=== PATIENT | male | born 1935 | race Caucasian/White ===

== ENCOUNTER 2016-09-18 07:29 | Inpatient (IN) | payer MEDICARE ==
[2016-09-18] MEDS ORDERED: KETOROLAC 60 MG/2 ML VIAL IVP STA (07:45)
[2016-09-18] MEDS ORDERED: SODIUM CHLORIDE 0.9% 500 ML IV STA (07:45)
--- NOTE | 2016-09-18 07:47 | ED ---
General Adult HPI - General Stated complaint: WEAKNESS Time Seen by Provider: 09/18/16 07:30 Source: RN notes reviewed - History of Present Illness Initial comments: This is an 80-year-old male who comes into the emergency department today complaining of generalized weakness in his legs. Patient states he got up to go outside and every step he took he felt as though he was weaker and weaker and eventually he sat himself down slowly because he was unable to hold himself up any longer. Patient denies any focal weakness per patient denies any focal numbness. Patient denies any injury or trauma. Patient denies any headache patient denies any neck pain. Patient denies chest pain palpitations difficulty breathing or shortness of breath. Patient denies abdominal pain. Patient denies any recent history of nausea vomiting or diarrhea. Patient denies any rashes. Patient denies any fever chills or cough. Patient states he 's just been weak. Patient denies any new pain in the knees he states he was has some pain but he does not believe pain was associated with him being weak. - Related Data Home Medications Medication Instructions Recorded Confirmed Allopurinol [Zyloprim] 300 mg PO DAILY 05/01/16 09/18/16 Calcium/Magnesium/Zinc 1 tab PO Q48H 05/01/16 09/18/16 [Qnzfzmn-Nitqbiedn-Luan Tablet] Carvedilol [Coreg] 3.125 mg PO BID 05/01/16 09/18/16 Cholecalciferol [Vitamin D3] 1,000 unit PO DAILY 05/01/16 09/18/16 Cyanocobalamin [Vitamin B-12] 500 mcg PO DAILY 05/01/16 09/18/16 Donepezil [Aricept] 5 mg PO DAILY 05/01/16 09/18/16 Fesoterodine Fumarate [Toviaz] 8 mg PO DAILY 05/01/16 09/18/16 Lisinopril [Zestril] 20 mg PO DAILY 05/01/16 09/18/16 Rociada-3 Fatty Acids [Rociada-3] 1,000 mg PO DAILY 05/01/16 09/18/16 Simvastatin [Zocor] 40 mg PO HS 05/01/16 09/18/16 Vitamin E (Dl,Tocopheryl Acet) 400 unit PO DAILY 05/01/16 09/18/16 [Vitamin E] Aspirin EC [Ecotrin] 162.5 mg PO BID 09/18/16 09/18/16 Furosemide [Lasix] 20 mg PO DAILY 09/18/16 09/18/16 Glucosamine Sulfate 1,000 mg PO DAILY 09/18/16 09/18/16 Potassium Chloride [Klor-Con] 20 meq PO DAILY 09/18/16 09/18/16 Rivaroxaban [Xarelto] 20 mg PO DAILY 09/18/16 09/18/16 Allergies Allergy/AdvReac Type Severity Reaction Status Date / Time Sulfa (Sulfonamide Allergy Unknown Verified 09/18/16 08:35 Antibiotics) Childhood Review of Systems ROS Statement: Those systems with pertinent positive or pertinent negative responses have been documented in the HPI. ROS Other: All systems not noted in ROS Statement are negative. 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 History of Any Multi-Drug Resistant Organisms: None Reported Past Surgical History: Hernia Repair, Orthopedic Surgery, Prostate Surgery, Tonsillectomy Additional Past Surgical History / Comment(s): 2009 colonoscopy, L eye cataract surgery, L eye laser surgery, R eye surgery for retinal detachment-unsuccessful , R inguinal hernia repair x2, prostatectomy due to cancer. Past Anesthesia/Blood Transfusion Reactions: No Reported Reaction Additional Past Anesthesia/Blood Transfusion Reaction / Comment(s): Pt states he has never received blood. Past Psychological History: No Psychological Hx Reported Additional Psychological History / Comment(s): Pt lives alone. He uses a cane prn. He drives. Smoking Status: Former smoker Past Alcohol Use History: Rare Additional Past Alcohol Use History / Comment(s): Pt states he started smoking in college and quit in 1986. Past Drug Use History: None Reported - Past Family History Father Family Medical History: Musculoskeletal Disorder, Neurologic Disorder Additional Family Medical History / Comment(s): Father of parkinson's disease at the age of 72 yrs. Mother Family Medical History: Dementia, Musculoskeletal Disorder, Neurologic Disorder Additional Family Medical History / Comment(s): Mother had polio at the age of 2 yrs and wore braces and used crutches to ambulate. She at the age of 95 yrs from dementia and bowel obstruction. General Exam - General Exam Comments Initial Comments: GENERAL: Patient is well-developed and well-nourished. Patient is nontoxic and well- hydrated and is in no acute distress. ENT: Neck is soft and supple. No significant lymphadenopathy is noted. Oropharynx is clear. Moist mucous membranes. Neck has full range of motion without eliciting any pain. EYES: The sclera were anicteric and conjunctiva were pink and moist. Extraocular movements were intact and pupils were equal round and reactive to light. Eyelids were unremarkable. PULMONARY: Unlabored respirations. Good breath sounds bilaterally. No audible rales rhonchi or wheezing was noted. CARDIOVASCULAR: There is a regular rate and rhythm without any murmurs gallops or rubs. ABDOMEN: Soft and nontender with normal bowel sounds. No palpable organomegaly was noted. There is no palpable pulsatile mass. SKIN: Skin is clear with no lesions or rashes and otherwise unremarkable. NEUROLOGIC: Patient is alert and oriented x3. Cranial nerves II through XII are grossly intact. Motor and sensory are also intact. Normal speech, volume and content. Symmetrical smile. MUSCULOSKELETAL: Normal extremities with adequate strength and full range of motion. No lower extremity swelling or edema. No calf tenderness. LYMPHATICS: No significant lymphadenopathy is noted PSYCHIATRIC: Normal psychiatric evaluation. Normal interpersonal interactions appears functionally intact in deals appropriately with others. No signs of depression. No signs of anxiety. Course Vital Signs 09/18/16 09/18/16 09/18/16 07:30 08:22 09:25 Temperature 96.5 F L 96.8 F L Pulse Rate 64 58 L 57 L Respiratory 18 16 16 Rate Blood Pressure 134/99 160/71 147/67 O2 Sat by Pulse 100 96 97 Oximetry 09/18/16 11:09 Temperature Pulse Rate 58 L Respiratory 16 Rate Blood Pressure 144/64 O2 Sat by Pulse 99 Oximetry Medical Decision Making - Medical Decision Making EKG shows normal sinus rhythm at 60 bpm SC interval 284 QRS is 90 QT intervals 434 QTC is 434. Patient's EKG shows no significant ST segment elevation. There is Q waves in leads II, III, and F aVF. We try to get the patient up and ambulating in the emergency department he was unable to get up on his own and support his weight. X-rays of the back showed no acute injury. Chest x-ray showed no acute injury. CT of the brain showed no acute abnormality. Because the patient's inability to ambulate and the fact that he lives alone we admitted the patient for generalized weakness and left knee pain. - Lab Data Result diagrams: 09/18/16 07:40 09/18/16 07:40 Lab Results 09/18/16 09/18/16 09/18/16 Range/Units 07:40 07:40 07:40 WBC 6.0 (3.8-10.6) k/uL RBC 4.63 (4.30-5.90) m/uL Hgb 13.9 (13.0-17.5) gm/dL Hct 43.0 (39.0-53.0) % MCV 92.9 (80.0-100.0) fL MCH 30.0 (25.0-35.0) pg MCHC 32.3 (31.0-37.0) g/dL RDW 15.4 (11.5-15.5) % Plt Count 228 (150-450) k/uL Neutrophils % 74 % Lymphocytes % 12 % Monocytes % 6 % Eosinophils % 4 % Basophils % 1 % Neutrophils # 4.4 (1.3-7.7) k/uL Lymphocytes # 0.7 L (1.0-4.8) k/uL Monocytes # 0.4 (0-1.0) k/uL Eosinophils # 0.3 (0-0.7) k/uL Basophils # 0.0 (0-0.2) k/uL PT (9.0-12.0) sec INR (<1.1) APTT (22.0-30.0) sec Sodium 144 (137-145) mmol/L Potassium 4.5 (3.5-5.1) mmol/L Chloride 106 (98-107) mmol/L Carbon Dioxide 27 (22-30) mmol/L Anion Gap 11 mmol/L BUN 32 H (9-20) mg/dL Creatinine 1.34 H (0.66-1.25) mg/dL Est GFR (MDRD) Af Amer >60 (>60 ml/min/1.73 sqM) Est GFR (MDRD) Non-Af 51 (>60 ml/min/1.73 sqM) Glucose 86 (74-99) mg/dL Calcium 10.0 (8.4-10.2) mg/dL Magnesium 2.0 (1.6-2.3) mg/dL Total Bilirubin 0.9 (0.2-1.3) mg/dL AST 28 (17-59) U/L ALT 37 (21-72) U/L Alkaline Phosphatase 52 (38-126) U/L Total Creatine Kinase 98 (55-170) U/L CK-MB (CK-2) 1.5 (0.0-2.4) ng/mL CK-MB (CK-2) Rel Index 1.5 Troponin I <0.012 (0.000-0.034) ng/mL Total Protein 7.5 (6.3-8.2) g/dL Albumin 4.4 (3.5-5.0) g/dL Urine Color Urine Appearance (Clear) Urine pH (5.0-8.0) Ur Specific Townsend (1.001-1.035) Urine Protein (Negative) Urine Glucose (UA) (Negative) Urine Ketones (Negative) Urine Blood (Negative) Urine Nitrite (Negative) Urine Bilirubin (Negative) Urine Urobilinogen (<2.0) mg/dL Ur Leukocyte Esterase (Negative) Urine RBC (0-5) /hpf Urine WBC (0-5) /hpf Ur Squamous Epith Cells (0-4) /hpf Urine Bacteria (None) /hpf Urine Mucus (None) /hpf 09/18/16 09/18/16 Range/Units 07:40 08:52 WBC (3.8-10.6) k/uL RBC (4.30-5.90) m/uL Hgb (13.0-17.5) gm/dL Hct (39.0-53.0) % MCV (80.0-100.0) fL MCH (25.0-35.0) pg MCHC (31.0-37.0) g/dL RDW (11.5-15.5) % Plt Count (150-450) k/uL Neutrophils % % Lymphocytes % % Monocytes % % Eosinophils % % Basophils % % Neutrophils # (1.3-7.7) k/uL Lymphocytes # (1.0-4.8) k/uL Monocytes # (0-1.0) k/uL Eosinophils # (0-0.7) k/uL Basophils # (0-0.2) k/uL PT 11.3 (9.0-12.0) sec INR 1.1 (<1.1) APTT 28.5 (22.0-30.0) sec Sodium (137-145) mmol/L Potassium (3.5-5.1) mmol/L Chloride (98-107) mmol/L Carbon Dioxide (22-30) mmol/L Anion Gap mmol/L BUN (9-20) mg/dL Creatinine (0.66-1.25) mg/dL Est GFR (MDRD) Af Amer (>60 ml/min/1.73 sqM) Est GFR (MDRD) Non-Af (>60 ml/min/1.73 sqM) Glucose (74-99) mg/dL Calcium (8.4-10.2) mg/dL Magnesium (1.6-2.3) mg/dL Total Bilirubin (0.2-1.3) mg/dL AST (17-59) U/L ALT (21-72) U/L Alkaline Phosphatase (38-126) U/L Total Creatine Kinase (55-170) U/L CK-MB (CK-2) (0.0-2.4) ng/mL CK-MB (CK-2) Rel Index Troponin I (0.000-0.034) ng/mL Total Protein (6.3-8.2) g/dL Albumin (3.5-5.0) g/dL Urine Color Yellow Urine Appearance Clear (Clear) Urine pH 5.0 (5.0-8.0) Ur Specific Townsend 1.016 (1.001-1.035) Urine Protein 1+ H (Negative) Urine Glucose (UA) Negative (Negative) Urine Ketones Negative (Negative) Urine Blood Negative (Negative) Urine Nitrite Negative (Negative) Urine Bilirubin Negative (Negative) Urine Urobilinogen <2.0 (<2.0) mg/dL Ur Leukocyte Esterase Negative (Negative) Urine RBC 2 (0-5) /hpf Urine WBC 3 (0-5) /hpf Ur Squamous Epith Cells <1 (0-4) /hpf Urine Bacteria Rare H (None) /hpf Urine Mucus Rare H (None) /hpf Disposition Clinical Impression: Generalized weakness, Left knee pain Disposition: ADMITTED IP TO THIS HOSP Time of Disposition: 11:36
[2016-09-18 08:08] LABS: Basophils % (A) 1 %; CH 30.9; CHCM 33.4; Eosinophils # (A) 0.3 k/uL (0-0.7); Eosinophils % (A) 4 %; HDW 3.17; HGB 13.9 gm/dL (13.0-17.5); Luc # (Auto) 0.17; Luc % (Auto) 3; Lymphocytes # (A) 0.7 k/uL (1.0-4.8); Lymphocytes % (A) 12 %; MCHC 32.3 g/dL (31.0-37.0); MCV 92.9 fL (80.0-100.0); Mean Platelet Volume 6.6; Monocytes # (A) 0.4 k/uL (0-1.0); Monocytes % (A) 6 %; Neutrophils # (A) 4.4 k/uL (1.3-7.7); Neutrophils % (A) 74 %; RBC 4.63 m/uL (4.30-5.90); RDW 15.4 % (11.5-15.5); WBC (Perox) 6.16
[2016-09-18 08:21] LABS: INR 1.1 (<1.1); Partial Thromboplastin Time 28.5 sec (22.0-30.0); Prothrombin Time 11.3 sec (9.0-12.0)
[2016-09-18 08:26] LABS: ALT 37 U/L (21-72); AST 28 U/L (17-59); Alkaline Phosphatase 52 U/L (38-126); Anion Gap 11 mmol/L; Blood Urea Nitrogen 32 mg/dL (9-20); Carbon Dioxide 27 mmol/L (22-30); Chloride 106 mmol/L (98-107); Glucose 86 mg/dL (74-99); Non-African American GFR(MDRD) 51 (>60 ml/min/1.73 sqM); Potassium 4.5 mmol/L (3.5-5.1); Sodium 144 mmol/L (137-145); Total Bilirubin 0.9 mg/dL (0.2-1.3); Total Protein 7.5 g/dL (6.3-8.2)
[2016-09-18 08:28] LABS: Creatine Kinase 98 U/L (55-170)
--- NOTE | 2016-09-18 08:38 | XR ---
EXAMINATION TYPE: XR chest 2V DATE OF EXAM: 09/18/2016 8:32 AM COMPARISON: Chest x-ray May 02, 2016. CT chest May 01, 2016. HISTORY: Weakness TECHNIQUE: Frontal and lateral views of the chest are obtained. FINDINGS: Underlying emphysematous changes redemonstrated. There is no focal air space opacity, pleur al effusion, or pneumothorax seen. The cardiac silhouette size is stable and upper limits of normal with atherosclerotic thoracic aorta. Retrocardiac opacity is consistent with herniated abdominal fat into mediastinum posterior to the heart with mass effect on left atrium and esophagus noted. The oss eous structures are intact. IMPRESSION: Chronic changes without acute pulmonary process.
[2016-09-18 08:40] LABS: Creatine Kinase MB 1.5 ng/mL (0.0-2.4); Troponin I <0.012 ng/mL (0.000-0.034)
--- NOTE | 2016-09-18 08:40 | XR ---
EXAMINATION TYPE: XR lumbar spine 2 or 3V DATE OF EXAM: 09/18/2016 8:32 AM CLINICAL HISTORY: Low back pain. TECHNIQUE: Frontal and lateral images of the lumbar spine are obtained. COMPARISON: None FINDINGS: There are 5 lumbar type vertebral bodies identified. The lumbar spine shows satisfactory alignment without evidence of acute fracture or dislocation. Mild disc space narrowing L5-S1 level is seen. Vertebral body heights and disk space heights otherwise are within normal limits. Mild multile wagner anterior and lateral spurring is present. Vascular calcification in the overlying soft tissue is noted. IMPRESSION: Mild multilevel spurring with mild disc space narrowing L5-S1 level.
[2016-09-18 09:05] LABS: Appearance,Urine Clear (Clear); Bacteria,Urine Rare /hpf; Bilirubin,Urine Negative (Negative); Glucose,Urine (UA) Negative (Negative); Ketones,Urine Negative (Negative); Leukocyte Esterase,Urine Negative (Negative); Mucus,Urine Rare /hpf; Nitrite,Urine Negative (Negative); Particle Count 3532; Protein,Urine 1+ (Negative); RBC,Urine 2 /hpf (0-5); Specific Gravity,Urine 1.016 (1.001-1.035); Squamous Epithelial Cell,Urine <1 /hpf (0-4); UA Billing (MACRO vs. MICRO) MICRO; Urobilinogen,Urine <2.0 mg/dL (<2.0); WBC,Urine 3 /hpf (0-5)
--- NOTE | 2016-09-18 10:38 | CT ---
EXAMINATION TYPE: CT brain wo con DATE OF EXAM: 09/18/2016 10:29 AM HISTORY: Fall today with possible head injury CT DLP: 1195 mGycm. Automated Exposure Control for Dose Reduction was Utilized. TECHNIQUE: CT scan of the head is performed without contrast. COMPARISON: MRI brain October 02, 2012. FINDINGS: There is no acute intracranial hemorrhage or midline shift identified. There is diffuse v entricular and sulcal prominence consistent with diffuse age-related cerebral atrophy. Degree of vent ricular dilatation is slightly out of proportion to degree of sulcal effacement and a normal pressure hydrocephalus is not excluded though no significant change in ventricular size is noted from 2013 MR I. There is some areas of low-attenuation in the periventricular white matter consistent with chroni c small vessel ischemic change. There is old area of infarct involving the anterior left temporal lob e near axial image 12 new from prior MRI. Cortical buckle in the right globe is redemonstrated which is elongated. Visualized paranasal sinuses are clear. Narrowing and sclerosis at atlantodental inte rval is incidentally seen. IMPRESSION: No acute intracranial hemorrhage or midline shift. There is moderate to severe diffuse age-related cerebral atrophy and mild chronic small vessel ischemic change redemonstrated felt stable . Possible normal pressure hydrocephalus though stable from 2013 MRI. 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
[2016-09-18] MEDS ORDERED: SODIUM CHLORIDE 0.9% 1,000 ML IV ONE (11:36)
[2016-09-18] MEDS: MULTIVITAMINS, THERA 1 EACH TAB PO SCH (21:05)
[2016-09-18] MEDS: ASPIRIN 81 MG CHEW PO SCH (21:05)
[2016-09-18] MEDS: ATORVASTATIN 20 MG TAB PO SCH (21:05)
[2016-09-18] MEDS: HYDROcodone/APAP 5-325MG 1 EACH TAB PO PRN (21:05)
[2016-09-18] MEDS: CARVEDILOL 3.125 MG TAB PO SCH (21:05)
[2016-09-19] MEDS: HYDROcodone/APAP 5-325MG 1 EACH TAB PO PRN ×2 (04:03→09:59)
[2016-09-19] MEDS ORDERED: NON-FORMULARY DRUG (Omega-3 Fatty Acids [Omega-3] 1,000 MG) PO SCH (09:00)
[2016-09-19] MEDS ORDERED: FUROSEMIDE 20 MG TAB PO SCH (09:00)
[2016-09-19] MEDS ORDERED: GLUCOSAMINE SULFATE 1000 MG PO SCH (09:00)
[2016-09-19] MEDS: CHOLECALCIFEROL 1,000 UNIT TAB PO SCH (09:06)
[2016-09-19] MEDS: CYANOCOBALAMIN 500 MCG TAB PO SCH (09:06)
[2016-09-19] MEDS: POTASSIUM CHLORIDE ER 20 MEQ TAB.ER PO SCH (09:06)
[2016-09-19] MEDS: CARVEDILOL 3.125 MG TAB PO SCH ×2 (09:07→20:14)
[2016-09-19] MEDS: LISINOPRIL 20 MG TAB PO SCH (09:07)
[2016-09-19] MEDS: VITAMIN E (DL,TOCOPHERYL ACET) 400 UNIT CAP PO SCH (09:07)
[2016-09-19] MEDS: DONEPEZIL 5 MG TAB PO SCH (09:07)
[2016-09-19] MEDS: ALLOPURINOL 300 MG TAB PO SCH (09:07)
[2016-09-19] MEDS: OXYBUTYNIN XL 5 MG TAB.ER.24 PO SCH (09:07)
[2016-09-19] MEDS: ASPIRIN 81 MG CHEW PO SCH ×2 (09:07→20:14)
--- NOTE | 2016-09-19 09:10 | CONS ---
DATE OF CONSULTATION: 09/18/2016 CHIEF COMPLAINT: Lower extremity weakness. HISTORY OF PRESENT ILLNESS: Mr. Flores is a pleasant 80-year-old male who is being evaluated by the neurology service per the request of Dr. Michelle for the above-mentioned complaints. The patient was brought into [facility] Emergency Room complaining of weakness in his right lower extremity along with significant radicular type pain from his lumbosacral spine. He denies any new injuries or trauma. He states that he was unable to bear weight on his leg mostly due to the pain. He does have history of recurrent low back pain for several years, but the pain has been worse over the past few months. He denies any bladder retention or incontinence. He is also complaining of severe right knee pain. He has been having knee pain for several years as well. He describes both pain as a sharp pain and he rates it at 8/[address] scan of the brain was done because of his complaint of weakness and no intracranial abnormalities were seen, except for generalized atrophy and small vessel ischemic changes. The report mentions some changes consistent with normal pressure hydrocephalus but he denies any memory loss, urinary incontinence, or chronic gait instability. His CT scan of the brain also showed an old infarct involving the left temporal lobe. The patient is on Xarelto and aspirin at home. An x-ray of the lumbar spine was done for his low back pain and it did show mild disc narrowing at L5-S1. I did review his laboratory work-up, which showed a normal CBC, cardiac enzymes, urinalysis and INR. His comprehensive metabolic profile showed renal insufficiency with a BUN of 32 and creatinine of 1.34. He denies any numbness or tingling. PAST MEDICAL HISTORY: Dyslipidemia, hypertension, arthritis, chronic renal disease, history of prostate cancer with history of prostatectomy, history of aortic aneurysm, history of nephrolithiasis, history of GI bleed, peptic ulcer disease, history of hernia repair, orthopedic surgeries, and tonsillectomy. He also has history of cataract surgery. SOCIAL HISTORY: The patient is a former smoker. He rarely drinks alcohol. He denies any drug use. FAMILY HISTORY: Positive for Parkinson's disease and dementia. HOME MEDICATIONS: Reviewed in the chart. ALLERGIES: SULFA DRUGS. REVIEW OF SYSTEMS: CONSTITUTIONAL: Negative. EYES: Positive for right eye vision loss and reduced acuity in the left eye. ENT: Negative. CARDIOVASCULAR: Negative. RESPIRATORY: Negative. NEUROLOGICAL: As mentioned above. GASTROINTESTINAL: Positive for occasional heartburn. GENITOURINARY: Negative. MUSCULOSKELETAL: As mentioned above. DERMATOLOGICAL: Negative. ENDOCRINE: Negative. PSYCHIATRIC: Negative. PHYSICAL EXAM: Vital signs show a temperature of 98.3, pulse 64, respirations 18, blood pressure 114/60. GENERAL APPEARANCE: The patient is a mildly obese, elderly male who appears to be in mild distress due to pain. HEENT: Normocephalic, atraumatic. No facial asymmetry is seen. Neck is supple with no masses felt. CARDIOVASCULAR: Regular rate and rhythm. ABDOMEN: Nontender, nondistended. EXTREMITIES: No edema or clubbing. NEUROLOGICAL EXAM: The patient is alert, aware, and oriented x3. Speech and language are normal. Strength is 5-/5 in the right lower extremity and 5/5 elsewhere. Straight leg raise sign was positive on the right lower extremity. Sensory exam was normal to light touch in all 4 extremities. No facial asymmetry is seen on cranial nerve testing. There is vision loss on the right. No tremors or seizure-like activity is seen. IMPRESSION: 1. Intractable low back pain. 2. Right lower extremity radicular pain. 3. Suspected lumbosacral spine disc herniation. 4. Severe right knee pain, likely arthritic in etiology. 5. Chronic renal insufficiency. RECOMMENDATIONS: The patient's right lower extremity is not felt to be due to any intracranial etiologies. Although he is complaining of significant weakness in the right lower extremity, the weakness was minimal on my examination. His presumed weakness is likely due to the severity of the radicular pain. NSAID therapy is not recommended due to his renal function. Continue Whitman as needed. I did review his x-ray of the lumbar spine which failed to show any acute abnormalities. I will order an MRI of the lumbosacral spine as I do suspect an acute disc herniation. Physical therapy has been consulted. As for his CT scan of the brain finding of an old infarct involving the left temporal lobe, the patient is already on Xarelto and aspirin. Regarding his radiological findings that are consistent with normal pressure hydrocephalus, the patient is not exhibiting any symptoms concerning for this. I will continue to follow with you. Further recommendations to follow. Thank you for allowing me to participate in the care of your patient. If you have any questions, please feel free to contact me.
[2016-09-19 10:07] LABS: ALT 29 U/L (21-72); AST 21 U/L (17-59); Alkaline Phosphatase 41 U/L (38-126); Anion Gap 9 mmol/L; Blood Urea Nitrogen 29 mg/dL (9-20); Calcium 9.4 mg/dL (8.4-10.2); Carbon Dioxide 28 mmol/L (22-30); Chloride 107 mmol/L (98-107); Glucose 89 mg/dL (74-99); Non-African American GFR(MDRD) >60 (>60 ml/min/1.73 sqM); Potassium 4.9 mmol/L (3.5-5.1); Sodium 144 mmol/L (137-145); Total Bilirubin 0.8 mg/dL (0.2-1.3); Total Protein 6.3 g/dL (6.3-8.2)
[2016-09-19 10:08] LABS: Basophils % (A) 0 %; CH 31.2; CHCM 33.5; Eosinophils # (A) 0.3 k/uL (0-0.7); Eosinophils % (A) 4 %; HDW 3.22; HGB 13.1 gm/dL (13.0-17.5); Luc # (Auto) 0.27; Luc % (Auto) 4; Lymphocytes % (A) 16 %; MCH 30.8 pg (25.0-35.0); MCHC 32.8 g/dL (31.0-37.0); Mean Platelet Volume 7.4; Monocytes # (A) 0.3 k/uL (0-1.0); Monocytes % (A) 5 %; Neutrophils # (A) 4.5 k/uL (1.3-7.7); Neutrophils % (A) 71 %; RBC 4.25 m/uL (4.30-5.90); RDW 15.3 % (11.5-15.5); WBC 6.4 k/uL (3.8-10.6); WBC (Perox) 6.66
--- NOTE | 2016-09-19 10:15 | P.HPIM ---
History of Present Illness H&P Date: 09/19/16 Chief Complaint: Bilateral leg weakness with fall This is a 80-year-old male, patient of Dr. Ramírez. He has a known past medical history of pulmonary embolus, hyperlipidemia and hypertension. Patient is on Xarelto for his PE. Patient reports yesterday he is walking from the yard to his car and both legs gave out. He felt that his legs are very weak. He has been having pains in the right knee and right hip. He had no loss of consciousness. He did not hit his head. A neighbor called EMS and he was brought into the hospital for further evaluation and treatment. EKG had shown a normal sinus rhythm with inferior infarct age undetermined. Troponin is negative. X-ray of the lumbar spine showed multilevel spurring and mild disc space narrowing of L5 to S1. He is on [place] for pain control. He had been taking Motrin 200 mg about once a day for his chronic pains. Neurology has been consulted. They have ordered a MRI of the lumbar spine due to concerns of herniated disc. Patient denies any chest pain, shortness of breath, nausea or vomiting. Denies any burning with urination denies any bladder incontinence. Denies any bowel movement changes. Denies any fevers chills or sweats. Patient uses a cane to ambulate. He did have a fall couple weeks ago in the bathtub hitting his right hip. She was also found to have acute kidney injury. Creatinine 1.34. Lasix on hold. And patient is receiving IV fluids. 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 History of Any Multi-Drug Resistant Organisms: None Reported Past Surgical History: Hernia Repair, Orthopedic Surgery, Prostate Surgery, Tonsillectomy Additional Past Surgical History / Comment(s): 2009 colonoscopy, L eye cataract surgery, L eye laser surgery, R eye surgery for retinal detachment-unsuccessful , R inguinal hernia repair x2, prostatectomy due to cancer. Past Anesthesia/Blood Transfusion Reactions: No Reported Reaction Additional Past Anesthesia/Blood Transfusion Reaction / Comment(s): Pt states he has never received blood. Past Psychological History: No Psychological Hx Reported Additional Psychological History / Comment(s): Pt lives alone. He uses a cane prn. He drives. Smoking Status: Former smoker Past Alcohol Use History: Rare Additional Past Alcohol Use History / Comment(s): Pt states he started smoking in college and quit in 1986. Past Drug Use History: None Reported - Past Family History Father Family Medical History: Musculoskeletal Disorder, Neurologic Disorder Additional Family Medical History / Comment(s): Father of parkinson's disease at the age of 72 yrs. Mother Family Medical History: Dementia, Musculoskeletal Disorder, Neurologic Disorder Additional Family Medical History / Comment(s): Mother had polio at the age of 2 yrs and wore braces and used crutches to ambulate. She at the age of 95 yrs from dementia and bowel obstruction. Medications and Allergies Home Medications Medication Instructions Recorded Confirmed Type Allopurinol [Zyloprim] 300 mg PO DAILY 05/01/16 09/18/16 History Calcium/Magnesium/Zinc 1 tab PO Q48H 05/01/16 09/18/16 History [Zazpryg-Ujnkmbpnc-Cclf Tablet] Carvedilol [Coreg] 3.125 mg PO BID 05/01/16 09/18/16 History Cholecalciferol [Vitamin D3] 1,000 unit PO DAILY 05/01/16 09/18/16 History Cyanocobalamin [Vitamin B-12] 500 mcg PO DAILY 05/01/16 09/18/16 History Donepezil [Aricept] 5 mg PO DAILY 05/01/16 09/18/16 History Fesoterodine Fumarate [Toviaz] 8 mg PO DAILY 05/01/16 09/18/16 History Lisinopril [Zestril] 20 mg PO DAILY 05/01/16 09/18/16 History Washington-3 Fatty Acids [Washington-3] 1,000 mg PO DAILY 05/01/16 09/18/16 History Simvastatin [Zocor] 40 mg PO HS 05/01/16 09/18/16 History Vitamin E (Dl,Tocopheryl Acet) 400 unit PO DAILY 05/01/16 09/18/16 History [Vitamin E] Aspirin EC [Ecotrin] 162.5 mg PO BID 09/18/16 09/18/16 History Furosemide [Lasix] 20 mg PO DAILY 09/18/16 09/18/16 History Glucosamine Sulfate 1,000 mg PO DAILY 09/18/16 09/18/16 History Potassium Chloride [Klor-Con] 20 meq PO DAILY 09/18/16 09/18/16 History Rivaroxaban [Xarelto] 20 mg PO DAILY 09/18/16 09/18/16 History Allergies Allergy/AdvReac Type Severity Reaction Status Date / Time Sulfa (Sulfonamide Allergy Unknown Verified 09/18/16 08:35 Antibiotics) Childhood Physical Exam Vitals: Vital Signs Temp Pulse Pulse Resp BP BP Pulse Ox 09/19/16 08:00 97.5 F L 52 L 18 156/68 98 09/19/16 04:00 98.2 F 63 16 153/74 96 09/19/16 00:00 18 09/18/16 20:00 18 09/18/16 18:33 64 114/60 09/18/16 16:00 98.3 F 74 18 186/95 97 09/18/16 12:30 97.5 F L 65 18 140/79 96 09/18/16 12:12 65 16 140/63 98 Intake and Output 09/18/16 09/19/16 09/19/16 22:59 06:59 14:59 Intake Total 480 Output Total 100 600 Balance 380 -600 Intake: Oral 480 Output: Urine 100 600 Other: Voiding Method Urinal Urinal # Voids 1 1 Head normocephalic Neck supple Lungs clear to auscultation bilaterally no wheezing or crackles Heart regular rate and rhythm S1-S2, no rub or gallop Abdomen is soft nontender nondistended positive bowel sounds no hepatosplenomegaly Extremities no edema. Patient has swelling in the right knee. No discoloration. Tender with palpation and range of motion. Also pain in the right hip. Patient has difficulty with straight leg raise on the right. Neuro alert and orientated to 3. Lower extremity strength appears to be equal bilaterally. No slurred speech or facial droop. Results CBC & Chem 7: 09/18/16 07:40 09/18/16 07:40 Thrombosis Risk Factor Assmnt - Choose All That Apply Any of the Below Risk Factors Present?: Yes Each Factor Represents 1 point: Obesity (BMI >25) Other Risk Factors: Yes Each Risk Factor Represents 2 Points: Malignancy Each Risk Factor Represents 3 Points: Age 75 years or older, History of DVT/PE Other congenital or acquired thrombophilia - If yes, enter type in comment: No Thrombosis Risk Factor Assessment Total Risk Factor Score: 9 Thrombosis Risk Factor Assessment Level: High Risk Assessment and Plan Plan: 1. Bilateral lower extremity weakness with falling. Evaluated by neurology. Computed tomography scan of the brain showing no acute intracranial hemorrhage or midline shift. Patient had an x-ray of the lumbar spine showing mild multilevel spurring and mild disc space narrowing of L5 to S1. There are concerns for of lumbosacral spine disc herniation. Neurology has ordered a MRI of lumbar spine. Continue [place] for pain control 2. Right hip and knee pain Will order x-ray 3. Acute kidney injury: Creatinine 1.34 on admission. Repeat labs this morning. Hold Lasix. Continue with normal saline at 50 mL an hour. Avoid NSAIDs. 4. History of bilateral PE and lower extremity DVT. Continue with the Xarelto 5. Hyperlipidemia continue Lipitor 6. Essential hypertension continue the Corag and lisinopril 7. Dementia continue the Aricept GI prophylaxis Pepcid and DVT prophylaxis Xarelto Time with Patient: Greater than 30 (Greater than 50% of the total time spent in counseling and coordination of care.I performed an examination of the patient and discussed their management with the physician [employer]. I have reviewed the Physician [employer]'s notes and agree with the documented findings and plan of care)
[2016-09-19] MEDS ORDERED: SODIUM CHLORIDE 0.9% 1,000 ML IV SCH (10:30)
[2016-09-19] MEDS: FAMOTIDINE 20 MG TAB PO SCH (12:29)
--- NOTE | 2016-09-19 14:01 | P.PN ---
Subjective Principal diagnosis: Lower extremity weakness and pain This 89-year-old male continue be evaluated by the neurology service. She was brought in complaining of weakness in his right lower extremity. He denies any recent injury or trauma other than I fall a couple weeks ago onto his right hip. He did not seek medical attention for this. He does have a history of intermittent low back pain over several years. He continues to deny bladder or bowel incontinence. He continues to have severe right knee and hip pain. There is no continued weakness. Initial CT of the brain was done and there were no intracranial abnormalities. There was some generalized atrophy and small vessel ischemic changes. It was also mentioned that there were changes that might be consistent with normal pressure hydrocephalus. He has no symptoms consistent with this. 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 X-ray lumbar spine showed mild disc narrowing at L5-S1. At the time my exam he is resting comfortably laying on his right side in bed. Objective - Vital Signs Vital signs: Vital Signs Temp 97.5 F L 09/19/16 08:00 Pulse 52 L 09/19/16 08:00 Resp 18 09/19/16 08:00 BP 156/68 09/19/16 08:00 Pulse Ox 98 09/19/16 08:00 Intake & Output 09/18/16 09/19/16 09/19/16 18:59 06:59 18:59 Intake Total 480 960 Output Total 100 600 Balance 380 360 Weight 105 kg Intake: Oral 480 960 Output: Urine 100 600 Other: Voiding Method Urinal Urinal Urinal # Voids 1 1 - Constitutional General appearance: Present: average body habitus, mild distress - EENT Eyes: Present: EOMI, PERRLA. Absent: abnormal pupil, ptosis ENT: Present: hearing grossly normal - Neck Neck: Present: normal ROM. Absent: rigidity - Respiratory Respiratory: negative: prolonged expiration, prolonged inspiration - Cardiovascular Rhythm: regular - Gastrointestinal General gastrointestinal: Absent: distended, tenderness - Neurologic Neurologic Comment(s): Patient is alert awake and oriented 3. Speech-language are normal. There is no facial asymmetry. Strength continues to be 5 minus out of 5 right lower extremity but this is felt to be secondary to pain in the knee and hip. There is no sensory disturbance straight leg raise is mildly positive on the right. He continues to have vision loss on the right which is chronic. No tremors or seizure-like activities are seen. - Labs CBC & Chem 7: 09/19/16 09:30 09/19/16 09:30 Labs: Abnormal Lab Results - Last 24 Hours (Table) 09/19/16 09/19/16 Range/Units 09:30 09:30 RBC 4.25 L (4.30-5.90) m/uL BUN 29 H (9-20) mg/dL Assessment and Plan (1) Disc displacement, lumbar Status: Suspected (2) Right knee pain Status: Chronic (3) Right hip pain Status: Chronic (4) Gout Status: Chronic (5) Right leg pain Status: Acute (6) Left knee pain Status: Acute Plan: Again we do not feel that his right lower extremity symptoms are due to any intracranial etiology. The subjective weakness is likely secondary to pain in the hip and knee. We are waiting MRI lumbar spine to rule out acute disc herniation. Or so has been called to evaluate his right knee and hip pain consideration should be given to an acute on chronic gout attack. He does have a large effusion of the right knee. He will continue Xarelto on aspirin. This is appropriate given his finding of old infarct on CT of the brain. He continues to be asymptomatic for normal pressure hydrocephalus. We will continue to follow and make recommendations based on the above studies. Continue [place] as prescribed for pain control as needed. I have performed a history and physical on the above patient. I have reviewed the above note, and agree.
--- NOTE | 2016-09-19 16:15 | XR ---
EXAMINATION TYPE: 2 views right hip. 3 views right knee. DATE OF EXAM: 09/19/2016 4:00 PM COMPARISON: NONE HISTORY: 80-year-old male with a pain and swelling at the right hip and knee. FINDINGS: Right hip: There is mild circumferential narrowing of hip joint space. Some marginal spurring is present as well as subchondral sclerosis along the acetabular roof and subchondral cystic change along the weightbea ring aspect of the femoral head. No acute fracture or dislocation. Right knee: There is a bar are tight patella which can become symptomatic in some patients. In addition, there is tricompartmental degenerative change with at least moderate narrowing of cartilage and joint space i n the medial compartment with subchondral sclerosis and marginal spurring. Irregularity of the subcho ndral bone along the patellar articular surface is also noted. There is underlying mild to moderate k nee joint effusion suggested. Extensor mechanism appears intact. Extensive vascular calcifications no chetan in the popliteal artery. No acute fracture or dislocation seen. IMPRESSION: 1. Right hip: Mild right hip osteoarthrosis without acute osseous abnormality seen. 2. Right knee: Tricompartmental osteoarthrosis at least moderate, probably moderate to severe within the medial and patellofemoral compartments. 3. 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 4. Right knee: Small to moderate knee joint effusion is nonspecific. No acute osseous abnormality see n.
--- NOTE | 2016-09-19 17:20 | MR ---
EXAMINATION TYPE: MR lumbar spine wo con DATE OF EXAM: 09/19/2016 5:08 PM COMPARISON: NONE HISTORY: Right leg pain and weakness TECHNIQUE: Multiplanar, multisequence images of the lumbar spine were acquired. Lumbar vertebra have fairly normal alignment. There is a few millimeter anterior subluxation of L5 in relation to S1. There is a small posterior disc herniation at L5-S1. There is small posterior disc b ulging at L2-3 and L4-5. There is hypertrophic facet arthropathy and lateral recess stenosis at L4-5 and L5-S1. This appears worse at L5-S1. There is narrowing of the right-sided neural foramen at L5-S1 compared to the left. The posterior elements appear intact. There is no paraspinal mass. Sacroiliac joints appear normal. There are multiple cysts on both kidneys that are large and consistent with bere ycystic disease. IMPRESSION: Multilevel spondylosis. There is mild degenerative first degree L4-5 spondylolisthesis. There is some lateral recess stenosis and neural foraminal impingement on the right side more than the left at L5- S1.
[2016-09-19] MEDS: RIVAROXABAN 10 MG TAB PO SCH (18:02)
--- NOTE | 2016-09-19 19:11 | P.PN ---
Progress Note - Text Patient unavailable for inpatient consultation today. Will attempt to see tomorrow.
[2016-09-19] MEDS: ATORVASTATIN 20 MG TAB PO SCH (20:14)
[2016-09-20] MEDS: HYDROcodone/APAP 5-325MG 1 EACH TAB PO PRN ×3 (01:15→18:48)
--- NOTE | 2016-09-20 06:36 | P.CONS ---
History of Present Illness - Chief Complaint Walking difficulty - History of Present Illness Had the opportunity to see patient for inpatient rehab consultation with regard to walking difficulty. He was admitted to [facility] September 18 history of leg weakness and falls and right hip and knee pain. X-ray the right knee demonstrated moderate osteoarthritis, bipartite patella and joint effusion. X- ray of the hip demonstrated mild OA. Chest x-ray with chronic change. Lumbar x -ray with diffuse spurs as well as DDD at L5. Lumbar MRI done yesterday demonstrates L2 bulge L5 herniation. DDD 04, 5 lateral recess stenosis at both levels, most at L5. PT and OT prescribed. Previous functional history, as elicited from patient: 80-year-old right-handed white male who is single lives in one floor home alone, cats. History smoking or mode past. Rare drink. Describes independent with simple cooking, laundry, driving, tub bath, gait with standard cane. Dr. Ramírez his regular doctor. Family history of Parkinson in father and polio in mother. Review of Systems Review of systems: ENT: Denies sneezes or discharge. Eyes: Denies discharge or photophobia. Cardiac: Denies chest pain or palpitation. Pulmonary: Denies cough or shortness of breath. Gastrointestinal: Denies nausea, emesis, constipation, diarrhea. Genitourinary: Denies discharge or frequency. Musculoskeletal: Pain in right leg especially from hip to knee. Neurologic: Denies motor or sensory change. Endocrine: Denies shakes or sweats. Oncology: Denies cancers. Dermatologic: Denies rash, itching, pruritus. ALLERGY/immunology: Denies sneezes, rashes. 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 History of Any Multi-Drug Resistant Organisms: None Reported Past Surgical History: Hernia Repair, Orthopedic Surgery, Prostate Surgery, Tonsillectomy Additional Past Surgical History / Comment(s): 2009 colonoscopy, L eye cataract surgery, L eye laser surgery, R eye surgery for retinal detachment-unsuccessful , R inguinal hernia repair x2, prostatectomy due to cancer. Past Anesthesia/Blood Transfusion Reactions: No Reported Reaction Additional Past Anesthesia/Blood Transfusion Reaction / Comm: Pt states he has never received blood. Past Psychological History: No Psychological Hx Reported Additional Psychological History / Comment(s): Pt lives alone. He uses a cane prn. He drives. Smoking Status: Former smoker Past Alcohol Use History: Rare Additional Past Alcohol Use History / Comment(s): Pt states he started smoking in college and quit in 1986. Past Drug Use History: None Reported - Past Family History Father Family Medical History: Musculoskeletal Disorder, Neurologic Disorder Additional Family Medical History / Comment(s): Father of parkinson's disease at the age of 72 yrs. Mother Family Medical History: Dementia, Musculoskeletal Disorder, Neurologic Disorder Additional Family Medical History / Comment(s): Mother had polio at the age of 2 yrs and wore braces and used crutches to ambulate. She at the age of 95 yrs from dementia and bowel obstruction. Medications and Allergies Home Medications Medication Instructions Recorded Confirmed Type Allopurinol [Zyloprim] 300 mg PO DAILY 05/01/16 09/18/16 History Calcium/Magnesium/Zinc 1 tab PO Q48H 05/01/16 09/18/16 History [Porcryi-Fykftnrhb-Wcxu Tablet] Carvedilol [Coreg] 3.125 mg PO BID 05/01/16 09/18/16 History Cholecalciferol [Vitamin D3] 1,000 unit PO DAILY 05/01/16 09/18/16 History Cyanocobalamin [Vitamin B-12] 500 mcg PO DAILY 05/01/16 09/18/16 History Donepezil [Aricept] 5 mg PO DAILY 05/01/16 09/18/16 History Fesoterodine Fumarate [Toviaz] 8 mg PO DAILY 05/01/16 09/18/16 History Lisinopril [Zestril] 20 mg PO DAILY 05/01/16 09/18/16 History Jerome-3 Fatty Acids [Jerome-3] 1,000 mg PO DAILY 05/01/16 09/18/16 History Simvastatin [Zocor] 40 mg PO HS 05/01/16 09/18/16 History Vitamin E (Dl,Tocopheryl Acet) 400 unit PO DAILY 05/01/16 09/18/16 History [Vitamin E] Aspirin EC [Ecotrin] 162.5 mg PO BID 09/18/16 09/18/16 History Furosemide [Lasix] 20 mg PO DAILY 09/18/16 09/18/16 History Glucosamine Sulfate 1,000 mg PO DAILY 09/18/16 09/18/16 History Potassium Chloride [Klor-Con] 20 meq PO DAILY 09/18/16 09/18/16 History Rivaroxaban [Xarelto] 20 mg PO DAILY 09/18/16 09/18/16 History Allergies Allergy/AdvReac Type Severity Reaction Status Date / Time Sulfa (Sulfonamide Allergy Unknown Verified 09/18/16 08:35 Antibiotics) Childhood Physical Exam Vitals: Vital Signs Temp Pulse Resp BP Pulse Ox 09/20/16 04:00 97.9 F 55 L 16 161/77 98 09/20/16 03:58 16 09/19/16 23:49 16 09/19/16 20:00 16 09/19/16 19:37 97.8 F 56 L 16 119/62 97 09/19/16 15:58 97.7 F 53 L 18 103/62 97 09/19/16 08:00 97.5 F L 52 L 18 156/68 98 Intake and Output 09/19/16 09/19/16 09/20/16 14:59 22:59 06:59 Intake Total 960 480 Output Total 600 350 Balance 360 130 Intake: Oral 960 480 Output: Urine 600 350 Other: Voiding Method Urinal Urinal Urinal # Voids 1 1 Skin: Good color, texture, turgor. General: Medium build and comfortable appearance. Head: Normocephalic, atraumatic. Eyes: Symmetric. Pupils equal round. Ears: Symmetric. Hearing within normal limits. Mouth: Clear. Neck: Supple. Carotid without bruit. Cardiac: Regular rate and rhythm. Lungs: Clear anteriorly and posteriorly. Abdomen: Soft active nontender. Extremities: Normal tone. Neurological: Mental status: Alert, cooperative, pleasant. Cranial nerves: Symmetric facial tone and trapezius. Motor: Actively elevates all limbs off of bed including right leg. Sensation: Intact throughout. DTRs: Symmetric and equal throughout. Mobility: Reports much discomfort and right hip, knee and leg so did not attempt to sit or stand this a.m.. Results CBC & Chem 7: 09/19/16 09:30 09/19/16 09:30 Labs: Abnormal Lab Results - Last 24 Hours (Table) 09/19/16 09/19/16 Range/Units 09:30 09:30 RBC 4.25 L (4.30-5.90) m/uL BUN 29 H (9-20) mg/dL Chest x-ray: report reviewed (Chronic changes.) Assessment and Plan (1) Right leg pain Status: Acute Plan: Impression: 1. Walking difficulty. 2. Pain in right leg including hip and knee. 3. 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 4. Dementia. 5. Jazz arthritis. 6. Hypertension. 7. Hyperlipidemia. 8. History of DVT, PE, GI bleed, cancer Comments and plan: At this time PT and OT ordered. Safety concerns anticipated. Suspect patient's pain problem is originating and back with associated radiculopathies and of course complicated by arthritic changes in hips and knees. Will follow with yourself.
[2016-09-20 08:16] LABS: Basophils % (A) 1 %; CH 30.8; CHCM 32.7; Eosinophils # (A) 0.3 k/uL (0-0.7); Eosinophils % (A) 5 %; HCT 42.5 % (39.0-53.0); HDW 3.14; HGB 13.4 gm/dL (13.0-17.5); Luc # (Auto) 0.19; Luc % (Auto) 3; Lymphocytes # (A) 1.1 k/uL (1.0-4.8); Lymphocytes % (A) 18 %; MCH 29.9 pg (25.0-35.0); MCHC 31.6 g/dL (31.0-37.0); MCV 94.5 fL (80.0-100.0); Mean Platelet Volume 6.5; Monocytes # (A) 0.3 k/uL (0-1.0); Monocytes % (A) 6 %; Neutrophils % (A) 68 %; WBC (Perox) 6.12
[2016-09-20] MEDS: CARVEDILOL 3.125 MG TAB PO SCH ×2 (08:25→17:50)
[2016-09-20] MEDS: OXYBUTYNIN XL 5 MG TAB.ER.24 PO SCH (08:25)
[2016-09-20] MEDS: LISINOPRIL 20 MG TAB PO SCH (08:25)
[2016-09-20] MEDS: CHOLECALCIFEROL 1,000 UNIT TAB PO SCH (08:26)
[2016-09-20] MEDS: DONEPEZIL 5 MG TAB PO SCH (08:26)
[2016-09-20] MEDS: CYANOCOBALAMIN 500 MCG TAB PO SCH (08:26)
[2016-09-20] MEDS: ALLOPURINOL 300 MG TAB PO SCH (08:26)
[2016-09-20] MEDS: ASPIRIN 81 MG CHEW PO SCH ×2 (08:26→19:59)
[2016-09-20] MEDS: FAMOTIDINE 20 MG TAB PO SCH (08:27)
[2016-09-20] MEDS: VITAMIN E (DL,TOCOPHERYL ACET) 400 UNIT CAP PO SCH (08:27)
[2016-09-20] MEDS: POTASSIUM CHLORIDE ER 20 MEQ TAB.ER PO SCH (08:27)
[2016-09-20 08:35] LABS: ALT 26 U/L (21-72); AST 28 U/L (17-59); Alkaline Phosphatase 41 U/L (38-126); Anion Gap 10 mmol/L; Blood Urea Nitrogen 29 mg/dL (9-20); Calcium 9.3 mg/dL (8.4-10.2); Carbon Dioxide 24 mmol/L (22-30); Chloride 107 mmol/L (98-107); Glucose 96 mg/dL (74-99); Non-African American GFR(MDRD) >60 (>60 ml/min/1.73 sqM); Potassium 4.8 mmol/L (3.5-5.1); Sodium 141 mmol/L (137-145); Total Bilirubin 0.8 mg/dL (0.2-1.3); Total Protein 6.7 g/dL (6.3-8.2)
[2016-09-20] MEDS ORDERED: methylPREDNISolone ACETATE 40 MG/ML 1 ML VIAL INTRAARTIC STA (08:39)
[2016-09-20] MEDS ORDERED: LIDOCAINE (PF) 10 MG/ML 2 ML VIAL SQ ONE (09:00)
--- NOTE | 2016-09-20 11:27 | P.CNOR ---
History of Present Illness - [facility] Consult date: 09/20/16 Consult reason: joint pain History of present illness: This is an 80-year-old male who was seen and examined today at bedside in the observation unit. Patient was brought to the hospital on 09/18/2016 by EMS after sustaining a fall at his home. Patient describes that he was walking from his garage to the house when he fell both legs give out and he went down. A neighbor was available to assist and contacted EMS who brought minimal [facility] emergency room. The patient has a history of recent falls, the last one being a few weeks ago where he fell in his bathtub hitting his right hip region. Patient also has a significant medical history of bilateral pulmonary embolisms, and is being treated with Xarelto 20 mg once a day. The PEs were diagnosed back in April 2016. Patient was admitted to the observation unit under internal medicine, and neurology was consult with regards to the lower extremity weakness and has ordered multiple imaging test. MRIs have demonstrated disc bulging and herniations had an area in the lumbar spine, it sounds like orthopedic spine surgery has also been consulted. We will reconsult with regards to the right knee pain. Patient denies any previous surgery of the right knee. Imaging test of the right knee and right hip are obtained. These were negative for any acute fractures or dislocations. Patient states he's had increasing pain in the right knee and right hip region over the last few weeks. He admits that he has seen Dr. Chung in [place] with regards to the arthritis in his knee. Patient is also had the Visco supplementation injections on the right knee by his primary care doctor. 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 History of Any Multi-Drug Resistant Organisms: None Reported Past Surgical History: Hernia Repair, Orthopedic Surgery, Prostate Surgery, Tonsillectomy Additional Past Surgical History / Comment(s): 2009 colonoscopy, L eye cataract surgery, L eye laser surgery, R eye surgery for retinal detachment-unsuccessful , R inguinal hernia repair x2, prostatectomy due to cancer. Past Anesthesia/Blood Transfusion Reactions: No Reported Reaction Additional Past Anesthesia/Blood Transfusion Reaction / Comm: Pt states he has never received blood. Past Psychological History: No Psychological Hx Reported Additional Psychological History / Comment(s): Pt lives alone. He uses a cane prn. He drives. Smoking Status: Former smoker Past Alcohol Use History: Rare Additional Past Alcohol Use History / Comment(s): Pt states he started smoking in college and quit in 1986. Past Drug Use History: None Reported - Past Family History Father Family Medical History: Musculoskeletal Disorder, Neurologic Disorder Additional Family Medical History / Comment(s): Father of parkinson's disease at the age of 72 yrs. Mother Family Medical History: Dementia, Musculoskeletal Disorder, Neurologic Disorder Additional Family Medical History / Comment(s): Mother had polio at the age of 2 yrs and wore braces and used crutches to ambulate. She at the age of 95 yrs from dementia and bowel obstruction. Medications and Allergies Home Medications Medication Instructions Recorded Confirmed Type Allopurinol [Zyloprim] 300 mg PO DAILY 05/01/16 09/18/16 History Calcium/Magnesium/Zinc 1 tab PO Q48H 05/01/16 09/18/16 History [Vnarixb-Lkxpxkkpi-Qlkq Tablet] Carvedilol [Coreg] 3.125 mg PO BID 05/01/16 09/18/16 History Cholecalciferol [Vitamin D3] 1,000 unit PO DAILY 05/01/16 09/18/16 History Cyanocobalamin [Vitamin B-12] 500 mcg PO DAILY 05/01/16 09/18/16 History Donepezil [Aricept] 5 mg PO DAILY 05/01/16 09/18/16 History Fesoterodine Fumarate [Toviaz] 8 mg PO DAILY 05/01/16 09/18/16 History Lisinopril [Zestril] 20 mg PO DAILY 05/01/16 09/18/16 History Derby-3 Fatty Acids [Derby-3] 1,000 mg PO DAILY 05/01/16 09/18/16 History Simvastatin [Zocor] 40 mg PO HS 05/01/16 09/18/16 History Vitamin E (Dl,Tocopheryl Acet) 400 unit PO DAILY 05/01/16 09/18/16 History [Vitamin E] Aspirin EC [Ecotrin] 162.5 mg PO BID 09/18/16 09/18/16 History Furosemide [Lasix] 20 mg PO DAILY 09/18/16 09/18/16 History Glucosamine Sulfate 1,000 mg PO DAILY 09/18/16 09/18/16 History Potassium Chloride [Klor-Con] 20 meq PO DAILY 09/18/16 09/18/16 History Rivaroxaban [Xarelto] 20 mg PO DAILY 09/18/16 09/18/16 History Allergies Allergy/AdvReac Type Severity Reaction Status Date / Time Sulfa (Sulfonamide Allergy Unknown Verified 09/18/16 08:35 Antibiotics) Childhood Physical Examination Right lower extremity: Exam of the right knee, there is no obvious open lesions present. There is no obvious erythema. The skin is normal temp 1 palpated. There is an obvious effusion present over the proximal anterior aspect. His range of motion is very limited both active and assisted with regards to extension and flexion. He 's tender with palpation more along the medial joint line. Sensory exam to light touch throughout the right lower extremity is intact. Plantar flexion, dorsiflexion, EHL, FHL are intact. His dorsal pedis pulses 2+ Logroll maneuver of the right hip reproduces no pain. He is able to straight leg raise. He is nontender with palpation of the greater trochanter. He explains and points to the discomfort in the right hip region, this is more posterior in the buttock region. Results - Labs Labs: Abnormal Lab Results - Last 24 Hours (Table) 09/20/16 Range/Units 07:41 BUN 29 H (9-20) mg/dL H & H 09/19/16 09/20/16 Range/Units 09:30 07:44 Hgb 13.1 13.4 (13.0-17.5) gm/dL Hct 40.0 42.5 (39.0-53.0) % Result Diagrams: 09/20/16 07:44 09/20/16 07:41 - Diagnostic results Hip x-ray: report reviewed, image reviewed Knee x-ray: report reviewed, image reviewed Assessment and Plan Plan: Imaging: I was able to review images of both the right knee and right hip. Images were negative for any acute fractures or dislocations. Minimal arthritic changes present in the right hip with loss of joint space and sclerosis noted. Severe arthritic changes noted throughout the right knee, mainly of the medial joint space and patellofemoral joint. There is translation of both the medial and lateral femoral condyles. Obvious varus deformity present. Assessment: 1. Right knee pain 2. Right knee hemarthrosis 3. Severe right knee osteoarthritis Plan: 1. With regards to the knee, I explained to the patient that the swelling is likely due to the amount of arthritis in the patient's knee along with his most recent fall. I would like to proceed with an aspiration along with intra- articular steroid injection for symptomatically. Risk and benefits of the procedure with the patient, including need for subsequent aspirations, pain and stiffness. Patient is in good understanding would like to proceed, please see procedure note for further detail. 2. With regards to the hip pain, he does have mild arthritis in the hip, pain in the posterior region is likely due to the lumbar issues that are being addressed 3. Neurology recommendations 4. Orthopedic spine recommendations 5. Medical recommendations 6. Gen. orthopedic standpoint, patient was advised to ice and elevate along with anti-inflammatories for symptomatic relief. Patient should benefit from a total knee replacement, pending his medical clearances. I advised the patient he may follow up with our practice the outpatient setting on an as-needed basis. Procedure: Patient was placed in supine position, the knee was sterilely prepped with a Betadine swab and alcohol swab. A 20-gauge needle was used to aspirate 85 mL of bloody serous fluid from the right knee. After adequate aspiration, 40 mg of Depo-Medrol and 2 mL of 1% plain lidocaine were injected intra-articularly into the right knee. Bandage is placed after procedure. Time with Patient: Less than 30
--- NOTE | 2016-09-20 11:39 | P.PN ---
Subjective Patient's presented with bilateral leg weakness with fall. Patient had MRI of the lumbar spine showing mild degenerative first-degree L4 to L5 spondylolisthesis. Some lateral recess stenosis and neural foraminal impingement on the right side more than the left at L5 to S1. Spinal surgery has been consulted. Patient has been up and ambulating with walker in the hallway. He's also been seen evaluated by orthopedics for right knee effusion. Patient's pain is controlled. He denies any chest pain or shortness breath. Denies any nausea or vomiting. Last bowel movement 2-3 days ago. Denies any difficulty urinating. Objective - Vital Signs Vital signs: Vital Signs Temp 97.6 F 09/20/16 07:31 Pulse 57 L 09/20/16 07:31 Resp 18 09/20/16 07:31 BP 164/87 09/20/16 07:31 Pulse Ox 97 09/20/16 07:31 Intake & Output 09/19/16 09/20/16 09/20/16 18:59 06:59 18:59 Intake Total 1440 480 Output Total 950 600 Balance 490 -120 Intake: Oral 1440 480 Output: Urine 950 600 Other: Voiding Method Urinal Urinal Urinal # Voids 1 - Exam Head normocephalic Neck supple Lungs clear to auscultation bilaterally no wheezing or crackles Heart regular rate and rhythm S1-S2, no rub or gallop Abdomen is soft nontender nondistended positive bowel sounds no hepatosplenomegaly Extremities right knee effusion with tenderness with palpation. No discoloration Neuro alert and orientated to 3 - Labs CBC & Chem 7: 09/20/16 07:44 09/20/16 07:41 Labs: Abnormal Lab Results - Last 24 Hours (Table) 09/20/16 Range/Units 07:41 BUN 29 H (9-20) mg/dL Assessment and Plan Plan: 1. Bilateral lower extremity weakness with falling. MRI of the lumbar spine showing multilevel spondylosis. There is mild degenerative first-degree L4 to L5 spondylolisthesis. There is some lateral recess stenosis and neural foraminal impingement on the right side more than the left at L5 to S1. Dr. Hernandez has been consulted. Continue PT OT. Evaluated by neurology. Computed tomography scan of the brain showing no acute intracranial hemorrhage or midline shift. Continue [place] for pain control 2. Right hip and knee pain: X-ray show osteoarthrosis in the hip and knee. And small to moderate right knee effusion. Orthopedics have been consulted. 3. Acute kidney injury: Creatinine 1.34 on admission. Kidney functions have shown improvement. Creatinine is down to 1.01. Avoid NSAIDs. Fluids hep- locked. Restart Lasix 20 mg by mouth daily tomorrow 4. History of bilateral PE and lower extremity DVT. Continue with the Xarelto 5. Hyperlipidemia continue Lipitor 6. Essential hypertension continue the Corag and lisinopril 7. Dementia continue the Aricept GI prophylaxis Pepcid and DVT prophylaxis Xarelto
--- NOTE | 2016-09-20 15:32 | P.PN ---
Subjective Principal diagnosis: Lower extremity weakness and pain This 89-year-old male continue be evaluated by the neurology service. She was brought in complaining of weakness in his right lower extremity. He denies any recent injury or trauma other than I fall a couple weeks ago onto his right hip. He did not seek medical attention for this. He does have a history of intermittent low back pain over several years. He continues to deny bladder or bowel incontinence. He continues to have severe right knee and hip pain, for which he is seeing orthopedics. There is no continued weakness. Initial CT of the brain was done and there were no intracranial abnormalities. There was some generalized atrophy and small vessel ischemic changes. It was also mentioned that there were changes that might be consistent with normal pressure hydrocephalus. He has no symptoms consistent with this. 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 X-ray lumbar spine showed mild disc narrowing at L5-S1. His MRI of the lumbar spine sold some displaced disc disease with no severe foraminal stenosis. At the time my exam he is resting comfortably laying on his right side in bed. Objective - Vital Signs Vital signs: Vital Signs Temp 97.7 F 09/20/16 11:27 Pulse 57 L 09/20/16 11:27 Resp 16 09/20/16 11:27 BP 109/59 09/20/16 11:27 Pulse Ox 94 L 09/20/16 11:27 Intake & Output 09/19/16 09/20/16 09/20/16 18:59 06:59 18:59 Intake Total 1440 716 Output Total 950 680 Balance 490 36 Intake: Oral 1440 716 Output: Urine 950 600 Other 80 Other: Voiding Method Urinal Urinal Urinal # Voids 1 - Constitutional General appearance: Present: average body habitus. Absent: no acute distress - EENT Eyes: Present: PERRLA. Absent: abnormal pupil, ptosis - Neck Neck: Present: normal ROM - Respiratory Respiratory: negative: prolonged expiration, prolonged inspiration - Cardiovascular Rhythm: regular - Neurologic Neurologic Comment(s): Patient is alert awake and oriented 3. Speech and language normal. There is no lateralizing weakness. There is no sensory deficit in any extremity. - Labs CBC & Chem 7: 09/20/16 07:44 09/20/16 07:41 Labs: Abnormal Lab Results - Last 24 Hours (Table) 09/20/16 Range/Units 07:41 BUN 29 H (9-20) mg/dL Assessment and Plan (1) Disc displacement, lumbar Status: Chronic (2) Right knee pain Status: Chronic (3) Right hip pain Status: Chronic (4) Gout Status: Chronic (5) Right leg pain Status: Acute (6) Left knee pain Status: Acute (7) Lumbar radiculopathy Status: Acute Plan: Again we do not feel that his right lower extremity symptoms are due to any intracranial etiology. The subjective weakness is likely secondary to pain in the hip and knee. Neurosurgery has been consulted to take a look at his MRI. Orthopedics will continue to follow for his hip and knee pain. He will continue Xarelto on aspirin. This is appropriate given his finding of old infarct on CT of the brain. He continues to be asymptomatic for normal pressure hydrocephalus. He is cleared from a neurological standpoint. I have performed a history and physical on the above patient. I have reviewed the above note, and agree.
[2016-09-20] MEDS: RIVAROXABAN 10 MG TAB PO SCH (17:49)
[2016-09-20] MEDS: DOCUSATE 100 MG CAP PO SCH (19:59)
[2016-09-20] MEDS: ATORVASTATIN 20 MG TAB PO SCH (19:59)
[2016-09-21] MEDS: HYDROcodone/APAP 5-325MG 1 EACH TAB PO PRN (04:35)
[2016-09-21] MEDS: MULTIVITAMINS, THERA 1 EACH TAB PO SCH (04:37)
[2016-09-21 07:12] LABS: Basophils % (A) 0 %; CHCM 34.2; Eosinophils % (A) 0 %; HDW 3.21; HGB 13.9 gm/dL (13.0-17.5); Luc % (Auto) 2; Lymphocytes # (A) 0.7 k/uL (1.0-4.8); Lymphocytes % (A) 6 %; MCH 30.8 pg (25.0-35.0); MCHC 33.8 g/dL (31.0-37.0); MCV 91.2 fL (80.0-100.0); Mean Platelet Volume 7.2; Monocytes # (A) 0.4 k/uL (0-1.0); Monocytes % (A) 4 %; Neutrophils # (A) 9.5 k/uL (1.3-7.7); Neutrophils % (A) 88 %; RDW 15.1 % (11.5-15.5); WBC 10.8 k/uL (3.8-10.6); WBC (Perox) 11.28
[2016-09-21 07:34] LABS: ALT 24 U/L (21-72); AST 22 U/L (17-59); Alkaline Phosphatase 44 U/L (38-126); Anion Gap 11 mmol/L; Blood Urea Nitrogen 27 mg/dL (9-20); Calcium 9.2 mg/dL (8.4-10.2); Carbon Dioxide 22 mmol/L (22-30); Chloride 108 mmol/L (98-107); Glucose 110 mg/dL (74-99); Non-African American GFR(MDRD) >60 (>60 ml/min/1.73 sqM); Potassium 4.7 mmol/L (3.5-5.1); Sodium 141 mmol/L (137-145); Total Bilirubin 0.6 mg/dL (0.2-1.3); Total Protein 6.7 g/dL (6.3-8.2)
[2016-09-21] MEDS: ASPIRIN 81 MG CHEW PO SCH (08:05)
[2016-09-21] MEDS: CARVEDILOL 3.125 MG TAB PO SCH (08:05)
[2016-09-21] MEDS: ALLOPURINOL 300 MG TAB PO SCH (08:05)
[2016-09-21] MEDS: CHOLECALCIFEROL 1,000 UNIT TAB PO SCH (08:06)
[2016-09-21] MEDS: CYANOCOBALAMIN 500 MCG TAB PO SCH (08:06)
[2016-09-21] MEDS: FAMOTIDINE 20 MG TAB PO SCH (08:07)
[2016-09-21] MEDS: POTASSIUM CHLORIDE ER 20 MEQ TAB.ER PO SCH (08:07)
[2016-09-21] MEDS: DONEPEZIL 5 MG TAB PO SCH (08:07)
[2016-09-21] MEDS: OXYBUTYNIN XL 5 MG TAB.ER.24 PO SCH (08:07)
[2016-09-21] MEDS: LISINOPRIL 20 MG TAB PO SCH (08:07)
[2016-09-21] MEDS: DOCUSATE 100 MG CAP PO SCH (08:07)
[2016-09-21] MEDS: VITAMIN E (DL,TOCOPHERYL ACET) 400 UNIT CAP PO SCH (08:08)
[2016-09-21] MEDS ORDERED: FUROSEMIDE 20 MG TAB PO SCH (09:00)
--- NOTE | 2016-09-21 09:10 | P.PN ---
Subjective 80-year-old male up ambulating with a rolled walker on the unit no difficulty noted physical therapy eval noted did note the patient has been seen by orthopedics for the right knee effusion x-rays of the right knee and right hip were obtained they were negative for any acute fracture or dislocation. [facility] did aspirate 85 mL of bloody serous fluid from the right knee effusion on the from an orthopedic perspective there indicating the patient's appropriate to be discharged patient states urinating no difficulty nurse less discomfort in the right knee Additionally the patient's been followed by neurology additionally patient the MRI of the lumbar spine showed no severe foraminal stenosis x-rays of the lumbar spine showed mild disc narrowing at L5-S1 patient continues to be asymptomatic for normal pressure hydrocephalus and has been cleared from a neurological standpoint to be discharged Objective - Vital Signs Vital signs: Vital Signs Temp 97.9 F 09/21/16 08:00 Pulse 58 L 09/21/16 08:00 Resp 18 09/21/16 08:00 BP 156/87 09/21/16 08:00 Pulse Ox 99 09/21/16 08:00 - Exam GENERAL APPEARANCE: 80-year-old male patient is alert, oriented, in no acute distress. VITAL SIGNS: Reviewed HEENT: Head is normocephalic and atraumatic. Pupils are equal and reactive. The nares are patent. Oropharynx is clear without lesions. NECK: Supple without lymphadenopathy. Traches midline. HEART: S1, S2. Regular rate and rhythm. Denying chest pain LUNGS: No crackles or wheezes are heard. On room air no shortness of breath ABDOMEN: Soft, nontender, nondistended with good bowel sounds. No peritoneal signs. No palpable organomegaly or masses. States urinating no difficulty EXTREMITIES: Normal skin color and turgor. No cyanosis, rash, ulceration, clubbing or edema. Radial pedal pulses are 2/4 bilaterally. NEUROLOGICAL: No focal deficits. Strength and sensation are grossly intact. - Labs CBC & Chem 7: 09/21/16 06:41 09/21/16 06:41 Assessment and Plan Plan: Assessment and plan 1. Bilateral lower extremity weakness with falling. MRI of the lumbar spine showing multilevel spondylosis. There is mild degenerative first-degree L4 to L5 spondylolisthesis. There is some lateral recess stenosis and neural foraminal impingement on the right side more than the left at L5 to S1. Dr. Hernandez has been consulted. Continue PT OT. Evaluated by neurology. Computed tomography scan of the brain showing no acute intracranial hemorrhage or midline shift. Continue [place] for pain control 2. Right hip and knee pain: X-ray show osteoarthrosis in the hip and knee. And small to moderate right knee effusion. Orthopedics have been consulted. 3. Acute kidney injury: Creatinine 1.34 on admission. Kidney functions have shown improvement. Creatinine is down to 1.01. Avoid NSAIDs. Fluids hep- locked. Restart Lasix 20 mg by mouth daily tomorrow 4. History of bilateral PE and lower extremity DVT. Continue with the Xarelto 5. Hyperlipidemia continue Lipitor 6. Essential hypertension continue the Corag and lisinopril 7. Dementia continue the Aricept severe right knee osteoarthritis with right knee hemarthrosis Status post aspiration 85 mL from the right knee effusion done on September 20 Possible discharge within the next 24 hours The above dictated assessment and findings were discussed with dr radha Bradford and the plan of care have been dictated as directed. Ritu Zavaleta nurse practitioner acting as a scribe for dr garcia
--- NOTE | 2016-09-21 11:57 | P.CNOR ---
History of Present Illness - [facility] Consult date: 09/21/16 Requesting physician: Sasha Summers Consult reason: other (Right lower extremity radiculopathy) History of present illness: Patient is a pleasant 80-year-old male who is seen and examined bedside for further evaluation for ongoing right lower extremity radiculopathy. He has also been having significant difficulty right knee pain and effusion. He is been followed by Dewayne Salinas PA-C from [facility]. He recently had his right knee drained. Patient states is not currently experiencing significant low back pain. He does have some pain in the right buttock radiating down the right posterior lateral thigh, towards the right knee, and over the anterior and lateral portion of the right calf. He denies any specific injuries. He states he has not received physical therapy or consulted with pain management in regards to his lumbar spine in the past. Patient was originally brought to [facility] for further evaluation by the EMS after feeling increased generalized weakness of the bilateral lower extremities on 09/18/2016. Since being admitted, an MRI of the lumbar spine is hasd been performed. He continues to be followed by medicine. He is currently scheduled for discharge home today, 09/21/2016. Patient denies any specific lower extremity weakness bilaterally but does continue to have difficulty with this right lower extremity given his significant knee issues. He denies any left lower extremity radiculopathy. 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 History of Any Multi-Drug Resistant Organisms: None Reported Past Surgical History: Hernia Repair, Orthopedic Surgery, Prostate Surgery, Tonsillectomy Additional Past Surgical History / Comment(s): 2009 colonoscopy, L eye cataract surgery, L eye laser surgery, R eye surgery for retinal detachment-unsuccessful , R inguinal hernia repair x2, prostatectomy due to cancer. Past Anesthesia/Blood Transfusion Reactions: No Reported Reaction Additional Past Anesthesia/Blood Transfusion Reaction / Comm: Pt states he has never received blood. Past Psychological History: No Psychological Hx Reported Additional Psychological History / Comment(s): Pt lives alone. He uses a cane prn. He drives. Smoking Status: Former smoker Past Alcohol Use History: Rare Additional Past Alcohol Use History / Comment(s): Pt states he started smoking in college and quit in 1986. Past Drug Use History: None Reported - Past Family History Father Family Medical History: Musculoskeletal Disorder, Neurologic Disorder Additional Family Medical History / Comment(s): Father of parkinson's disease at the age of 72 yrs. Mother Family Medical History: Dementia, Musculoskeletal Disorder, Neurologic Disorder Additional Family Medical History / Comment(s): Mother had polio at the age of 2 yrs and wore braces and used crutches to ambulate. She at the age of 95 yrs from dementia and bowel obstruction. Medications and Allergies Home Medications Medication Instructions Recorded Confirmed Type Allopurinol [Zyloprim] 300 mg PO DAILY 05/01/16 09/18/16 History Calcium/Magnesium/Zinc 1 tab PO Q48H 05/01/16 09/18/16 History [Orhdpxu-Bobbmxbdn-Xlwp Tablet] Carvedilol [Coreg] 3.125 mg PO BID 05/01/16 09/18/16 History Cholecalciferol [Vitamin D3] 1,000 unit PO DAILY 05/01/16 09/18/16 History Cyanocobalamin [Vitamin B-12] 500 mcg PO DAILY 05/01/16 09/18/16 History Donepezil [Aricept] 5 mg PO DAILY 05/01/16 09/18/16 History Fesoterodine Fumarate [Toviaz] 8 mg PO DAILY 05/01/16 09/18/16 History Lisinopril [Zestril] 20 mg PO DAILY 05/01/16 09/18/16 History Atlanta-3 Fatty Acids [Atlanta-3] 1,000 mg PO DAILY 05/01/16 09/18/16 History Simvastatin [Zocor] 40 mg PO HS 05/01/16 09/18/16 History Vitamin E (Dl,Tocopheryl Acet) 400 unit PO DAILY 05/01/16 09/18/16 History [Vitamin E] Aspirin EC [Ecotrin] 162.5 mg PO BID 09/18/16 09/18/16 History Furosemide [Lasix] 20 mg PO DAILY 09/18/16 09/18/16 History Glucosamine Sulfate 1,000 mg PO DAILY 09/18/16 09/18/16 History Potassium Chloride [Klor-Con] 20 meq PO DAILY 09/18/16 09/18/16 History Rivaroxaban [Xarelto] 20 mg PO DAILY 09/18/16 09/18/16 History Allergies Allergy/AdvReac Type Severity Reaction Status Date / Time Sulfa (Sulfonamide Allergy Unknown Verified 09/18/16 08:35 Antibiotics) Childhood Physical Examination Physical exam: Patient is awake, alert, and oriented 3 Vital signs stable Good chest excursion with deep inspiration and expiration Abdomen soft nontender Examination of lumbar spine reveals skin is intact with no abrasions, lacerations, or bruises; no erythema, purulence or signs of infection No pain on palpation of the lumbar spine or the sacroiliac joints bilaterally Dorsiflexion, plantarflexion, and extensor hallucis longus positive sustained bilaterally Lower extremity strength 5/5 bilaterally except for right knee extension Increased pain and difficulty with right knee extension Evidence of right medial knee swelling; evidence of bandage placed over the right lateral knee following previous drainage No signs or symptoms of DVT; no calf pain No pain with internal and external rotation of the hips bilaterally Neurovascularly intact Results Pertinent studies: MRI of the lumbar spine: L2-3 small posterior disc bulging; L4-5 small posterior disc bulging, hypertrophic facet arthropathy, and lateral recess stenosis; L5-S1 hypertrophic facet arthropathy and lateral recess stenosis with narrowing the right neural foramen; overall alignment appears to be adequately maintained; sacral iliac joints appear to be normal; no evidence of paraspinal mass X-rays of the lumbar spine: L5-S1 degenerative disc disease; overall alignment lumbar spine to be adequately maintained; no evidence of acute fracture dislocation; multilevel anterior and lateral spurring present - Labs Result Diagrams: 09/21/16 06:41 09/21/16 06:41 Assessment and Plan (1) Lumbar back pain with radiculopathy affecting right lower extremity Status: Acute (2) Lumbar degenerative disc disease Status: Acute (3) Lumbar facet arthropathy Status: Acute (4) Effusion, right knee Status: Acute (5) Generalized weakness Status: Acute (6) Disc displacement, lumbar Status: Chronic (7) Right knee pain Status: Chronic Plan: Assessment: Right lower extremity radiculopathy Lumbar facet spondylosis L4-5 lateral recess stenosis L5-S1 degenerative disc disease with right neural foraminal narrowing Generalized lower extremity weakness Plan: 1. Following reviewing of the patient's imaging with Dr. Thai Hernandez, discussion with the patient, and physical examination the patient, we are not currently planning for acute surgical intervention regards to the patient's lumbar spine. At this time we are recommending continued conservative treatment. We'll plan have him follow up in outpatient setting approximately 2- 3 weeks for further evaluation. Depending how he is progressing to conservative treatment in regards to both his lumbar spine and his right knee, we'll discuss further treatment options at that time. We did discuss the possibility of having him work through formal physical therapy as well as and/ or consultation with pain management to discuss further treatment options and possible epidural injections. 2. From an orthopedic spine standpoint, patient is clear for discharge 3. Upon discharge, patient may follow-up with Adarsh Gibson PA-C or Dr. Thai Hernandez at [facility] approximately 2-3 weeks for further evaluation 4. I have discussed this patient in detail with Dr. Thai Hernandez and he agrees with this plan Time with Patient: Less than 30
[2016-09-21 15:35] VITALS: BP 158/83; PULSE 57; RESP 16; TEMP 98.8
--- NOTE | 2016-09-21 17:25 | P.DS ---
Providers Date of admission: 09/21/16 08:14 Expected date of discharge: 09/21/16 Attending physician: Farzana Michelle Primary care physician: Suzie Shoals Hospital Course: Diagnosis on discharge #1 intractable back pain #2 severe right knee pain #3 physical debility with inability to stand or walk Hospital course Patient is an 80-year-old male who presented to [facility] was inability to stand or walk He was admitted to medical floor He was complaining of severe pain in his right knee on exams are was evidence of right knee swelling he was seen by orthopedic surgery and underwent aspiration of the right knee patient felt significantly better He also had an MRI of the lumbar spine and was seen by Dr. Black in neurology consultation He was seen by Dr. Rossi and underwent physical therapy and occupational therapy Patient received [place] 5/325 one every 6 hours as needed for pain management He improved with above management he was able to stand and walk He was requesting to be discharged home he was discharged home on 09/21/2016 He was advised to follow-up with his primary care physician within one week He was given a prescription for Medrol Dosepak and a prescription for [place] 5/ 325 one every 6 hours as needed Plan - Discharge Summary Discharge Medication List Allopurinol [Zyloprim] 300 mg PO DAILY 05/01/16 [History] Calcium/Magnesium/Zinc [Pdozpua-Inhbhcfek-Fjxy Tablet] 1 tab PO Q48H 05/01/16 [ History] Carvedilol [Coreg] 3.125 mg PO BID 05/01/16 [History] Cholecalciferol [Vitamin D3] 1,000 unit PO DAILY 05/01/16 [History] Cyanocobalamin [Vitamin B-12] 500 mcg PO DAILY 05/01/16 [History] Donepezil [Aricept] 5 mg PO DAILY 05/01/16 [History] Fesoterodine Fumarate [Toviaz] 8 mg PO DAILY 05/01/16 [History] Lisinopril [Zestril] 20 mg PO DAILY 05/01/16 [History] Brady-3 Fatty Acids [Brady-3] 1,000 mg PO DAILY 05/01/16 [History] Simvastatin [Zocor] 40 mg PO HS 05/01/16 [History] Vitamin E (Dl,Tocopheryl Acet) [Vitamin E] 400 unit PO DAILY 05/01/16 [History] Aspirin EC [Ecotrin] 162.5 mg PO BID 09/18/16 [History] Furosemide [Lasix] 20 mg PO DAILY 09/18/16 [History] Glucosamine Sulfate 1,000 mg PO DAILY 09/18/16 [History] Potassium Chloride [Klor-Con] 20 meq PO DAILY 09/18/16 [History] Rivaroxaban [Xarelto] 20 mg PO DAILY 09/18/16 [History] Follow up Appointment(s)/Referral(s): Suzie Ramírez DO [Primary Care Provider] - 1-2 days Adarsh Gibson PAC [PHYSICIAN BARGE CAPTAIN] - 2 Weeks (Patient may follow-up with Adarsh Gibson PA-C or Dr. Thai Hernandez at [facility] in 2-3 weeks for further evaluation following discharge.) Caitlin Olvera MD [STAFF PHYSICIAN] - 1 Week Fitz Salinas PAC [PHYSICIAN BARGE CAPTAIN] - As Needed
== END 2016-09-21 18:18 | disposition home or self-care (01) | DRG 552 ==
LOC: EC 07:29 → 3OBS 11:36 → OBSVTOIN 09-21 08:14
PROVIDERS: ADMIT Internal Medicine; ATTEND Internal Medicine
DX: M51.17 Intervertebral disc disorders with radiculopathy, lumbosacral region (principal); N17.9 Acute kidney failure, unspecified; G91.2 (Idiopathic) normal pressure hydrocephalus; M25.061 Hemarthrosis, right knee; F03.90 Unspecified dementia, unspecified severity, without behavioral disturbance, psychotic disturbance, mood disturbance, and anxiety; M16.11 Unilateral primary osteoarthritis, right hip; M17.11 Unilateral primary osteoarthritis, right knee; M43.16 Spondylolisthesis, lumbar region; Q74.1 Congenital malformation of knee; E78.5 Hyperlipidemia, unspecified; N18.9 Chronic kidney disease, unspecified; I12.9 Hypertensive chronic kidney disease with stage 1 through stage 4 chronic kidney disease, or unspecified chronic kidney disease; H54.41 Blindness, right eye, normal vision left eye; G89.29 Other chronic pain; K57.90 Diverticulosis of intestine, part unspecified, without perforation or abscess without bleeding; M10.9 Gout, unspecified; Z87.442 Personal history of urinary calculi; Z90.79 Acquired absence of other genital organ(s); Z86.718 Personal history of other venous thrombosis and embolism; Z86.711 Personal history of pulmonary embolism; Z85.46 Personal history of malignant neoplasm of prostate; Z87.891 Personal history of nicotine dependence; Z86.79 Personal history of other diseases of the circulatory system; Z87.11 Personal history of peptic ulcer disease; Z79.82 Long term (current) use of aspirin; Z79.01 Long term (current) use of anticoagulants; Z79.899 Other long term (current) drug therapy; W19.XXXA Unspecified fall, initial encounter; Y92.009 Unspecified place in unspecified non-institutional (private) residence as the place of occurrence of the external cause
CPT/HCPCS: 36415; 70450; 71020; 72100; 72148; 73502; 80053; 81001; 82550; 82553; 83735; 84484; 85025; 85610; 85730; 93005; 96361; 96372; 96374; 96375; 99285

== ENCOUNTER 2017-03-14 11:20 | Inpatient (IN) | payer MEDICARE ==
--- NOTE | 2017-03-14 12:56 | P.HPIM ---
History of Present Illness H&P Date: 03/14/17 Chief Complaint: Right knee swelling with pain 2 weeks This is a 81-year-old male with a known history of bilateral PE and bilateral lower extremity DVT on Xarelto. Also has a history of dementia, hypertension, hyperlipidemia and prostate cancer. Patient sees Dr. Coker for his PCP. Patient reports that about 2 weeks ago he noted some swelling in his right knee there was a black spot that he picked at initially he thought it was a bug possibly a tick. And then a sore developed. Now the knee is red swollen and has a yellowish drainage seeping through the wound on the medial aspect of the knee. Patient was started on Augmentin for 10 days outpatient. He reports that he has had some improvement in the redness that was up into the thigh area. However still having significant amount of swelling and failed outpatient antibiotics. Patient reports he was set up to see orthopedic doctor however, he did not get to that appointment. His PCP told him to come to the hospital instead. Patient has been admitted for possible septic knee. Orthopedics and infectious disease been consulted. Patient be placed on IV antibiotics. The culture of the wound. Patient denies any fever or chills or sweats. Denies any nausea vomiting. Reports that his bowel movements have been a little softer. Denies any chest pain or shortness of breath. Denies any burning with urination. 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 History of Any Multi-Drug Resistant Organisms: None Reported Past Surgical History: Hernia Repair, Orthopedic Surgery, Prostate Surgery, Tonsillectomy Additional Past Surgical History / Comment(s): 2009 colonoscopy, L eye cataract surgery, L eye laser surgery, R eye surgery for retinal detachment-unsuccessful , R inguinal hernia repair x2, prostatectomy due to cancer. Past Anesthesia/Blood Transfusion Reactions: No Reported Reaction Additional Past Anesthesia/Blood Transfusion Reaction / Comment(s): Pt states he has never received blood. Past Psychological History: No Psychological Hx Reported Additional Psychological History / Comment(s): Pt lives alone. He uses a cane prn. He drives. Smoking Status: Former smoker Past Alcohol Use History: Rare Additional Past Alcohol Use History / Comment(s): Pt states he started smoking in college and quit in 1986. Past Drug Use History: None Reported - Past Family History Father Family Medical History: Musculoskeletal Disorder, Neurologic Disorder Additional Family Medical History / Comment(s): Father of parkinson's disease at the age of 72 yrs. Mother Family Medical History: Dementia, Musculoskeletal Disorder, Neurologic Disorder Additional Family Medical History / Comment(s): Mother had polio at the age of 2 yrs and wore braces and used crutches to ambulate. She at the age of 95 yrs from dementia and bowel obstruction. Medications and Allergies Home Medications Medication Instructions Recorded Confirmed Type Allopurinol [Zyloprim] 300 mg PO DAILY 05/01/16 09/18/16 History Calcium/Magnesium/Zinc 1 tab PO Q48H 05/01/16 09/18/16 History [Ulfldjo-Pfnwgnnns-Nazc Tablet] Carvedilol [Coreg] 3.125 mg PO BID 05/01/16 09/18/16 History Cholecalciferol [Vitamin D3] 1,000 unit PO DAILY 05/01/16 09/18/16 History Cyanocobalamin [Vitamin B-12] 500 mcg PO DAILY 05/01/16 09/18/16 History Donepezil [Aricept] 5 mg PO DAILY 05/01/16 09/18/16 History Fesoterodine Fumarate [Toviaz] 8 mg PO DAILY 05/01/16 09/18/16 History Lisinopril [Zestril] 20 mg PO DAILY 05/01/16 09/18/16 History Wayne-3 Fatty Acids [Wayne-3] 1,000 mg PO DAILY 05/01/16 09/18/16 History Simvastatin [Zocor] 40 mg PO HS 05/01/16 09/18/16 History Vitamin E (Dl,Tocopheryl Acet) 400 unit PO DAILY 05/01/16 09/18/16 History [Vitamin E] Aspirin EC [Ecotrin] 162.5 mg PO BID 09/18/16 09/18/16 History Furosemide [Lasix] 20 mg PO DAILY 09/18/16 09/18/16 History Glucosamine Sulfate 1,000 mg PO DAILY 09/18/16 09/18/16 History Potassium Chloride [Klor-Con 20 meq PO DAILY 09/18/16 09/18/16 History Packets] Rivaroxaban [Xarelto] 20 mg PO DAILY 09/18/16 09/18/16 History HYDROcodone/APAP 5-325MG [Ladora 1 each PO Q6HR PRN #0 tab 09/21/16 Rx 5-325] Allergies Allergy/AdvReac Type Severity Reaction Status Date / Time Sulfa (Sulfonamide Allergy Unknown Verified 09/18/16 08:35 Antibiotics) Childhood Physical Exam Vitals: Vital Signs Temp Pulse BP Pulse Ox 03/14/17 11:50 97.9 F 80 118/69 94 L Intake and Output 03/13/17 03/14/17 03/14/17 22:59 06:59 14:59 Other: Weight 104 kg Patient Weight 03/15/17 06:59 Weight 104 kg Head normocephalic Neck supple Lungs clear to auscultation bilaterally no wheezing or crackles Heart regular rate and rhythm S1-S2, no rub or gallop Abdomen is soft nontender nondistended positive bowel sounds no hepatosplenomegaly Extremities right knee red and swollen. Area of induration on the medial aspect of the right knee. Evidence of a wound with yellow granulation tissue. There is serous drainage from the wound. No pus. Significant swelling in the knee down to the foot. Neuro alert and orientated to 3 Assessment and Plan Plan: 1. Right knee wound with swelling and cellulitis: Concern for possible septic knee. Wound culture and blood culture have been ordered. Consult infectious disease and orthopedics for possible I&D. Start patient on IV antibiotics. Failed outpatient antibiotics with Augmentin. We'll give [place] 5/325 when necessary every 6 hours for pain 2. 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 Dementia continue Aricept 4. Hyperlipidemia continue Zocor 5. Essential hypertension continue Coreg GI prophylaxis Pepcid and DVT prophylaxis SCDs hold off on anticoagulation for DVT prophylaxis in case orthopedics wants to complete an I&D Time with Patient: Greater than 30 (Greater than 50% of the total time spent in counseling and coordination of care.I performed an examination of the patient and discussed their management with the physician Gluing Crew Leader. I have reviewed the Physician Gluing Crew Leader's notes and agree with the documented findings and plan of care)
[2017-03-14 13:58] LABS: Basophils # (A) 0.1 k/uL (0-0.2); Basophils % (A) 1 %; CH 31.3; CHCM 33.6; Eosinophils # (A) 0.2 k/uL (0-0.7); Eosinophils % (A) 2 %; HCT 37.5 % (39.0-53.0); HDW 3.27; HGB 12.8 gm/dL (13.0-17.5); Luc # (Auto) 0.18; Luc % (Auto) 2; Lymphocytes # (A) 1.1 k/uL (1.0-4.8); Lymphocytes % (A) 13 %; MCHC 34.1 g/dL (31.0-37.0); MCV 93.7 fL (80.0-100.0); Mean Platelet Volume 6.7; Monocytes # (A) 0.4 k/uL (0-1.0); Monocytes % (A) 5 %; Neutrophils # (A) 6.6 k/uL (1.3-7.7); Neutrophils % (A) 77 %; RDW 14.6 % (11.5-15.5); WBC 8.6 k/uL (3.8-10.6); WBC (Perox) 9.04
[2017-03-14 14:23] LABS: ALT 43 U/L (21-72); AST 28 U/L (17-59); Alkaline Phosphatase 50 U/L (38-126); Anion Gap 9 mmol/L; Blood Urea Nitrogen 24 mg/dL (9-20); Calcium 9.1 mg/dL (8.4-10.2); Carbon Dioxide 25 mmol/L (22-30); Chloride 107 mmol/L (98-107); Glucose 85 mg/dL (74-99); Non-African American GFR(MDRD) 57 (>60 ml/min/1.73 sqM); Potassium 4.5 mmol/L (3.5-5.1); Sodium 141 mmol/L (137-145); Total Bilirubin 0.4 mg/dL (0.2-1.3); Total Protein 6.7 g/dL (6.3-8.2)
--- NOTE | 2017-03-14 15:13 | P.CNOR ---
History of Present Illness - [facility] Consult date: 03/14/17 Consult reason: other History of present illness: This is an 81 year old male who was admitted to [facility] directly from his PCP office today. He was being treated in the outpatient setting for a cellulits/abscess involving the right knee. This initially started about 2 weeks ago. No significant traumatic event prior to admission. He has been taking oral augmentin with no significant improvement. He was admitted under internal medicine with our orthopedic team on consult. Patient is examined at bedside today, he appears comfortable. He admits to minimal discomfort along the medial aspect of knee. He has been able to ambulate independently. He denies any recent fever or chills. He denies any pain involving the hip, foot or ankle on the right side. He denies headaches, chest pain, shortness of breath, abdominal pain, nausea, fever or chills. 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 History of Any Multi-Drug Resistant Organisms: None Reported Past Surgical History: Hernia Repair, Orthopedic Surgery, Prostate Surgery, Tonsillectomy Additional Past Surgical History / Comment(s): 2009 colonoscopy, L eye cataract surgery, L eye laser surgery, R eye surgery for retinal detachment-unsuccessful , R inguinal hernia repair x2, prostatectomy due to cancer. Past Anesthesia/Blood Transfusion Reactions: No Reported Reaction Additional Past Anesthesia/Blood Transfusion Reaction / Comm: Pt states he has never received blood. Past Psychological History: No Psychological Hx Reported Additional Psychological History / Comment(s): Pt lives alone. He uses a cane prn. He drives. Smoking Status: Former smoker Past Alcohol Use History: Rare Additional Past Alcohol Use History / Comment(s): Pt states he started smoking in college and quit in 1986. Past Drug Use History: None Reported - Past Family History Father Family Medical History: Musculoskeletal Disorder, Neurologic Disorder Additional Family Medical History / Comment(s): Father of parkinson's disease at the age of 72 yrs. Mother Family Medical History: Dementia, Musculoskeletal Disorder, Neurologic Disorder Additional Family Medical History / Comment(s): Mother had polio at the age of 2 yrs and wore braces and used crutches to ambulate. She at the age of 95 yrs from dementia and bowel obstruction. Medications and Allergies Home Medications Medication Instructions Recorded Confirmed Type Allopurinol [Zyloprim] 300 mg PO DAILY 05/01/16 03/14/17 History Calcium/Magnesium/Zinc 1 tab PO Q48H 05/01/16 03/14/17 History [Omcxdoy-Bkrolzrsp-Vmmn Tablet] Carvedilol [Coreg] 3.125 mg PO BID 05/01/16 03/14/17 History Cholecalciferol [Vitamin D3] 1,000 unit PO DAILY 05/01/16 03/14/17 History Donepezil [Aricept] 5 mg PO DAILY 05/01/16 03/14/17 History Fesoterodine Fumarate [Toviaz] 8 mg PO DAILY 05/01/16 03/14/17 History Lisinopril [Zestril] 20 mg PO DAILY 05/01/16 03/14/17 History Slater-3 Fatty Acids [Slater-3] 1,000 mg PO DAILY 05/01/16 03/14/17 History Simvastatin [Zocor] 40 mg PO HS 05/01/16 03/14/17 History Aspirin EC [Ecotrin] 162.5 mg PO BID 09/18/16 03/14/17 History Furosemide [Lasix] 20 mg PO DAILY 09/18/16 03/14/17 History Glucosamine Sulfate 1,000 mg PO DAILY 09/18/16 03/14/17 History Potassium Chloride [Klor-Con 20 meq PO DAILY 09/18/16 03/14/17 History Packets] Rivaroxaban [Xarelto] 20 mg PO DAILY 09/18/16 03/14/17 History Amoxicillin/Potassium Clav 1 tab PO BID 03/14/17 03/14/17 History [Augmentin 875-125 Tablet] Ascorbic Acid [Vitamin C] 500 mg PO DAILY 03/14/17 03/14/17 History Magnesium 200 mg PO DAILY 03/14/17 03/14/17 History Vitamin B Complex 1 cap PO DAILY 03/14/17 03/14/17 History Allergies Allergy/AdvReac Type Severity Reaction Status Date / Time Sulfa (Sulfonamide Allergy Unknown Verified 03/14/17 13:34 Antibiotics) Childhood Physical Examination Right lower extremity: Obvious ulceration present on medial aspect of knee, about 2cm in diameter. There is granulation tissue and serous drainage present, no purulent material noted. Marked erythema in that area. No significant effusion present around knee. No tenderness with palpation of lateral joint line, minimal tenderness noted along medial. Erythema and soft tissue swelling noted from the knee down to the foot. Calf is soft, no tenderness with palpation. Plantar flexion, dorsiflextion, extensor hallicus longus, flexor hallicus longus are intact. Sensory exam to light touch intact, dorsal pedis pulse is 2+ Log roll of hip causes no pain Results - Labs Labs: Abnormal Lab Results - Last 24 Hours (Table) 03/14/17 03/14/17 Range/Units 13:32 13:32 RBC 4.00 L (4.30-5.90) m/uL Hgb 12.8 L (13.0-17.5) gm/dL Hct 37.5 L (39.0-53.0) % BUN 24 H (9-20) mg/dL H & H 03/14/17 Range/Units 13:32 Hgb 12.8 L (13.0-17.5) gm/dL Hct 37.5 L (39.0-53.0) % Result Diagrams: 03/14/17 13:32 03/14/17 13:32 Assessment and Plan Plan: Imagin view xray of right knee will be ordered Assessment: 1. Right lower extremity cellulitis 2. Right knee abscess 3. Other medical cormobidities Plan: 1. I discussed this case with my attending Dr Garcias, we recommend surgical intervention at this time. We would like to proceed with a incision and drainage of the abscess with possible athroscopy and lavage depending on findings during surgery. There is a possibility this infection communicated with the joint, unlikely from my exam today but further investigation will be done during surgery. Procedure will be scheduled for 03/15/2017. 2. Obtain consent, I discussed procedure with patient, informing him Dr. Garcias would be present to answer any further questions in the preoperative period. 3. NPO after midnight 4. Infectious disease recommendations 5. GI and DVT prophylaxis, patient currently takes Xarelto 20mg daily, will hold now and resume after surgery 6. Medical recommendations 7. Further recommendations to follow Time with Patient: Less than 30
--- NOTE | 2017-03-14 15:41 | XR ---
EXAMINATION TYPE: XR knee limited RT DATE OF EXAM: 03/14/2017 CLINICAL HISTORY: Right knee pain after arthroscopic surgery TECHNIQUE: Three views of the right knee are obtained. COMPARISON: 09/19/2016 FINDINGS: There is no acute fracture/dislocation evident in right knee. Tricompartmental osteoarthro sis is demonstrated as joint space narrowing, near [id number] articulation of the medial weightbear ing surface of the femoral condyle with the tibia, protuberant marginal osteophytes, and subchondral sclerosis. Bipartite patella versus old well-corticated patellar fracture is noted. Fabella is incide ntally seen. Small suprapatellar joint effusion is present.. The overlying soft tissue appears unrem arkable. Extensive atheromatous changes are seen of the femoral artery and its branches. IMPRESSION: 1. There is no acute fracture or dislocation in the right knee. 2. 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 3. Small suprapatellar joint effusion. 4. Extensive atheromatous changes of the femoral artery and its branches.
[2017-03-14] MEDS: SODIUM CHLORIDE 0.9% 1,000 ML IV SCH (16:26)
[2017-03-14] MEDS: CALCIUM CARB-VIT D 500MG-200UN 1 EACH TAB PO SCH (16:26)
[2017-03-14] MEDS: CARVEDILOL 3.125 MG TAB PO SCH (16:26)
[2017-03-14] MEDS: ATORVASTATIN 20 MG TAB PO SCH (21:10)
--- NOTE | 2017-03-14 23:35 | P.CONS ---
History of Present Illness - Reason for Consult Consult date: 03/14/17 - Chief Complaint Swelling right knee - History of Present Illness Douglas 81-year-old male relates that several days ago he removed without may have been a tick from the anterior surface of his right knee. Relates that he pulled it off and then take that a bit. The following days he became a bit more problematic. He became more swollen painful erythematous. The problem continued to worsen. Eventually his leg became quite swollen. Developed an ulcerative area on the medial aspect of the knee. With surrounding erythema that tracks down onto his foot was significant swelling. Because of discomfort of the changes he was then brought to hospital for further intervention. Orthopedic evaluation requested because the severe swelling to the knee and infectious diseases consultation regarding the infection at the leg. Review of Systems Douglas 81-year-old male who is not a excellent historian but is adequate. HEENT:Denies headache or acute visual change. Denies sinus or mouth discomforts. Denies neck stiffness or pain. Denies significant oral cavity pain. Denies difficulty on swallowing. Lungs: Denies significant shortness of breath, cough, sputum production, or hemoptysis. Cardiovascular: Denies significant shortness of breath, chest pain, chest wall pain, orthopnea, dyspnea on exertion, syncope Gastrointestinal:Denies nausea, vomiting, diarrhea, constipation, hematemesis, melena, hematochezia. No no significant change of bowel habit noticed. Musculoskeletal: denies significant myalgias or arthralgias. No new joint swelling. Denies new back pain. Skin: As per the HPI Neuro: Denies headache or visual change. Denies any new onset weakness or difficulty with ambulation. Denies falls or seizures. Psychiatric:Denies anxiety or depression. Endocrine: Denies significant fatigue, denies significant weight loss or weight gain. 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 History of Any Multi-Drug Resistant Organisms: None Reported Past Surgical History: Hernia Repair, Orthopedic Surgery, Prostate Surgery, Tonsillectomy Additional Past Surgical History / Comment(s): 2010 colonoscopy, L eye cataract surgery, L eye laser surgery, R eye surgery for retinal detachment-unsuccessful , R inguinal hernia repair x2, prostatectomy due to cancer. Past Anesthesia/Blood Transfusion Reactions: No Reported Reaction Additional Past Anesthesia/Blood Transfusion Reaction / Comm: Pt states he has never received blood. Past Psychological History: No Psychological Hx Reported Additional Psychological History / Comment(s): Pt lives alone. He uses a cane prn. He is able to drive. No experience. Retired teacher. No international travel. No smoking and alcohol use or recreational drug use. No animal exposures. No change in his living experience as of late Smoking Status: Former smoker Past Alcohol Use History: Rare Additional Past Alcohol Use History / Comment(s): Pt states he started smoking in college and quit in 1986. Past Drug Use History: None Reported - Past Family History Father Family Medical History: Musculoskeletal Disorder, Neurologic Disorder Additional Family Medical History / Comment(s): Father of parkinson's disease at the age of 72 yrs. Mother Family Medical History: Dementia, Musculoskeletal Disorder, Neurologic Disorder Additional Family Medical History / Comment(s): Mother had polio at the age of 2 yrs and wore braces and used crutches to ambulate. She at the age of 95 yrs from dementia and bowel obstruction. Medications and Allergies Home Medications and Allergies Comment(s): Current Medications Allopurinol (Zyloprim) 300 mg PO DAILY [facility] Atorvastatin Calcium (Lipitor) 20 mg PO HS [facility] Last Admin: 03/14/17 21:10 Dose: 20 mg Calcium Carbonate (Oscal 500+D) 1 each PO Q48H [facility] Last Admin: 03/14/17 16:26 Dose: 1 each Carvedilol (Coreg) 3.125 mg PO AC-BID [facility] Last Admin: 03/14/17 16:26 Dose: 3.125 mg Cholecalciferol (Vitamin D3) 1,000 unit PO DAILY [facility] Donepezil HCl (Aricept) 5 mg PO DAILY [facility] Furosemide (Lasix) 20 mg PO DAILY [facility] Sodium Chloride (Saline 0.9%) 1,000 mls @ 50 mls/hr IV .Q20H [facility] Last Admin: 03/14/17 16:26 Dose: 50 mls/hr Ceftriaxone Sodium 1,000 mg/ (Sodium Chloride) 50 mls @ 100 mls/hr IVPB Q24H [facility] Last Admin: 03/14/17 16:27 Dose: 100 mls/hr Lisinopril (Zestril) 20 mg PO DAILY [facility] Magnesium Oxide (Mag-Ox) 400 mg PO DAILY [facility] Oxybutynin Chloride (Ditropan Xl) 10 mg PO DAILY [facility] Potassium Chloride (K-Dur 20) 20 meq PO DAILY [facility] Vitamin B Complex/Vit C/Vit E/Zinc (Z-Bec) 1 each PO DAILY [facility] Home Medications Medication Instructions Recorded Confirmed Type Allopurinol [Zyloprim] 300 mg PO DAILY 05/01/16 03/14/17 History Calcium/Magnesium/Zinc 1 tab PO Q48H 05/01/16 03/14/17 History [Drsylkv-Aitebezbk-Kicr Tablet] Carvedilol [Coreg] 3.125 mg PO BID 05/01/16 03/14/17 History Cholecalciferol [Vitamin D3] 1,000 unit PO DAILY 05/01/16 03/14/17 History Donepezil [Aricept] 5 mg PO DAILY 05/01/16 03/14/17 History Fesoterodine Fumarate [Toviaz] 8 mg PO DAILY 05/01/16 03/14/17 History Lisinopril [Zestril] 20 mg PO DAILY 05/01/16 03/14/17 History Ranger-3 Fatty Acids [Ranger-3] 1,000 mg PO DAILY 05/01/16 03/14/17 History Simvastatin [Zocor] 40 mg PO HS 05/01/16 03/14/17 History Aspirin EC [Ecotrin] 162.5 mg PO BID 09/18/16 03/14/17 History Furosemide [Lasix] 20 mg PO DAILY 09/18/16 03/14/17 History Glucosamine Sulfate 1,000 mg PO DAILY 09/18/16 03/14/17 History Potassium Chloride [Klor-Con 20 meq PO DAILY 09/18/16 03/14/17 History Packets] Rivaroxaban [Xarelto] 20 mg PO DAILY 09/18/16 03/14/17 History Amoxicillin/Potassium Clav 1 tab PO BID 03/14/17 03/14/17 History [Augmentin 875-125 Tablet] Ascorbic Acid [Vitamin C] 500 mg PO DAILY 03/14/17 03/14/17 History Magnesium 200 mg PO DAILY 03/14/17 03/14/17 History Vitamin B Complex 1 cap PO DAILY 03/14/17 03/14/17 History Allergies Allergy/AdvReac Type Severity Reaction Status Date / Time Sulfa (Sulfonamide Allergy Unknown Verified 03/14/17 13:34 Antibiotics) Childhood Physical Exam Vitals: Vital Signs Temp Pulse Resp BP Pulse Ox 03/14/17 20:37 97.9 F 74 18 102/58 97 03/14/17 16:22 79 03/14/17 15:00 97.0 F L 79 20 133/74 03/14/17 11:50 97.9 F 80 118/69 94 L Intake and Output 03/14/17 03/14/17 03/15/17 14:59 22:59 06:59 Intake Total 640 Balance 640 Intake: Intake, IV Titration 200 Amount Sodium Chloride 0.9% 1, 200 000 ml @ 50 mls/hr IV . Q20H [facility] Rx#:[id number] Oral 440 Other: Voiding Method Toilet Toilet # Voids 1 1 Weight 104 kg Patient Weight 03/15/17 06:59 Weight 104 kg Pleasant 81-year-old male who is slightly uncomfortable because the pain and swelling to the right leg HEENT: Anicteric conjunctiva are pink and moist nasal mucosa grossly intact without significant lesions, there is no thrush. Neck: The neck is supple without significant lymphadenopathy or thyromegaly. Lungs: Good bilateral air entry without significant crackles or wheezing. There is no significant bronchial sounds. There is no egophony or dullness. Heart: Regular rate and rhythm with an audible S1-S2, no S3 no S4. There is no significant murmur click or rub, PMI was nondisplaced. Abdomen: Positive bowel sounds soft and nontender without palpable masses or organomegaly. There was no guarding or rebound. Extremities: The upper extremities have excellent pulses they are symmetric, no significant petechiae or telangiectasia. No splinter hemorrhages were noted. The left lower extremities without acute changes. The right lower extremity shows evidence of the extensive area of erythema in the knee distally. There is also significant swelling to the knee area. There is probable effusion. There is no skin thickening expressible purulence from the ulcer of the knee. There is dense erythema from the knee down to the foot. Circumferential. And tender. No ascending lymphangitis is noted no significant inguinal lymphadenopathy or other lymph nodes Neuro: Awake alert oriented to person place and time. There are no acute new gross focal sensory motor deficits. Results CBC & Chem 7: 03/14/17 13:32 03/14/17 13:32 Labs: Abnormal Lab Results - Last 24 Hours (Table) 03/14/17 03/14/17 Range/Units 13:32 13:32 RBC 4.00 L (4.30-5.90) m/uL Hgb 12.8 L (13.0-17.5) gm/dL Hct 37.5 L (39.0-53.0) % BUN 24 H (9-20) mg/dL Microbiology - Last 24 Hours (Table) 03/14/17 12:25 Wound Culture - Preliminary Knee - Right 03/14/17 14:21 Wound Culture - Preliminary Knee - Right Laboratory Results WBC 8.6 k/uL (3.8-10.6) 03/14/17 13:32 RBC 4.00 m/uL (4.30-5.90) L 03/14/17 13:32 Hgb 12.8 gm/dL (13.0-17.5) L 03/14/17 13:32 Hct 37.5 % (39.0-53.0) L 03/14/17 13:32 MCV 93.7 fL (80.0-100.0) 03/14/17 13:32 MCH 32.0 pg (25.0-35.0) 03/14/17 13:32 MCHC 34.1 g/dL (31.0-37.0) 03/14/17 13:32 RDW 14.6 % (11.5-15.5) 03/14/17 13:32 Plt Count 313 k/uL (150-450) 03/14/17 13:32 Neutrophils % 77 % 03/14/17 13:32 Lymphocytes % 13 % 03/14/17 13:32 Monocytes % 5 % 03/14/17 13:32 Eosinophils % 2 % 03/14/17 13:32 Basophils % 1 % 03/14/17 13:32 Neutrophils # 6.6 k/uL (1.3-7.7) 03/14/17 13:32 Lymphocytes # 1.1 k/uL (1.0-4.8) 03/14/17 13:32 Monocytes # 0.4 k/uL (0-1.0) 03/14/17 13:32 Eosinophils # 0.2 k/uL (0-0.7) 03/14/17 13:32 Basophils # 0.1 k/uL (0-0.2) 03/14/17 13:32 Sodium 141 mmol/L (137-145) 03/14/17 13:32 Potassium 4.5 mmol/L (3.5-5.1) 03/14/17 13:32 Chloride 107 mmol/L (98-107) 03/14/17 13:32 Carbon Dioxide 25 mmol/L (22-30) 03/14/17 13:32 Anion Gap 9 mmol/L 03/14/17 13:32 BUN 24 mg/dL (9-20) H 03/14/17 13:32 Creatinine 1.21 mg/dL (0.66-1.25) 03/14/17 13:32 Est GFR (MDRD) Af Amer >60 (>60 ml/min/1.73 sqM) 03/14/17 13:32 Est GFR (MDRD) Non-Af 57 (>60 ml/min/1.73 sqM) 03/14/17 13:32 Glucose 85 mg/dL (74-99) 03/14/17 13:32 Plasma Lactic Acid Ronald 0.8 mmol/L (0.7-2.0) 03/14/17 13:32 Calcium 9.1 mg/dL (8.4-10.2) 03/14/17 13:32 Total Bilirubin 0.4 mg/dL (0.2-1.3) 03/14/17 13:32 AST 28 U/L (17-59) 03/14/17 13:32 ALT 43 U/L (21-72) 03/14/17 13:32 Alkaline Phosphatase 50 U/L (38-126) 03/14/17 13:32 Total Protein 6.7 g/dL (6.3-8.2) 03/14/17 13:32 Albumin 3.7 g/dL (3.5-5.0) 03/14/17 13:32 Microbiology 03/14/17 12:25 Knee - Right Wound Culture - Preliminary 03/14/17 14:21 Knee - Right Wound Culture - Preliminary Assessment and Plan (1) Effusion, right knee Status: Acute (2) Cellulitis of right knee Narrative/Plan: Pleasant 81-year-old gentleman presents to Hospital because of a significant history of increasing pain and swelling to the right lower extremity. Believes he may have had some kind of bug bite or tick bites to the right knee. He picked at it. Upon further manipulation eventually develops ulceration with extensive swelling erythema and cellulitis to the right leg with a significant effusion to the right knee. He's been seen by orthopedics. The case is discussed with orthopedics. It is semi-would do well to have incision and drainage to the fluctuant area. Sotalol some local exploration. If there is evidence of deeper penetration then he may need an arthroscopic evaluation of his knee. Further deep samples will be helpful. Pain control is adequate. Antimicrobial therapy with vancomycin as initiated at this time. Cultures will further help direct antimicrobial therapy. He believes up-to-date with tetanus vaccine will allow a multivitamin we'll check his protein status make sure he does not eat protein supplementation. Status: Acute
[2017-03-15] MEDS: HYDROcodone/APAP 5-325MG 1 EACH TAB PO PRN ×4 (01:14→22:17)
[2017-03-15 07:15] LABS: Basophils # (A) 0.1 k/uL (0-0.2); Basophils % (A) 1 %; CH 31.7; CHCM 34.1; Eosinophils # (A) 0.2 k/uL (0-0.7); Eosinophils % (A) 2 %; HCT 35.9 % (39.0-53.0); HDW 3.23; HGB 11.9 gm/dL (13.0-17.5); Luc # (Auto) 0.15; Luc % (Auto) 2; Lymphocytes # (A) 1.2 k/uL (1.0-4.8); Lymphocytes % (A) 16 %; MCHC 33.1 g/dL (31.0-37.0); MCV 93.5 fL (80.0-100.0); Mean Platelet Volume 6.6; Monocytes # (A) 0.4 k/uL (0-1.0); Monocytes % (A) 5 %; Neutrophils # (A) 5.7 k/uL (1.3-7.7); Neutrophils % (A) 74 %; RBC 3.83 m/uL (4.30-5.90); RDW 14.6 % (11.5-15.5); WBC 7.6 k/uL (3.8-10.6); WBC (Perox) 8.16
[2017-03-15 07:24] LABS: ALT 34 U/L (21-72); AST 22 U/L (17-59); Alkaline Phosphatase 45 U/L (38-126); Anion Gap 7 mmol/L; Blood Urea Nitrogen 20 mg/dL (9-20); Calcium 8.9 mg/dL (8.4-10.2); Carbon Dioxide 25 mmol/L (22-30); Chloride 108 mmol/L (98-107); Glucose 86 mg/dL (74-99); Non-African American GFR(MDRD) >60 (>60 ml/min/1.73 sqM); Potassium 4.6 mmol/L (3.5-5.1); Sodium 140 mmol/L (137-145); Total Bilirubin 0.5 mg/dL (0.2-1.3); Total Protein 5.9 g/dL (6.3-8.2)
[2017-03-15] MEDS: FUROSEMIDE 20 MG TAB PO SCH (08:39)
[2017-03-15] MEDS: POTASSIUM CHLORIDE ER 20 MEQ TAB.ER PO SCH (08:39)
[2017-03-15] MEDS: CARVEDILOL 3.125 MG TAB PO SCH ×2 (08:39→18:47)
[2017-03-15] MEDS: ALLOPURINOL 300 MG TAB PO SCH (08:39)
[2017-03-15] MEDS: LISINOPRIL 20 MG TAB PO SCH (08:39)
[2017-03-15] MEDS: CHOLECALCIFEROL 1,000 UNIT TAB PO SCH (08:40)
[2017-03-15] MEDS: MAGNESIUM OXIDE 400 MG TAB PO SCH (08:40)
[2017-03-15] MEDS: OXYBUTYNIN XL 5 MG TAB.ER.24 PO SCH (08:40)
[2017-03-15] MEDS: DONEPEZIL 5 MG TAB PO SCH (08:40)
[2017-03-15] MEDS ORDERED: NON-FORMULARY DRUG (Omega-3 Fatty Acids [Omega-3] 1,000 MG) PO SCH (09:00)
[2017-03-15] MEDS ORDERED: RIVAROXABAN 10 MG TAB PO SCH (09:00)
[2017-03-15] MEDS ORDERED: ceFAZolin 1,000 MG in SODIUM CHLORIDE 0.9% 1,000 ML IRRIGATION ONE (11:33)
[2017-03-15] MEDS ORDERED: LACTATED RINGERS 1,000 ML IV ONE (11:33)
[2017-03-15] MEDS ORDERED: fentaNYL (PF) 50 MCG/ML 2 ML AMP ONE (11:33)
[2017-03-15] MEDS ORDERED: SUCCINYLCHOLINE CHLORIDE 100 MG/5 ML SYR IV ONE (11:33)
[2017-03-15] MEDS ORDERED: PROPOFOL 10 MG/ML 20 ML VIAL IV ONE (11:33)
--- NOTE | 2017-03-15 11:52 | P.PN ---
Subjective Patient in OR today Objective - Vital Signs Vital signs: Vital Signs Temp 98.2 F 03/15/17 07:00 Pulse 66 03/15/17 08:00 Resp 18 03/15/17 08:00 BP 158/93 03/15/17 07:00 Pulse Ox 95 03/15/17 07:00 Intake & Output 03/14/17 03/15/17 03/15/17 18:59 06:59 18:59 Intake Total 1040 Balance 1040 Weight 104 kg 104 kg Intake: IV 400 Sodium Chloride 0.9% 1, 400 000 ml @ 50 mls/hr IV . Q20H [facility] Rx#:[id number] Intake, IV Titration 200 Amount Sodium Chloride 0.9% 1, 200 000 ml @ 50 mls/hr IV . Q20H [facility] Rx#:[id number] Oral 440 Other: Voiding Method Toilet Toilet Toilet # Voids 1 1 1 - Labs CBC & Chem 7: 03/15/17 06:27 03/15/17 06:27 Labs: Abnormal Lab Results - Last 24 Hours (Table) 03/14/17 03/14/17 03/15/17 Range/Units 13:32 13:32 06:27 RBC 4.00 L 3.83 L (4.30-5.90) m/uL Hgb 12.8 L 11.9 L (13.0-17.5) gm/dL Hct 37.5 L 35.9 L (39.0-53.0) % Chloride (98-107) mmol/L BUN 24 H (9-20) mg/dL Total Protein (6.3-8.2) g/dL Albumin (3.5-5.0) g/dL 03/15/17 Range/Units 06:27 RBC (4.30-5.90) m/uL Hgb (13.0-17.5) gm/dL Hct (39.0-53.0) % Chloride 108 H (98-107) mmol/L BUN (9-20) mg/dL Total Protein 5.9 L (6.3-8.2) g/dL Albumin 3.1 L (3.5-5.0) g/dL Microbiology - Last 24 Hours (Table) 03/14/17 14:21 Gram Stain - Preliminary Knee - Right Wound Culture - Preliminary Presumptive MRSA 03/14/17 12:25 Gram Stain - Preliminary Knee - Right Wound Culture - Preliminary Assessment and Plan Plan: 1. Right knee wound with swelling and cellulitis: Concern for possible septic knee. Patient was taken to the OR today by orthopedic. Wound culture and blood culture have been ordered. [place] 5/325 when necessary every 6 hours for pain 2. 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 Dementia continue Aricept 4. Hyperlipidemia continue Zocor 5. Essential hypertension continue Coreg
[2017-03-15] MEDS ORDERED: ceFAZolin 3,000 MG in SODIUM CHLORIDE 0.9% IRRIGATIO 3,000 ML IRRIGATION ONE (11:57)
--- NOTE | 2017-03-15 12:25 | P.OP ---
Date of Procedure: 03/15/17 Preoperative Diagnosis: Right distal medial thigh abscess/right knee osteoarthrosis with effusion Postoperative Diagnosis: Same Procedure(s) Performed: Incision and drainage with irrigation and debridement right distal medial thigh abscess/aspiration right knee Anesthesia: RUBEN Surgeon: Carlos Garcias Executive Director [employer]1: Fitz Salinas Estimated Blood Loss (ml): 10 Pathology: other (Culture from right distal medial thigh abscess/culture of knee joint fluid) Condition: stable Disposition: PACU Indications for Procedure: The patient is an 81-year-old male presents with progressive right distal medial thigh swelling and erythema despite conservative measures. Clinically is was noted of evidence of an abscess. I felt he unlikely had septic arthritis of the knee. A discussion of the risks and benefits of operative intervention was made with patient. He opted to proceed. Operative risks to include persistence of infection, neurovascular injury, development of blood clots, and possible need for subsequent procedures was discussed. Operative Findings: Purulent fluid right distal medial thigh abscess/moderate right knee effusion Description of Procedure: The patient was brought to the operating room, and after induction of general anesthesia the right lower extremity was prepped and draped in normal fashion. The tourniquet was inflated to 270 mmHg. A 4 cm incision was then made centered over the ulceration involving his right distal medial thigh. The ulceration measured approximately 2 x 3 cm. The skin was incised sharply. Subcu tissues were divided bluntly. Moderate purulence was encountered. Deep cultures were obtained. The wound edges were sharply debrided with a scalpel down to the level of the fascia. Blunt dissection was performed. I did not feel this violated the joint capsule. This was copiously irrigated with normal saline. Through a lateral approach, 40 mL of serous joint fluid was aspirated. I did send this for culture. I did not feel the need for irrigation of his joint. A [place] drain was placed into the subcutaneous space. The skin wound edges were loosely reapproximated with simple 3-0 nylon suture. A sterile dressing was applied. The tourniquet was deflated less than 30 minutes total tourniquet time. The patient was awoken from general anesthesia and transferred to recovery room in good condition. Blood loss was estimated at 10 mL. No complications were incurred. Sponge and needle counts were correct at the end the case.
[2017-03-15] MEDS: SODIUM CHLORIDE 0.9% 1,000 ML IV SCH (14:26)
[2017-03-15] MEDS: B COMPLEX-VIT C-VIT E-ZINC 1 EACH TAB PO SCH (14:32)
[2017-03-15] MEDS: ATORVASTATIN 20 MG TAB PO SCH (19:55)
[2017-03-16 07:27] LABS: Basophils % (A) 0 %; CH 32.4; CHCM 34.5; Eosinophils # (A) 0.2 k/uL (0-0.7); Eosinophils % (A) 2 %; HCT 34.5 % (39.0-53.0); HDW 3.18; HGB 11.4 gm/dL (13.0-17.5); Luc # (Auto) 0.16; Luc % (Auto) 2; Lymphocytes # (A) 0.9 k/uL (1.0-4.8); Lymphocytes % (A) 11 %; MCH 31.3 pg (25.0-35.0); MCHC 33.2 g/dL (31.0-37.0); MCV 94.4 fL (80.0-100.0); Mean Platelet Volume 7.1; Monocytes # (A) 0.4 k/uL (0-1.0); Monocytes % (A) 5 %; Neutrophils # (A) 6.9 k/uL (1.3-7.7); Neutrophils % (A) 80 %; RBC 3.65 m/uL (4.30-5.90); RDW 15.5 % (11.5-15.5); WBC 8.6 k/uL (3.8-10.6)
[2017-03-16 07:47] LABS: ALT 31 U/L (21-72); AST 20 U/L (17-59); Alkaline Phosphatase 43 U/L (38-126); Anion Gap 7 mmol/L; Blood Urea Nitrogen 17 mg/dL (9-20); Calcium 8.7 mg/dL (8.4-10.2); Carbon Dioxide 25 mmol/L (22-30); Chloride 107 mmol/L (98-107); Glucose 93 mg/dL (74-99); Non-African American GFR(MDRD) >60 (>60 ml/min/1.73 sqM); Potassium 4.6 mmol/L (3.5-5.1); Sodium 139 mmol/L (137-145); Total Bilirubin 0.5 mg/dL (0.2-1.3); Total Protein 5.7 g/dL (6.3-8.2)
--- NOTE | 2017-03-16 08:30 | P.PN ---
Subjective Principal diagnosis: s/p I&D right medial thigh abscess Patient is seen today resting in his hospital bed, he appears comfortable. He notes minimal discomfort along the right knee. He's been ambulating well. He denies any fevers or chills. He denies headaches, lightheadedness, chest pain or shortness of breath. Objective - Vital Signs Vital signs: Vital Signs Temp 98.7 F 03/16/17 07:00 Pulse 75 03/16/17 07:00 Resp 16 03/16/17 07:00 BP 119/67 03/16/17 07:00 Pulse Ox 96 03/16/17 07:00 Intake & Output 03/15/17 03/16/17 03/16/17 18:59 06:59 18:59 Intake Total 1252 1000 Output Total 10 Balance 1242 1000 Weight 104 kg Intake: IV 752 800 Sodium Chloride 0.9% 1, 800 000 ml @ 50 mls/hr IV . Q20H [facility] Rx#:[id number] Intake, IV Titration 500 Amount Sodium Chloride 0.9% 1, 400 000 ml @ 50 mls/hr IV . Q20H [facility] Rx#:[id number] cefTRIAXone 1,000 mg In 100 Sodium Chloride 0.9% 50 ml @ 100 mls/hr IVPB Q24H [facility] Rx#:[id number] Oral 200 Output: Estimated Blood Loss 10 Other: Voiding Method Toilet Toilet # Voids 1 2 - Exam Right lower extremity: Initial postoperative bandages in place. The drain is still in place. There is no active drainage. The stitches are in good position. Minimal soft tissue swelling and erythema present, this is improved. Calf is soft, no tenderness with palpation. Distal neurovascular exam is intact. - Labs CBC & Chem 7: 03/16/17 07:05 03/16/17 07:05 Labs: Abnormal Lab Results - Last 24 Hours (Table) 03/16/17 03/16/17 Range/Units 07:05 07:05 RBC 3.65 L (4.30-5.90) m/uL Hgb 11.4 L (13.0-17.5) gm/dL Hct 34.5 L (39.0-53.0) % Lymphocytes # 0.9 L (1.0-4.8) k/uL Total Protein 5.7 L (6.3-8.2) g/dL Albumin 2.9 L (3.5-5.0) g/dL Microbiology - Last 24 Hours (Table) 03/15/17 12:06 Gram Stain - Preliminary Knee - Right Wound Culture - Preliminary 03/15/17 12:06 Gram Stain - Preliminary Knee - Right Wound Culture - Preliminary 03/15/17 12:06 Anaerobic Culture - Preliminary Knee - Right 03/15/17 12:06 Anaerobic Culture - Preliminary Knee - Right 03/14/17 13:32 Blood Culture - Preliminary Blood No Growth after 24 hours 03/14/17 14:21 Gram Stain - Preliminary Knee - Right Wound Culture - Preliminary Presumptive MRSA Assessment and Plan Plan: Assessment: 1. Postop day #1 status post I&D right medial thigh abscess 2. Right knee osteoarthritis Plan: 1. Pain control, continue supportive oral medications 2. Will change dressing tomorrow along with remove drain 3. Weight-bear as tolerated 4. Await cultures and infectious disease recommendations for outpatient antibiotics 5. Medical recommendations 6. GI and DVT prophylaxis per medical recommendations 7. Further recommendations to follow Time with Patient: Less than 30
[2017-03-16] MEDS: ALLOPURINOL 300 MG TAB PO SCH (08:55)
[2017-03-16] MEDS: SODIUM CHLORIDE 0.9% 1,000 ML IV SCH (08:55)
[2017-03-16] MEDS: CHOLECALCIFEROL 1,000 UNIT TAB PO SCH (08:56)
[2017-03-16] MEDS: B COMPLEX-VIT C-VIT E-ZINC 1 EACH TAB PO SCH (08:56)
[2017-03-16] MEDS: LISINOPRIL 20 MG TAB PO SCH (08:56)
[2017-03-16] MEDS: FUROSEMIDE 20 MG TAB PO SCH (08:56)
[2017-03-16] MEDS: CARVEDILOL 3.125 MG TAB PO SCH ×2 (08:56→15:56)
[2017-03-16] MEDS: DONEPEZIL 5 MG TAB PO SCH (08:56)
[2017-03-16] MEDS: POTASSIUM CHLORIDE ER 20 MEQ TAB.ER PO SCH (08:56)
[2017-03-16] MEDS: MAGNESIUM OXIDE 400 MG TAB PO SCH (08:57)
[2017-03-16] MEDS: OXYBUTYNIN XL 5 MG TAB.ER.24 PO SCH (08:57)
[2017-03-16] MEDS ORDERED: IV VANCOMYCIN PER PHARMACY 1 EACH MISC MISCELLANE PRN (11:23)
--- NOTE | 2017-03-16 11:23 | P.PN ---
Subjective Patient is doing well today. Pain is well-controlled. No events overnight. Objective - Vital Signs Vital signs: Vital Signs Temp 98.7 F 03/16/17 07:00 Pulse 75 03/16/17 07:00 Resp 16 03/16/17 07:00 BP 119/67 03/16/17 07:00 Pulse Ox 96 03/16/17 07:00 Intake & Output 03/15/17 03/16/17 03/16/17 18:59 06:59 18:59 Intake Total 1252 1000 Output Total 10 Balance 1242 1000 Weight 104 kg Intake: IV 752 800 Sodium Chloride 0.9% 1, 800 000 ml @ 50 mls/hr IV . Q20H [facility] Rx#:[id number] Intake, IV Titration 500 Amount Sodium Chloride 0.9% 1, 400 000 ml @ 50 mls/hr IV . Q20H [facility] Rx#:[id number] cefTRIAXone 1,000 mg In 100 Sodium Chloride 0.9% 50 ml @ 100 mls/hr IVPB Q24H [facility] Rx#:[id number] Oral 200 Output: Estimated Blood Loss 10 Other: Voiding Method Toilet Toilet Toilet # Voids 1 2 - Exam General: The patient is awake and alert, in no distress Eye: there is normal conjunctiva bilaterally. Neck: The neck is supple, there is no JVD. Cardiovascular: Normal S1-S2, no S3-S4, no murmurs. Respiratory: Lungs clear to auscultation bilaterally Gastrointestinal: Abdomen is soft, nontender right lower extremity wrapped in clean dressing and Chuy wrap at the incision site. Musculoskeletal: There is no pedal edema. Neurological:. Speech is normal. Skin: Skin is warm and dry - Labs CBC & Chem 7: 03/16/17 07:05 03/16/17 07:05 Labs: Abnormal Lab Results - Last 24 Hours (Table) 03/16/17 03/16/17 Range/Units 07:05 07:05 RBC 3.65 L (4.30-5.90) m/uL Hgb 11.4 L (13.0-17.5) gm/dL Hct 34.5 L (39.0-53.0) % Lymphocytes # 0.9 L (1.0-4.8) k/uL Total Protein 5.7 L (6.3-8.2) g/dL Albumin 2.9 L (3.5-5.0) g/dL Microbiology - Last 24 Hours (Table) 03/15/17 12:06 Gram Stain - Preliminary Knee - Right Wound Culture - Preliminary Presumptive MRSA 03/15/17 12:06 Gram Stain - Preliminary Knee - Right Wound Culture - Preliminary 03/15/17 12:06 Anaerobic Culture - Preliminary Knee - Right 03/15/17 12:06 Anaerobic Culture - Preliminary Knee - Right 03/14/17 13:32 Blood Culture - Preliminary Blood No Growth after 24 hours 03/14/17 14:21 Gram Stain - Preliminary Knee - Right Wound Culture - Preliminary Presumptive MRSA Assessment and Plan Plan: 1. Status post I&D of right distal medial thigh abscess/aspiration of the right knee: Awaiting culture results. Antibiotic management by infectious disease. 2. 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 Dementia continue Aricept 4. Hyperlipidemia continue Zocor 5. Essential hypertension continue Coreg Today, I reviewed his lab work results and medication list. Continue current regimen. Repeat lab work in the morning. Awaiting culture results.
[2017-03-16] MEDS ORDERED: VANCOMYCIN 1,750 MG in SODIUM CHLORIDE 0.9% 250 ML IVPB ONE (12:00)
[2017-03-16] MEDS: CALCIUM CARB-VIT D 500MG-200UN 1 EACH TAB PO SCH (15:57)
[2017-03-16] MEDS: ATORVASTATIN 20 MG TAB PO SCH (19:52)
[2017-03-16] MEDS: VANCOMYCIN 1,750 MG in SODIUM CHLORIDE 0.9% 250 ML IVPB SCH (21:04)
[2017-03-17] MEDS: SODIUM CHLORIDE 0.9% 1,000 ML IV SCH ×2 (05:47→22:53)
[2017-03-17 07:09] LABS: Basophils % (A) 1 %; CH 31.4; CHCM 34.1; Eosinophils # (A) 0.2 k/uL (0-0.7); Eosinophils % (A) 2 %; HCT 33.6 % (39.0-53.0); HGB 11.5 gm/dL (13.0-17.5); Luc # (Auto) 0.13; Luc % (Auto) 2; Lymphocytes # (A) 0.8 k/uL (1.0-4.8); Lymphocytes % (A) 11 %; MCH 31.6 pg (25.0-35.0); MCHC 34.1 g/dL (31.0-37.0); MCV 92.5 fL (80.0-100.0); Mean Platelet Volume 6.7; Monocytes # (A) 0.4 k/uL (0-1.0); Monocytes % (A) 5 %; Neutrophils # (A) 5.9 k/uL (1.3-7.7); Neutrophils % (A) 80 %; RBC 3.64 m/uL (4.30-5.90); RDW 14.6 % (11.5-15.5); WBC 7.4 k/uL (3.8-10.6); WBC (Perox) 7.94
[2017-03-17 07:22] LABS: ALT 34 U/L (21-72); AST 20 U/L (17-59); Alkaline Phosphatase 40 U/L (38-126); Anion Gap 7 mmol/L; Blood Urea Nitrogen 15 mg/dL (9-20); Calcium 8.8 mg/dL (8.4-10.2); Carbon Dioxide 24 mmol/L (22-30); Chloride 107 mmol/L (98-107); Glucose 93 mg/dL (74-99); Non-African American GFR(MDRD) >60 (>60 ml/min/1.73 sqM); Potassium 4.1 mmol/L (3.5-5.1); Sodium 138 mmol/L (137-145); Total Bilirubin 0.5 mg/dL (0.2-1.3); Total Protein 5.7 g/dL (6.3-8.2)
[2017-03-17] MEDS: OXYBUTYNIN XL 5 MG TAB.ER.24 PO SCH (07:27)
[2017-03-17] MEDS: ALLOPURINOL 300 MG TAB PO SCH (07:28)
[2017-03-17] MEDS: LISINOPRIL 20 MG TAB PO SCH (07:28)
[2017-03-17] MEDS: CHOLECALCIFEROL 1,000 UNIT TAB PO SCH (07:28)
[2017-03-17] MEDS: FUROSEMIDE 20 MG TAB PO SCH (07:28)
[2017-03-17] MEDS: CARVEDILOL 3.125 MG TAB PO SCH ×2 (07:28→16:24)
[2017-03-17] MEDS: POTASSIUM CHLORIDE ER 20 MEQ TAB.ER PO SCH (07:28)
[2017-03-17] MEDS: B COMPLEX-VIT C-VIT E-ZINC 1 EACH TAB PO SCH (07:28)
[2017-03-17] MEDS: DONEPEZIL 5 MG TAB PO SCH (07:29)
[2017-03-17] MEDS: MAGNESIUM OXIDE 400 MG TAB PO SCH (07:29)
--- NOTE | 2017-03-17 09:45 | P.PN ---
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 Also has a history of dementia, hypertension, hyperlipidemia and prostate cancer. Patient sees Dr. Coker for his PCP. Patient reports that about 2 weeks ago he noted some swelling in his right knee there was a black spot that he picked at initially he thought it was a bug possibly a tick. And then a sore developed. Now the knee is red swollen and has a yellowish drainage seeping through the wound on the medial aspect of the knee. Patient was started on Augmentin for 10 days outpatient. He reports that he has had some improvement in the redness that was up into the thigh area. However still having significant amount of swelling and failed outpatient antibiotics. Patient reports he was set up to see orthopedic doctor however, he did not get to that appointment. His PCP told him to come to the hospital instead. Patient has been admitted for possible septic knee. Orthopedics and infectious disease been consulted. Patient be placed on IV antibiotics. 03/17/2017 patient had I&D in the OR on 03/15/2017. Wound cultures are growing MRSA. Currently on IV vancomycin. Awaiting further infectious disease recommendations. Patient's right knee and lower leg down to the foot are still swollen. Patient denies any chest pain or shortness breath. Denies any nausea or vomiting. Denies any bowel movement changes or urinary symptoms Objective - Vital Signs Vital signs: Vital Signs Temp 98.2 F 03/17/17 07:00 Pulse 65 03/17/17 07:43 Resp 16 03/17/17 07:43 BP 130/66 03/17/17 07:00 Pulse Ox 97 03/17/17 07:00 Intake & Output 03/16/17 03/17/17 03/17/17 18:59 06:59 18:59 Intake Total 650 1430 Balance 650 1430 Intake: IV 650 Sodium Chloride 0.9% 1, 400 000 ml @ 50 mls/hr IV . Q20H [facility] Rx#:[id number] Vancomycin 1,750 mg In 250 Sodium Chloride 0.9% 250 ml @ 125 mls/hr IVPB ONCE ONE Rx#:[id number] Intake, IV Titration 250 Amount Vancomycin 1,750 mg In 250 Sodium Chloride 0.9% 250 ml @ 125 mls/hr IVPB Q16H [facility] Rx#:[id number] Oral 1180 Other: Voiding Method Toilet Toilet Toilet # Voids 2 - Exam Head normocephalic Neck supple Lungs clear to auscultation bilaterally no wheezing or crackles Heart regular rate and rhythm S1-S2, no rub or gallop Abdomen is soft nontender nondistended positive bowel sounds no hepatosplenomegaly Extremities right knee is wrapped. Dressing is clean dry and intact. Patient does have significant swelling in the right knee calf and foot. Neuro alert and orientated to 3 - Labs CBC & Chem 7: 03/17/17 06:46 03/17/17 06:46 Labs: Abnormal Lab Results - Last 24 Hours (Table) 03/17/17 03/17/17 Range/Units 06:46 06:46 RBC 3.64 L (4.30-5.90) m/uL Hgb 11.5 L (13.0-17.5) gm/dL Hct 33.6 L (39.0-53.0) % Lymphocytes # 0.8 L (1.0-4.8) k/uL Total Protein 5.7 L (6.3-8.2) g/dL Albumin 2.9 L (3.5-5.0) g/dL Microbiology - Last 24 Hours (Table) 03/14/17 13:32 Blood Culture - Preliminary Blood No Growth after 48 hours 03/14/17 12:25 Gram Stain - Final Knee - Right Wound Culture - Final Methicillin resist S. aureus 03/14/17 14:21 Gram Stain - Final Knee - Right Wound Culture - Final Methicillin resist S. aureus 03/15/17 12:06 Gram Stain - Preliminary Knee - Right Wound Culture - Preliminary Presumptive MRSA 03/15/17 12:06 Gram Stain - Preliminary Knee - Right Wound Culture - Preliminary Assessment and Plan Plan: 1. Right distal medial thigh abscess status post incision and drainage with aspiration of the right knee. Wound cultures are growing MRSA. Patient on IV vancomycin. Awaiting further recommendations per orthopedics and infectious disease. 2. History of bilateral PE and DVT maintained on Xarelto at home. Xarelto had been on hold for surgery. At this time we will resume patient's Xarelto 3. Dementia continue Aricept 4. Hyperlipidemia continue Zocor 5. Essential hypertension continue Coreg Consult physical therapy. Patient may require ECF placement. He lives alone with no support at home I performed an examination of the patient and discussed their management with the physician Electronics Scale Tester. I have reviewed the Physician Electronics Scale Tester's notes and agree with the documented findings and plan of care
--- NOTE | 2017-03-17 11:56 | US ---
EXAMINATION TYPE: US venous doppler duplex LE RT DATE OF EXAM: 03/17/2017 11:37 AM COMPARISON: Bilateral lower extremity venous ultrasound May 01, 2016 CLINICAL HISTORY: leg swelling, rule out DVT. Hx of MRSA in right knee. Swelling and pain. Hx of Bi lateral DVT in legs and in lungs per patient. On blood thinners. SIDE PERFORMED: Right TECHNIQUE: The lower extremity deep venous system is examined utilizing real time linear array sonog graciela with graded compression, doppler sonography and color-flow sonography. VESSELS IMAGED: External Iliac Vein (EIV) Common Femoral Vein Deep Femoral Vein Greater Saphenous Vein * Femoral Vein Popliteal Vein Small Saphenous Vein * Proximal Calf Veins (* superficial vessels) Beginning in the mid popliteal vein through distal popliteal vein there is hyperechoic material expan ding the lumen with areas of diminished and absent color flow. Compression views are not performed. P roximal calf veins show satisfactory color flow. There was longer thrombus seen on prior study. Right Leg: Appears POSITIVE for DVT in mid to distal popliteal vein, . Compressions deferred due to visibile echogenic echoes. IMPRESSION: Age-indeterminate thrombus mid to distal right popliteal vein is identified currently, t here is improvement from prior ultrasound noted, however due to slight expansion of vessel margins ac [place] & [place] thrombus cannot be excluded at this level.
--- NOTE | 2017-03-17 12:47 | P.PN ---
Subjective Principal diagnosis: s/p I&D right medial thigh abscess Patient is seen today resting in his hospital bed, he appears comfortable. He notes minimal discomfort along the right knee. He's been ambulating well. He denies any fevers or chills. He denies headaches, lightheadedness, chest pain or shortness of breath. Objective - Vital Signs Vital signs: Vital Signs Temp 98.2 F 03/17/17 07:00 Pulse 65 03/17/17 07:43 Resp 16 03/17/17 07:43 BP 130/66 03/17/17 07:00 Pulse Ox 97 03/17/17 07:00 Intake & Output 03/16/17 03/17/17 03/17/17 18:59 06:59 18:59 Intake Total 650 1430 Balance 650 1430 Intake: IV 650 Sodium Chloride 0.9% 1, 400 000 ml @ 50 mls/hr IV . Q20H [facility] Rx#:[id number] Vancomycin 1,750 mg In 250 Sodium Chloride 0.9% 250 ml @ 125 mls/hr IVPB ONCE ONE Rx#:[id number] Intake, IV Titration 250 Amount Vancomycin 1,750 mg In 250 Sodium Chloride 0.9% 250 ml @ 125 mls/hr IVPB Q16H [facility] Rx#:[id number] Oral 1180 Other: Voiding Method Toilet Toilet Toilet # Voids 2 - Exam Right lower extremity: Postop bandage and drain was removed. No active drainage visualized. No bleeding erythema present on the medial aspect of the thigh knee. There is also an effusion present on the knee. The foot remains swollen and red also. No significant pain with range of motion of the knee. Calf is soft, no tenderness with palpation. Distal neurovascular exam is intact. - Labs CBC & Chem 7: 03/17/17 06:46 03/17/17 06:46 Labs: Abnormal Lab Results - Last 24 Hours (Table) 03/17/17 03/17/17 Range/Units 06:46 06:46 RBC 3.64 L (4.30-5.90) m/uL Hgb 11.5 L (13.0-17.5) gm/dL Hct 33.6 L (39.0-53.0) % Lymphocytes # 0.8 L (1.0-4.8) k/uL Total Protein 5.7 L (6.3-8.2) g/dL Albumin 2.9 L (3.5-5.0) g/dL Microbiology - Last 24 Hours (Table) 03/14/17 13:32 Blood Culture - Preliminary Blood No Growth after 48 hours 03/14/17 12:25 Gram Stain - Final Knee - Right Wound Culture - Final Methicillin resist S. aureus 03/14/17 14:21 Gram Stain - Final Knee - Right Wound Culture - Final Methicillin resist S. aureus 03/15/17 12:06 Gram Stain - Preliminary Knee - Right Wound Culture - Preliminary Presumptive MRSA 03/15/17 12:06 Gram Stain - Preliminary Knee - Right Wound Culture - Preliminary Assessment and Plan Plan: Assessment: 1. Postop day #2 status post I&D right medial thigh abscess 2. Right knee osteoarthritis Plan: 1. Pain control, continue supportive oral medications 2. Will change dressing tomorrow along with remove drain 3. Weight-bear as tolerated 4. Awaiting infectious disease recommendations on further antibiotic treatment and overall presentation of the knee itself. 5. Medical recommendations 6. GI and DVT prophylaxis per medical recommendations 7. Further recommendations to follow Time with Patient: Less than 30
[2017-03-17] MEDS: RIVAROXABAN 10 MG TAB PO SCH (16:23)
[2017-03-17] MEDS: VANCOMYCIN 1,750 MG in SODIUM CHLORIDE 0.9% 250 ML IVPB SCH (16:23)
[2017-03-17] MEDS ORDERED: RIVAROXABAN 10 MG TAB PO SCH (17:30)
[2017-03-17] MEDS: DAPTOmycin 500 MG in SODIUM CHLORIDE 0.9% 50 ML IV SCH (19:14)
--- NOTE | 2017-03-17 21:01 | P.PN ---
Subjective Principal diagnosis: Infection of right knee Douglas 81-year-old male relates that several days ago he removed without may have been a tick from the anterior surface of his right knee. Relates that he pulled it off and then take that a bit. The following days he became a bit more problematic. He became more swollen painful erythematous. The problem continued to worsen. Eventually his leg became quite swollen. Developed an ulcerative area on the medial aspect of the knee. With surrounding erythema that tracks down onto his foot was significant swelling. Because of discomfort of the changes he was then brought to hospital for further intervention. Orthopedic evaluation requested because the severe swelling to the knee and infectious diseases consultation regarding the infection at the leg. Patient has had I&D of the knee with aspiration of the joint without distinct evidence of a septic arthritis. Doing well with antibiotic therapy with distinct improvement, Objective - Vital Signs Vital signs: Vital Signs Temp 98.3 F 03/17/17 15:00 Pulse 63 03/17/17 15:00 Resp 16 03/17/17 14:52 BP 122/86 03/17/17 15:00 Pulse Ox 98 03/17/17 15:00 Intake & Output 03/17/17 03/17/17 03/18/17 06:59 18:59 06:59 Intake Total 1430 240 Balance 1430 240 Intake: Intake, IV Titration 250 Amount Vancomycin 1,750 mg In 250 Sodium Chloride 0.9% 250 ml @ 125 mls/hr IVPB Q16H [facility] Rx#:[id number] Oral 1180 240 Other: Voiding Method Toilet Toilet # Voids 2 3 - Exam Douglas 81-year-old male who is slightly uncomfortable because the pain and swelling to the right leg HEENT: Anicteric conjunctiva are pink and moist nasal mucosa grossly intact without significant lesions, there is no thrush. Neck: The neck is supple without significant lymphadenopathy or thyromegaly. Lungs: Good bilateral air entry without significant crackles or wheezing. There is no significant bronchial sounds. There is no egophony or dullness. Heart: Regular rate and rhythm with an audible S1-S2, no S3 no S4. There is no significant murmur click or rub, PMI was nondisplaced. Abdomen: Positive bowel sounds soft and nontender without palpable masses or organomegaly. There was no guarding or rebound. Extremities: The upper extremities have excellent pulses they are symmetric, no significant petechiae or telangiectasia. No splinter hemorrhages were noted. The left lower extremities without acute changes. The right lower extremity shows evidence of the extensive area of erythema , There is no skin thickening expressible purulence from the ulcer of the knee. There is dense erythema around the knee with the surgical incision healing well, less tender and no drainage. No ascending lymphangitis is noted no significant inguinal lymphadenopathy or other lymph nodes Neuro: Awake alert oriented to person place and time. There are no acute new gross focal sensory motor deficits. - Labs CBC & Chem 7: 03/17/17 06:46 03/17/17 06:46 Labs: Abnormal Lab Results - Last 24 Hours (Table) 03/17/17 03/17/17 Range/Units 06:46 06:46 RBC 3.64 L (4.30-5.90) m/uL Hgb 11.5 L (13.0-17.5) gm/dL Hct 33.6 L (39.0-53.0) % Lymphocytes # 0.8 L (1.0-4.8) k/uL Total Protein 5.7 L (6.3-8.2) g/dL Albumin 2.9 L (3.5-5.0) g/dL Microbiology - Last 24 Hours (Table) 03/14/17 13:32 Blood Culture - Preliminary Blood No Growth after 72 hours 03/15/17 12:06 Anaerobic Culture - Preliminary Knee - Right 03/15/17 12:06 Anaerobic Culture - Preliminary Knee - Right 03/15/17 12:06 Gram Stain - Final Knee - Right Wound Culture - Final Methicillin resist S. aureus 03/15/17 12:06 Gram Stain - Final Knee - Right Wound Culture - Final Laboratory Results WBC 7.4 k/uL (3.8-10.6) 03/17/17 06:46 RBC 3.64 m/uL (4.30-5.90) L 03/17/17 06:46 Hgb 11.5 gm/dL (13.0-17.5) L 03/17/17 06:46 Hct 33.6 % (39.0-53.0) L 03/17/17 06:46 MCV 92.5 fL (80.0-100.0) 03/17/17 06:46 MCH 31.6 pg (25.0-35.0) 03/17/17 06:46 MCHC 34.1 g/dL (31.0-37.0) 03/17/17 06:46 RDW 14.6 % (11.5-15.5) 03/17/17 06:46 Plt Count 245 k/uL (150-450) 03/17/17 06:46 Neutrophils % 80 % 03/17/17 06:46 Lymphocytes % 11 % 03/17/17 06:46 Monocytes % 5 % 03/17/17 06:46 Eosinophils % 2 % 03/17/17 06:46 Basophils % 1 % 03/17/17 06:46 Neutrophils # 5.9 k/uL (1.3-7.7) 03/17/17 06:46 Lymphocytes # 0.8 k/uL (1.0-4.8) L 03/17/17 06:46 Monocytes # 0.4 k/uL (0-1.0) 03/17/17 06:46 Eosinophils # 0.2 k/uL (0-0.7) 03/17/17 06:46 Basophils # 0.0 k/uL (0-0.2) 03/17/17 06:46 Sodium 138 mmol/L (137-145) 03/17/17 06:46 Potassium 4.1 mmol/L (3.5-5.1) 03/17/17 06:46 Chloride 107 mmol/L (98-107) 03/17/17 06:46 Carbon Dioxide 24 mmol/L (22-30) 03/17/17 06:46 Anion Gap 7 mmol/L 03/17/17 06:46 BUN 15 mg/dL (9-20) 03/17/17 06:46 Creatinine 0.78 mg/dL (0.66-1.25) 03/17/17 06:46 Est GFR (MDRD) Af Amer >60 (>60 ml/min/1.73 sqM) 03/17/17 06:46 Est GFR (MDRD) Non-Af >60 (>60 ml/min/1.73 sqM) 03/17/17 06:46 Glucose 93 mg/dL (74-99) 03/17/17 06:46 Plasma Lactic Acid Ronald 0.8 mmol/L (0.7-2.0) 03/14/17 13:32 Calcium 8.8 mg/dL (8.4-10.2) 03/17/17 06:46 Total Bilirubin 0.5 mg/dL (0.2-1.3) 03/17/17 06:46 AST 20 U/L (17-59) 03/17/17 06:46 ALT 34 U/L (21-72) 03/17/17 06:46 Alkaline Phosphatase 40 U/L (38-126) 03/17/17 06:46 Total Protein 5.7 g/dL (6.3-8.2) L 03/17/17 06:46 Albumin 2.9 g/dL (3.5-5.0) L 03/17/17 06:46 Microbiology 03/14/17 13:32 Blood Blood Culture - Preliminary No Growth after 72 hours 03/15/17 12:06 Knee - Right Anaerobic Culture - Preliminary 03/15/17 12:06 Knee - Right Anaerobic Culture - Preliminary 03/15/17 12:06 Knee - Right Gram Stain - Final 03/15/17 12:06 Knee - Right Wound Culture - Final Methicillin resist S. aureus 03/15/17 12:06 Knee - Right Gram Stain - Final 03/15/17 12:06 Knee - Right Wound Culture - Final 03/14/17 12:25 Knee - Right Gram Stain - Final 03/14/17 12:25 Knee - Right Wound Culture - Final Methicillin resist S. aureus 03/14/17 14:21 Knee - Right Gram Stain - Final 03/14/17 14:21 Knee - Right Wound Culture - Final Methicillin resist S. aureus Assessment and Plan (1) Effusion, right knee Status: Acute (2) Cellulitis of right knee Narrative/Plan: Pleasant 81-year-old gentleman presents to Hospital because of a significant history of increasing pain and swelling to the right lower extremity. Believes he may have had some kind of bug bite or tick bites to the right knee. He picked at it. Upon further manipulation eventually develops ulceration with extensive swelling erythema and cellulitis to the right leg with a significant effusion to the right knee. He's been seen by orthopedics. The case is discussed with orthopedics. It is semi-would do well to have incision and drainage to the fluctuant area. Sotalol some local exploration. If there is evidence of deeper penetration then he may need an arthroscopic evaluation of his knee. Further deep samples will be helpful. Pain control is adequate. Antimicrobial therapy with vancomycin as initiated at this time. Cultures will further help direct antimicrobial therapy. He believes up-to-date with tetanus vaccine will allow a multivitamin protein status is low and supplement is needed. . Patient improved and looks forward to discharge home, Will request a PICC line for outpatient IV antibiotic therapy. Will change to Daptomycin for the isolated MRSA with JARON of 2. will be amenable to office infusion Status: Acute
[2017-03-18 08:27] LABS: Basophils % (A) 1 %; CH 30.8; CHCM 33.5; Eosinophils # (A) 0.2 k/uL (0-0.7); Eosinophils % (A) 3 %; HCT 35.6 % (39.0-53.0); HDW 3.34; HGB 11.8 gm/dL (13.0-17.5); Luc # (Auto) 0.19; Luc % (Auto) 2; Lymphocytes % (A) 12 %; MCH 30.5 pg (25.0-35.0); MCV 92.3 fL (80.0-100.0); Mean Platelet Volume 6.8; Monocytes # (A) 0.4 k/uL (0-1.0); Monocytes % (A) 4 %; Neutrophils # (A) 6.5 k/uL (1.3-7.7); Neutrophils % (A) 78 %; RBC 3.86 m/uL (4.30-5.90); RDW 14.4 % (11.5-15.5); WBC 8.2 k/uL (3.8-10.6); WBC (Perox) 8.82
[2017-03-18] MEDS: FUROSEMIDE 20 MG TAB PO SCH (09:08)
[2017-03-18] MEDS: CARVEDILOL 3.125 MG TAB PO SCH ×2 (09:08→17:24)
[2017-03-18] MEDS: CHOLECALCIFEROL 1,000 UNIT TAB PO SCH (09:09)
[2017-03-18] MEDS: ALLOPURINOL 300 MG TAB PO SCH (09:09)
[2017-03-18] MEDS: B COMPLEX-VIT C-VIT E-ZINC 1 EACH TAB PO SCH (09:09)
[2017-03-18] MEDS: LISINOPRIL 20 MG TAB PO SCH (09:10)
[2017-03-18] MEDS: MAGNESIUM OXIDE 400 MG TAB PO SCH (09:10)
[2017-03-18] MEDS: POTASSIUM CHLORIDE ER 20 MEQ TAB.ER PO SCH (09:10)
[2017-03-18] MEDS: DONEPEZIL 5 MG TAB PO SCH (09:10)
[2017-03-18] MEDS: OXYBUTYNIN XL 5 MG TAB.ER.24 PO SCH (09:10)
[2017-03-18 10:43] LABS: ALT 31 U/L (21-72); AST 24 U/L (17-59); Alkaline Phosphatase 50 U/L (38-126); Anion Gap 10 mmol/L; Blood Urea Nitrogen 16 mg/dL (9-20); Carbon Dioxide 23 mmol/L (22-30); Chloride 106 mmol/L (98-107); Glucose 100 mg/dL (74-99); Non-African American GFR(MDRD) >60 (>60 ml/min/1.73 sqM); Potassium 4.2 mmol/L (3.5-5.1); Sodium 139 mmol/L (137-145); Total Bilirubin 0.4 mg/dL (0.2-1.3); Total Protein 6.4 g/dL (6.3-8.2)
[2017-03-18] MEDS: RIVAROXABAN 10 MG TAB PO SCH (11:38)
[2017-03-18] MEDS: CALCIUM CARB-VIT D 500MG-200UN 1 EACH TAB PO SCH (15:03)
--- NOTE | 2017-03-18 15:10 | P.PN ---
Subjective Principal diagnosis: s/p I&D right medial thigh abscess Patient is seen today resting in his hospital bed, he appears comfortable. He notes minimal discomfort along the right knee. He's been ambulating well. He denies any fevers or chills. He denies headaches, lightheadedness, chest pain or shortness of breath. Objective - Vital Signs Vital signs: Vital Signs Temp 98.7 F 03/18/17 07:00 Pulse 62 03/18/17 08:00 Resp 16 03/18/17 07:00 BP 116/63 03/18/17 07:00 Pulse Ox 96 03/17/17 21:55 Intake & Output 03/17/17 03/18/17 03/18/17 18:59 06:59 18:59 Intake Total 651 502 0082 Balance 721 269 1114 Weight 104 kg Intake: IV 400 350 Sodium Chloride 0.9% 1, 400 350 000 ml @ 50 mls/hr IV . Q20H [facility] Rx#:[id number] Oral 240 240 880 Other: Voiding Method Toilet Toilet Toilet # Voids 3 1 1 - Exam Right lower extremity: Postop bandage and drain was removed. No active drainage visualized. Erythema present on the medial aspect of the thigh knee. There is also an effusion present on the knee. The foot remains swollen and red also. No significant pain with range of motion of the knee. Calf is soft, no tenderness with palpation. Distal neurovascular exam is intact. - Labs CBC & Chem 7: 03/18/17 07:42 03/18/17 07:42 Labs: Abnormal Lab Results - Last 24 Hours (Table) 03/18/17 03/18/17 Range/Units 07:42 07:42 RBC 3.86 L (4.30-5.90) m/uL Hgb 11.8 L (13.0-17.5) gm/dL Hct 35.6 L (39.0-53.0) % Glucose 100 H (74-99) mg/dL Albumin 3.3 L (3.5-5.0) g/dL Microbiology - Last 24 Hours (Table) 03/14/17 13:32 Blood Culture - Preliminary Blood No Growth after 72 hours 03/15/17 12:06 Anaerobic Culture - Preliminary Knee - Right 03/15/17 12:06 Anaerobic Culture - Preliminary Knee - Right 03/15/17 12:06 Gram Stain - Final Knee - Right Wound Culture - Final Methicillin resist S. aureus 03/15/17 12:06 Gram Stain - Final Knee - Right Wound Culture - Final Assessment and Plan Plan: Assessment: 1. Postop day #3 status post I&D right medial thigh abscess 2. Right knee osteoarthritis Plan: 1. Pain control, continue supportive oral medications 2. Daily dressing changes 3. Weight-bear as tolerated 4. Patient likely will receive PICC line in next day or 2 then be discharged home 5. Medical recommendations 6. GI and DVT prophylaxis per medical recommendations 7. We will continue to follow Time with Patient: Less than 30
[2017-03-18] MEDS: SODIUM CHLORIDE 0.9% 1,000 ML IV SCH (16:03)
[2017-03-18] MEDS: DAPTOmycin 500 MG in SODIUM CHLORIDE 0.9% 50 ML IV SCH (17:24)
--- NOTE | 2017-03-18 17:40 | P.PN ---
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 Also has a history of dementia, hypertension, hyperlipidemia and prostate cancer. Patient sees Dr. Coker for his PCP. Patient reports that about 2 weeks ago he noted some swelling in his right knee there was a black spot that he picked at initially he thought it was a bug possibly a tick. And then a sore developed. Now the knee is red swollen and has a yellowish drainage seeping through the wound on the medial aspect of the knee. Patient was started on Augmentin for 10 days outpatient. He reports that he has had some improvement in the redness that was up into the thigh area. However still having significant amount of swelling and failed outpatient antibiotics. Patient reports he was set up to see orthopedic doctor however, he did not get to that appointment. His PCP told him to come to the hospital instead. Patient has been admitted for possible septic knee. Orthopedics and infectious disease been consulted. Patient be placed on IV antibiotics. 03/17/2017 patient had I&D in the OR on 03/15/2017. Wound cultures are growing MRSA. Currently on IV vancomycin. Awaiting further infectious disease recommendations. Patient's right knee and lower leg down to the foot are still swollen. Patient denies any chest pain or shortness breath. Denies any nausea or vomiting. Denies any bowel movement changes or urinary symptoms. 03/18/2017 patient is alert and oriented in no apparent distress pain is minimal in the right knee he is able to bend his knee and walk. PICC line placement is scheduled for tomorrow morning possible discharge tomorrow after PICC line placement Objective - Vital Signs Vital signs: Vital Signs Temp 98.3 F 03/18/17 15:00 Pulse 62 03/18/17 15:41 Resp 16 03/18/17 15:41 BP 112/60 03/18/17 15:00 Pulse Ox 97 03/18/17 15:00 Intake & Output 03/17/17 03/18/17 03/18/17 18:59 06:59 18:59 Intake Total 424 074 3218 Balance 819 931 7713 Weight 104 kg Intake: IV 400 350 Sodium Chloride 0.9% 1, 400 350 000 ml @ 50 mls/hr IV . Q20H [facility] Rx#:[id number] Oral 240 240 880 Other: Voiding Method Toilet Toilet Toilet # Voids 3 1 1 - Exam In general patient is alert and oriented 3 in no apparent distress HEENT head normocephalic and atraumatic neck is supple no JVD no goiter no lymphadenopathy chest exam reveals clear respiratory sounds no crackles no wheezing cardiac exam reveals regular heart sounds S1 and S2 no gallops no murmurs abdomen is soft nontender no organomegaly with normal bowel sounds extremity exam reveals no edema no cyanosis or clubbing erythema in the right lower extremity is improving - Labs CBC & Chem 7: 03/18/17 07:42 03/18/17 07:42 Labs: Abnormal Lab Results - Last 24 Hours (Table) 03/18/17 03/18/17 Range/Units 07:42 07:42 RBC 3.86 L (4.30-5.90) m/uL Hgb 11.8 L (13.0-17.5) gm/dL Hct 35.6 L (39.0-53.0) % Glucose 100 H (74-99) mg/dL Albumin 3.3 L (3.5-5.0) g/dL Microbiology - Last 24 Hours (Table) 03/14/17 13:32 Blood Culture - Preliminary Blood No Growth after 96 hours 03/15/17 12:06 Anaerobic Culture - Preliminary Knee - Right 03/15/17 12:06 Anaerobic Culture - Preliminary Knee - Right 03/15/17 12:06 Gram Stain - Final Knee - Right Wound Culture - Final Methicillin resist S. aureus 03/15/17 12:06 Gram Stain - Final Knee - Right Wound Culture - Final Assessment and Plan Plan: 1. Right distal medial thigh abscess status post incision and drainage with aspiration of the right knee. Wound cultures are growing MRSA. Patient on IV vancomycin. Awaiting further recommendations per orthopedics and infectious disease. 2. History of bilateral PE and DVT maintained on Xarelto at home. Xarelto had been on hold for surgery. At this time we will resume patient's Xarelto 3. Dementia continue Aricept 4. Hyperlipidemia continue Zocor 5. Essential hypertension continue Coreg
--- NOTE | 2017-03-18 20:35 | P.PN ---
Subjective Principal diagnosis: Infection of right knee Douglas 81-year-old male relates that several days ago he removed without may have been a tick from the anterior surface of his right knee. Relates that he pulled it off and then take that a bit. The following days he became a bit more on the medial aspect of the knee. With surrounding erythema that tracks down onto his foot was significant swelling. Because of discomfort of the changes he was then brought to hospital for further intervention. Orthopedic evaluation requested because the severe swelling to the knee and infectious diseases consultation regarding the infection at the leg. Patient has had I&D of the knee with aspiration of the joint without distinct evidence of a septic arthritis. Doing well with antibiotic therapy with distinct improvement, looks forward to outpatient therapy. Objective - Vital Signs Vital signs: Vital Signs Temp 98.3 F 03/18/17 15:00 Pulse 62 03/18/17 15:41 Resp 16 03/18/17 15:41 BP 112/60 03/18/17 15:00 Pulse Ox 97 03/18/17 15:00 Intake & Output 03/18/17 03/18/17 03/19/17 06:59 18:59 06:59 Intake Total 640 1230 400 Balance 640 1230 400 Weight 104 kg Intake: IV 400 350 Sodium Chloride 0.9% 1, 400 350 000 ml @ 50 mls/hr IV . Q20H [facility] Rx#:[id number] Oral 240 880 400 Other: Voiding Method Toilet Toilet # Voids 1 1 - Exam Douglas 81-year-old male who is slightly uncomfortable because the pain and swelling to the right leg HEENT: Anicteric conjunctiva are pink and moist nasal mucosa grossly intact without significant lesions, there is no thrush. Neck: The neck is supple without significant lymphadenopathy or thyromegaly. Lungs: Good bilateral air entry without significant crackles or wheezing. There is no significant bronchial sounds. There is no egophony or dullness. Heart: Regular rate and rhythm with an audible S1-S2, no S3 no S4. There is no significant murmur click or rub, PMI was nondisplaced. Abdomen: Positive bowel sounds soft and nontender without palpable masses or organomegaly. There was no guarding or rebound. Extremities: The upper extremities have excellent pulses they are symmetric, no significant petechiae or telangiectasia. No splinter hemorrhages were noted. The left lower extremities without acute changes. The right lower extremity shows evidence of the extensive area of erythema , There is no skin thickening expressible purulence from the ulcer of the knee. There is dense erythema around the knee with the surgical incision healing well, less tender and no drainage. No ascending lymphangitis is noted no significant inguinal lymphadenopathy or other lymph nodes Neuro: Awake alert oriented to person place and time. There are no acute new gross focal sensory motor deficits. - Labs CBC & Chem 7: 03/18/17 07:42 03/18/17 07:42 Labs: Abnormal Lab Results - Last 24 Hours (Table) 03/18/17 03/18/17 Range/Units 07:42 07:42 RBC 3.86 L (4.30-5.90) m/uL Hgb 11.8 L (13.0-17.5) gm/dL Hct 35.6 L (39.0-53.0) % Glucose 100 H (74-99) mg/dL Albumin 3.3 L (3.5-5.0) g/dL Microbiology - Last 24 Hours (Table) 03/14/17 13:32 Blood Culture - Preliminary Blood No Growth after 96 hours Laboratory Results WBC 8.2 k/uL (3.8-10.6) 03/18/17 07:42 RBC 3.86 m/uL (4.30-5.90) L 03/18/17 07:42 Hgb 11.8 gm/dL (13.0-17.5) L 03/18/17 07:42 Hct 35.6 % (39.0-53.0) L 03/18/17 07:42 MCV 92.3 fL (80.0-100.0) 03/18/17 07:42 MCH 30.5 pg (25.0-35.0) 03/18/17 07:42 MCHC 33.0 g/dL (31.0-37.0) 03/18/17 07:42 RDW 14.4 % (11.5-15.5) 03/18/17 07:42 Plt Count 310 k/uL (150-450) 03/18/17 07:42 Neutrophils % 78 % 03/18/17 07:42 Lymphocytes % 12 % 03/18/17 07:42 Monocytes % 4 % 03/18/17 07:42 Eosinophils % 3 % 03/18/17 07:42 Basophils % 1 % 03/18/17 07:42 Neutrophils # 6.5 k/uL (1.3-7.7) 03/18/17 07:42 Lymphocytes # 1.0 k/uL (1.0-4.8) 03/18/17 07:42 Monocytes # 0.4 k/uL (0-1.0) 03/18/17 07:42 Eosinophils # 0.2 k/uL (0-0.7) 03/18/17 07:42 Basophils # 0.0 k/uL (0-0.2) 03/18/17 07:42 Sodium 139 mmol/L (137-145) 03/18/17 07:42 Potassium 4.2 mmol/L (3.5-5.1) 03/18/17 07:42 Chloride 106 mmol/L (98-107) 03/18/17 07:42 Carbon Dioxide 23 mmol/L (22-30) 03/18/17 07:42 Anion Gap 10 mmol/L 03/18/17 07:42 BUN 16 mg/dL (9-20) 03/18/17 07:42 Creatinine 0.87 mg/dL (0.66-1.25) 03/18/17 07:42 Est GFR (MDRD) Af Amer >60 (>60 ml/min/1.73 sqM) 03/18/17 07:42 Est GFR (MDRD) Non-Af >60 (>60 ml/min/1.73 sqM) 03/18/17 07:42 Glucose 100 mg/dL (74-99) H 03/18/17 07:42 Plasma Lactic Acid Ronald 0.8 mmol/L (0.7-2.0) 03/14/17 13:32 Calcium 9.0 mg/dL (8.4-10.2) 03/18/17 07:42 Total Bilirubin 0.4 mg/dL (0.2-1.3) 03/18/17 07:42 AST 24 U/L (17-59) 03/18/17 07:42 ALT 31 U/L (21-72) 03/18/17 07:42 Alkaline Phosphatase 50 U/L (38-126) 03/18/17 07:42 Total Protein 6.4 g/dL (6.3-8.2) 03/18/17 07:42 Albumin 3.3 g/dL (3.5-5.0) L 03/18/17 07:42 Microbiology 03/14/17 13:32 Blood Blood Culture - Preliminary No Growth after 96 hours 03/15/17 12:06 Knee - Right Anaerobic Culture - Preliminary 03/15/17 12:06 Knee - Right Anaerobic Culture - Preliminary 03/15/17 12:06 Knee - Right Gram Stain - Final 03/15/17 12:06 Knee - Right Wound Culture - Final Methicillin resist S. aureus 03/15/17 12:06 Knee - Right Gram Stain - Final 03/15/17 12:06 Knee - Right Wound Culture - Final 03/14/17 12:25 Knee - Right Gram Stain - Final 03/14/17 12:25 Knee - Right Wound Culture - Final Methicillin resist S. aureus 03/14/17 14:21 Knee - Right Gram Stain - Final 03/14/17 14:21 Knee - Right Wound Culture - Final Methicillin resist S. aureus Assessment and Plan (1) Effusion, right knee Status: Acute (2) Cellulitis of right knee Narrative/Plan: Pleasant 81-year-old gentleman presents to Hospital because of a significant history of increasing pain and swelling to the right lower extremity. Believes he may have had some kind of bug bite or tick bites to the right knee. He picked at it. Upon further manipulation eventually develops ulceration with extensive swelling erythema and cellulitis to the right leg with a significant effusion to the right knee. He's been seen by orthopedics. The case is discussed with orthopedics. It is semi-would do well to have incision and drainage to the fluctuant area. Sotalol some local exploration. If there is evidence of deeper penetration then he may need an arthroscopic evaluation of his knee. Further deep samples will be helpful. Pain control is adequate. Antimicrobial therapy with vancomycin as initiated at this time. Cultures will further help direct antimicrobial therapy. He believes up-to-date with tetanus vaccine will allow a multivitamin protein status is low and supplement is needed. . Patient improved and looks forward to discharge home, Will request a PICC line for outpatient IV antibiotic therapy. Will change to Daptomycin for the isolated MRSA with JARON of 2. will be amenable to office infusion. PICC to be placed tomorrow, Neris on hold. Will have office based therapy does not want homecare. Status: Acute
[2017-03-19] MEDS: POTASSIUM CHLORIDE ER 20 MEQ TAB.ER PO SCH (07:55)
[2017-03-19] MEDS: ALLOPURINOL 300 MG TAB PO SCH (07:55)
[2017-03-19] MEDS: FUROSEMIDE 20 MG TAB PO SCH (07:55)
[2017-03-19] MEDS: LISINOPRIL 20 MG TAB PO SCH (07:55)
[2017-03-19] MEDS: OXYBUTYNIN XL 5 MG TAB.ER.24 PO SCH (07:55)
[2017-03-19] MEDS: CARVEDILOL 3.125 MG TAB PO SCH (07:56)
[2017-03-19] MEDS: DONEPEZIL 5 MG TAB PO SCH (07:56)
[2017-03-19] MEDS: CHOLECALCIFEROL 1,000 UNIT TAB PO SCH (07:56)
[2017-03-19] MEDS: B COMPLEX-VIT C-VIT E-ZINC 1 EACH TAB PO SCH (07:56)
[2017-03-19] MEDS: MAGNESIUM OXIDE 400 MG TAB PO SCH (07:56)
[2017-03-19 08:37] LABS: Anion Gap 7 mmol/L; Blood Urea Nitrogen 20 mg/dL (9-20); Calcium 9.1 mg/dL (8.4-10.2); Carbon Dioxide 25 mmol/L (22-30); Chloride 107 mmol/L (98-107); Glucose 86 mg/dL (74-99); Non-African American GFR(MDRD) >60 (>60 ml/min/1.73 sqM); Potassium 4.4 mmol/L (3.5-5.1); Sodium 139 mmol/L (137-145)
[2017-03-19] MEDS ORDERED: LIDOCAINE 2% INJ 20 MG/ML (20 ML MDV) ONE (09:14)
[2017-03-19] MEDS ORDERED: LIDOCAINE 2% INJ 20 MG/ML SQ ONE (09:29)
--- NOTE | 2017-03-19 10:57 | IR ---
PICC LINE PLACEMENT: HISTORY: Infection requiring long-term antibiotic therapy PROCEDURE: Ultrasound and fluoroscopic guidance of PICC line placement. COMPLICATIONS: None ANESTHESIA: 1. 1% Lidocaine locally. FINDINGS/TECHNIQUE: The procedure was explained to the patient. The risks, complications, benefits and alternatives were discussed and any questions were answered. Informed consent was obtained. The patient was placed supine on the fluoroscopic table and prepped and draped in the usual sterile [facility] ion. Utilizing a 21 gauge needle and sonographic and fluoroscopic guidance, access in the vein was achieved and there is placement of a 0.018 guidewire. The vein is patent. A 4-F sheath was placed o elida the guidewire. The guidewire and dilator were removed and a 4-F. PICC line was placed through th e sheath with the tip at the level of the SVC. The sheath was removed, the catheter was flushed and sutured into position. The patient was stable throughout the procedure and remained stable upon disc harge from the Department of Radiology. The vein puncture was patent under ultrasound. A fonseca scale image was obtained to document patency of the vein punctured. All elements of the maximal barrier technique were utilized. FLUOROSCOPY TIME: 0.6 minutes, one image provided. IMPRESSION: Successful PICC line placement under ultrasound and fluoroscopic guidance.
[2017-03-19 11:13] VITALS: PULSE 64; RESP 18
[2017-03-19] MEDS: SODIUM CHLORIDE 0.9% 1,000 ML IV SCH (13:05)
[2017-03-19 15:50] VITALS: BP 133/71; TEMP 98.4
--- NOTE | 2017-03-19 17:13 | P.DS ---
Providers Date of admission: 03/14/17 11:25 Expected date of discharge: 03/19/17 Attending physician: Farzana Michelle Consults: 03/14/17 12:35 Consult Physician Routine Consulting Provider: Erik Guerra Consult Reason/Comments: septic knee Do you want consulting provider notified?: Yes 03/14/17 12:36 Consult Physician Routine Consulting Provider: Carlos Garcias Consult Reason/Comments: septic knee Do you want consulting provider notified?: Yes Primary care physician: Suzie [facility] Course: Diagnoses on discharge: 1. Right knee wound with swelling and cellulitis: Concern for possible septic knee. Wound culture and blood culture have been ordered. Consult infectious disease and orthopedics for possible I&D. Start patient on IV antibiotics. Failed outpatient antibiotics with Augmentin. We'll give [place] 5/325 when necessary every 6 hours for pain 2. 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 Dementia continue Aricept 4. Hyperlipidemia continue Zocor 5. 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 Also has a history of dementia, hypertension, hyperlipidemia and prostate cancer. Patient sees Dr. Coker for his PCP. Patient reports that about 2 weeks ago he noted some swelling in his right knee there was a black spot that he picked at initially he thought it was a bug possibly a tick. And then a sore developed. Now the knee is red swollen and has a yellowish drainage seeping through the wound on the medial aspect of the knee. Patient was started on Augmentin for 10 days outpatient. He reports that he has had some improvement in the redness that was up into the thigh area. However still having significant amount of swelling and failed outpatient antibiotics. Patient reports he was set up to see orthopedic doctor however, he did not get to that appointment. His PCP told him to come to the hospital instead. Patient has been admitted for possible septic knee. Orthopedics and infectious disease been consulted. Patient be placed on IV antibiotics. The culture of the wound. Patient denies any fever or chills or sweats. Denies any nausea vomiting. Reports that his bowel movements have been a little softer. Denies any chest pain or shortness of breath. Denies any burning with urination. Patient was seen by Dr. Guerra, right knee aspirate culture was positive for methicillin-resistant Staphylococcus aureus in antibiotic were switched to daptomycin patient tolerated well he could line was inserted and it will be continued on daptomycin as outpatient and will be followed by Dr. Guerra Plan - Discharge Summary New Discharge Prescriptions: New DAPTOmycin [Cubicin] 500 mg IVPB DAILY #14 vial DAPTOmycin [Cubicin] 500 mg IV Q24H vial Rivaroxaban [Xarelto] 20 mg PO W/SUPPER tab Continue Carvedilol [Coreg] 3.125 mg PO BID Allopurinol [Zyloprim] 300 mg PO DAILY Calcium/Magnesium/Zinc [Xtuewbi-Hwsdswxui-Vyes Tablet] 1 tab PO Q48H Cholecalciferol [Vitamin D3] 1,000 unit PO DAILY [place]-3 Fatty Acids [[place]-3] 1,000 mg PO DAILY Fesoterodine Fumarate [Toviaz] 8 mg PO DAILY Donepezil [Aricept] 5 mg PO DAILY Lisinopril [Zestril] 20 mg PO DAILY Simvastatin [Zocor] 40 mg PO HS Rivaroxaban [Xarelto] 20 mg PO DAILY Potassium Chloride [Klor-Con Packets] 20 meq PO DAILY Furosemide [Lasix] 20 mg PO DAILY Glucosamine Sulfate 1,000 mg PO DAILY Aspirin EC [Ecotrin] 162.5 mg PO BID Vitamin B Complex 1 cap PO DAILY Magnesium 200 mg PO DAILY Ascorbic Acid [Vitamin C] 500 mg PO DAILY Discontinued Amoxicillin/Potassium Clav [Augmentin 875-125 Tablet] 1 tab PO BID Discharge Medication List Allopurinol [Zyloprim] 300 mg PO DAILY 05/01/16 [History] Calcium/Magnesium/Zinc [Chyizmg-Pzdrgmibr-Xlbh Tablet] 1 tab PO Q48H 05/01/16 [ History] Carvedilol [Coreg] 3.125 mg PO BID 05/01/16 [History] Cholecalciferol [Vitamin D3] 1,000 unit PO DAILY 05/01/16 [History] Donepezil [Aricept] 5 mg PO DAILY 05/01/16 [History] Fesoterodine Fumarate [Toviaz] 8 mg PO DAILY 05/01/16 [History] Lisinopril [Zestril] 20 mg PO DAILY 05/01/16 [History] [place]-3 Fatty Acids [[place]-3] 1,000 mg PO DAILY 05/01/16 [History] Simvastatin [Zocor] 40 mg PO HS 05/01/16 [History] Aspirin EC [Ecotrin] 162.5 mg PO BID 09/18/16 [History] Furosemide [Lasix] 20 mg PO DAILY 09/18/16 [History] Glucosamine Sulfate 1,000 mg PO DAILY 09/18/16 [History] Potassium Chloride [Klor-Con Packets] 20 meq PO DAILY 09/18/16 [History] Rivaroxaban [Xarelto] 20 mg PO DAILY 09/18/16 [History] Ascorbic Acid [Vitamin C] 500 mg PO DAILY 03/14/17 [History] Magnesium 200 mg PO DAILY 03/14/17 [History] Vitamin B Complex 1 cap PO DAILY 03/14/17 [History] DAPTOmycin [Cubicin] 500 mg IVPB DAILY #14 vial 03/17/17 [Rx] DAPTOmycin [Cubicin] 500 mg IV Q24H vial 03/19/17 [Rx] Rivaroxaban [Xarelto] 20 mg PO W/SUPPER tab 03/19/17 [Rx] Ambulatory/Diagnostic Orders: Basic Metabolic Panel [LAB.AMB] Location: Determined By Patient Complete Blood Count w/diff [LAB.AMB] Location: Determined By Patient Miscellaneous Lab Order [LAB.AMB] Location: Determined By Patient Patient Instructions/Handouts: Daptomycin (By injection), Cellulitis (DC), Back Pain (GEN) Activity/Diet/Wound Care/Special Instructions: [facility] - Leslye Mallory office for your antibiotics infusions. please show up at Dr. guerra office on at 3:30pm for your infusion
--- NOTE | 2017-03-19 21:37 | P.PN ---
Subjective Principal diagnosis: Infection of right knee Pleasant 81-year-old male relates that several days ago he removed without may have been a tick from the anterior surface of his right knee. Relates that he pulled it off and then take that a bit. The following days he became a bit more on the medial aspect of the knee. With surrounding erythema that tracks down onto his foot was significant swelling. Because of discomfort of the changes he was then brought to hospital for further intervention. Orthopedic evaluation requested because the severe swelling to the knee and infectious diseases consultation regarding the infection at the leg. Patient has had I&D of the knee with aspiration of the joint without distinct evidence of a septic arthritis. Doing well with antibiotic therapy with distinct improvement, looks forward to outpatient therapy. Objective - Vital Signs Vital signs: Vital Signs Temp 98.4 F 03/19/17 15:00 Pulse 64 03/19/17 15:10 Resp 18 03/19/17 15:10 BP 133/71 03/19/17 15:00 Pulse Ox 98 03/19/17 15:00 Intake & Output 03/19/17 03/19/17 03/20/17 06:59 18:59 06:59 Intake Total 1080 560 Output Total 260 260 Balance 820 300 Intake: IV 80 Sodium Chloride 0.9% 1, 80 000 ml @ 50 mls/hr IV . Q20H [facility] Rx#:[id number] Oral 1000 560 Output: Urine 260 260 Other: Voiding Method Toilet Toilet # Voids 2 4 - Exam Pleasant 81-year-old male who is slightly uncomfortable because the pain and swelling to the right leg HEENT: Anicteric conjunctiva are pink and moist nasal mucosa grossly intact without significant lesions, there is no thrush. Neck: The neck is supple without significant lymphadenopathy or thyromegaly. Lungs: Good bilateral air entry without significant crackles or wheezing. There is no significant bronchial sounds. There is no egophony or dullness. Heart: Regular rate and rhythm with an audible S1-S2, no S3 no S4. There is no significant murmur click or rub, PMI was nondisplaced. Abdomen: Positive bowel sounds soft and nontender without palpable masses or organomegaly. There was no guarding or rebound. Extremities: The upper extremities have excellent pulses they are symmetric, no significant petechiae or telangiectasia. No splinter hemorrhages were noted. The left lower extremities without acute changes. The right lower extremity shows evidence of the extensive area of erythema , There is no skin thickening expressible purulence from the ulcer of the knee. There is dense erythema around the knee with the surgical incision healing well, less tender and no drainage. No ascending lymphangitis is noted no significant inguinal lymphadenopathy or other lymph nodes Neuro: Awake alert oriented to person place and time. There are no acute new gross focal sensory motor deficits. - Labs CBC & Chem 7: 03/18/17 07:42 03/19/17 07:04 Labs: Microbiology - Last 24 Hours (Table) 03/14/17 13:32 Blood Culture - Preliminary Blood No Growth after 120 hours 03/15/17 12:06 Anaerobic Culture - Final Knee - Right 03/15/17 12:06 Anaerobic Culture - Final Knee - Right Laboratory Results WBC 8.2 k/uL (3.8-10.6) 03/18/17 07:42 RBC 3.86 m/uL (4.30-5.90) L 03/18/17 07:42 Hgb 11.8 gm/dL (13.0-17.5) L 03/18/17 07:42 Hct 35.6 % (39.0-53.0) L 03/18/17 07:42 MCV 92.3 fL (80.0-100.0) 03/18/17 07:42 MCH 30.5 pg (25.0-35.0) 03/18/17 07:42 MCHC 33.0 g/dL (31.0-37.0) 03/18/17 07:42 RDW 14.4 % (11.5-15.5) 03/18/17 07:42 Plt Count 310 k/uL (150-450) 03/18/17 07:42 Neutrophils % 78 % 03/18/17 07:42 Lymphocytes % 12 % 03/18/17 07:42 Monocytes % 4 % 03/18/17 07:42 Eosinophils % 3 % 03/18/17 07:42 Basophils % 1 % 03/18/17 07:42 Neutrophils # 6.5 k/uL (1.3-7.7) 03/18/17 07:42 Lymphocytes # 1.0 k/uL (1.0-4.8) 03/18/17 07:42 Monocytes # 0.4 k/uL (0-1.0) 03/18/17 07:42 Eosinophils # 0.2 k/uL (0-0.7) 03/18/17 07:42 Basophils # 0.0 k/uL (0-0.2) 03/18/17 07:42 Sodium 139 mmol/L (137-145) 03/19/17 07:04 Potassium 4.4 mmol/L (3.5-5.1) 03/19/17 07:04 Chloride 107 mmol/L (98-107) 03/19/17 07:04 Carbon Dioxide 25 mmol/L (22-30) 03/19/17 07:04 Anion Gap 7 mmol/L 03/19/17 07:04 BUN 20 mg/dL (9-20) 03/19/17 07:04 Creatinine 0.87 mg/dL (0.66-1.25) 03/19/17 07:04 Est GFR (MDRD) Af Amer >60 (>60 ml/min/1.73 sqM) 03/19/17 07:04 Est GFR (MDRD) Non-Af >60 (>60 ml/min/1.73 sqM) 03/19/17 07:04 Glucose 86 mg/dL (74-99) 03/19/17 07:04 Plasma Lactic Acid Ronald 0.8 mmol/L (0.7-2.0) 03/14/17 13:32 Calcium 9.1 mg/dL (8.4-10.2) 03/19/17 07:04 Total Bilirubin 0.4 mg/dL (0.2-1.3) 03/18/17 07:42 AST 24 U/L (17-59) 03/18/17 07:42 ALT 31 U/L (21-72) 03/18/17 07:42 Alkaline Phosphatase 50 U/L (38-126) 03/18/17 07:42 Total Protein 6.4 g/dL (6.3-8.2) 03/18/17 07:42 Albumin 3.3 g/dL (3.5-5.0) L 03/18/17 07:42 Microbiology 03/14/17 13:32 Blood Blood Culture - Preliminary No Growth after 120 hours 03/15/17 12:06 Knee - Right Anaerobic Culture - Final 03/15/17 12:06 Knee - Right Anaerobic Culture - Final 03/15/17 12:06 Knee - Right Gram Stain - Final 03/15/17 12:06 Knee - Right Wound Culture - Final Methicillin resist S. aureus 03/15/17 12:06 Knee - Right Gram Stain - Final 03/15/17 12:06 Knee - Right Wound Culture - Final 03/14/17 12:25 Knee - Right Gram Stain - Final 03/14/17 12:25 Knee - Right Wound Culture - Final Methicillin resist S. aureus 03/14/17 14:21 Knee - Right Gram Stain - Final 03/14/17 14:21 Knee - Right Wound Culture - Final Methicillin resist S. aureus Assessment and Plan (1) Effusion, right knee Status: Acute (2) Cellulitis of right knee Narrative/Plan: Pleasant 81-year-old gentleman presents to Hospital because of a significant history of increasing pain and swelling to the right lower extremity. Believes he may have had some kind of bug bite or tick bites to the right knee. He picked at it. Upon further manipulation eventually develops ulceration with extensive swelling erythema and cellulitis to the right leg with a significant effusion to the right knee. He's been seen by orthopedics. The case is discussed with orthopedics. It is semi-would do well to have incision and drainage to the fluctuant area. Sotalol some local exploration. If there is evidence of deeper penetration then he may need an arthroscopic evaluation of his knee. Further deep samples will be helpful. Pain control is adequate. Antimicrobial therapy with vancomycin as initiated at this time. Cultures will further help direct antimicrobial therapy. He believes up-to-date with tetanus vaccine will allow a multivitamin protein status is low and supplement is needed. . Patient improved and looks forward to discharge home, PICC line has been placed. No difficulty with the . Will be discharged home to start his outpatient intravenous have asked therapy tomorrow. Daptomycin is utilize for 2 weeks. Weekly blood work requested. Status: Acute
== END 2017-03-19 18:45 | disposition home or self-care (01) | DRG 603 ==
LOC: 5MS5E 11:25
PROVIDERS: ADMIT Internal Medicine; ATTEND Internal Medicine
PROC: 0S9C3ZZ Drainage of Right Knee Joint, Percutaneous Approach (ICD-10-PCS; principal; 2017-03-19 09:20)
PROC: 0J9N00Z Drainage of Right Lower Leg Subcutaneous Tissue and Fascia with Drainage Device, Open Approach (ICD-10-PCS; 2017-03-19 09:20)
PROC: 02HV33Z Insertion of Infusion Device into Superior Vena Cava, Percutaneous Approach (ICD-10-PCS; 2017-03-19 09:20)
DX: L03.115 Cellulitis of right lower limb (principal); F03.90 Unspecified dementia, unspecified severity, without behavioral disturbance, psychotic disturbance, mood disturbance, and anxiety; B95.62 Methicillin resistant Staphylococcus aureus infection as the cause of diseases classified elsewhere; M25.461 Effusion, right knee; L02.415 Cutaneous abscess of right lower limb; M10.9 Gout, unspecified; I10 Essential (primary) hypertension; K57.90 Diverticulosis of intestine, part unspecified, without perforation or abscess without bleeding; H54.41 Blindness, right eye, normal vision left eye; M17.0 Bilateral primary osteoarthritis of knee; E78.5 Hyperlipidemia, unspecified; Z86.718 Personal history of other venous thrombosis and embolism; Z86.711 Personal history of pulmonary embolism; Z85.46 Personal history of malignant neoplasm of prostate; Z79.01 Long term (current) use of anticoagulants; Z79.899 Other long term (current) drug therapy; Z82.0 Family history of epilepsy and other diseases of the nervous system; Z87.11 Personal history of peptic ulcer disease; Z87.19 Personal history of other diseases of the digestive system; Z88.2 Allergy status to sulfonamides; Z87.891 Personal history of nicotine dependence; Z79.82 Long term (current) use of aspirin; Z79.891 Long term (current) use of opiate analgesic; Z87.442 Personal history of urinary calculi; Z90.79 Acquired absence of other genital organ(s); Z98.42 Cataract extraction status, left eye; Z86.69 Personal history of other diseases of the nervous system and sense organs; Z87.448 Personal history of other diseases of urinary system
CPT/HCPCS: 36569; 76937; 77001; 80048; 80053; 83605; 85025; 87040; 87070; 87075; 87077; 87186; 87205

== ENCOUNTER 2017-04-13 11:39 | Emergency (ER) | payer MEDICARE ==
[2017-04-13 11:58] VITALS: RESP 18
--- NOTE | 2017-04-13 12:23 | ED ---
Extremity Problem HPI - General Chief complaint: Extremity Problem,Nontraumatic Stated complaint: LEFT KNEE SWELLING AND PAIN Time Seen by Provider: 04/13/17 12:10 Source: patient Mode of arrival: wheelchair Limitations: no limitations - History of Present Illness Initial comments: Patient is an 81-year-old male presenting to the emergency department with chief complaint of left knee pain and swelling ongoing for approximately one week. Patient states he has had previous right knee effusion requiring drainage. Patient states he is currently being treated for an MRSA infection in his right knee with IV vancomycin daily and follows with Dr. Guerra the outpatient setting. Patient is ambulatory. Patient denies chills, fevers, nausea, vomiting, shortness of breath, chest pain, abdominal pain. Patient denies numbness or tingling. Patient currently rates his left knee pain a 2 out of 10 described as aching, exacerbated with ambulating, relieved with rest. No treatment prior to arrival. - Related Data Home Medications Medication Instructions Recorded Confirmed Allopurinol [Zyloprim] 300 mg PO DAILY 05/01/16 03/14/17 Calcium/Magnesium/Zinc 1 tab PO Q48H 05/01/16 03/14/17 [Otuuazn-Sccokhsno-Yzbz Tablet] Carvedilol [Coreg] 3.125 mg PO BID 05/01/16 03/14/17 Cholecalciferol [Vitamin D3] 1,000 unit PO DAILY 05/01/16 03/14/17 Donepezil [Aricept] 5 mg PO DAILY 05/01/16 03/14/17 Fesoterodine Fumarate [Toviaz] 8 mg PO DAILY 05/01/16 03/14/17 Lisinopril [Zestril] 20 mg PO DAILY 05/01/16 03/14/17 [place]-3 Fatty Acids [[place]-3] 1,000 mg PO DAILY 05/01/16 03/14/17 Simvastatin [Zocor] 40 mg PO HS 05/01/16 03/14/17 Aspirin EC [Ecotrin] 162.5 mg PO BID 09/18/16 03/14/17 Furosemide [Lasix] 20 mg PO DAILY 09/18/16 03/14/17 Glucosamine Sulfate 1,000 mg PO DAILY 09/18/16 03/14/17 Potassium Chloride [Klor-Con 20 meq PO DAILY 09/18/16 03/14/17 Packets] Rivaroxaban [Xarelto] 20 mg PO DAILY 09/18/16 03/14/17 Ascorbic Acid [Vitamin C] 500 mg PO DAILY 03/14/17 03/14/17 Magnesium 200 mg PO DAILY 03/14/17 03/14/17 Vitamin B Complex 1 cap PO DAILY 03/14/17 03/14/17 Previous Rx's Medication Instructions Recorded DAPTOmycin [Cubicin] 500 mg IVPB DAILY #14 vial 03/17/17 DAPTOmycin [Cubicin] 500 mg IV Q24H vial 03/19/17 Rivaroxaban [Xarelto] 20 mg PO W/SUPPER tab 03/19/17 Allergies Allergy/AdvReac Type Severity Reaction Status Date / Time Sulfa (Sulfonamide Allergy Unknown Verified 04/13/17 11:58 Antibiotics) Childhood Review of Systems ROS Statement: Those systems with pertinent positive or pertinent negative responses have been documented in the HPI. ROS Other: All systems not noted in ROS Statement are negative. 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 History of Any Multi-Drug Resistant Organisms: MRSA Date of last positivie culture/infection: 03/14/17 MDRO Source:: KNEE Past Surgical History: Hernia Repair, Orthopedic Surgery, Prostate Surgery, Tonsillectomy Additional Past Surgical History / Comment(s): 2009 colonoscopy, L eye cataract surgery, L eye laser surgery, R eye surgery for retinal detachment-unsuccessful , R inguinal hernia repair x2, prostatectomy due to cancer. Past Anesthesia/Blood Transfusion Reactions: No Reported Reaction Additional Past Anesthesia/Blood Transfusion Reaction / Comment(s): Pt states he has never received blood. Past Psychological History: No Psychological Hx Reported Smoking Status: Former smoker Past Alcohol Use History: Rare Past Drug Use History: None Reported - Past Family History Father Family Medical History: Musculoskeletal Disorder, Neurologic Disorder Additional Family Medical History / Comment(s): Father of parkinson's disease at the age of 72 yrs. Mother Family Medical History: Dementia, Musculoskeletal Disorder, Neurologic Disorder Additional Family Medical History / Comment(s): Mother had polio at the age of 2 yrs and wore braces and used crutches to ambulate. She at the age of 95 yrs from dementia and bowel obstruction. General Exam Limitations: no limitations General appearance: alert, in no apparent distress Head exam: Present: atraumatic, normocephalic, normal inspection Eye exam: Present: normal appearance. Absent: scleral icterus, conjunctival injection, nystagmus, periorbital swelling, periorbital tenderness ENT exam: Present: normal exam, mucous membranes moist, normal external ear exam Neck exam: Present: normal inspection, full ROM. Absent: tenderness, lymphadenopathy Respiratory exam: Present: normal lung sounds bilaterally. Absent: respiratory distress, wheezes, rales, rhonchi, chest wall tenderness, accessory muscle use Cardiovascular Exam: Present: regular rate, normal rhythm, normal heart sounds. Absent: systolic murmur GI/Abdominal exam: Present: soft, normal bowel sounds. Absent: distended, tenderness Left Upper Leg exam: Present: normal inspection, full ROM. Absent: tenderness, swelling Knee exam: Present: full ROM, tenderness, swelling, effusion (Effusion noted to lateral aspect of anterior knee.), full knee extension. Absent: ecchymosis, deformity Lower Leg exam: Present: normal inspection, full ROM. Absent: tenderness, swelling Ankle exam: Present: normal inspection, full ROM. Absent: tenderness, swelling Neurovascular tendon exam: Present: no vascular compromise. Absent: pulse deficit, abnormal cap refill, motor deficit, sensory deficit, tendon deficit, extremity cold to touch, pallor, abnormal 2-point discrimination, decreased fine /light touch, foot drop, significant pain with passive ROM of distal joint Gait: observed and limited by pain Neurological exam: Present: alert, oriented X3, other (No focal deficits noted) . Absent: motor sensory deficit Psychiatric exam: Present: normal affect, normal mood Skin exam: Present: warm, dry, other (Patient has draining wound to right knee, chronic) Course Vital Signs 04/13/17 04/13/17 11:54 12:50 Temperature 97.5 F L 97.7 F Pulse Rate 69 64 Respiratory 18 18 Rate Blood Pressure 95/55 114/57 O2 Sat by Pulse 97 97 Oximetry Medical Decision Making - Medical Decision Making Effusion to left knee. Patient ambulatory. Patient afebrile. Pain control. Patient instructed to follow-up with [facility] for possible drainage. Patient instructed to return to the emergency department with any new or worsening symptoms. Patient instructed continue Tylenol for pain. Patient agrees with treatment plan. Disposition Clinical Impression: Effusion, left knee Disposition: HOME SELF-CARE Condition: Good Instructions: Swollen Knee Joint (ED) Additional Instructions: Please elevate left knee as much as possible. Apply ice 4 times a day up to 15 minutes. Continue Tylenol as needed for pain. Please call [facility] to schedule appointment for possible drainage tomorrow. Please return to the emergency department with any new or worsening symptoms. Follow- up with primary care physician as directed. Referrals: Suzie Ramírez DO [Primary Care Provider] - 1-2 days Hunter Lorenzo DO [Doctor of Osteopathic Medicine] - 1-2 days Time of Disposition: 12:23
[2017-04-13 12:56] VITALS: BP 114/57; PULSE 64; TEMP 97.7
== END 2017-04-13 12:50 | disposition home or self-care (01) ==
LOC: EC 11:39
DX: M25.462 Effusion, left knee (principal); E78.5 Hyperlipidemia, unspecified; I10 Essential (primary) hypertension; M10.9 Gout, unspecified; Z86.14 Personal history of Methicillin resistant Staphylococcus aureus infection; Z85.46 Personal history of malignant neoplasm of prostate; Z87.891 Personal history of nicotine dependence; Z86.718 Personal history of other venous thrombosis and embolism; Z86.711 Personal history of pulmonary embolism; Z98.890 Other specified postprocedural states; Z88.2 Allergy status to sulfonamides; Z79.01 Long term (current) use of anticoagulants; Z79.82 Long term (current) use of aspirin; Z79.899 Other long term (current) drug therapy
CPT/HCPCS: 99283

== ENCOUNTER 2017-04-14 16:33 | Inpatient (IN) | payer MEDICARE ==
[2017-04-14 17:01] LABS: Basophils % (A) 0 %; CHCM 32.6; Eosinophils % (A) 0 %; HCT 31.1 % (39.0-53.0); HDW 3.66; Hypochromasia Slight; Luc # (Auto) 0.06; Luc % (Auto) 1; Lymphocytes # (A) 0.3 k/uL (1.0-4.8); Lymphocytes % (A) 4 %; MCH 29.4 pg (25.0-35.0); MCHC 31.8 g/dL (31.0-37.0); MCV 92.4 fL (80.0-100.0); Mean Platelet Volume 6.3; Monocytes # (A) 0.3 k/uL (0-1.0); Monocytes % (A) 3 %; Neutrophils # (A) 7.4 k/uL (1.3-7.7); Neutrophils % (A) 92 %; Poikilocytosis Slight; RBC 3.36 m/uL (4.30-5.90); RDW 14.9 % (11.5-15.5); WBC 8.1 k/uL (3.8-10.6); WBC (Perox) 7.92
[2017-04-14 17:03] LABS: HGB 9.9 gm/dL (13.0-17.5)
[2017-04-14 17:06] LABS: Calcium 9.6 mg/dL (8.4-10.2); Magnesium 2.3 mg/dL (1.6-2.3); Phosphorus 3.8 mg/dL (2.5-4.5); Potassium 4.7 mmol/L (3.5-5.1); Total Bilirubin 0.5 mg/dL (0.2-1.3); Total Protein 7.3 g/dL (6.3-8.2)
[2017-04-14 17:08] LABS: Creatine Kinase 119 U/L (55-170)
[2017-04-14 17:22] LABS: Troponin I <0.012 ng/mL (0.000-0.034)
[2017-04-14 17:31] LABS: INR 1.7 (<1.2); Prothrombin Time 16.9 sec (9.0-12.0)
--- NOTE | 2017-04-14 17:32 | ED ---
General Adult HPI - General Chief complaint: Fall Stated complaint: Fall. Bilateral Knee Pain Time Seen by Provider: 04/14/17 16:36 Source: patient, RN notes reviewed, old records reviewed Mode of arrival: EMS Limitations: no limitations - History of Present Illness Initial comments: This is an 81-year-old male the ER for vaginal weakness, patient's computed weakness and recurrent falls. Patient has no significant trauma or complaints from falls abates states that he is continues to have increasing falls day by day. Patient is on blood thinners is on Xarelto. Patient and his fall today did hit his head. Patient will see his doctor getting her left knee drained and he states his knee began to get out after that happened. Again patient denies any specific pain or trauma. No chest pain or shortness of breath. - Related Data Home Medications Medication Instructions Recorded Confirmed Allopurinol [Zyloprim] 300 mg PO DAILY 05/01/16 04/14/17 Carvedilol [Coreg] 3.125 mg PO BID 05/01/16 04/14/17 Donepezil [Aricept] 5 mg PO HS 05/01/16 04/14/17 Fesoterodine Fumarate [Toviaz] 8 mg PO DAILY 05/01/16 04/14/17 Lisinopril [Zestril] 20 mg PO DAILY 05/01/16 04/14/17 [place]-3 Fatty Acids [[place]-3] 1,000 mg PO DAILY 05/01/16 04/14/17 Simvastatin [Zocor] 40 mg PO HS 05/01/16 04/14/17 Furosemide [Lasix] 20 mg PO DAILY 09/18/16 04/14/17 Glucosamine Sulfate 500 mg PO DAILY 09/18/16 04/14/17 Rivaroxaban [Xarelto] 20 mg PO PC-SUPPER 09/18/16 04/14/17 Magnesium 200 mg PO DAILY 03/14/17 04/14/17 Amoxic-Pot Clav 875-125Mg 1 tab PO Q12HR 04/14/17 04/14/17 [Augmentin 875-125] Aspirin 162 mg PO DAILY 04/14/17 04/14/17 Ibuprofen [Motrin] 200 - 400 mg PO Q6HR PRN 04/14/17 04/14/17 Multivitamins, Thera [Multivitamin 1 tab PO DAILY 04/14/17 04/14/17 (formulary)] Oxybutynin Chloride [Ditropan XL] 10 mg PO DAILY 04/14/17 04/14/17 Potassium Chloride [Klor-Con 20] 20 meq PO DAILY 04/14/17 04/14/17 Previous Rx's Medication Instructions Recorded DAPTOmycin [Cubicin] 500 mg IV Q24H vial 03/19/17 Allergies Allergy/AdvReac Type Severity Reaction Status Date / Time Sulfa (Sulfonamide Allergy Unknown Verified 04/14/17 16:58 Antibiotics) Childhood Review of Systems ROS Statement: Those systems with pertinent positive or pertinent negative responses have been documented in the HPI. ROS Other: All systems not noted in ROS Statement are negative. 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 History of Any Multi-Drug Resistant Organisms: MRSA Date of last positivie culture/infection: 03/14/17 MDRO Source:: KNEE Past Surgical History: Hernia Repair, Orthopedic Surgery, Prostate Surgery, Tonsillectomy Additional Past Surgical History / Comment(s): 2009 colonoscopy, L eye cataract surgery, L eye laser surgery, R eye surgery for retinal detachment-unsuccessful , R inguinal hernia repair x2, prostatectomy due to cancer. Past Anesthesia/Blood Transfusion Reactions: No Reported Reaction Additional Past Anesthesia/Blood Transfusion Reaction / Comment(s): Pt states he has never received blood. Past Psychological History: No Psychological Hx Reported Smoking Status: Former smoker Past Alcohol Use History: Rare Past Drug Use History: None Reported - Past Family History Father Family Medical History: Musculoskeletal Disorder, Neurologic Disorder Additional Family Medical History / Comment(s): Father of parkinson's disease at the age of 72 yrs. Mother Family Medical History: Dementia, Musculoskeletal Disorder, Neurologic Disorder Additional Family Medical History / Comment(s): Mother had polio at the age of 2 yrs and wore braces and used crutches to ambulate. She at the age of 95 yrs from dementia and bowel obstruction. General Exam Limitations: no limitations General appearance: alert, in no apparent distress Head exam: Present: atraumatic, normocephalic, normal inspection Eye exam: Present: normal appearance, PERRL, EOMI. Absent: scleral icterus, conjunctival injection, periorbital swelling ENT exam: Present: normal exam, mucous membranes moist Neck exam: Present: normal inspection. Absent: tenderness, meningismus, lymphadenopathy Respiratory exam: Present: normal lung sounds bilaterally. Absent: respiratory distress, wheezes, rales, rhonchi, stridor Cardiovascular Exam: Present: regular rate, normal rhythm, normal heart sounds. Absent: systolic murmur, diastolic murmur, rubs, gallop, clicks GI/Abdominal exam: Present: soft, normal bowel sounds. Absent: distended, tenderness, guarding, rebound, rigid Extremities exam: Present: normal inspection, full ROM, normal capillary refill. Absent: tenderness, pedal edema, joint swelling, calf tenderness Back exam: Present: normal inspection Neurological exam: Present: alert, oriented X3, CN II-XII intact Psychiatric exam: Present: normal affect, normal mood Skin exam: Present: warm, dry, intact, normal color. Absent: rash Course Vital Signs 04/14/17 04/14/17 04/14/17 16:37 17:31 17:43 Temperature 99.0 F Pulse Rate 78 74 Respiratory 18 17 Rate Blood Pressure 95/54 97/53 O2 Sat by Pulse 96 96 Oximetry - Reevaluation(s) Reevaluation #1: 04/14/17 18:43 ER visit concluded and reviewed from yesterday Medical Decision Making - Medical Decision Making 81 male to the ER for evaluation. Patient presents today for evaluation regarding debility, inability to ambulate with multiple falls as of late. Patient has mild dehydration. Patient will be admitted for physical therapy, occupational therapy and further treatment of weakness - Lab Data Result diagrams: 04/14/17 16:49 04/14/17 16:49 Lab Results 04/14/17 04/14/17 04/14/17 Range/Units 16:49 16:49 16:49 WBC 8.1 (3.8-10.6) k/uL RBC 3.36 L (4.30-5.90) m/uL Hgb 9.9 L D (13.0-17.5) gm/dL Hct 31.1 L (39.0-53.0) % MCV 92.4 (80.0-100.0) fL MCH 29.4 (25.0-35.0) pg MCHC 31.8 (31.0-37.0) g/dL RDW 14.9 (11.5-15.5) % Plt Count 358 (150-450) k/uL Neutrophils % 92 % Lymphocytes % 4 % Monocytes % 3 % Eosinophils % 0 % Basophils % 0 % Neutrophils # 7.4 (1.3-7.7) k/uL Lymphocytes # 0.3 L (1.0-4.8) k/uL Monocytes # 0.3 (0-1.0) k/uL Eosinophils # 0.0 (0-0.7) k/uL Basophils # 0.0 (0-0.2) k/uL Hypochromasia Slight Poikilocytosis Slight PT (9.0-12.0) sec INR (<1.2) APTT (22.0-30.0) sec Sodium 137 (137-145) mmol/L Potassium 4.7 (3.5-5.1) mmol/L Chloride 104 (98-107) mmol/L Carbon Dioxide 23 (22-30) mmol/L Anion Gap 10 mmol/L BUN 41 H (9-20) mg/dL Creatinine 1.56 H (0.66-1.25) mg/dL Est GFR (MDRD) Af Amer 52 (>60 ml/min/1.73 sqM) Est GFR (MDRD) Non-Af 43 (>60 ml/min/1.73 sqM) Glucose 149 H (74-99) mg/dL Calcium 9.6 (8.4-10.2) mg/dL Phosphorus 3.8 (2.5-4.5) mg/dL Magnesium 2.3 (1.6-2.3) mg/dL Total Bilirubin 0.5 (0.2-1.3) mg/dL AST 42 (17-59) U/L ALT 44 (21-72) U/L Alkaline Phosphatase 66 (38-126) U/L Total Creatine Kinase 119 (55-170) U/L CK-MB (CK-2) 2.0 (0.0-2.4) ng/mL CK-MB (CK-2) Rel Index 1.7 Troponin I <0.012 (0.000-0.034) ng/mL Total Protein 7.3 (6.3-8.2) g/dL Albumin 3.4 L (3.5-5.0) g/dL Urine Color Urine Appearance (Clear) Urine pH (5.0-8.0) Ur Specific [place] (1.001-1.035) Urine Protein (Negative) Urine Glucose (UA) (Negative) Urine Ketones (Negative) Urine Blood (Negative) Urine Nitrite (Negative) Urine Bilirubin (Negative) Urine Urobilinogen (<2.0) mg/dL Ur Leukocyte Esterase (Negative) Urine RBC (0-5) /hpf Urine WBC (0-5) /hpf Ur Squamous Epith Cells (0-4) /hpf Urine Bacteria (None) /hpf Hyaline Casts (0-2) /lpf Urine Mucus (None) /hpf 04/14/17 04/14/17 Range/Units 16:49 17:30 WBC (3.8-10.6) k/uL RBC (4.30-5.90) m/uL Hgb (13.0-17.5) gm/dL Hct (39.0-53.0) % MCV (80.0-100.0) fL MCH (25.0-35.0) pg MCHC (31.0-37.0) g/dL RDW (11.5-15.5) % Plt Count (150-450) k/uL Neutrophils % % Lymphocytes % % Monocytes % % Eosinophils % % Basophils % % Neutrophils # (1.3-7.7) k/uL Lymphocytes # (1.0-4.8) k/uL Monocytes # (0-1.0) k/uL Eosinophils # (0-0.7) k/uL Basophils # (0-0.2) k/uL Hypochromasia Poikilocytosis PT 16.9 H (9.0-12.0) sec INR 1.7 H (<1.2) APTT 74.6 H (22.0-30.0) sec Sodium (137-145) mmol/L Potassium (3.5-5.1) mmol/L Chloride (98-107) mmol/L Carbon Dioxide (22-30) mmol/L Anion Gap mmol/L BUN (9-20) mg/dL Creatinine (0.66-1.25) mg/dL Est GFR (MDRD) Af Amer (>60 ml/min/1.73 sqM) Est GFR (MDRD) Non-Af (>60 ml/min/1.73 sqM) Glucose (74-99) mg/dL Calcium (8.4-10.2) mg/dL Phosphorus (2.5-4.5) mg/dL Magnesium (1.6-2.3) mg/dL Total Bilirubin (0.2-1.3) mg/dL AST (17-59) U/L ALT (21-72) U/L Alkaline Phosphatase (38-126) U/L Total Creatine Kinase (55-170) U/L CK-MB (CK-2) (0.0-2.4) ng/mL CK-MB (CK-2) Rel Index Troponin I (0.000-0.034) ng/mL Total Protein (6.3-8.2) g/dL Albumin (3.5-5.0) g/dL Urine Color Yellow Urine Appearance Cloudy (Clear) Urine pH 5.0 (5.0-8.0) Ur Specific [place] 1.014 (1.001-1.035) Urine Protein 1+ H (Negative) Urine Glucose (UA) Negative (Negative) Urine Ketones Negative (Negative) Urine Blood Negative (Negative) Urine Nitrite Negative (Negative) Urine Bilirubin Negative (Negative) Urine Urobilinogen <2.0 (<2.0) mg/dL Ur Leukocyte Esterase Moderate H (Negative) Urine RBC 2 (0-5) /hpf Urine WBC 3 (0-5) /hpf Ur Squamous Epith Cells 1 (0-4) /hpf Urine Bacteria Rare H (None) /hpf Hyaline Casts 24 H (0-2) /lpf Urine Mucus Rare H (None) /hpf - Radiology Data Radiology results: report reviewed (CT brain and C-spine, chest x-ray pelvis x- ray and bilateral knee x-rays are negative for traumatic injury), image reviewed Disposition Clinical Impression: Fall, Weakness, ARF (acute renal failure), Left knee pain, Right knee pain Disposition: ADMITTED IP TO THIS [facility] Condition: Fair Referrals: Suzie Ramírez DO [Primary Care Provider] - 1-2 days
[2017-04-14 17:37] LABS: Partial Thromboplastin Time 74.6 sec (22.0-30.0)
--- NOTE | 2017-04-14 17:40 | CT ---
EXAMINATION TYPE: CT brain linda shetty con DATE OF EXAM: 04/14/2017 COMPARISON: 09/18/2016 HISTORY: Bilateral leg weakness CT DLP: 2280 mGycm Automated exposure control for dose reduction was used. TECHNIQUE: CT scan of the head and cervical spine are performed without contrast. FINDINGS: There is no fracture. No acute intracranial hemorrhage, definite new attenuation defect, mass, mass effect, or midline shift of structures. The ventricles and cisterns appear more prominent than the sulci, a nonspecific CT finding which can correlate with a clinical diagnosis of normal pres sure hydrocephalus. The globes are intact and the visualized sinuses are clear. Cervical spine is visualized in its entirety from C1 through upper thoracic levels and demonstrates s atisfactory alignment without evidence of acute fracture or dislocation. Prevertebral soft tissue ap pears within normal limits. The C1-C2 articulation is unremarkable. IMPRESSION: 1. There is no acute fracture or dislocation evident in the cervical spine. 2. No acute intracranial process. Incidental finding in that the ventricles and cisterns appear more prominent in size than the sulcal pattern, as discussed.
[2017-04-14 17:41] LABS: Appearance,Urine Cloudy (Clear); Bacteria,Urine Rare /hpf; Bilirubin,Urine Negative (Negative); Glucose,Urine (UA) Negative (Negative); Ketones,Urine Negative (Negative); Leukocyte Esterase,Urine Moderate (Negative); Mucus,Urine Rare /hpf; Nitrite,Urine Negative (Negative); Particle Count 8946; Protein,Urine 1+ (Negative); RBC,Urine 2 /hpf (0-5); Specific Gravity,Urine 1.014 (1.001-1.035); Squamous Epithelial Cell,Urine 1 /hpf (0-4); UA Billing (MACRO vs. MICRO) MICRO; Urobilinogen,Urine <2.0 mg/dL (<2.0); WBC,Urine 3 /hpf (0-5)
--- NOTE | 2017-04-14 17:42 | XR ---
EXAMINATION TYPE: XR chest 1V DATE OF EXAM: 04/14/2017 COMPARISON: 09/18/1969 HISTORY: Recent falls, pain TECHNIQUE: Single frontal view of the chest is obtained. FINDINGS: There is no evident fracture. No pneumothorax or other abnormal gas collection or pleural effusion. The lungs are clear bilaterally. Previously seen soft tissue arising from the abdomen to t he middle mediastinum is unchanged. The cardiac silhouette size is within normal limits. The osseous structures are intact. IMPRESSION: No acute process.
--- NOTE | 2017-04-14 17:43 | XR ---
PROCEDURE: XR pelvis AP view DATE AND TIME: 04/14/2017 5:23 PM REFERRING PHYSICIAN: Kristopher Quach DO CLINICAL INDICATION: PHH, Pain TECHNIQUE: Department protocol. COMPARISON: 09/19/2016 FINDINGS: There is no fracture or malalignment. The soft tissues are unremarkable. IMPRESSION: NO ACUTE PROCESS.
--- NOTE | 2017-04-14 17:47 | XR ---
PROCEDURE: XR knee complete bilateral DATE AND TIME: 04/14/2017 5:23 PM REFERRING PHYSICIAN: Kristopher Quach DO CLINICAL INDICATION: PHH, Pain TECHNIQUE: Department protocol. COMPARISON: 03/14/2017 FINDINGS: There is no fracture or malalignment. The soft tissues are remarkable for mild left suprapatellar bur jagruti fluid and evident soft tissue swelling of the left quadriceps. There is prominent joint space narrowing and prominent osteophytic spurring bilaterally, consistent w ith bilateral markedly advanced degenerative arthritis changes, with associated lateral subluxation o f the right femoral-tibial compartment. No focal skeletal lesions. Prominent atherosclerotic arterial calcifications noted bilaterally. IMPRESSION: NEGATIVE FOR FRACTURE OR MALALIGNMENT.
[2017-04-14] MEDS ORDERED: SODIUM CHLORIDE 0.9% 1,000 ML IV STA (18:05)
[2017-04-14] MEDS ORDERED: SODIUM CHLORIDE 0.9% 500 ML IV STA (18:05)
[2017-04-14] MEDS ORDERED: SODIUM CHLORIDE 0.9% 1,000 ML IV ONE (18:43)
[2017-04-14] MEDS ORDERED: IBUPROFEN 400 MG TAB PO PRN (23:33)
[2017-04-14] MEDS ORDERED: DAPTOmycin 500 MG VIAL IV SCH (23:45)
[2017-04-15] MEDS: CARVEDILOL 3.125 MG TAB PO SCH ×2 (08:10→17:04)
[2017-04-15] MEDS: MULTIVITAMINS, THERA 1 EACH TAB PO SCH (08:11)
[2017-04-15] MEDS: OXYBUTYNIN XL 5 MG TAB.ER.24 PO SCH (08:11)
[2017-04-15] MEDS: ALLOPURINOL 300 MG TAB PO SCH (08:11)
[2017-04-15] MEDS: MAGNESIUM OXIDE 400 MG TAB PO SCH (08:11)
[2017-04-15] MEDS: AMOXIC-POT CLAV 875-125MG 1 EACH TAB PO SCH ×2 (08:11→20:56)
[2017-04-15] MEDS: ASPIRIN 81 MG PO SCH (08:11)
[2017-04-15] MEDS: POTASSIUM CHLORIDE ER 20 MEQ TAB.ER PO SCH (08:12)
[2017-04-15] MEDS ORDERED: LISINOPRIL 20 MG TAB PO SCH (09:00)
[2017-04-15] MEDS ORDERED: NON-FORMULARY DRUG (Omega-3 Fatty Acids [Omega-3] 1,000 MG) PO SCH (09:00)
[2017-04-15] MEDS ORDERED: FUROSEMIDE 20 MG TAB PO SCH (09:00)
[2017-04-15] MEDS ORDERED: NON-FORMULARY DRUG (Glucosamine Sulfate 500 MG) PO SCH (09:00)
[2017-04-15] MEDS: DAPTOmycin 500 MG in SODIUM CHLORIDE 0.9% 50 ML IV SCH (09:26)
--- NOTE | 2017-04-15 11:58 | P.HPIM ---
History of Present Illness H&P Date: 04/15/17 Chief Complaint: following with bilateral leg weakness this is a 81-year-old male, patient of Dr. Ramírez. 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 He also has a history of dementia, hypertension, hyperlipidemia and prostate cancer. Patient was initially in the hospital on 03/14/2017 for a right distal medial thigh abscess and right knee osteoarthrosis with effusion. He underwent an incision and drainage with irrigation and debridement of the right distal medial thigh abscess on [address] Purcell. At that point he was discharged home on Cubicin. He is followed by infectious disease and orthopedics in the outpatient setting. He had been following in the wound care center for antibiotics and wound care of the knee. Patient also had a recent fluid removed from the left knee with Dr. Purcell. Patient lives at home alone. He came to the hospital via EMS after his been having multiple falls. He reports that his legs have been feeling weaker and just give out on him. Patient reports that he has been feeling so weak and unsteady that he is not been eating or drinking well. He is afraid to walk to the kitchen. He presented to the hospital with evidence of dehydration with a creatinine of 1.56 he's been given IV fluids. Lasix and lisinopril have been held. He has been started back on his IV antibiotics. And Dr. Guerra has been consulted. Pelvic x-ray shows no evidence of any fractures and bilateral knee x -ray shows no fracture. Chest x-ray was negative and computed tomography scan of the brain showed no acute changes or any evidence of a bleed. During one of his falls he did hit his head lightly. No loss of consciousness. Patient denies any chest pain, shortness of breath, nausea or vomiting, bowel movement changes or urinary symptoms. Denies any fever chills or sweats. Denies any significant pain in his legs. 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 History of Any Multi-Drug Resistant Organisms: MRSA Date of last positivie culture/infection: 03/14/17 MDRO Source:: KNEE Past Surgical History: Hernia Repair, Orthopedic Surgery, Prostate Surgery, Tonsillectomy Additional Past Surgical History / Comment(s): 2009 colonoscopy, L eye cataract surgery, L eye laser surgery, R eye surgery for retinal detachment-unsuccessful , R inguinal hernia repair x2, prostatectomy due to cancer.PICC LINE LT ARM Past Anesthesia/Blood Transfusion Reactions: No Reported Reaction Additional Past Anesthesia/Blood Transfusion Reaction / Comment(s): Pt states he has never received blood. Smoking Status: Former smoker - Past Family History Father Family Medical History: Musculoskeletal Disorder, Neurologic Disorder Additional Family Medical History / Comment(s): Father of parkinson's disease at the age of 72 yrs. Mother Family Medical History: Dementia, Musculoskeletal Disorder, Neurologic Disorder Additional Family Medical History / Comment(s): Mother had polio at the age of 2 yrs and wore braces and used crutches to ambulate. She at the age of 95 yrs from dementia and bowel obstruction. Medications and Allergies Home Medications Medication Instructions Recorded Confirmed Type Allopurinol [Zyloprim] 300 mg PO DAILY 05/01/16 04/14/17 History Carvedilol [Coreg] 3.125 mg PO BID 05/01/16 04/14/17 History Donepezil [Aricept] 5 mg PO HS 05/01/16 04/14/17 History Fesoterodine Fumarate [Toviaz] 8 mg PO DAILY 05/01/16 04/14/17 History Lisinopril [Zestril] 20 mg PO DAILY 05/01/16 04/14/17 History [place]-3 Fatty Acids [[place]-3] 1,000 mg PO DAILY 05/01/16 04/14/17 History Simvastatin [Zocor] 40 mg PO HS 05/01/16 04/14/17 History Furosemide [Lasix] 20 mg PO DAILY 09/18/16 04/14/17 History Glucosamine Sulfate 500 mg PO DAILY 09/18/16 04/14/17 History Rivaroxaban [Xarelto] 20 mg PO PC-SUPPER 09/18/16 04/14/17 History Magnesium 200 mg PO DAILY 03/14/17 04/14/17 History DAPTOmycin [Cubicin] 500 mg IV Q24H vial 03/19/17 04/14/17 Rx Amoxic-Pot Clav 875-125Mg 1 tab PO Q12HR 04/14/17 04/14/17 History [Augmentin 875-125] Aspirin 162 mg PO DAILY 04/14/17 04/14/17 History Ibuprofen [Motrin] 200 - 400 mg PO Q6HR PRN 04/14/17 04/14/17 History Multivitamins, Thera [Multivitamin 1 tab PO DAILY 04/14/17 04/14/17 History (formulary)] Oxybutynin Chloride [Ditropan XL] 10 mg PO DAILY 04/14/17 04/14/17 History Potassium Chloride [Klor-Con 20] 20 meq PO DAILY 04/14/17 04/14/17 History Allergies Allergy/AdvReac Type Severity Reaction Status Date / Time Sulfa (Sulfonamide Allergy Unknown Verified 04/14/17 16:58 Antibiotics) Childhood Physical Exam Vitals: Vital Signs Temp Pulse Pulse Resp BP BP Pulse Ox 04/15/17 07:00 97.6 F 63 16 124/68 98 04/14/17 23:00 98.2 F 71 16 102/60 95 04/14/17 20:13 97.9 F 67 20 84/50 96 04/14/17 19:23 86 18 112/54 96 04/14/17 18:44 63 17 108/63 95 04/14/17 17:43 97/53 04/14/17 17:31 74 17 96 04/14/17 16:37 99.0 F 78 18 95/54 96 Intake and Output 04/14/17 04/15/17 04/15/17 22:59 06:59 14:59 Output Total 125 875 Balance -125 -875 Output: Urine 125 875 Other: Voiding Method Urinal # Voids 1 2 2 Weight 102.058 kg 102 kg Head normocephalic Neck supple Lungs clear to auscultation bilaterally no wheezing or crackles Heart regular rate and rhythm S1-S2, no rub or gallop Abdomen is soft nontender nondistended positive bowel sounds no hepatosplenomegaly Extremities swelling noted in the right knee. Patient has right distal thigh/ knee abscess that is healing. No significant drainage. Left knee is minimal swelling. Both knees tender with palpation. Neuro alert and orientated to 3 Results CBC & Chem 7: 04/14/17 16:49 04/14/17 16:49 Labs: Abnormal Lab Results - Last 24 Hours (Table) 04/14/17 04/14/17 04/14/17 Range/Units 16:49 16:49 16:49 RBC 3.36 L (4.30-5.90) m/uL Hgb 9.9 L D (13.0-17.5) gm/dL Hct 31.1 L (39.0-53.0) % Lymphocytes # 0.3 L (1.0-4.8) k/uL PT 16.9 H (9.0-12.0) sec INR 1.7 H (<1.2) APTT 74.6 H (22.0-30.0) sec BUN 41 H (9-20) mg/dL Creatinine 1.56 H (0.66-1.25) mg/dL Glucose 149 H (74-99) mg/dL Albumin 3.4 L (3.5-5.0) g/dL Urine Protein (Negative) Ur Leukocyte Esterase (Negative) Urine Bacteria (None) /hpf Hyaline Casts (0-2) /lpf Urine Mucus (None) /hpf 04/14/17 Range/Units 17:30 RBC (4.30-5.90) m/uL Hgb (13.0-17.5) gm/dL Hct (39.0-53.0) % Lymphocytes # (1.0-4.8) k/uL PT (9.0-12.0) sec INR (<1.2) APTT (22.0-30.0) sec BUN (9-20) mg/dL Creatinine (0.66-1.25) mg/dL Glucose (74-99) mg/dL Albumin (3.5-5.0) g/dL Urine Protein 1+ H (Negative) Ur Leukocyte Esterase Moderate H (Negative) Urine Bacteria Rare H (None) /hpf Hyaline Casts 24 H (0-2) /lpf Urine Mucus Rare H (None) /hpf Microbiology - Last 24 Hours (Table) 04/14/17 17:30 Urine Culture - Preliminary Urine,Clean Catch Thrombosis Risk Factor Assmnt - Choose All That Apply Any of the Below Risk Factors Present?: Yes Each Factor Represents 1 point: Obesity (BMI >25) Other Risk Factors: Yes Each Risk Factor Represents 2 Points: Malignancy Each Risk Factor Represents 3 Points: Age 75 years or older, History of DVT/PE Other congenital or acquired thrombophilia - If yes, enter type in comment: No Thrombosis Risk Factor Assessment Total Risk Factor Score: 9 Thrombosis Risk Factor Assessment Level: High Risk Assessment and Plan Plan: 1. Falls with generalized weakness in his legs. No evidence of any fractures. Physical therapy has been consulted. Social work consulted for possible ECF placement. 2. Acute kidney injury likely related to dehydration due to poor oral intake as well as being on Lasix and lisinopril and Motrin. Lasix lisinopril Motrin have been discontinued. Patient will be receiving IV fluids. Repeat labs in a.m. 3. Anemia with a hemoglobin of 9.9 no signs or symptoms of active bleeding. Check iron studies. Last colonoscopy was 4 years ago with polypectomy. 4. History of bilateral PE and DVT maintained on Xarelto 5. recent incision and drainage of a right medial thigh abscess on 03/15/[address] Purcell. Patient has been following the wound care center for IV antibiotics with Cubicin and Augmentin 6. History of prostate cancer status post surgery 7. Hyperlipidemia continue Lipitor 8. Dementia continue Aricept GI prophylaxis Pepcid and DVT prophylaxis Xarelto Time with Patient: Greater than 30 (Greater than 50% of the total time spent in counseling and coordination of care.I performed an examination of the patient and discussed their management with the physician Credit And Collections Representative. I have reviewed the Physician Credit And Collections Representative's notes and agree with the documented findings and plan of care)
[2017-04-15 12:30] LABS: Basophils % (A) 0 %; CH 29.8; CHCM 31.4; Eosinophils % (A) 0 %; HCT 31.1 % (39.0-53.0); HDW 3.68; HGB 9.7 gm/dL (13.0-17.5); Hypochromasia Moderate; Luc # (Auto) 0.29; Luc % (Auto) 2; Lymphocytes # (A) 0.6 k/uL (1.0-4.8); Lymphocytes % (A) 5 %; MCH 29.7 pg (25.0-35.0); MCV 95.7 fL (80.0-100.0); Mean Platelet Volume 7.1; Monocytes # (A) 0.6 k/uL (0-1.0); Monocytes % (A) 5 %; Neutrophils # (A) 10.7 k/uL (1.3-7.7); Neutrophils % (A) 87 %; Poikilocytosis Slight; RBC 3.25 m/uL (4.30-5.90); RDW 14.9 % (11.5-15.5); WBC 12.2 k/uL (3.8-10.6); WBC (Perox) 12.31
[2017-04-15] MEDS: SODIUM CHLORIDE 0.9% 1,000 ML IV SCH (12:39)
[2017-04-15 12:47] LABS: ALT 38 U/L (21-72); AST 26 U/L (17-59); Alkaline Phosphatase 64 U/L (38-126); Anion Gap 10 mmol/L; Blood Urea Nitrogen 37 mg/dL (9-20); Calcium 9.2 mg/dL (8.4-10.2); Carbon Dioxide 20 mmol/L (22-30); Chloride 111 mmol/L (98-107); Glucose 108 mg/dL (74-99); Iron 43 ug/dL (49-181); Non-African American GFR(MDRD) >60 (>60 ml/min/1.73 sqM); Sodium 141 mmol/L (137-145); Total Bilirubin 0.3 mg/dL (0.2-1.3); Total Protein 6.2 g/dL (6.3-8.2)
[2017-04-15] MEDS: RIVAROXABAN 10 MG TAB PO SCH (17:04)
[2017-04-15 18:56] LABS: Iron Saturation 19.81 (15.00-50.00)
[2017-04-15] MEDS: DONEPEZIL 5 MG TAB PO SCH (20:56)
[2017-04-15] MEDS: ATORVASTATIN 20 MG TAB PO SCH (20:56)
--- NOTE | 2017-04-15 22:30 | P.CONS ---
History of Present Illness - Reason for Consult Consult date: 04/15/17 - Chief Complaint Falls and weakness - History of Present Illness Pleasant 81-year-old male was recently hospitalized after he removed a tick from the anterior aspect of his right knee. He then developed a significant ulcer area. He has surrounding cellulitis and evidence of a deep infection. He did have aspiration performed. In is receiving outpatient intravenous antibiotic therapy for the significant infection. In the last few days he was having increasing difficulties with weakness and falls. He by the emergency room and discharged. However shortly after arriving home he again felt was not able to get up. EMS was called and he was brought back to hospital and admitted. It appears when EMS arrived at his home it was in extreme disorder. The patient is aware that he is having increasing difficulties. He is having to sleep on the floor because he could not get into his bed. He relates he is having increasing pain to the left knee. This was noted and it was aspirated. Despite the aspiration the knee remains swollen and painful. He is having difficulties with ambulation. Never was able to arise at his bedside with his walker to utilize the urinal. He is denying high- grade fevers chills or rigors. But does have significant generalized weakness. Review of Systems HEENT:Denies headache or acute visual change. Denies sinus or mouth discomforts. Denies neck stiffness or pain. Denies significant oral cavity pain. Denies difficulty on swallowing. Lungs: Denies significant shortness of breath, cough, sputum production, or hemoptysis. Cardiovascular: Denies significant shortness of breath, chest pain, chest wall pain, orthopnea, dyspnea on exertion, syncope Gastrointestinal:Denies nausea, vomiting, diarrhea, constipation, hematemesis, melena, hematochezia. No no significant change of bowel habit noticed. Musculoskeletal: Bilateral knee pain. Ulcers of the right knee improving effusion the left knee is limiting his ambulation Skin: Denies new rash or lesions. Also right knee is improving is less painful. Neuro: Denies headache or visual change. Denies any new onset weakness or difficulty with ambulation. Denies falls or seizures. Psychiatric:Denies anxiety or depression. 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 History of Any Multi-Drug Resistant Organisms: MRSA Year Discovered:: 03/14/17 MDRO Source:: KNEE Past Surgical History: Hernia Repair, Orthopedic Surgery, Prostate Surgery, Tonsillectomy Additional Past Surgical History / Comment(s): 2009 colonoscopy, L eye cataract surgery, L eye laser surgery, R eye surgery for retinal detachment-unsuccessful , R inguinal hernia repair x2, prostatectomy due to cancer.PICC LINE LT ARM Past Anesthesia/Blood Transfusion Reactions: No Reported Reaction Additional Past Anesthesia/Blood Transfusion Reaction / Comm: Pt states he has never received blood. Additional Psychological History / Comment(s): Pt lives alone. He uses a cane prn. He is able to drive. No experience. Retired teacher. No international travel. No smoking or alcohol use or recreational drug use. Has pet cats at home. No change in his living experience as of late, apparently the home is in extreme disarray Smoking Status: Former smoker - Past Family History Father Family Medical History: Musculoskeletal Disorder, Neurologic Disorder Additional Family Medical History / Comment(s): Father of parkinson's disease at the age of 72 yrs. Mother Family Medical History: Dementia, Musculoskeletal Disorder, Neurologic Disorder Additional Family Medical History / Comment(s): Mother had polio at the age of 2 yrs and wore braces and used crutches to ambulate. She at the age of 95 yrs from dementia and bowel obstruction. Medications and Allergies Home Medications and Allergies Comment(s): Current Medications Allopurinol (Zyloprim) 300 mg PO DAILY [facility] Last Admin: 04/15/17 08:11 Dose: 300 mg Amoxicillin/Clavulanate Potassium (Augmentin 875-125) 1 each PO Q12HR [facility] Last Admin: 04/15/17 20:56 Dose: 1 each Aspirin (Aspirin) 162 mg PO DAILY [facility] Last Admin: 04/15/17 08:11 Dose: 162 mg Atorvastatin Calcium (Lipitor) 20 mg PO HS [facility] Last Admin: 04/15/17 20:56 Dose: 20 mg Carvedilol (Coreg) 3.125 mg PO AC-BID [facility] Last Admin: 10/17/17 17:04 Dose: 3.125 mg Donepezil HCl (Aricept) 5 mg PO HS [facility] Last Admin: 04/15/17 20:56 Dose: 5 mg Famotidine (Pepcid) 20 mg PO DAILY [facility] Daptomycin 500 mg/ Sodium (Chloride) 50 mls @ 100 mls/hr IV Q24HR [facility] Last Admin: 04/15/17 09:26 Dose: 100 mls/hr Sodium Chloride (Saline 0.9%) 1,000 mls @ 50 mls/hr IV .Q20H [facility] Last Admin: 04/15/17 12:39 Dose: Not Given Magnesium Oxide (Mag-Ox) 200 mg PO DAILY [facility] Last Admin: 04/15/17 08:11 Dose: 200 mg Multivitamins (Theragran) 1 each PO DAILY [facility] Last Admin: 04/15/17 08:11 Dose: 1 each Oxybutynin Chloride (Ditropan Xl) 10 mg PO DAILY [facility] Last Admin: 04/15/17 08:11 Dose: 10 mg Potassium Chloride (K-Dur 20) 20 meq PO DAILY [facility] Last Admin: 04/15/17 08:12 Dose: 20 meq Rivaroxaban (Xarelto) 20 mg PO PC-SUPPER [facility] Last Admin: 04/15/17 17:04 Dose: 20 mg Home Medications Medication Instructions Recorded Confirmed Type Allopurinol [Zyloprim] 300 mg PO DAILY 05/01/16 04/14/17 History Carvedilol [Coreg] 3.125 mg PO BID 05/01/16 04/14/17 History Donepezil [Aricept] 5 mg PO HS 05/01/16 04/14/17 History Fesoterodine Fumarate [Toviaz] 8 mg PO DAILY 05/01/16 04/14/17 History Lisinopril [Zestril] 20 mg PO DAILY 05/01/16 04/14/17 History [place]-3 Fatty Acids [[place]-3] 1,000 mg PO DAILY 05/01/16 04/14/17 History Simvastatin [Zocor] 40 mg PO HS 05/01/16 04/14/17 History Furosemide [Lasix] 20 mg PO DAILY 09/18/16 04/14/17 History Glucosamine Sulfate 500 mg PO DAILY 09/18/16 04/14/17 History Rivaroxaban [Xarelto] 20 mg PO PC-SUPPER 09/18/16 04/14/17 History Magnesium 200 mg PO DAILY 03/14/17 04/14/17 History DAPTOmycin [Cubicin] 500 mg IV Q24H vial 03/19/17 04/14/17 Rx Amoxic-Pot Clav 875-125Mg 1 tab PO Q12HR 04/14/17 04/14/17 History [Augmentin 875-125] Aspirin 162 mg PO DAILY 04/14/17 04/14/17 History Ibuprofen [Motrin] 200 - 400 mg PO Q6HR PRN 04/14/17 04/14/17 History Multivitamins, Thera [Multivitamin 1 tab PO DAILY 04/14/17 04/14/17 History (formulary)] Oxybutynin Chloride [Ditropan XL] 10 mg PO DAILY 04/14/17 04/14/17 History Potassium Chloride [Klor-Con 20] 20 meq PO DAILY 04/14/17 04/14/17 History Allergies Allergy/AdvReac Type Severity Reaction Status Date / Time Sulfa (Sulfonamide Allergy Unknown Verified 04/14/17 16:58 Antibiotics) Childhood Physical Exam Vitals: Vital Signs Temp Pulse Resp BP Pulse Ox 04/15/17 15:00 98.2 F 60 16 119/65 97 04/15/17 07:00 97.6 F 63 16 124/68 98 04/14/17 23:00 98.2 F 71 16 102/60 95 Intake and Output 04/15/17 04/15/17 04/15/17 06:59 14:59 22:59 Output Total 875 700 Balance -875 -700 Output: Urine 875 700 Other: Voiding Method Urinal Urinal # Voids 2 2 # Bowel Movements 1 Weight 102 kg Pleasant 81-year-old male who was having increasing weakness and multiple falls and pain with his left knee HEENT: Anicteric conjunctiva are pink and moist nasal mucosa grossly intact without significant lesions, there is no thrush. Neck: The neck is supple without significant lymphadenopathy or thyromegaly. Lungs: Symmetrical air entry with expiratory wheezes no joy bronchial sounds Heart: Regular rate and rhythm with an audible S1-S2, no S3 loud S4 2/6 systolic murmur left sternal border radiates to the axilla no click or rub Abdomen: Obese, Positive bowel sounds soft and nontender without palpable masses or organomegaly. There was no guarding or rebound. Extremities: The upper extremities have excellent pulses they are symmetric, no significant petechiae or telangiectasia. No splinter hemorrhages were noted. The PICC line site is intact. The lower extremities have some chronic edema. The ulceration to the right knee is noted. It is improving. There is no expressible purulence only has trace serous drainage. Left knee still has evidence of a palpable effusion but is improved since its aspiration by orthopedics. Neuro: Awake alert oriented to person place and time. There are no acute new gross focal sensory motor deficits. He has significant generalized weakness. Results CBC & Chem 7: 04/15/17 12:13 04/15/17 12:13 Labs: Abnormal Lab Results - Last 24 Hours (Table) 04/15/17 04/15/17 Range/Units 12:13 12:13 WBC 12.2 H (3.8-10.6) k/uL RBC 3.25 L (4.30-5.90) m/uL Hgb 9.7 L (13.0-17.5) gm/dL Hct 31.1 L (39.0-53.0) % Neutrophils # 10.7 H (1.3-7.7) k/uL Lymphocytes # 0.6 L (1.0-4.8) k/uL Chloride 111 H (98-107) mmol/L Carbon Dioxide 20 L (22-30) mmol/L BUN 37 H (9-20) mg/dL Glucose 108 H (74-99) mg/dL Iron 43 L (49-181) ug/dL Total Protein 6.2 L (6.3-8.2) g/dL Albumin 3.0 L (3.5-5.0) g/dL Microbiology - Last 24 Hours (Table) 04/14/17 17:30 Urine Culture - Final Urine,Clean Catch Laboratory Results WBC 12.2 k/uL (3.8-10.6) H 04/15/17 12:13 RBC 3.25 m/uL (4.30-5.90) L 04/15/17 12:13 Hgb 9.7 gm/dL (13.0-17.5) L 04/15/17 12:13 Hct 31.1 % (39.0-53.0) L 04/15/17 12:13 MCV 95.7 fL (80.0-100.0) 04/15/17 12:13 MCH 29.7 pg (25.0-35.0) 04/15/17 12:13 MCHC 31.0 g/dL (31.0-37.0) 04/15/17 12:13 RDW 14.9 % (11.5-15.5) 04/15/17 12:13 Plt Count 349 k/uL (150-450) 04/15/17 12:13 Neutrophils % 87 % 04/15/17 12:13 Lymphocytes % 5 % 04/15/17 12:13 Monocytes % 5 % 04/15/17 12:13 Eosinophils % 0 % 04/15/17 12:13 Basophils % 0 % 04/15/17 12:13 Neutrophils # 10.7 k/uL (1.3-7.7) H 04/15/17 12:13 Lymphocytes # 0.6 k/uL (1.0-4.8) L 04/15/17 12:13 Monocytes # 0.6 k/uL (0-1.0) 04/15/17 12:13 Eosinophils # 0.0 k/uL (0-0.7) 04/15/17 12:13 Basophils # 0.0 k/uL (0-0.2) 04/15/17 12:13 Hypochromasia Moderate 04/15/17 12:13 Poikilocytosis Slight 04/15/17 12:13 PT 16.9 sec (9.0-12.0) H 04/14/17 16:49 INR 1.7 (<1.2) H 04/14/17 16:49 APTT 74.6 sec (22.0-30.0) H 04/14/17 16:49 Sodium 141 mmol/L (137-145) 04/15/17 12:13 Potassium 5.0 mmol/L (3.5-5.1) 04/15/17 12:13 Chloride 111 mmol/L (98-107) H 04/15/17 12:13 Carbon Dioxide 20 mmol/L (22-30) L 04/15/17 12:13 Anion Gap 10 mmol/L 04/15/17 12:13 BUN 37 mg/dL (9-20) H 04/15/17 12:13 Creatinine 1.00 mg/dL (0.66-1.25) 04/15/17 12:13 Est GFR (MDRD) Af Amer >60 (>60 ml/min/1.73 sqM) 04/15/17 12:13 Est GFR (MDRD) Non-Af >60 (>60 ml/min/1.73 sqM) 04/15/17 12:13 Glucose 108 mg/dL (74-99) H 04/15/17 12:13 Calcium 9.2 mg/dL (8.4-10.2) 04/15/17 12:13 Phosphorus 3.8 mg/dL (2.5-4.5) 04/14/17 16:49 Magnesium 2.3 mg/dL (1.6-2.3) 04/14/17 16:49 Iron 43 ug/dL (49-181) L 04/15/17 12:13 Total Bilirubin 0.3 mg/dL (0.2-1.3) 04/15/17 12:13 AST 26 U/L (17-59) 04/15/17 12:13 ALT 38 U/L (21-72) 04/15/17 12:13 Alkaline Phosphatase 64 U/L (38-126) 04/15/17 12:13 Total Creatine Kinase 119 U/L (55-170) 04/14/17 16:49 CK-MB (CK-2) 2.0 ng/mL (0.0-2.4) 04/14/17 16:49 CK-MB (CK-2) Rel Index 1.7 04/14/17 16:49 Troponin I <0.012 ng/mL (0.000-0.034) 04/14/17 16:49 Total Protein 6.2 g/dL (6.3-8.2) L 04/15/17 12:13 Albumin 3.0 g/dL (3.5-5.0) L 04/15/17 12:13 Urine Color Yellow 04/14/17 17:30 Urine Appearance Cloudy (Clear) 04/14/17 17:30 Urine pH 5.0 (5.0-8.0) 04/14/17 17:30 Ur Specific Bronson 1.014 (1.001-1.035) 04/14/17 17:30 Urine Protein 1+ (Negative) H 04/14/17 17:30 Urine Glucose (UA) Negative (Negative) 04/14/17 17:30 Urine Ketones Negative (Negative) 04/14/17 17:30 Urine Blood Negative (Negative) 04/14/17 17:30 Urine Nitrite Negative (Negative) 04/14/17 17:30 Urine Bilirubin Negative (Negative) 04/14/17 17:30 Urine Urobilinogen <2.0 mg/dL (<2.0) 04/14/17 17:30 Ur Leukocyte Esterase Moderate (Negative) H 04/14/17 17:30 Urine RBC 2 /hpf (0-5) 04/14/17 17:30 Urine WBC 3 /hpf (0-5) 04/14/17 17:30 Ur Squamous Epith Cells 1 /hpf (0-4) 04/14/17 17:30 Urine Bacteria Rare /hpf (None) H 04/14/17 17:30 Hyaline Casts 24 /lpf (0-2) H 04/14/17 17:30 Urine Mucus Rare /hpf (None) H 04/14/17 17:30 Microbiology 04/14/17 17:30 Urine,Clean Catch Urine Culture - Final Comments: The multiple x-rays were reviewed without acute fracture Assessment and Plan (1) Fall Narrative/Plan: 81-year-old male presents the emergency center after multiple falls. Having increasing weakness. He actually presented to the emergency center because he is having pain to the left knee. It has been aspirated but he was still having difficulties. He was felt to be stable. However upon arriving home he fell in his yard and EMS had to be called. Is now admitted for further evaluation. It was noted that his creatinine had increased from his baseline of 0.96. Potential nephrotoxins agents have all been stopped. Including his geat-iln-svoloso ibuprofen. He is receiving fluids. Feeling somewhat better now several hours after admission. Initially had pain to the left knee really has the effusion. It is being monitored. Ulceration to right knee is improved and local wound care with therahoney will be requested while he is here. The patient's status has continued to decline and likely will go to extended care to receive his course of therapy and rehab. It appears that one of his friends will take over his cats. Current Visit: Yes Status: Acute Code(s): W19.XXXA - UNSPECIFIED FALL, INITIAL ENCOUNTER SNOMED Code(s): 5856591 (2) Left knee pain Current Visit: Yes Status: Acute Code(s): M25.562 - PAIN IN LEFT KNEE SNOMED Code(s): 88636311 (3) Ulcer of left knee Current Visit: Yes Status: Acute Code(s): L97.829 - NON-PRESSURE CHRONIC ULCER OTH PRT L LOW LEG W UNSP SEVERITY SNOMED Code(s): 753561805
[2017-04-16] MEDS: DAPTOmycin 500 MG in SODIUM CHLORIDE 0.9% 50 ML IV SCH (07:53)
[2017-04-16] MEDS: AMOXIC-POT CLAV 875-125MG 1 EACH TAB PO SCH ×2 (07:53→21:14)
[2017-04-16] MEDS: ALLOPURINOL 300 MG TAB PO SCH (07:53)
[2017-04-16] MEDS: SODIUM CHLORIDE 0.9% 1,000 ML IV SCH (07:53)
[2017-04-16] MEDS: MAGNESIUM OXIDE 400 MG TAB PO SCH (07:53)
[2017-04-16] MEDS: ASPIRIN 81 MG PO SCH (07:53)
[2017-04-16] MEDS: POTASSIUM CHLORIDE ER 20 MEQ TAB.ER PO SCH (07:53)
[2017-04-16] MEDS: FAMOTIDINE 20 MG TAB PO SCH (07:54)
[2017-04-16] MEDS: CARVEDILOL 3.125 MG TAB PO SCH ×2 (07:54→17:43)
[2017-04-16] MEDS: MULTIVITAMINS, THERA 1 EACH TAB PO SCH (07:54)
[2017-04-16] MEDS: OXYBUTYNIN XL 5 MG TAB.ER.24 PO SCH (07:54)
[2017-04-16 08:50] LABS: Basophils % (A) 0 %; CH 30.8; CHCM 32.1; Eosinophils # (A) 0.2 k/uL (0-0.7); Eosinophils % (A) 2 %; HCT 31.5 % (39.0-53.0); HDW 3.55; HGB 9.9 gm/dL (13.0-17.5); Hypochromasia Slight; Luc # (Auto) 0.12; Luc % (Auto) 1; Lymphocytes # (A) 0.9 k/uL (1.0-4.8); Lymphocytes % (A) 11 %; MCH 30.2 pg (25.0-35.0); MCHC 31.3 g/dL (31.0-37.0); MCV 96.4 fL (80.0-100.0); Mean Platelet Volume 7.3; Monocytes # (A) 0.3 k/uL (0-1.0); Monocytes % (A) 4 %; Neutrophils # (A) 6.9 k/uL (1.3-7.7); Neutrophils % (A) 81 %; Poikilocytosis Slight; RBC 3.26 m/uL (4.30-5.90); RDW 15.9 % (11.5-15.5); WBC 8.5 k/uL (3.8-10.6); WBC (Perox) 8.29
[2017-04-16 09:03] LABS: ALT 42 U/L (21-72); AST 29 U/L (17-59); Alkaline Phosphatase 62 U/L (38-126); Anion Gap 12 mmol/L; Blood Urea Nitrogen 31 mg/dL (9-20); Calcium 9.2 mg/dL (8.4-10.2); Carbon Dioxide 22 mmol/L (22-30); Chloride 108 mmol/L (98-107); Glucose 110 mg/dL (74-99); Non-African American GFR(MDRD) >60 (>60 ml/min/1.73 sqM); Potassium 4.5 mmol/L (3.5-5.1); Sodium 142 mmol/L (137-145); Total Bilirubin 0.3 mg/dL (0.2-1.3); Total Protein 6.6 g/dL (6.3-8.2)
--- NOTE | 2017-04-16 13:30 | P.PN ---
Subjective Progress Note Date: 04/16/17 this is a 81-year-old male, patient of Dr. Ramírez. 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 He also has a history of dementia, hypertension, hyperlipidemia and prostate cancer. Patient was initially in the hospital on 03/14/2017 for a right distal medial thigh abscess and right knee osteoarthrosis with effusion. He underwent an incision and drainage with irrigation and debridement of the right distal medial thigh abscess on [address] Purcell. At that point he was discharged home on Cubicin. He is followed by infectious disease and orthopedics in the outpatient setting. He had been following in the wound care center for antibiotics and wound care of the knee. Patient also had a recent fluid removed from the left knee with Dr. Purcell. Patient lives at home alone. He came to the hospital via EMS after his been having multiple falls. He reports that his legs have been feeling weaker and just give out on him. Patient reports that he has been feeling so weak and unsteady that he is not been eating or drinking well. He is afraid to walk to the kitchen. He presented to the hospital with evidence of dehydration with a creatinine of 1.56 he's been given IV fluids. Lasix and lisinopril have been held. He has been started back on his IV antibiotics. And Dr. Guerra has been consulted. Pelvic x-ray shows no evidence of any fractures and bilateral knee x -ray shows no fracture. Chest x-ray was negative and computed tomography scan of the brain showed no acute changes or any evidence of a bleed. During one of his falls he did hit his head lightly. No loss of consciousness. Patient denies any chest pain, shortness of breath, nausea or vomiting, bowel movement changes or urinary symptoms. Denies any fever chills or sweats. Denies any significant pain in his legs. on 04/16/2017 patient is alert and oriented denies any pain or discomfort while lying in bed, has moderate to severe pain when he starts putting any weight on his right knee, he also has significant weakness and inability to ambulate on his own. otherwise he denies any complaints there is no fever or chills no headache no dizziness no chest pain or shortness of breath no cough no nausea or vomiting no abdominal pain and no urinary symptoms Objective - Vital Signs Vital signs: Vital Signs Temp 96.4 F L 04/16/17 07:00 Pulse 60 04/16/17 07:00 Resp 16 04/16/17 07:00 BP 151/74 04/16/17 07:00 Pulse Ox 97 04/16/17 07:00 Intake & Output 04/15/17 04/16/17 04/16/17 18:59 06:59 18:59 Intake Total 200 Output Total 700 600 300 Balance -700 -600 -100 Weight 62 kg Intake: IV 50 DAPTOmycin 500 mg In 50 Sodium Chloride 0.9% 50 ml @ 100 mls/hr IV Q24HR [facility] Rx#:[id number] Intake, IV Titration 150 Amount Sodium Chloride 0.9% 1, 150 000 ml @ 50 mls/hr IV . Q20H [facility] Rx#:[id number] Output: Urine 700 600 300 Other: Voiding Method Urinal Urinal # Voids 2 1 1 # Bowel Movements 1 - Exam in general patient is alert and oriented 3 HEENT head normocephalic and atraumatic Neck is supple no JVD no goiter no lymphadenopathy Chest exam reveals a clear respiratory sounds no crackles no wheezing Cardiac exam reveals regular heart sounds no gallops no murmurs Abdomen is soft nontender no organomegaly was normal bowel sounds extremity exam reveals no edema no cyanosis or clubbing right knee exam reveals distal right thigh abscess that is healing, there is minimal swelling in the right knee there is also minimal swelling in the left knee. - Labs CBC & Chem 7: 04/16/17 08:01 04/16/17 08:01 Labs: Abnormal Lab Results - Last 24 Hours (Table) 04/15/17 04/16/17 04/16/17 Range/Units 12:13 08:01 08:01 RBC 3.26 L (4.30-5.90) m/uL Hgb 9.9 L (13.0-17.5) gm/dL Hct 31.5 L (39.0-53.0) % RDW 15.9 H (11.5-15.5) % Lymphocytes # 0.9 L (1.0-4.8) k/uL Chloride 108 H (98-107) mmol/L BUN 31 H (9-20) mg/dL Glucose 110 H (74-99) mg/dL Iron 41 L (65-175) ug/dL TIBC 207 L (228-460) ug/dL Albumin 3.3 L (3.5-5.0) g/dL Microbiology - Last 24 Hours (Table) 04/14/17 17:30 Urine Culture - Final Urine,Clean Catch Assessment and Plan Plan: 1. Falls with generalized weakness in his legs. No evidence of any fractures. Physical therapy has been consulted. Social work consulted for possible ECF placement. 2. Acute kidney injury likely related to dehydration due to poor oral intake as well as being on Lasix and lisinopril and Motrin. Lasix lisinopril Motrin have been discontinued. Patient will be receiving IV fluids. Repeat labs in a.m. 3. Anemia with a hemoglobin of 9.9 no signs or symptoms of active bleeding. Check iron studies. Last colonoscopy was 4 years ago with polypectomy. 4. History of bilateral PE and DVT maintained on Xarelto 5. recent incision and drainage of a right medial thigh abscess on 03/15/[address] Purcell. Patient has been following the wound care center for IV antibiotics with Cubicin and Augmentin 6. History of prostate cancer status post surgery 7. Hyperlipidemia continue Lipitor 8. Dementia continue Aricept 9. GI prophylaxis Pepcid and DVT prophylaxis Xarelto plan to continue was current antibiotics, transfer to rehab in the next 1-2 days
[2017-04-16] MEDS: RIVAROXABAN 10 MG TAB PO SCH (17:43)
[2017-04-16] MEDS: DONEPEZIL 5 MG TAB PO SCH (21:14)
[2017-04-16] MEDS: ATORVASTATIN 20 MG TAB PO SCH (21:14)
--- NOTE | 2017-04-16 23:22 | P.PN ---
Subjective Progress Note Date: 04/16/17 Principal diagnosis: Weakness and falls Pleasant 81-year-old male was recently hospitalized after he removed a tick from the anterior aspect of his right knee. He then developed a significant ulcer area. He has surrounding cellulitis and evidence of a deep infection. He did have aspiration performed. In is receiving outpatient intravenous antibiotic therapy for the significant infection. In the last few days he was having increasing difficulties with weakness and falls. He by the emergency room and discharged. However shortly after arriving home he again felt was not able to get up. EMS was called and he was brought back to hospital and admitted. It appears when EMS arrived at his home it was in extreme disorder. The patient is aware that he is having increasing difficulties. He is having to sleep on the floor because he could not get into his bed. He relates he is having increasing pain to the left knee. This was noted and it was aspirated. Despite the aspiration the knee remains swollen and painful. He is having difficulties with ambulation. He is denying high- grade fevers chills or rigors. But does have significant generalized weakness. Is looking forward to some rehab. Objective - Vital Signs Vital signs: Vital Signs Temp 97.5 F L 04/16/17 15:00 Pulse 59 L 04/16/17 15:00 Resp 16 04/16/17 15:00 BP 107/57 04/16/17 15:00 Pulse Ox 97 04/16/17 15:00 Intake & Output 04/16/17 04/16/17 04/17/17 06:59 18:59 06:59 Intake Total 1400 Output Total 600 300 Balance -600 1100 Weight 62 kg Intake: IV 50 DAPTOmycin 500 mg In 50 Sodium Chloride 0.9% 50 ml @ 100 mls/hr IV Q24HR [facility] Rx#:[id number] Intake, IV Titration 150 Amount Sodium Chloride 0.9% 1, 150 000 ml @ 50 mls/hr IV . Q20H [facility] Rx#:[id number] Oral 1200 Output: Urine 600 300 Other: Voiding Method Urinal # Voids 1 4 - Exam Pleasant 81-year-old male who was having increasing weakness and multiple falls and pain with his left knee HEENT: Anicteric conjunctiva are pink and moist nasal mucosa grossly intact without significant lesions, there is no thrush. Neck: The neck is supple without significant lymphadenopathy or thyromegaly. Lungs: Symmetrical air entry with expiratory wheezes no joy bronchial sounds Heart: Regular rate and rhythm with an audible S1-S2, no S3 loud S4 2/6 systolic murmur left sternal border radiates to the axilla no click or rub Abdomen: Obese, Positive bowel sounds soft and nontender without palpable masses or organomegaly. There was no guarding or rebound. Extremities: The upper extremities have excellent pulses they are symmetric, no significant petechiae or telangiectasia. No splinter hemorrhages were noted. The PICC line site is intact. The lower extremities have some chronic edema. The ulceration to the right knee is noted. It is improving. There is no expressible purulence only has trace serous drainage. Left knee still has evidence of a palpable effusion but is improved since its aspiration by orthopedics. Neuro: Awake alert oriented to person place and time. There are no acute new gross focal sensory motor deficits. He has significant generalized weakness. - Labs CBC & Chem 7: 04/16/17 08:01 04/16/17 08:01 Labs: Abnormal Lab Results - Last 24 Hours (Table) 04/15/17 04/16/17 04/16/17 Range/Units 12:13 08:01 08:01 RBC 3.26 L (4.30-5.90) m/uL Hgb 9.9 L (13.0-17.5) gm/dL Hct 31.5 L (39.0-53.0) % RDW 15.9 H (11.5-15.5) % Lymphocytes # 0.9 L (1.0-4.8) k/uL Chloride 108 H (98-107) mmol/L BUN 31 H (9-20) mg/dL Glucose 110 H (74-99) mg/dL Iron 41 L (65-175) ug/dL TIBC 207 L (228-460) ug/dL Albumin 3.3 L (3.5-5.0) g/dL Microbiology - Last 24 Hours (Table) 04/14/17 17:30 Urine Culture - Final Urine,Clean Catch Laboratory Results WBC 8.5 k/uL (3.8-10.6) 04/16/17 08:01 RBC 3.26 m/uL (4.30-5.90) L 04/16/17 08:01 Hgb 9.9 gm/dL (13.0-17.5) L 04/16/17 08:01 Hct 31.5 % (39.0-53.0) L 04/16/17 08:01 MCV 96.4 fL (80.0-100.0) 04/16/17 08:01 MCH 30.2 pg (25.0-35.0) 04/16/17 08:01 MCHC 31.3 g/dL (31.0-37.0) 04/16/17 08:01 RDW 15.9 % (11.5-15.5) H 04/16/17 08:01 Plt Count 395 k/uL (150-450) 04/16/17 08:01 Neutrophils % 81 % 04/16/17 08:01 Lymphocytes % 11 % 04/16/17 08:01 Monocytes % 4 % 04/16/17 08:01 Eosinophils % 2 % 04/16/17 08:01 Basophils % 0 % 04/16/17 08:01 Neutrophils # 6.9 k/uL (1.3-7.7) 04/16/17 08:01 Lymphocytes # 0.9 k/uL (1.0-4.8) L 04/16/17 08:01 Monocytes # 0.3 k/uL (0-1.0) 04/16/17 08:01 Eosinophils # 0.2 k/uL (0-0.7) 04/16/17 08:01 Basophils # 0.0 k/uL (0-0.2) 04/16/17 08:01 Hypochromasia Slight 04/16/17 08:01 Poikilocytosis Slight 04/16/17 08:01 PT 16.9 sec (9.0-12.0) H 04/14/17 16:49 INR 1.7 (<1.2) H 04/14/17 16:49 APTT 74.6 sec (22.0-30.0) H 04/14/17 16:49 Sodium 142 mmol/L (137-145) 04/16/17 08:01 Potassium 4.5 mmol/L (3.5-5.1) 04/16/17 08:01 Chloride 108 mmol/L (98-107) H 04/16/17 08:01 Carbon Dioxide 22 mmol/L (22-30) 04/16/17 08:01 Anion Gap 12 mmol/L 04/16/17 08:01 BUN 31 mg/dL (9-20) H 04/16/17 08:01 Creatinine 0.93 mg/dL (0.66-1.25) 04/16/17 08:01 Est GFR (MDRD) Af Amer >60 (>60 ml/min/1.73 sqM) 04/16/17 08:01 Est GFR (MDRD) Non-Af >60 (>60 ml/min/1.73 sqM) 04/16/17 08:01 Glucose 110 mg/dL (74-99) H 04/16/17 08:01 Calcium 9.2 mg/dL (8.4-10.2) 04/16/17 08:01 Phosphorus 3.8 mg/dL (2.5-4.5) 04/14/17 16:49 Magnesium 2.3 mg/dL (1.6-2.3) 04/14/17 16:49 Iron 41 ug/dL (65-175) L 04/15/17 12:13 TIBC 207 ug/dL (228-460) L 04/15/17 12:13 Iron Saturation 19.81 (15.00-50.00) 04/15/17 12:13 Total Bilirubin 0.3 mg/dL (0.2-1.3) 04/16/17 08:01 AST 29 U/L (17-59) 04/16/17 08:01 ALT 42 U/L (21-72) 04/16/17 08:01 Alkaline Phosphatase 62 U/L (38-126) 04/16/17 08:01 Total Creatine Kinase 119 U/L (55-170) 04/14/17 16:49 CK-MB (CK-2) 2.0 ng/mL (0.0-2.4) 04/14/17 16:49 CK-MB (CK-2) Rel Index 1.7 04/14/17 16:49 Troponin I <0.012 ng/mL (0.000-0.034) 04/14/17 16:49 Total Protein 6.6 g/dL (6.3-8.2) 04/16/17 08:01 Albumin 3.3 g/dL (3.5-5.0) L 04/16/17 08:01 Urine Color Yellow 04/14/17 17:30 Urine Appearance Cloudy (Clear) 04/14/17 17:30 Urine pH 5.0 (5.0-8.0) 04/14/17 17:30 Ur Specific Dunbar 1.014 (1.001-1.035) 04/14/17 17:30 Urine Protein 1+ (Negative) H 04/14/17 17:30 Urine Glucose (UA) Negative (Negative) 04/14/17 17:30 Urine Ketones Negative (Negative) 04/14/17 17:30 Urine Blood Negative (Negative) 04/14/17 17:30 Urine Nitrite Negative (Negative) 04/14/17 17:30 Urine Bilirubin Negative (Negative) 04/14/17 17:30 Urine Urobilinogen <2.0 mg/dL (<2.0) 04/14/17 17:30 Ur Leukocyte Esterase Moderate (Negative) H 04/14/17 17:30 Urine RBC 2 /hpf (0-5) 04/14/17 17:30 Urine WBC 3 /hpf (0-5) 04/14/17 17:30 Ur Squamous Epith Cells 1 /hpf (0-4) 04/14/17 17:30 Urine Bacteria Rare /hpf (None) H 04/14/17 17:30 Hyaline Casts 24 /lpf (0-2) H 04/14/17 17:30 Urine Mucus Rare /hpf (None) H 04/14/17 17:30 Microbiology 04/14/17 17:30 Urine,Clean Catch Urine Culture - Final Assessment and Plan (1) Fall Narrative/Plan: 81-year-old male presents the emergency center after multiple falls. Having increasing weakness. He actually presented to the emergency center because he is having pain to the left knee. It has been aspirated but he was still having difficulties. He was felt to be stable. However upon arriving home he fell in his yard and EMS had to be called. Is now admitted for further evaluation. It was noted that his creatinine had increased from his baseline of 0.96. Potential nephrotoxins agents have all been stopped. Including his [id number] ibuprofen. He is receiving fluids. Feeling somewhat better now several hours after admission. Initially had pain to the left knee really has the effusion. It is being monitored. Ulceration to right knee is improved and local wound care with therahoney will be requested while he is here. The patient's status has continued to decline and likely will go to extended care to receive his course of therapy and rehab. It appears that one of his friends will take over his cats. He has approximately 14 days left of his intravenous antibiotic therapy for the infection to his right knee. Daptomycin has been utilize. Current Visit: Yes Status: Acute Code(s): W19.XXXA - UNSPECIFIED FALL, INITIAL ENCOUNTER SNOMED Code(s): 3235591 (2) Left knee pain Current Visit: Yes Status: Acute Code(s): M25.562 - PAIN IN LEFT KNEE SNOMED Code(s): 94752197 (3) Ulcer of left knee Current Visit: Yes Status: Acute Code(s): L97.829 - NON-PRESSURE CHRONIC ULCER OTH PRT L LOW LEG W UNSP SEVERITY SNOMED Code(s): 152574579
[2017-04-17] MEDS: SODIUM CHLORIDE 0.9% 1,000 ML IV SCH (05:04)
[2017-04-17 06:49] LABS: Basophils # (A) 0.1 k/uL (0-0.2); Basophils % (A) 1 %; CH 30.1; CHCM 32.3; Eosinophils # (A) 0.4 k/uL (0-0.7); Eosinophils % (A) 5 %; HGB 9.8 gm/dL (13.0-17.5); Hypochromasia Moderate; Luc # (Auto) 0.11; Luc % (Auto) 1; Lymphocytes # (A) 0.8 k/uL (1.0-4.8); Lymphocytes % (A) 11 %; MCH 28.7 pg (25.0-35.0); MCHC 30.6 g/dL (31.0-37.0); MCV 93.7 fL (80.0-100.0); Mean Platelet Volume 6.4; Monocytes # (A) 0.4 k/uL (0-1.0); Monocytes % (A) 6 %; Neutrophils # (A) 5.7 k/uL (1.3-7.7); Neutrophils % (A) 76 %; Poikilocytosis Slight; RBC 3.41 m/uL (4.30-5.90); RDW 14.8 % (11.5-15.5); WBC 7.5 k/uL (3.8-10.6); WBC (Perox) 7.21
[2017-04-17 07:14] LABS: ALT 38 U/L (21-72); AST 25 U/L (17-59); Alkaline Phosphatase 58 U/L (38-126); Anion Gap 8 mmol/L; Blood Urea Nitrogen 27 mg/dL (9-20); Calcium 9.1 mg/dL (8.4-10.2); Carbon Dioxide 26 mmol/L (22-30); Chloride 107 mmol/L (98-107); Glucose 88 mg/dL (74-99); Non-African American GFR(MDRD) >60 (>60 ml/min/1.73 sqM); Potassium 4.7 mmol/L (3.5-5.1); Sodium 141 mmol/L (137-145); Total Bilirubin 0.2 mg/dL (0.2-1.3); Total Protein 6.2 g/dL (6.3-8.2)
[2017-04-17] MEDS: ALLOPURINOL 300 MG TAB PO SCH (07:58)
[2017-04-17] MEDS: DAPTOmycin 500 MG in SODIUM CHLORIDE 0.9% 50 ML IV SCH (07:58)
[2017-04-17] MEDS: AMOXIC-POT CLAV 875-125MG 1 EACH TAB PO SCH ×2 (07:58→20:06)
[2017-04-17] MEDS: CARVEDILOL 3.125 MG TAB PO SCH ×2 (07:59→15:53)
[2017-04-17] MEDS: FAMOTIDINE 20 MG TAB PO SCH (07:59)
[2017-04-17] MEDS: ASPIRIN 81 MG PO SCH (07:59)
[2017-04-17] MEDS: POTASSIUM CHLORIDE ER 20 MEQ TAB.ER PO SCH (07:59)
[2017-04-17] MEDS: MAGNESIUM OXIDE 400 MG TAB PO SCH (07:59)
[2017-04-17] MEDS: OXYBUTYNIN XL 5 MG TAB.ER.24 PO SCH (08:00)
[2017-04-17 12:15] LABS: Appearance,Urine Clear (Clear); Bilirubin,Urine Negative (Negative); Glucose,Urine (UA) Negative (Negative); Ketones,Urine Negative (Negative); Leukocyte Esterase,Urine Negative (Negative); Nitrite,Urine Negative (Negative); Protein,Urine Trace (Negative); Specific Gravity,Urine 1.012 (1.001-1.035); UA Billing (MACRO vs. MICRO) CHEM; Urobilinogen,Urine <2.0 mg/dL (<2.0)
--- NOTE | 2017-04-17 14:12 | P.DS ---
Providers Date of admission: 04/15/17 10:01 Expected date of discharge: 04/17/17 Attending physician: Farzana Michelle Consults: 04/14/17 23:35 Consult Physician Routine Consulting Provider: Erik Guerra Consult Reason/Comments: wound right leg, MRSA Do you want consulting provider notified?: Yes, Notify in am Primary care physician: Suzie Ramírez [facility] Course: 1. Falls with generalized weakness in his legs. No evidence of any fractures. Physical therapy has been consulted. Social work consulted for possible ECF placement. 2. Acute kidney injury likely related to dehydration due to poor oral intake as well as being on Lasix and lisinopril and Motrin. Lasix lisinopril Motrin have been discontinued. Patient will be receiving IV fluids. Repeat labs in a.m. 3. Iron deficiency Anemia with a hemoglobin of 9.9 no signs or symptoms of active bleeding. Check iron studies. Last colonoscopy was 4 years ago with polypectomy. Level was low at 43. Patient will be started on ferrous sulfate 325 twice a day 4. History of bilateral PE and DVT maintained on Xarelto 5. recent incision and drainage of a right medial thigh abscess on 03/15/[address] Purcell. Patient has been following the wound care center for IV antibiotics with Cubicin and Augmentin 6. History of prostate cancer status post surgery 7. Hyperlipidemia continue Lipitor 8. Dementia continue Aricept Hospital course this is a 81-year-old male, patient of Dr. Ramírez. 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 He also has a history of dementia, hypertension, hyperlipidemia and prostate cancer. Patient was initially in the hospital on 03/14/2017 for a right distal medial thigh abscess and right knee osteoarthrosis with effusion. He underwent an incision and drainage with irrigation and debridement of the right distal medial thigh abscess on [address] Purcell. At that point he was discharged home on Cubicin. He is followed by infectious disease and orthopedics in the outpatient setting. He had been following in the wound care center for antibiotics and wound care of the knee. Patient also had a recent fluid removed from the left knee with Dr. Pucrell. Patient lives at home alone. He came to the hospital via EMS after his been having multiple falls. He reports that his legs have been feeling weaker and just give out on him. Patient reports that he has been feeling so weak and unsteady that he is not been eating or drinking well. He is afraid to walk to the kitchen. He presented to the hospital with evidence of dehydration with a creatinine of 1.56 he's been given IV fluids. Lasix and lisinopril have been held. He has been started back on his IV antibiotics. And Dr. Guerra has been consulted. Pelvic x-ray shows no evidence of any fractures and bilateral knee x -ray shows no fracture. Chest x-ray was negative and computed tomography scan of the brain showed no acute changes or any evidence of a bleed. During one of his falls he did hit his head lightly. No loss of consciousness. Patient seen by infectious disease. Awaiting their further recommendations for discharge antibiotics. Patient kidney functions have improved with IV fluids. We'll resume his Lasix and lisinopril tomorrow. Continue to hold Motrin for now. Patient will be transferred to [facility] for further rehabilitation. Check CBC and BMP in 1 week I performed an examination of the patient and discussed their management with the physician Temperature Control Inspector. I have reviewed the Physician Temperature Control Inspector's notes and agree with the documented findings and plan of care Patient Condition at Discharge: Stable Plan - Discharge Summary New Discharge Prescriptions: New Ferrous Sulfate [Iron (65 MG Elemental)] 325 mg PO BID-W/MEALS tab Continue Carvedilol [Coreg] 3.125 mg PO BID Allopurinol [Zyloprim] 300 mg PO DAILY Fesoterodine Fumarate [Toviaz] 8 mg PO DAILY Donepezil [Aricept] 5 mg PO HS Lisinopril [Zestril] 20 mg PO DAILY Simvastatin [Zocor] 40 mg PO HS Rivaroxaban [Xarelto] 20 mg PO PC-SUPPER Furosemide [Lasix] 20 mg PO DAILY Glucosamine Sulfate 500 mg PO DAILY Magnesium 200 mg PO DAILY Multivitamins, Thera [Multivitamin (formulary)] 1 tab PO DAILY Oxybutynin Chloride [Ditropan XL] 10 mg PO DAILY Aspirin 162 mg PO DAILY Potassium Chloride [Klor-Con 20] 20 meq PO DAILY Discontinued Ottawa-3 Fatty Acids [Ottawa-3] 1,000 mg PO DAILY Ibuprofen [Motrin] 200 - 400 mg PO Q6HR PRN PRN Reason: Pain No Action DAPTOmycin [Cubicin] 500 mg IV Q24H vial Amoxic-Pot Clav 875-125Mg [Augmentin 875-125] 1 tab PO Q12HR Discharge Medication List Allopurinol [Zyloprim] 300 mg PO DAILY 05/01/16 [History] Carvedilol [Coreg] 3.125 mg PO BID 05/01/16 [History] Donepezil [Aricept] 5 mg PO HS 05/01/16 [History] Fesoterodine Fumarate [Toviaz] 8 mg PO DAILY 05/01/16 [History] Lisinopril [Zestril] 20 mg PO DAILY 05/01/16 [History] Simvastatin [Zocor] 40 mg PO HS 05/01/16 [History] Furosemide [Lasix] 20 mg PO DAILY 09/18/16 [History] Glucosamine Sulfate 500 mg PO DAILY 09/18/16 [History] Rivaroxaban [Xarelto] 20 mg PO PC-SUPPER 09/18/16 [History] Magnesium 200 mg PO DAILY 03/14/17 [History] DAPTOmycin [Cubicin] 500 mg IV Q24H vial 03/19/17 [Rx] Amoxic-Pot Clav 875-125Mg [Augmentin 875-125] 1 tab PO Q12HR 04/14/17 [History] Aspirin 162 mg PO DAILY 04/14/17 [History] Multivitamins, Thera [Multivitamin (formulary)] 1 tab PO DAILY 04/14/17 [History ] Oxybutynin Chloride [Ditropan XL] 10 mg PO DAILY 04/14/17 [History] Potassium Chloride [Klor-Con 20] 20 meq PO DAILY 04/14/17 [History] Ferrous Sulfate [Iron (65 MG Elemental)] 325 mg PO BID-W/MEALS tab 04/17/17 [Rx ] Follow up Appointment(s)/Referral(s): Suzie Ramírez DO [Primary Care Provider] - 1 Week Activity/Diet/Wound Care/Special Instructions: Diet: cardiac Activity: as tolerated Patient to be discharged to ECF Antibiotics to be addressed by infectious disease before transfer to ECF Discharge Disposition: TRANSFER TO SNF/ECF
[2017-04-17] MEDS: FERROUS SULFATE 325 MG TAB PO SCH (15:53)
[2017-04-17] MEDS: RIVAROXABAN 10 MG TAB PO SCH (15:54)
[2017-04-17] MEDS: ATORVASTATIN 20 MG TAB PO SCH (20:06)
[2017-04-17] MEDS: DONEPEZIL 5 MG TAB PO SCH (20:06)
[2017-04-17] MEDS ORDERED: VANCOMYCIN IV PER PHARMACY 1 EACH MISC MISCELLANE PRN (21:08)
--- NOTE | 2017-04-17 21:08 | P.PN ---
Subjective Progress Note Date: 04/17/17 Principal diagnosis: Weakness and falls Douglas 81-year-old male was recently hospitalized after he removed a tick from the anterior aspect of his right knee. He then developed a significant ulcer area. He has surrounding cellulitis and evidence of a deep infection. He did have aspiration performed. In is receiving outpatient intravenous antibiotic therapy for the significant infection. In the last few days he was having increasing difficulties with weakness and falls. He by the emergency room and discharged. However shortly after arriving home he again felt was not able to get up. EMS was called and he was brought back to hospital and admitted. It appears when EMS arrived at his home it was in extreme disorder. The patient is aware that he is having increasing difficulties. He is having to sleep on the floor because he could not get into his bed. He relates he is having increasing pain to the left knee. This was noted and it was aspirated. Despite the aspiration the knee remains swollen and painful. He is having difficulties with ambulation. He is denying high- grade fevers chills or rigors. But does have significant generalized weakness. Is looking forward to some rehab. Objective - Vital Signs Vital signs: Vital Signs Temp 97.1 F L 04/17/17 19:36 Pulse 66 04/17/17 15:00 Resp 16 04/17/17 19:36 BP 118/73 04/17/17 19:36 Pulse Ox 97 04/17/17 19:36 Intake & Output 04/17/17 04/17/17 04/18/17 06:59 18:59 06:59 Output Total 1000 Balance -1000 Weight 99.7 kg Output: Urine 1000 Other: Voiding Method Urinal Urinal # Voids 2 1 - Exam Pleasant 81-year-old male who was having increasing weakness and multiple falls and pain with his left knee HEENT: Anicteric conjunctiva are pink and moist nasal mucosa grossly intact without significant lesions, there is no thrush. Neck: The neck is supple without significant lymphadenopathy or thyromegaly. Lungs: Symmetrical air entry with expiratory wheezes no joy bronchial sounds Heart: Regular rate and rhythm with an audible S1-S2, no S3 loud S4 2/6 systolic murmur left sternal border radiates to the axilla no click or rub Abdomen: Obese, Positive bowel sounds soft and nontender without palpable masses or organomegaly. There was no guarding or rebound. Extremities: The upper extremities have excellent pulses they are symmetric, no significant petechiae or telangiectasia. No splinter hemorrhages were noted. The PICC line site is intact. The lower extremities have some chronic edema. The ulceration to the right knee is noted. It is improving. There is no expressible purulence only has trace serous drainage. Left knee still has evidence of a palpable effusion but is improved since its aspiration by orthopedics. Neuro: Awake alert oriented to person place and time. There are no acute new gross focal sensory motor deficits. He has significant generalized weakness. - Labs CBC & Chem 7: 04/17/17 06:35 04/17/17 06:35 Labs: Abnormal Lab Results - Last 24 Hours (Table) 04/17/17 04/17/17 04/17/17 Range/Units 06:35 06:35 11:36 RBC 3.41 L (4.30-5.90) m/uL Hgb 9.8 L (13.0-17.5) gm/dL Hct 32.0 L (39.0-53.0) % MCHC 30.6 L (31.0-37.0) g/dL Lymphocytes # 0.8 L (1.0-4.8) k/uL BUN 27 H (9-20) mg/dL Total Protein 6.2 L (6.3-8.2) g/dL Albumin 3.0 L (3.5-5.0) g/dL Urine Protein Trace H (Negative) Microbiology - Last 24 Hours (Table) 04/17/17 11:36 Urine Culture - Preliminary Urine,Clean Catch Laboratory Results WBC 7.5 k/uL (3.8-10.6) 04/17/17 06:35 RBC 3.41 m/uL (4.30-5.90) L 04/17/17 06:35 Hgb 9.8 gm/dL (13.0-17.5) L 04/17/17 06:35 Hct 32.0 % (39.0-53.0) L 04/17/17 06:35 MCV 93.7 fL (80.0-100.0) 04/17/17 06:35 MCH 28.7 pg (25.0-35.0) 04/17/17 06:35 MCHC 30.6 g/dL (31.0-37.0) L 04/17/17 06:35 RDW 14.8 % (11.5-15.5) 04/17/17 06:35 Plt Count 409 k/uL (150-450) 04/17/17 06:35 Neutrophils % 76 % 04/17/17 06:35 Lymphocytes % 11 % 04/17/17 06:35 Monocytes % 6 % 04/17/17 06:35 Eosinophils % 5 % 04/17/17 06:35 Basophils % 1 % 04/17/17 06:35 Neutrophils # 5.7 k/uL (1.3-7.7) 04/17/17 06:35 Lymphocytes # 0.8 k/uL (1.0-4.8) L 04/17/17 06:35 Monocytes # 0.4 k/uL (0-1.0) 04/17/17 06:35 Eosinophils # 0.4 k/uL (0-0.7) 04/17/17 06:35 Basophils # 0.1 k/uL (0-0.2) 04/17/17 06:35 Hypochromasia Moderate 04/17/17 06:35 Poikilocytosis Slight 04/17/17 06:35 PT 16.9 sec (9.0-12.0) H 04/14/17 16:49 INR 1.7 (<1.2) H 04/14/17 16:49 APTT 74.6 sec (22.0-30.0) H 04/14/17 16:49 Sodium 141 mmol/L (137-145) 04/17/17 06:35 Potassium 4.7 mmol/L (3.5-5.1) 04/17/17 06:35 Chloride 107 mmol/L (98-107) 04/17/17 06:35 Carbon Dioxide 26 mmol/L (22-30) 04/17/17 06:35 Anion Gap 8 mmol/L 04/17/17 06:35 BUN 27 mg/dL (9-20) H 04/17/17 06:35 Creatinine 0.87 mg/dL (0.66-1.25) 04/17/17 06:35 Est GFR (MDRD) Af Amer >60 (>60 ml/min/1.73 sqM) 04/17/17 06:35 Est GFR (MDRD) Non-Af >60 (>60 ml/min/1.73 sqM) 04/17/17 06:35 Glucose 88 mg/dL (74-99) 04/17/17 06:35 Calcium 9.1 mg/dL (8.4-10.2) 04/17/17 06:35 Phosphorus 3.8 mg/dL (2.5-4.5) 04/14/17 16:49 Magnesium 2.3 mg/dL (1.6-2.3) 04/14/17 16:49 Iron 41 ug/dL (65-175) L 04/15/17 12:13 TIBC 207 ug/dL (228-460) L 04/15/17 12:13 Iron Saturation 19.81 (15.00-50.00) 04/15/17 12:13 Total Bilirubin 0.2 mg/dL (0.2-1.3) 04/17/17 06:35 AST 25 U/L (17-59) 04/17/17 06:35 ALT 38 U/L (21-72) 04/17/17 06:35 Alkaline Phosphatase 58 U/L (38-126) 04/17/17 06:35 Total Creatine Kinase 119 U/L (55-170) 04/14/17 16:49 CK-MB (CK-2) 2.0 ng/mL (0.0-2.4) 04/14/17 16:49 CK-MB (CK-2) Rel Index 1.7 04/14/17 16:49 Troponin I <0.012 ng/mL (0.000-0.034) 04/14/17 16:49 Total Protein 6.2 g/dL (6.3-8.2) L 04/17/17 06:35 Albumin 3.0 g/dL (3.5-5.0) L 04/17/17 06:35 Urine Color Yellow 04/17/17 11:36 Urine Appearance Clear (Clear) 04/17/17 11:36 Urine pH 5.0 (5.0-8.0) 04/17/17 11:36 Ur Specific [place] 1.012 (1.001-1.035) 04/17/17 11:36 Urine Protein Trace (Negative) H 04/17/17 11:36 Urine Glucose (UA) Negative (Negative) 04/17/17 11:36 Urine Ketones Negative (Negative) 04/17/17 11:36 Urine Blood Negative (Negative) 04/17/17 11:36 Urine Nitrite Negative (Negative) 04/17/17 11:36 Urine Bilirubin Negative (Negative) 04/17/17 11:36 Urine Urobilinogen <2.0 mg/dL (<2.0) 04/17/17 11:36 Ur Leukocyte Esterase Negative (Negative) 04/17/17 11:36 Urine RBC 2 /hpf (0-5) 04/14/17 17:30 Urine WBC 3 /hpf (0-5) 04/14/17 17:30 Ur Squamous Epith Cells 1 /hpf (0-4) 04/14/17 17:30 Urine Bacteria Rare /hpf (None) H 04/14/17 17:30 Hyaline Casts 24 /lpf (0-2) H 04/14/17 17:30 Urine Mucus Rare /hpf (None) H 04/14/17 17:30 Microbiology 04/17/17 11:36 Urine,Clean Catch Urine Culture - Preliminary 04/14/17 17:30 Urine,Clean Catch Urine Culture - Final Assessment and Plan (1) Fall Narrative/Plan: 81-year-old male presents the emergency center after multiple falls. Having increasing weakness. He actually presented to the emergency center because he is having pain to the left knee. It has been aspirated but he was still having difficulties. He was felt to be stable. However upon arriving home he fell in his yard and EMS had to be called. Is now admitted for further evaluation. It was noted that his creatinine had increased from his baseline of 0.96. Potential nephrotoxins agents have all been stopped. Including his [id number] ibuprofen. He is receiving fluids. Feeling somewhat better now several hours after admission. Initially had pain to the left knee really has the effusion. It is being monitored. Ulceration to right knee is improved and local wound care with therahoney will be requested while he is here. The patient's status has continued to decline and likely will go to extended care to receive his course of therapy and rehab. It appears that one of his friends will take over his cats. He has approximately 13 days left of his intravenous antibiotic therapy for the infection to his right knee. Daptomycin has been utilize.however will not be an option for the extended care facility. We'll transition to vancomycin therapy to complete a couple weeks of antibiotic therapy and in follow-up in the office. Current Visit: Yes Status: Acute Code(s): W19.XXXA - UNSPECIFIED FALL, INITIAL ENCOUNTER SNOMED Code(s): 4022905 (2) Left knee pain Current Visit: Yes Status: Acute Code(s): M25.562 - PAIN IN LEFT KNEE SNOMED Code(s): 83826143 (3) Ulcer of left knee Current Visit: Yes Status: Acute Code(s): L97.829 - NON-PRESSURE CHRONIC ULCER OTH PRT L LOW LEG W UNSP SEVERITY SNOMED Code(s): 485875423
[2017-04-17] MEDS ORDERED: VANCOMYCIN 2,000 MG in SODIUM CHLORIDE 0.9% 500 ML IVPB SCH (22:00)
[2017-04-18] MEDS: SODIUM CHLORIDE 0.9% 1,000 ML IV SCH (03:28)
[2017-04-18 07:57] VITALS: BP 141/80; PULSE 73; RESP 16; TEMP 98.5
[2017-04-18] MEDS: CARVEDILOL 3.125 MG TAB PO SCH (08:11)
[2017-04-18] MEDS: FAMOTIDINE 20 MG TAB PO SCH (08:11)
[2017-04-18] MEDS: AMOXIC-POT CLAV 875-125MG 1 EACH TAB PO SCH (08:12)
[2017-04-18] MEDS: MAGNESIUM OXIDE 400 MG TAB PO SCH (08:12)
[2017-04-18] MEDS: ALLOPURINOL 300 MG TAB PO SCH (08:12)
[2017-04-18] MEDS: ASPIRIN 81 MG PO SCH (08:12)
[2017-04-18] MEDS: FERROUS SULFATE 325 MG TAB PO SCH (08:12)
[2017-04-18] MEDS: OXYBUTYNIN XL 5 MG TAB.ER.24 PO SCH (08:13)
[2017-04-18] MEDS: MULTIVITAMINS, THERA 1 EACH TAB PO SCH (08:13)
[2017-04-18] MEDS: POTASSIUM CHLORIDE ER 20 MEQ TAB.ER PO SCH (08:13)
[2017-04-18 08:50] LABS: Basophils # (A) 0.1 k/uL (0-0.2); Basophils % (A) 1 %; CH 30.1; CHCM 32.2; Eosinophils # (A) 0.5 k/uL (0-0.7); Eosinophils % (A) 5 %; HCT 37.7 % (39.0-53.0); HDW 3.66; HGB 11.7 gm/dL (13.0-17.5); Hypochromasia Moderate; Luc # (Auto) 0.16; Luc % (Auto) 2; Lymphocytes # (A) 1.1 k/uL (1.0-4.8); Lymphocytes % (A) 11 %; MCH 29.1 pg (25.0-35.0); Mean Platelet Volume 6.1; Monocytes # (A) 0.5 k/uL (0-1.0); Monocytes % (A) 5 %; Neutrophils # (A) 7.5 k/uL (1.3-7.7); Neutrophils % (A) 77 %; Poikilocytosis Slight; RBC 4.01 m/uL (4.30-5.90); RDW 15.1 % (11.5-15.5); WBC 9.8 k/uL (3.8-10.6); WBC (Perox) 10.18
[2017-04-18 09:04] LABS: ALT 44 U/L (21-72); AST 25 U/L (17-59); Alkaline Phosphatase 68 U/L (38-126); Anion Gap 12 mmol/L; Blood Urea Nitrogen 25 mg/dL (9-20); Calcium 9.5 mg/dL (8.4-10.2); Carbon Dioxide 24 mmol/L (22-30); Chloride 104 mmol/L (98-107); Glucose 98 mg/dL (74-99); Non-African American GFR(MDRD) >60 (>60 ml/min/1.73 sqM); Potassium 5.2 mmol/L (3.5-5.1); Sodium 140 mmol/L (137-145); Total Bilirubin 0.3 mg/dL (0.2-1.3)
== END 2017-04-18 11:35 | DRG 683 ==
LOC: EC 16:33 → INTOOBSV 18:43 → 4MS4W 18:43 → OBSVTOIN 04-15 10:01
PROVIDERS: ADMIT Internal Medicine; ATTEND Internal Medicine
DX: N17.9 Acute kidney failure, unspecified (principal); H33.21 Serous retinal detachment, right eye; L02.415 Cutaneous abscess of right lower limb; F03.90 Unspecified dementia, unspecified severity, without behavioral disturbance, psychotic disturbance, mood disturbance, and anxiety; E86.0 Dehydration; N28.1 Cyst of kidney, acquired; E78.5 Hyperlipidemia, unspecified; D50.9 Iron deficiency anemia, unspecified; I10 Essential (primary) hypertension; M10.9 Gout, unspecified; M17.0 Bilateral primary osteoarthritis of knee; R29.6 Repeated falls; K57.90 Diverticulosis of intestine, part unspecified, without perforation or abscess without bleeding; H54.61 Unqualified visual loss, right eye, normal vision left eye; Z79.01 Long term (current) use of anticoagulants; Z79.82 Long term (current) use of aspirin; Z79.899 Other long term (current) drug therapy; Z85.46 Personal history of malignant neoplasm of prostate; Z87.891 Personal history of nicotine dependence; Z86.14 Personal history of Methicillin resistant Staphylococcus aureus infection; Z88.2 Allergy status to sulfonamides; W19.XXXA Unspecified fall, initial encounter; Y92.007 Garden or yard of unspecified non-institutional (private) residence as the place of occurrence of the external cause
CPT/HCPCS: 36415; 70450; 71010; 72125; 72170; 80053; 81001; 81003; 82550; 82553; 83540; 83550; 83735; 84100; 84484; 85025; 85610; 85730; 87086; 93005; 96360; 96361; 99283; 99285

== ENCOUNTER 2017-05-09 16:26 | Inpatient (IN) | payer MEDICARE ==
--- NOTE | 2017-05-09 16:48 | ED ---
General Adult HPI - General Chief complaint: Weakness Stated complaint: LEFT KNEEE PAIN Time Seen by Provider: 05/09/17 16:31 Source: patient, EMS, RN notes reviewed, old records reviewed Mode of arrival: EMS Limitations: no limitations - History of Present Illness Initial comments: This is an 79-year-old male to the ER for evaluation. Patient complains of multiple complaints of generalized weakness being maintained complaint. Patient states he was just discharged [facility] and he was unable to go to his house secondary to unstable living conditions, he was going to stated days and only was trying to get his house up to prior. Patient states he couldn 't get around the days and today with the wheelchair he was unable to function and was unable to take care of himself today. Patient states he feels significantly weak in the is unable to walk or stand - Related Data Home Medications Medication Instructions Recorded Confirmed Allopurinol [Zyloprim] 300 mg PO DAILY 05/01/16 05/09/17 Carvedilol [Coreg] 3.125 mg PO BID 05/01/16 05/09/17 Donepezil [Aricept] 5 mg PO HS 05/01/16 05/09/17 Fesoterodine Fumarate [Toviaz] 8 mg PO DAILY 05/01/16 05/09/17 Lisinopril [Zestril] 20 mg PO DAILY 05/01/16 05/09/17 Simvastatin [Zocor] 40 mg PO HS 05/01/16 05/09/17 Furosemide [Lasix] 20 mg PO DAILY 09/18/16 05/09/17 Glucosamine Sulfate 500 mg PO DAILY 09/18/16 05/09/17 Rivaroxaban [Xarelto] 20 mg PO PC-SUPPER 09/18/16 05/09/17 Magnesium 200 mg PO DAILY 03/14/17 05/09/17 Aspirin 162 mg PO DAILY 04/14/17 05/09/17 Multivitamins, Thera [Multivitamin 1 tab PO DAILY 04/14/17 05/09/17 (formulary)] Oxybutynin Chloride [Ditropan XL] 10 mg PO DAILY 04/14/17 05/09/17 Potassium Chloride [Klor-Con 20] 20 meq PO DAILY 04/14/17 05/09/17 Ascorbic Acid [Vitamin C] 500 mg PO DAILY 05/09/17 05/09/17 Cholecalciferol [Vitamin D3] 1,000 unit PO DAILY 05/09/17 05/09/17 [place]-3 Fatty Acids [[place]-3] 1,000 mg PO DAILY 05/09/17 05/09/17 Previous Rx's Medication Instructions Recorded Ferrous Sulfate [Iron (65 MG 325 mg PO BID-W/MEALS tab 04/17/17 Elemental)] Allergies Allergy/AdvReac Type Severity Reaction Status Date / Time Sulfa (Sulfonamide Allergy Unknown Verified 05/09/17 17:08 Antibiotics) Childhood Review of Systems ROS Statement: Those systems with pertinent positive or pertinent negative responses have been documented in the HPI. ROS Other: All systems not noted in ROS Statement are negative. 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 History of Any Multi-Drug Resistant Organisms: MRSA Date of last positivie culture/infection: 03/14/17 MDRO Source:: KNEE Past Surgical History: Hernia Repair, Orthopedic Surgery, Prostate Surgery, Tonsillectomy Additional Past Surgical History / Comment(s): 2009 colonoscopy, L eye cataract surgery, L eye laser surgery, R eye surgery for retinal detachment-unsuccessful , R inguinal hernia repair x2, prostatectomy due to cancer.PICC LINE LT ARM Past Anesthesia/Blood Transfusion Reactions: No Reported Reaction Additional Past Anesthesia/Blood Transfusion Reaction / Comment(s): Pt states he has never received blood. Past Psychological History: No Psychological Hx Reported Smoking Status: Former smoker - Past Family History Father Family Medical History: Musculoskeletal Disorder, Neurologic Disorder Additional Family Medical History / Comment(s): Father of parkinson's disease at the age of 72 yrs. Mother Family Medical History: Dementia, Musculoskeletal Disorder, Neurologic Disorder Additional Family Medical History / Comment(s): Mother had polio at the age of 2 yrs and wore braces and used crutches to ambulate. She at the age of 95 yrs from dementia and bowel obstruction. General Exam Limitations: no limitations, altered mental status General appearance: alert, in no apparent distress Head exam: Present: atraumatic, normocephalic, normal inspection Eye exam: Present: normal appearance, PERRL, EOMI. Absent: scleral icterus, conjunctival injection, periorbital swelling ENT exam: Present: normal exam, mucous membranes moist Neck exam: Present: normal inspection. Absent: tenderness, meningismus, lymphadenopathy Respiratory exam: Present: normal lung sounds bilaterally. Absent: respiratory distress, wheezes, rales, rhonchi, stridor Cardiovascular Exam: Present: regular rate, normal rhythm, normal heart sounds. Absent: systolic murmur, diastolic murmur, rubs, gallop, clicks GI/Abdominal exam: Present: soft, normal bowel sounds. Absent: distended, tenderness, guarding, rebound, rigid Extremities exam: Present: normal inspection, full ROM, normal capillary refill. Absent: tenderness, pedal edema, joint swelling, calf tenderness Back exam: Present: normal inspection Neurological exam: Present: alert, oriented X3, CN II-XII intact Psychiatric exam: Present: normal affect, normal mood Skin exam: Present: warm, dry, intact, normal color. Absent: rash Course Vital Signs 05/09/17 05/09/17 05/09/17 16:28 16:42 18:58 Temperature 99 F Pulse Rate 81 78 72 Respiratory 16 18 18 Rate Blood Pressure 120/59 109/61 122/62 O2 Sat by Pulse 97 98 96 Oximetry EKG Findings - EKG Comments: EKG Findings:: EKG shows normal sinus a rate of 80, TX 160, QRS 90, QTc 410 Medical Decision Making - Medical Decision Making 81 male the ER for evaluation regarding weakness. Patient was unable to settle in at [facility], patient is unable to live in his home secondary to unsuitable living conditions. Patient complains of weakness is very somnolent on exam and difficult to obtain history from. Patient will be admitted for further evaluation and management - Lab Data Result diagrams: 05/09/17 16:48 05/09/17 16:48 Lab Results 05/09/17 05/09/17 05/09/17 Range/Units 16:48 16:48 16:48 WBC 8.9 (3.8-10.6) k/uL RBC 3.61 L (4.30-5.90) m/uL Hgb 10.4 L (13.0-17.5) gm/dL Hct 32.7 L (39.0-53.0) % MCV 90.6 (80.0-100.0) fL MCH 28.7 (25.0-35.0) pg MCHC 31.7 (31.0-37.0) g/dL RDW 15.7 H (11.5-15.5) % Plt Count 328 (150-450) k/uL Neutrophils % 78 % Lymphocytes % 10 % Monocytes % 9 % Eosinophils % 1 % Basophils % 1 % Neutrophils # 7.0 (1.3-7.7) k/uL Lymphocytes # 0.9 L (1.0-4.8) k/uL Monocytes # 0.8 (0-1.0) k/uL Eosinophils # 0.1 (0-0.7) k/uL Basophils # 0.0 (0-0.2) k/uL Hypochromasia Slight PT (9.0-12.0) sec INR (<1.2) APTT (22.0-30.0) sec Sodium 138 (137-145) mmol/L Potassium 5.9 H (3.5-5.1) mmol/L Chloride 102 (98-107) mmol/L Carbon Dioxide 25 (22-30) mmol/L Anion Gap 11 mmol/L BUN 45 H (9-20) mg/dL Creatinine 1.80 H (0.66-1.25) mg/dL Est GFR (MDRD) Af Amer 44 (>60 ml/min/1.73 sqM) Est GFR (MDRD) Non-Af 36 (>60 ml/min/1.73 sqM) Glucose 105 H (74-99) mg/dL Calcium 9.7 (8.4-10.2) mg/dL Phosphorus 4.3 (2.5-4.5) mg/dL Magnesium 1.7 (1.6-2.3) mg/dL Total Bilirubin 1.0 (0.2-1.3) mg/dL AST 21 (17-59) U/L ALT 32 (21-72) U/L Alkaline Phosphatase 75 (38-126) U/L Total Creatine Kinase 39 L (55-170) U/L CK-MB (CK-2) 0.4 (0.0-2.4) ng/mL CK-MB (CK-2) Rel Index 1.0 Troponin I <0.012 (0.000-0.034) ng/mL Total Protein 6.8 (6.3-8.2) g/dL Albumin 3.6 (3.5-5.0) g/dL Urine Color Urine Appearance (Clear) Urine pH (5.0-8.0) Ur Specific [place] (1.001-1.035) Urine Protein (Negative) Urine Glucose (UA) (Negative) Urine Ketones (Negative) Urine Blood (Negative) Urine Nitrite (Negative) Urine Bilirubin (Negative) Urine Urobilinogen (<2.0) mg/dL Ur Leukocyte Esterase (Negative) Urine RBC (0-5) /hpf Urine WBC (0-5) /hpf Ur Squamous Epith Cells (0-4) /hpf Urine Bacteria (None) /hpf Hyaline Casts (0-2) /lpf Urine Mucus (None) /hpf 05/09/17 05/09/17 Range/Units 16:48 17:25 WBC (3.8-10.6) k/uL RBC (4.30-5.90) m/uL Hgb (13.0-17.5) gm/dL Hct (39.0-53.0) % MCV (80.0-100.0) fL MCH (25.0-35.0) pg MCHC (31.0-37.0) g/dL RDW (11.5-15.5) % Plt Count (150-450) k/uL Neutrophils % % Lymphocytes % % Monocytes % % Eosinophils % % Basophils % % Neutrophils # (1.3-7.7) k/uL Lymphocytes # (1.0-4.8) k/uL Monocytes # (0-1.0) k/uL Eosinophils # (0-0.7) k/uL Basophils # (0-0.2) k/uL Hypochromasia PT 12.3 H (9.0-12.0) sec INR 1.2 H (<1.2) APTT 35.3 H (22.0-30.0) sec Sodium (137-145) mmol/L Potassium (3.5-5.1) mmol/L Chloride (98-107) mmol/L Carbon Dioxide (22-30) mmol/L Anion Gap mmol/L BUN (9-20) mg/dL Creatinine (0.66-1.25) mg/dL Est GFR (MDRD) Af Amer (>60 ml/min/1.73 sqM) Est GFR (MDRD) Non-Af (>60 ml/min/1.73 sqM) Glucose (74-99) mg/dL Calcium (8.4-10.2) mg/dL Phosphorus (2.5-4.5) mg/dL Magnesium (1.6-2.3) mg/dL Total Bilirubin (0.2-1.3) mg/dL AST (17-59) U/L ALT (21-72) U/L Alkaline Phosphatase (38-126) U/L Total Creatine Kinase (55-170) U/L CK-MB (CK-2) (0.0-2.4) ng/mL CK-MB (CK-2) Rel Index Troponin I (0.000-0.034) ng/mL Total Protein (6.3-8.2) g/dL Albumin (3.5-5.0) g/dL Urine Color Yellow Urine Appearance Cloudy (Clear) Urine pH 5.0 (5.0-8.0) Ur Specific [place] 1.015 (1.001-1.035) Urine Protein 1+ H (Negative) Urine Glucose (UA) Negative (Negative) Urine Ketones Negative (Negative) Urine Blood Negative (Negative) Urine Nitrite Negative (Negative) Urine Bilirubin Negative (Negative) Urine Urobilinogen <2.0 (<2.0) mg/dL Ur Leukocyte Esterase Small H (Negative) Urine RBC 2 (0-5) /hpf Urine WBC 4 (0-5) /hpf Ur Squamous Epith Cells 1 (0-4) /hpf Urine Bacteria Occasional H (None) /hpf Hyaline Casts 31 H (0-2) /lpf Urine Mucus Moderate H (None) /hpf Disposition Clinical Impression: Gout, Fall, Weakness, Failure to thrive Disposition: ADMITTED IP TO THIS [facility] Condition: Fair Referrals: Suzie Ramírez DO [Primary Care Provider] - 1-2 days
[2017-05-09] MEDS ORDERED: SODIUM CHLORIDE 0.9% 1,000 ML IV STA (17:01)
[2017-05-09] MEDS ORDERED: SODIUM CHLORIDE 0.9% 500 ML IV STA (17:01)
[2017-05-09 17:08] LABS: Basophils % (A) 1 %; CH 29.6; CHCM 32.8; Eosinophils # (A) 0.1 k/uL (0-0.7); Eosinophils % (A) 1 %; HCT 32.7 % (39.0-53.0); HDW 3.38; HGB 10.4 gm/dL (13.0-17.5); Hypochromasia Slight; Luc # (Auto) 0.17; Luc % (Auto) 2; Lymphocytes # (A) 0.9 k/uL (1.0-4.8); Lymphocytes % (A) 10 %; MCH 28.7 pg (25.0-35.0); MCHC 31.7 g/dL (31.0-37.0); MCV 90.6 fL (80.0-100.0); Mean Platelet Volume 6.8; Monocytes # (A) 0.8 k/uL (0-1.0); Monocytes % (A) 9 %; Neutrophils % (A) 78 %; RBC 3.61 m/uL (4.30-5.90); RDW 15.7 % (11.5-15.5); WBC 8.9 k/uL (3.8-10.6); WBC (Perox) 8.76
[2017-05-09 17:15] LABS: Calcium 9.7 mg/dL (8.4-10.2); Magnesium 1.7 mg/dL (1.6-2.3); Phosphorus 4.3 mg/dL (2.5-4.5); Potassium 5.9 mmol/L (3.5-5.1); Total Protein 6.8 g/dL (6.3-8.2)
--- NOTE | 2017-05-09 17:16 | XR ---
EXAMINATION TYPE: XR chest 2V DATE OF EXAM: 05/09/2017 COMPARISON: 04/14/2017 HISTORY: Weakness. TECHNIQUE: Frontal and lateral views of the chest are obtained. FINDINGS: There is a large hiatal hernia. There is no heart failure. Lungs are clear of consolidatio n. There are chest leads. Thoracic aorta is atheromatous. I see no pleural effusion. There is mild sp urring in the thoracic spine. IMPRESSION: Hiatal hernia. No acute lung disease. No change.
[2017-05-09 17:19] LABS: Creatine Kinase 39 U/L (55-170)
[2017-05-09 17:22] LABS: INR 1.2 (<1.2); Partial Thromboplastin Time 35.3 sec (22.0-30.0); Prothrombin Time 12.3 sec (9.0-12.0)
[2017-05-09 17:31] LABS: Creatine Kinase MB 0.4 ng/mL (0.0-2.4); Troponin I <0.012 ng/mL (0.000-0.034)
[2017-05-09 17:48] LABS: Appearance,Urine Cloudy (Clear); Bacteria,Urine Occasional /hpf; Bilirubin,Urine Negative (Negative); Glucose,Urine (UA) Negative (Negative); Ketones,Urine Negative (Negative); Leukocyte Esterase,Urine Small (Negative); Mucus,Urine Moderate /hpf; Nitrite,Urine Negative (Negative); Particle Count 10581; Protein,Urine 1+ (Negative); RBC,Urine 2 /hpf (0-5); Specific Gravity,Urine 1.015 (1.001-1.035); Squamous Epithelial Cell,Urine 1 /hpf (0-4); UA Billing (MACRO vs. MICRO) MICRO; Urobilinogen,Urine <2.0 mg/dL (<2.0); WBC,Urine 4 /hpf (0-5)
[2017-05-09] MEDS ORDERED: SODIUM CHLORIDE 0.9% 1,000 ML IV ONE (19:10)
[2017-05-09] MEDS: RIVAROXABAN 10 MG TAB PO SCH (20:52)
[2017-05-09] MEDS: ATORVASTATIN 20 MG TAB PO SCH (20:52)
[2017-05-09] MEDS: DONEPEZIL 5 MG TAB PO SCH (20:52)
[2017-05-09] MEDS: CARVEDILOL 3.125 MG TAB PO SCH (20:53)
[2017-05-10] MEDS: ACETAMINOPHEN TAB 325 MG TAB PO PRN ×2 (00:14→10:10)
[2017-05-10 07:01] LABS: Calcium 8.9 mg/dL (8.4-10.2); Potassium 4.6 mmol/L (3.5-5.1); Total Bilirubin 0.7 mg/dL (0.2-1.3); Total Protein 5.9 g/dL (6.3-8.2)
[2017-05-10] MEDS: FERROUS SULFATE 325 MG TAB PO SCH ×2 (08:07→17:35)
[2017-05-10] MEDS: ASPIRIN 81 MG PO SCH (08:07)
[2017-05-10] MEDS: CARVEDILOL 3.125 MG TAB PO SCH ×2 (08:07→17:35)
[2017-05-10] MEDS: OXYBUTYNIN 10 MG TAB.ER.24 PO SCH (08:08)
[2017-05-10] MEDS ORDERED: ALLOPURINOL 300 MG TAB PO SCH (09:00)
[2017-05-10] MEDS ORDERED: POTASSIUM CHLORIDE ER 20 MEQ TAB.ER PO SCH (09:00)
[2017-05-10] MEDS ORDERED: FUROSEMIDE 20 MG TAB PO SCH (09:00)
[2017-05-10] MEDS ORDERED: LISINOPRIL 20 MG TAB PO SCH (09:00)
[2017-05-10] MEDS ORDERED: NON-FORMULARY DRUG (Omega-3 Fatty Acids [Omega-3] 1,000 MG) PO SCH (09:00)
[2017-05-10] MEDS ORDERED: NON-FORMULARY DRUG (Glucosamine Sulfate 500 MG) PO SCH (09:00)
[2017-05-10] MEDS ORDERED: OXYBUTYNIN 10 MG TAB.ER.24 PO SCH (09:00)
[2017-05-10] MEDS: ASCORBIC ACID 500 MG TAB PO SCH (11:58)
[2017-05-10] MEDS: CHOLECALCIFEROL 1,000 UNIT TAB PO SCH (11:58)
[2017-05-10] MEDS: MULTIVITAMINS, THERA 1 EACH TAB PO SCH (11:58)
[2017-05-10] MEDS: MAGNESIUM OXIDE 400 MG TAB PO SCH (11:59)
[2017-05-10] MEDS: SODIUM CHLORIDE 0.9% 1,000 ML IV SCH (12:12)
--- NOTE | 2017-05-10 12:12 | P.HPIM ---
History of Present Illness H&P Date: 05/10/17 This is a 81-year-old gentleman with past medical history noted below who presented to the emergency room with generalized weakness and being unable to ambulate. Patient was a resident at the local extended care facility up until yesterday when his insurance coverage for care home stay . Patient was discharged to a local [facility] that after getting there he realized that the room was not wheelchair accessible and he was unable to get around. Patient is mostly wheelchair bound secondary to significant pain in both knees worse on the left. He said that he has a lot of arthritis and was seen by Dr. Purcell before. He was told that he has effusion in his knee and was supposed to follow-up for possible arthrocentesis. He is denying any significant pain while resting. He was advised by orthopedic for nonweightbearing. He was noted to have acute kidney injury on presentation and is currently admitted to the hospital Review of Systems Review of system: 14 points review of systems were obtained and were negative except to what were mentioned in the HPI. 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, gout R foot.IRON DEFICENCY ANEMIA History of Any Multi-Drug Resistant Organisms: MRSA Date of last positivie culture/infection: 03/14/17 MDRO Source:: KNEE Past Surgical History: Hernia Repair, Orthopedic Surgery, Prostate Surgery, Tonsillectomy Additional Past Surgical History / Comment(s): 2009 colonoscopy, L eye cataract surgery, L eye laser surgery, R eye surgery for retinal detachment-unsuccessful , R inguinal hernia repair x2, prostatectomy due to cancer.i&d RT DISTAL KNEE .PICC LINE LT ARM-SINCE REMOVED Past Anesthesia/Blood Transfusion Reactions: No Reported Reaction Additional Past Anesthesia/Blood Transfusion Reaction / Comment(s): Pt states he has never received blood. Smoking Status: Former smoker - Past Family History Father Family Medical History: Musculoskeletal Disorder, Neurologic Disorder Additional Family Medical History / Comment(s): Father of parkinson's disease at the age of 72 yrs. Mother Family Medical History: Dementia, Musculoskeletal Disorder, Neurologic Disorder Additional Family Medical History / Comment(s): Mother had polio at the age of 2 yrs and wore braces and used crutches to ambulate. She at the age of 95 yrs from dementia and bowel obstruction. Medications and Allergies Home Medications Medication Instructions Recorded Confirmed Type Allopurinol [Zyloprim] 300 mg PO DAILY 05/01/16 05/09/17 History Carvedilol [Coreg] 3.125 mg PO BID 05/01/16 05/09/17 History Donepezil [Aricept] 5 mg PO HS 05/01/16 05/09/17 History Fesoterodine Fumarate [Toviaz] 8 mg PO DAILY 05/01/16 05/09/17 History Lisinopril [Zestril] 20 mg PO DAILY 05/01/16 05/09/17 History Simvastatin [Zocor] 40 mg PO HS 05/01/16 05/09/17 History Furosemide [Lasix] 20 mg PO DAILY 09/18/16 05/09/17 History Glucosamine Sulfate 500 mg PO DAILY 09/18/16 05/09/17 History Rivaroxaban [Xarelto] 20 mg PO PC-SUPPER 09/18/16 05/09/17 History Magnesium 200 mg PO DAILY 03/14/17 05/09/17 History Aspirin 162 mg PO DAILY 04/14/17 05/09/17 History Multivitamins, Thera [Multivitamin 1 tab PO DAILY 04/14/17 05/09/17 History (formulary)] Oxybutynin Chloride [Ditropan XL] 10 mg PO DAILY 04/14/17 05/09/17 History Potassium Chloride [Klor-Con 20] 20 meq PO DAILY 04/14/17 05/09/17 History Ferrous Sulfate [Iron (65 MG 325 mg PO BID-W/MEALS tab 04/17/17 05/09/17 Rx Elemental)] Ascorbic Acid [Vitamin C] 500 mg PO DAILY 05/09/17 05/09/17 History Cholecalciferol [Vitamin D3] 1,000 unit PO DAILY 05/09/17 05/09/17 History Decatur-3 Fatty Acids [Decatur-3] 1,000 mg PO DAILY 05/09/17 05/09/17 History Allergies Allergy/AdvReac Type Severity Reaction Status Date / Time Sulfa (Sulfonamide Allergy Unknown Verified 05/09/17 17:08 Antibiotics) Childhood Physical Exam Vitals: Vital Signs Temp Pulse Pulse Resp BP BP Pulse Ox 05/10/17 08:00 98.1 F 68 18 116/62 97 05/10/17 03:54 16 05/10/17 03:41 99 F 78 16 97/50 95 05/09/17 23:58 16 05/09/17 22:22 98.4 F 66 16 126/69 97 05/09/17 20:00 76 16 05/09/17 19:51 98.3 F 76 16 103/52 95 05/09/17 19:32 99.0 F 05/09/17 19:15 72 18 129/68 100 05/09/17 18:58 72 18 122/62 96 05/09/17 16:42 78 18 109/61 98 05/09/17 16:28 99 F 81 16 120/59 97 Intake and Output 05/09/17 05/10/17 05/10/17 22:59 06:59 14:59 Output Total 600 Balance -600 Output: Urine 600 Other: Voiding Method Toilet Toilet Toilet Urinal Urinal Urinal # Voids 2 2 Weight 96 kg General: The patient is awake and alert, in no distress Eye: there is normal conjunctiva bilaterally. Neck: The neck is supple, there is no JVD. Cardiovascular: Normal S1-S2, no S3-S4, no murmurs. Respiratory: Lungs clear to auscultation bilaterally Gastrointestinal: Abdomen is soft, nontender Musculoskeletal: There is no pedal edema. Neurological:. Speech is normal. Skin: Skin is warm and dry Results CBC & Chem 7: 05/09/17 16:48 05/10/17 06:21 Labs: Abnormal Lab Results - Last 24 Hours (Table) 05/09/17 05/09/17 05/09/17 Range/Units 16:48 16:48 16:48 RBC 3.61 L (4.30-5.90) m/uL Hgb 10.4 L (13.0-17.5) gm/dL Hct 32.7 L (39.0-53.0) % RDW 15.7 H (11.5-15.5) % Lymphocytes # 0.9 L (1.0-4.8) k/uL PT (9.0-12.0) sec INR (<1.2) APTT (22.0-30.0) sec Potassium 5.9 H (3.5-5.1) mmol/L BUN 45 H (9-20) mg/dL Creatinine 1.80 H (0.66-1.25) mg/dL Glucose 105 H (74-99) mg/dL AST (17-59) U/L Total Creatine Kinase 39 L (55-170) U/L Total Protein (6.3-8.2) g/dL Albumin (3.5-5.0) g/dL Urine Protein (Negative) Ur Leukocyte Esterase (Negative) Urine Bacteria (None) /hpf Hyaline Casts (0-2) /lpf Urine Mucus (None) /hpf 05/09/17 05/09/17 05/10/17 Range/Units 16:48 17:25 06:21 RBC (4.30-5.90) m/uL Hgb (13.0-17.5) gm/dL Hct (39.0-53.0) % RDW (11.5-15.5) % Lymphocytes # (1.0-4.8) k/uL PT 12.3 H (9.0-12.0) sec INR 1.2 H (<1.2) APTT 35.3 H (22.0-30.0) sec Potassium (3.5-5.1) mmol/L BUN 39 H (9-20) mg/dL Creatinine 1.41 H (0.66-1.25) mg/dL Glucose 106 H (74-99) mg/dL AST 15 L (17-59) U/L Total Creatine Kinase (55-170) U/L Total Protein 5.9 L (6.3-8.2) g/dL Albumin 2.9 L (3.5-5.0) g/dL Urine Protein 1+ H (Negative) Ur Leukocyte Esterase Small H (Negative) Urine Bacteria Occasional H (None) /hpf Hyaline Casts 31 H (0-2) /lpf Urine Mucus Moderate H (None) /hpf Microbiology - Last 24 Hours (Table) 05/09/17 17:25 Urine Culture - Preliminary Urine,Voided Assessment and Plan Assessment: 1. Acute kidney injury: May be related to dehydration. Hold nephrotoxic including Lasix and lisinopril. Continue IV fluids for now. Creatinine trending down. 2. Acute on chronic left knee pain, will consult orthopedic surgery for further evaluation 3. Physical debility: PT/OT consult 4. Placement, social services coordinator consulted as patient has no place to go 5. Underlying dementia on Aricept 6. 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 Chronic iron deficiency anemia
[2017-05-10] MEDS: RIVAROXABAN 10 MG TAB PO SCH (17:34)
[2017-05-10] MEDS: DONEPEZIL 5 MG TAB PO SCH (20:51)
[2017-05-10] MEDS: ATORVASTATIN 20 MG TAB PO SCH (20:51)
[2017-05-11] MEDS: ACETAMINOPHEN TAB 325 MG TAB PO PRN ×2 (02:58→21:12)
[2017-05-11 07:51] LABS: Anion Gap 8 mmol/L; Blood Urea Nitrogen 33 mg/dL (9-20); Carbon Dioxide 22 mmol/L (22-30); Chloride 109 mmol/L (98-107); Glucose 102 mg/dL (74-99); Non-African American GFR(MDRD) 54 (>60 ml/min/1.73 sqM); Potassium 4.9 mmol/L (3.5-5.1); Sodium 139 mmol/L (137-145)
[2017-05-11 07:53] LABS: Anisocytosis Slight; Basophils % (A) 0 %; CH 28.8; CHCM 31.2; Eosinophils # (A) 0.2 k/uL (0-0.7); Eosinophils % (A) 2 %; HCT 29.2 % (39.0-53.0); HDW 3.01; Hypochromasia Moderate; Luc # (Auto) 0.13; Luc % (Auto) 2; Lymphocytes % (A) 13 %; MCH 28.5 pg (25.0-35.0); MCHC 30.8 g/dL (31.0-37.0); MCV 92.4 fL (80.0-100.0); Mean Platelet Volume 8.1; Monocytes # (A) 0.7 k/uL (0-1.0); Monocytes % (A) 10 %; Neutrophils # (A) 5.2 k/uL (1.3-7.7); Neutrophils % (A) 72 %; RBC 3.16 m/uL (4.30-5.90); RDW 16.6 % (11.5-15.5); WBC 7.2 k/uL (3.8-10.6); WBC (Perox) 7.46
[2017-05-11] MEDS: OXYBUTYNIN 10 MG TAB.ER.24 PO SCH (08:50)
[2017-05-11] MEDS: FERROUS SULFATE 325 MG TAB PO SCH ×2 (08:50→17:36)
[2017-05-11] MEDS: CARVEDILOL 3.125 MG TAB PO SCH ×2 (08:50→17:36)
[2017-05-11] MEDS: ASPIRIN 81 MG PO SCH (08:50)
[2017-05-11] MEDS: SODIUM CHLORIDE 0.9% 1,000 ML IV SCH (09:56)
--- NOTE | 2017-05-11 10:54 | CONS ---
CONSULTATION CHIEF COMPLAINT: Left knee pain. HISTORY OF PRESENT ILLNESS: The patient is an 81-year-old male who presents with a several-day history of increasing left knee pain. He has had a difficult time getting around. He normally uses a walker. He denies any recent fevers or chills. He has also had issues regarding living arrangements. He recently was at an assisted living facility, however, was discharged. PAST MEDICAL HISTORY: Significant for arthritis, DVT, GI bleed, hyperlipidemia, hypertension, pulmonary embolism, and renal disease. He also has a history of gout. PAST SURGICAL HISTORY: Significant for I and D of a right distal thigh abscess, prostate cancer surgery, and hernia repair along with colonoscopy. FAMILY HISTORY: Significant for neurologic disease. SOCIAL HISTORY: Negative for current tobacco or alcohol use. However, he was a former smoker. CURRENT MEDICATIONS ARE: Reviewed. ALLERGIES: HE HAS ALLERGIES TO SULFA. REVIEW OF SYSTEMS: Sixteen point review of systems otherwise reviewed and is noncontributory. PHYSICAL EXAMINATION: On examination, patient is a thin elderly male, appears to be in no acute distress. Currently, he is afebrile. Stable vital signs. He is alert and oriented x3. He is nontender about the cervical, thoracic, and lumbar spine. No point tenderness about the upper extremities is noted. The pelvis is stable. External rotation stress. On examination of his left knee is active motion is -25 to 60 degrees of flexion. He has a large effusion. There is no warmth or erythema. He is tender diffusely about the medial and lateral joint line. He has genu valgum alignment. His distal neurovascular appears intact otherwise in the left lower extremity. The right lower extremity he has mild medial joint line tenderness. No definite warmth or erythema is noted. Active motion -15 to 90 degrees of flexion. LABORATORY RESULTS: Show an elevated creatinine. Peripheral white blood cell count is 8.9. IMPRESSION: 1. Recent admission for the acute renal insufficiency. 2. Left knee osteoarthrosis with the fusion. 3. Underlying dementia. RECOMMENDATIONS: Regarding his left knee with his history of MRSA infection in the right leg and along with his multiple medical comorbidities, currently he is not a surgical candidate. I will consider aspiration with cortisone injection tomorrow to help alleviate his acute symptoms. He can weight bear as tolerated with use of a walker and assistance. Social Work will be consulted to help with the placement. He is on DVT prophylaxis for his history of a previous PE and DVT. Thank you for this consultation. EZRA / TRICIA: [id number] /
--- NOTE | 2017-05-11 12:27 | P.PN ---
Subjective Patient is doing fairly well today. He is scheduled for joint effusion aspiration and steroid injection to the left knee tomorrow. Kidney function is improving. Objective - Vital Signs Vital signs: Vital Signs Temp 99.0 F 05/11/17 08:00 Pulse 70 05/11/17 08:00 Resp 18 05/11/17 08:00 BP 108/51 05/11/17 08:00 Pulse Ox 96 05/11/17 08:00 Intake & Output 05/10/17 05/11/17 05/11/17 18:59 06:59 18:59 Output Total 350 Balance -350 Weight 96 kg Output: Urine 350 Other: Voiding Method Toilet Toilet Toilet Urinal Urinal Urinal # Voids 2 4 - Exam General: The patient is awake and alert, in no distress Eye: there is normal conjunctiva bilaterally. Neck: The neck is supple, there is no JVD. Cardiovascular: Normal S1-S2, no S3-S4, no murmurs. Respiratory: Lungs clear to auscultation bilaterally Gastrointestinal: Abdomen is soft, nontender Musculoskeletal: There is no pedal edema. Neurological:. Speech is normal. Skin: Skin is warm and dry - Labs CBC & Chem 7: 05/11/17 06:26 05/11/17 06:26 Labs: Abnormal Lab Results - Last 24 Hours (Table) 05/11/17 05/11/17 Range/Units 06:26 06:26 RBC 3.16 L (4.30-5.90) m/uL Hgb 9.0 L (13.0-17.5) gm/dL Hct 29.2 L (39.0-53.0) % MCHC 30.8 L (31.0-37.0) g/dL RDW 16.6 H (11.5-15.5) % Chloride 109 H (98-107) mmol/L BUN 33 H (9-20) mg/dL Creatinine 1.27 H (0.66-1.25) mg/dL Glucose 102 H (74-99) mg/dL Assessment and Plan Assessment: 1. Acute kidney injury: May be related to dehydration. Hold nephrotoxic including Lasix and lisinopril. Patient received IV fluids overnight. Creatinine trending down. 2. Acute on chronic left knee pain, seen and evaluated by orthopedic. Plan for joint aspiration and steroid injection tomorrow. 3. Physical debility: PT/OT consult 4. Placement, high school social science teacher consulted as patient has no place to go 5. Underlying dementia on Aricept 6. 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 Chronic iron deficiency anemia
[2017-05-11] MEDS: ASCORBIC ACID 500 MG TAB PO SCH (13:07)
[2017-05-11] MEDS: MULTIVITAMINS, THERA 1 EACH TAB PO SCH (13:07)
[2017-05-11] MEDS: CHOLECALCIFEROL 1,000 UNIT TAB PO SCH (13:07)
[2017-05-11] MEDS: MAGNESIUM OXIDE 400 MG TAB PO SCH (13:07)
[2017-05-11] MEDS: RIVAROXABAN 10 MG TAB PO SCH (17:36)
[2017-05-11] MEDS: ATORVASTATIN 20 MG TAB PO SCH (21:13)
[2017-05-11] MEDS: DONEPEZIL 5 MG TAB PO SCH (21:13)
[2017-05-12 07:37] LABS: Basophils % (A) 0 %; CH 29.1; CHCM 31.9; Eosinophils # (A) 0.1 k/uL (0-0.7); Eosinophils % (A) 2 %; HCT 29.6 % (39.0-53.0); HDW 3.37; HGB 9.4 gm/dL (13.0-17.5); Hypochromasia Slight; Luc # (Auto) 0.18; Luc % (Auto) 3; Lymphocytes # (A) 0.9 k/uL (1.0-4.8); Lymphocytes % (A) 12 %; MCH 28.9 pg (25.0-35.0); MCHC 31.6 g/dL (31.0-37.0); MCV 91.4 fL (80.0-100.0); Mean Platelet Volume 6.6; Monocytes # (A) 0.6 k/uL (0-1.0); Monocytes % (A) 9 %; Neutrophils # (A) 5.2 k/uL (1.3-7.7); Neutrophils % (A) 75 %; RBC 3.24 m/uL (4.30-5.90); RDW 15.1 % (11.5-15.5); WBC (Perox) 7.34
[2017-05-12] MEDS: OXYBUTYNIN 10 MG TAB.ER.24 PO SCH (07:54)
[2017-05-12] MEDS: CARVEDILOL 3.125 MG TAB PO SCH ×2 (07:54→17:42)
[2017-05-12] MEDS: FERROUS SULFATE 325 MG TAB PO SCH ×2 (07:54→17:42)
[2017-05-12] MEDS: ASPIRIN 81 MG PO SCH (07:54)
[2017-05-12] MEDS: ACETAMINOPHEN TAB 325 MG TAB PO PRN (07:55)
[2017-05-12 08:05] LABS: Anion Gap 9 mmol/L; Blood Urea Nitrogen 26 mg/dL (9-20); Carbon Dioxide 22 mmol/L (22-30); Chloride 107 mmol/L (98-107); Glucose 110 mg/dL (74-99); Non-African American GFR(MDRD) >60 (>60 ml/min/1.73 sqM); Potassium 4.5 mmol/L (3.5-5.1); Sodium 138 mmol/L (137-145)
--- NOTE | 2017-05-12 13:13 | P.PN ---
Subjective Progress Note Date: 05/12/17 This is a 81-year-old gentleman with past medical history noted below who presented to the emergency room with generalized weakness and being unable to ambulate. Patient was a resident at the local extended care facility up until yesterday when his insurance coverage for fpc stay . Patient was discharged to a local [facility] that after getting there he realized that the room was not wheelchair accessible and he was unable to get around. Patient is mostly wheelchair bound secondary to significant pain in both knees worse on the left. He said that he has a lot of arthritis and was seen by Dr. Purcell before. He was told that he has effusion in his knee and was supposed to follow-up for possible arthrocentesis. He is denying any significant pain while resting. He was advised by orthopedic for nonweightbearing. He was noted to have acute kidney injury on presentation and is currently admitted to the hospital 05/12/2017 patient is complaining of left knee pain. He is scheduled for possible left knee aspiration and steroid injection with orthopedics today. Patient complains he has difficulty with walking because of the knee. Also he had some acute kidney injury on admission. Creatinine has normalized. Patient complaint some constipation is been about 2-3 days since last bowel movement. Denies any nausea or vomiting. Denies any chest pain or shortness of breath Objective - Vital Signs Vital signs: Vital Signs Temp 98.3 F 05/12/17 10:18 Pulse 77 05/12/17 07:00 Resp 18 05/12/17 07:00 BP 125/97 05/12/17 07:00 Pulse Ox 95 05/12/17 07:00 Intake & Output 05/11/17 05/12/17 05/12/17 18:59 06:59 18:59 Intake Total 800 Output Total 350 Balance 800 -350 Intake: Intake, IV Titration 600 Amount Sodium Chloride 0.9% 1, 600 000 ml @ 75 mls/hr IV . [id number] [facility] Rx#:[id number] Oral 200 Output: Urine 350 Other: Voiding Method Toilet Toilet Urinal Urinal # Voids 1 1 - Exam Head normocephalic Neck supple Lungs clear to auscultation bilaterally no wheezing or crackles Heart regular rate and rhythm S1-S2, no rub or gallop Abdomen is soft nontender nondistended positive bowel sounds no hepatosplenomegaly Extremities left knee is swollen with evidence of effusion and tender with palpation Neuro alert and orientated to 3 - Labs CBC & Chem 7: 05/12/17 07:18 05/12/17 07:18 Labs: Abnormal Lab Results - Last 24 Hours (Table) 05/12/17 05/12/17 Range/Units 07:18 07:18 RBC 3.24 L (4.30-5.90) m/uL Hgb 9.4 L (13.0-17.5) gm/dL Hct 29.6 L (39.0-53.0) % Lymphocytes # 0.9 L (1.0-4.8) k/uL BUN 26 H (9-20) mg/dL Glucose 110 H (74-99) mg/dL Microbiology - Last 24 Hours (Table) 05/09/17 17:25 Urine Culture - Final Urine,Voided Proteus mirabilis Assessment and Plan Assessment: 1. Acute kidney injury: May be related to dehydration. Hold nephrotoxic including Lasix and lisinopril. Fluids were hep-locked yesterday. Creatinine has normalized. Continue to monitor. Anticipating restarting the Lasix and lisinopril tomorrow 2. Acute on chronic left knee pain with left knee effusion. Patient is scheduled for a joint aspiration and steroid injection today 3. Physical debility: PT/OT consult 4. Placement, geriatric social work professor consulted as patient has no place to go 5. Underlying dementia on Aricept 6. 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 Chronic iron deficiency anemia I performed an examination of the patient and discussed their management with the physician Corrective Therapy Aide. I have reviewed the Physician Corrective Therapy Aide's notes and agree with the documented findings and plan of care
[2017-05-12] MEDS: ASCORBIC ACID 500 MG TAB PO SCH (13:51)
[2017-05-12] MEDS: MAGNESIUM OXIDE 400 MG TAB PO SCH (13:51)
[2017-05-12] MEDS: DOCUSATE 100 MG CAP PO SCH ×2 (13:51→20:16)
[2017-05-12] MEDS: MULTIVITAMINS, THERA 1 EACH TAB PO SCH (13:51)
[2017-05-12] MEDS: CHOLECALCIFEROL 1,000 UNIT TAB PO SCH (13:58)
[2017-05-12] MEDS: RIVAROXABAN 10 MG TAB PO SCH (17:42)
--- NOTE | 2017-05-12 18:31 | P.PN ---
Subjective Progress Note Date: 05/12/17 Principal diagnosis: Left knee osteoarthritis with joint effusion Patient seen today resting in his hospital bed. He continues to complain of left knee pain and swelling. He was seen by Dr. Garcias yesterday initially, discussion of a joint aspiration with cortisone injection took place. Patient would like to proceed with that today. Objective - Vital Signs Vital signs: Vital Signs Temp 97.2 F L 05/12/17 14:46 Pulse 72 05/12/17 16:00 Resp 20 05/12/17 16:00 BP 121/68 05/12/17 14:46 Pulse Ox 99 05/12/17 14:46 Intake & Output 05/11/17 05/12/17 05/12/17 18:59 06:59 18:59 Intake Total 800 Output Total 700 Balance 800 -700 Intake: Intake, IV Titration 600 Amount Sodium Chloride 0.9% 1, 600 000 ml @ 75 mls/hr IV . [id number] [facility] Rx#:[id number] Oral 200 Output: Urine 700 Other: Voiding Method Toilet Toilet Bedside Commode Urinal Urinal Urinal # Voids 1 2 - Exam Left lower extremity: Obvious knee effusion present over the knee, no significant areas of erythema. Patient is able to flex the knee, it is painful posteriorly during this. He has full extension. No obvious open lesions or sores. Calf is soft, no tenderness with palpation. Plantar flexion, dorsiflexion, EHL, FHL are intact. Dorsal pedis pulses 2+. - Labs CBC & Chem 7: 05/12/17 07:18 05/12/17 07:18 Labs: Abnormal Lab Results - Last 24 Hours (Table) 05/12/17 05/12/17 Range/Units 07:18 07:18 RBC 3.24 L (4.30-5.90) m/uL Hgb 9.4 L (13.0-17.5) gm/dL Hct 29.6 L (39.0-53.0) % Lymphocytes # 0.9 L (1.0-4.8) k/uL BUN 26 H (9-20) mg/dL Glucose 110 H (74-99) mg/dL Microbiology - Last 24 Hours (Table) 05/09/17 17:25 Urine Culture - Final Urine,Voided Proteus mirabilis Assessment and Plan Plan: Assessment: 1. Left knee osteoarthritis 2. Left knee effusion Plan: Discussion of a joint aspiration with intra-articular steroid injection to place today at bedside, patient like to proceed. Patient was in the supine position, the knee was prepped with 1 Betadine swab into alcohol swabs. 2 mL of 1% plain lidocaine was injected intra-articular. I then switched syringes and aspirate about 40 mL of bloody serosanguineous fluid. I then switch ranges and placed 2 mL of plain 1% lidocaine and 1 mL of 40 mg Depo-Medrol. Patient tolerated procedure well. Advised weight-bear as tolerated with walker Pain control Ice and elevate On an orthopedic standpoint, patient is stable for discharge and follow-up as needed in the outpatient setting Time with Patient: Less than 30
[2017-05-12] MEDS: ATORVASTATIN 20 MG TAB PO SCH (20:16)
[2017-05-12] MEDS: POLYETHYLENE GLYCOL 3350 17 GM POWD.PACK PO SCH (20:16)
[2017-05-12] MEDS: DONEPEZIL 5 MG TAB PO SCH (20:16)
[2017-05-13 07:49] LABS: Basophils % (A) 0 %; CH 29.2; CHCM 32.1; Eosinophils % (A) 0 %; HCT 29.3 % (39.0-53.0); HDW 3.39; Hypochromasia Slight; Luc # (Auto) 0.05; Luc % (Auto) 1; Lymphocytes # (A) 0.4 k/uL (1.0-4.8); Lymphocytes % (A) 5 %; MCH 27.9 pg (25.0-35.0); MCHC 30.6 g/dL (31.0-37.0); MCV 91.1 fL (80.0-100.0); Mean Platelet Volume 7.1; Monocytes # (A) 0.3 k/uL (0-1.0); Monocytes % (A) 3 %; Neutrophils # (A) 8.4 k/uL (1.3-7.7); Neutrophils % (A) 92 %; RBC 3.22 m/uL (4.30-5.90); RDW 14.9 % (11.5-15.5); WBC 9.1 k/uL (3.8-10.6); WBC (Perox) 9.43
[2017-05-13] MEDS: FERROUS SULFATE 325 MG TAB PO SCH ×2 (08:28→18:01)
[2017-05-13] MEDS: CARVEDILOL 3.125 MG TAB PO SCH ×2 (08:28→18:01)
[2017-05-13] MEDS: ASPIRIN 81 MG PO SCH (08:29)
[2017-05-13] MEDS: OXYBUTYNIN 10 MG TAB.ER.24 PO SCH (08:30)
[2017-05-13] MEDS: DOCUSATE 100 MG CAP PO SCH ×2 (08:30→21:02)
[2017-05-13 08:32] LABS: Anion Gap 8 mmol/L; Blood Urea Nitrogen 32 mg/dL (9-20); Calcium 9.3 mg/dL (8.4-10.2); Carbon Dioxide 24 mmol/L (22-30); Chloride 107 mmol/L (98-107); Glucose 143 mg/dL (74-99); Non-African American GFR(MDRD) >60 (>60 ml/min/1.73 sqM); Potassium 4.4 mmol/L (3.5-5.1); Sodium 139 mmol/L (137-145)
[2017-05-13] MEDS ORDERED: LACTULOSE 20 GM/30 ML CUP PO ONE (13:13)
--- NOTE | 2017-05-13 13:18 | P.PN ---
Subjective Progress Note Date: 05/13/17 This is a 81-year-old gentleman with past medical history noted below who presented to the emergency room with generalized weakness and being unable to ambulate. Patient was a resident at the local extended care facility up until yesterday when his insurance coverage for half-way stay . Patient was discharged to a local [facility] that after getting there he realized that the room was not wheelchair accessible and he was unable to get around. Patient is mostly wheelchair bound secondary to significant pain in both knees worse on the left. He said that he has a lot of arthritis and was seen by Dr. Purcell before. He was told that he has effusion in his knee and was supposed to follow-up for possible arthrocentesis. He is denying any significant pain while resting. He was advised by orthopedic for nonweightbearing. He was noted to have acute kidney injury on presentation and is currently admitted to the hospital 05/12/2017 patient is complaining of left knee pain. He is scheduled for possible left knee aspiration and steroid injection with orthopedics today. Patient complains he has difficulty with walking because of the knee. Also he had some acute kidney injury on admission. Creatinine has normalized. Patient complaint some constipation is been about 2-3 days since last bowel movement. Denies any nausea or vomiting. Denies any chest pain or shortness of breath 05/13/2017 patient status post left knee aspiration and steroid joint injection. Pain in his left knee has improved. He was able to ambulate in the room with physical therapy. Patient denies any chest pain or shortness of breath. Patient is complaining of constipation Objective - Vital Signs Vital signs: Vital Signs Temp 97.5 F L 05/13/17 07:00 Pulse 64 05/13/17 08:23 Resp 16 05/13/17 08:00 BP 123/74 05/13/17 08:23 Pulse Ox 97 05/13/17 07:00 Intake & Output 05/12/17 05/13/17 05/13/17 18:59 06:59 18:59 Intake Total 590 Output Total 700 Balance -700 590 Weight 96 kg Intake: Oral 590 Output: Urine 700 Other: Voiding Method Bedside Commode Toilet Toilet Urinal Bedside Commode Incontinent Urinal # Voids 2 2 - Exam Head normocephalic Neck supple Lungs clear to auscultation bilaterally no wheezing or crackles Heart regular rate and rhythm S1-S2, no rub or gallop Abdomen is soft nontender nondistended positive bowel sounds no hepatosplenomegaly Extremities improvement left knee swelling Neuro alert and orientated to 3 - Labs CBC & Chem 7: 05/13/17 07:25 05/13/17 07:25 Labs: Abnormal Lab Results - Last 24 Hours (Table) 05/13/17 05/13/17 Range/Units 07:25 07:25 RBC 3.22 L (4.30-5.90) m/uL Hgb 9.0 L (13.0-17.5) gm/dL Hct 29.3 L (39.0-53.0) % MCHC 30.6 L (31.0-37.0) g/dL Neutrophils # 8.4 H (1.3-7.7) k/uL Lymphocytes # 0.4 L (1.0-4.8) k/uL BUN 32 H (9-20) mg/dL Glucose 143 H (74-99) mg/dL Assessment and Plan Assessment: 1. Acute kidney injury: May be related to dehydration. Improved with IV fluids. We'll restart his home dose of Lasix 20 mg by mouth daily tomorrow. 2. Acute on chronic left knee pain with left knee effusion. Patient status post aspiration of the effusion and steroid joint injection. Pain improved 3. Physical debility: PT/OT consult 4. Placement, social work coordinator consulted as patient has no place to go 5. Underlying dementia on Aricept 6. 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 Chronic iron deficiency anemia 8. Essential hypertension: Blood pressures are on the lower side. We'll continue holding lisinopril. lisinopril was discontinued earlier in the admission due to the acute kidney injury. 9. Constipation: Give 1 dose of lactulose. Continue MiraLAX and stool softener Social work is working on placement for patient. Patient will either go to [facility] or possibly an assisted living facility. Patient is also requiring insurance authorization. Anticipating discharge possibly tomorrow if placement can be arranged. I performed an examination of the patient and discussed their management with the physician Rod Cup Filler. I have reviewed the Physician Rod Cup Filler's notes and agree with the documented findings and plan of care
[2017-05-13] MEDS: MAGNESIUM OXIDE 400 MG TAB PO SCH (13:31)
[2017-05-13] MEDS: CHOLECALCIFEROL 1,000 UNIT TAB PO SCH (13:32)
[2017-05-13] MEDS: ASCORBIC ACID 500 MG TAB PO SCH (13:32)
[2017-05-13] MEDS: MULTIVITAMINS, THERA 1 EACH TAB PO SCH (13:32)
[2017-05-13] MEDS: RIVAROXABAN 10 MG TAB PO SCH (18:01)
[2017-05-13] MEDS: DONEPEZIL 5 MG TAB PO SCH (21:03)
[2017-05-13] MEDS: ATORVASTATIN 20 MG TAB PO SCH (21:03)
[2017-05-13] MEDS: POLYETHYLENE GLYCOL 3350 17 GM POWD.PACK PO SCH (21:04)
[2017-05-14 07:18] LABS: Anisocytosis Slight; Basophils % (A) 0 %; CH 28.2; Eosinophils # (A) 0.1 k/uL (0-0.7); Eosinophils % (A) 1 %; HCT 29.7 % (39.0-53.0); HDW 3.12; HGB 9.2 gm/dL (13.0-17.5); Hypochromasia Moderate; Luc # (Auto) 0.14; Luc % (Auto) 2; Lymphocytes % (A) 12 %; MCH 28.3 pg (25.0-35.0); MCV 91.4 fL (80.0-100.0); Mean Platelet Volume 6.7; Monocytes # (A) 0.4 k/uL (0-1.0); Monocytes % (A) 5 %; Neutrophils # (A) 7.3 k/uL (1.3-7.7); Neutrophils % (A) 81 %; RBC 3.24 m/uL (4.30-5.90); RDW 16.2 % (11.5-15.5)
[2017-05-14 07:29] LABS: Anion Gap 7 mmol/L; Blood Urea Nitrogen 39 mg/dL (9-20); Calcium 9.1 mg/dL (8.4-10.2); Carbon Dioxide 25 mmol/L (22-30); Chloride 106 mmol/L (98-107); Glucose 93 mg/dL (74-99); Non-African American GFR(MDRD) 58 (>60 ml/min/1.73 sqM); Potassium 4.5 mmol/L (3.5-5.1); Sodium 138 mmol/L (137-145)
[2017-05-14] MEDS: OXYBUTYNIN 10 MG TAB.ER.24 PO SCH (08:46)
[2017-05-14] MEDS: ASPIRIN 81 MG PO SCH (08:46)
[2017-05-14] MEDS: CHOLECALCIFEROL 1,000 UNIT TAB PO SCH (08:46)
[2017-05-14] MEDS: MAGNESIUM OXIDE 400 MG TAB PO SCH (08:47)
[2017-05-14] MEDS: CARVEDILOL 3.125 MG TAB PO SCH ×2 (08:47→18:18)
[2017-05-14] MEDS: MULTIVITAMINS, THERA 1 EACH TAB PO SCH (08:47)
[2017-05-14] MEDS: FUROSEMIDE 20 MG TAB PO SCH (08:47)
[2017-05-14] MEDS: DOCUSATE 100 MG CAP PO SCH ×2 (08:47→21:14)
[2017-05-14] MEDS: FERROUS SULFATE 325 MG TAB PO SCH ×2 (08:47→18:18)
[2017-05-14] MEDS: ASCORBIC ACID 500 MG TAB PO SCH (08:47)
[2017-05-14] MEDS ORDERED: cefTRIAXone IN SWFI 1,000 MG/10 ML SYRINGE IVP STA (13:08)
--- NOTE | 2017-05-14 13:51 | P.PN ---
Subjective Progress Note Date: 05/14/17 This is a 81-year-old gentleman with past medical history noted below who presented to the emergency room with generalized weakness and being unable to ambulate. Patient was a resident at the local extended care facility up until yesterday when his insurance coverage for fdc stay . Patient was discharged to a local [facility] that after getting there he realized that the room was not wheelchair accessible and he was unable to get around. Patient is mostly wheelchair bound secondary to significant pain in both knees worse on the left. He said that he has a lot of arthritis and was seen by Dr. Purcell before. He was told that he has effusion in his knee and was supposed to follow-up for possible arthrocentesis. He is denying any significant pain while resting. He was advised by orthopedic for nonweightbearing. He was noted to have acute kidney injury on presentation and is currently admitted to the hospital 05/12/2017 patient is complaining of left knee pain. He is scheduled for possible left knee aspiration and steroid injection with orthopedics today. Patient complains he has difficulty with walking because of the knee. Also he had some acute kidney injury on admission. Creatinine has normalized. Patient complaint some constipation is been about 2-3 days since last bowel movement. Denies any nausea or vomiting. Denies any chest pain or shortness of breath 05/13/2017 patient status post left knee aspiration and steroid joint injection. Pain in his left knee has improved. He was able to ambulate in the room with physical therapy. Patient denies any chest pain or shortness of breath. Patient is complaining of constipation 05/14/2017 patient alert and oriented sitting up in bed in no distress able to ambulate with help Objective - Vital Signs Vital signs: Vital Signs Temp 97.9 F 05/14/17 07:00 Pulse 98 05/14/17 07:00 Resp 16 05/14/17 08:00 BP 109/77 05/14/17 07:00 Pulse Ox 98 05/14/17 07:00 Intake & Output 05/13/17 05/14/17 05/14/17 18:59 06:59 18:59 Intake Total 240 590 Output Total 350 Balance -110 590 Weight 96 kg Intake: Oral 240 590 Output: Urine 350 Other: Voiding Method Toilet Toilet Toilet Incontinent Incontinent Diaper # Voids 3 1 # Bowel Movements 0 1 - Exam HEENT head normocephalic and atraumatic NECK is supple no JVD no goiter no adenopathy CHEST exam reveal few scattered rhonchi, no wheezing CARD regular S1 S2 no gallop, no murmur Abdomen is soft non tender no organomegaly extremities exam reveals no edema no cyanosis or clubbing - Labs CBC & Chem 7: 05/14/17 06:42 05/14/17 06:42 Labs: Abnormal Lab Results - Last 24 Hours (Table) 05/14/17 05/14/17 Range/Units 06:42 06:42 RBC 3.24 L (4.30-5.90) m/uL Hgb 9.2 L (13.0-17.5) gm/dL Hct 29.7 L (39.0-53.0) % RDW 16.2 H (11.5-15.5) % BUN 39 H (9-20) mg/dL Assessment and Plan Plan: 1. Acute kidney injury related to dehydration. Improved with IV fluids. 2. Acute on chronic left knee pain with left knee effusion. Patient status post aspiration of the effusion and steroid joint injection. Pain improved 3. Physical debility: PT/OT consult 4. Placement, marriage and family social worker consulted as patient has no place to go 5. Underlying dementia on Aricept 6. 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 Chronic iron deficiency anemia 8. Essential hypertension: Blood pressures are on the lower side. We'll continue holding lisinopril. lisinopril was discontinued earlier in the admission due to the acute kidney injury. 9. Constipation: Give 1 dose of lactulose. Continue MiraLAX and stool softener Social work is working on placement for patient. Patient will either go to [facility] or possibly an assisted living facility. Patient is also requiring insurance authorization. Anticipating discharge possibly tomorrow if placement can be arranged.
[2017-05-14] MEDS: RIVAROXABAN 10 MG TAB PO SCH (18:18)
[2017-05-14] MEDS: POLYETHYLENE GLYCOL 3350 17 GM POWD.PACK PO SCH (21:14)
[2017-05-14] MEDS: DONEPEZIL 5 MG TAB PO SCH (21:14)
[2017-05-14] MEDS: ATORVASTATIN 20 MG TAB PO SCH (21:14)
[2017-05-15 07:27] LABS: Anisocytosis Slight; Basophils % (A) 1 %; CH 27.9; CHCM 31.3; Eosinophils # (A) 0.4 k/uL (0-0.7); Eosinophils % (A) 6 %; HCT 29.8 % (39.0-53.0); HDW 3.18; HGB 9.6 gm/dL (13.0-17.5); Hypochromasia Moderate; Luc # (Auto) 0.11; Luc % (Auto) 2; Lymphocytes % (A) 17 %; MCH 28.9 pg (25.0-35.0); MCHC 32.3 g/dL (31.0-37.0); MCV 89.4 fL (80.0-100.0); Mean Platelet Volume 6.7; Monocytes # (A) 0.4 k/uL (0-1.0); Monocytes % (A) 7 %; Neutrophils # (A) 4.2 k/uL (1.3-7.7); Neutrophils % (A) 68 %; RBC 3.34 m/uL (4.30-5.90); RDW 16.2 % (11.5-15.5); WBC 6.1 k/uL (3.8-10.6); WBC (Perox) 6.28
[2017-05-15 07:57] LABS: Anion Gap 9 mmol/L; Blood Urea Nitrogen 38 mg/dL (9-20); Calcium 9.3 mg/dL (8.4-10.2); Carbon Dioxide 22 mmol/L (22-30); Chloride 107 mmol/L (98-107); Glucose 90 mg/dL (74-99); Non-African American GFR(MDRD) 58 (>60 ml/min/1.73 sqM); Potassium 4.7 mmol/L (3.5-5.1); Sodium 138 mmol/L (137-145)
[2017-05-15] MEDS: OXYBUTYNIN 10 MG TAB.ER.24 PO SCH (08:26)
[2017-05-15] MEDS: FERROUS SULFATE 325 MG TAB PO SCH ×2 (08:26→18:13)
[2017-05-15] MEDS: ASPIRIN 81 MG PO SCH (08:26)
[2017-05-15] MEDS: FUROSEMIDE 20 MG TAB PO SCH (08:26)
[2017-05-15] MEDS: CARVEDILOL 3.125 MG TAB PO SCH ×2 (08:26→18:13)
[2017-05-15] MEDS: DOCUSATE 100 MG CAP PO SCH ×2 (08:26→22:36)
--- NOTE | 2017-05-15 11:01 | P.PN ---
Subjective Progress Note Date: 05/15/17 This is a 81-year-old gentleman with past medical history noted below who presented to the emergency room with generalized weakness and being unable to ambulate. Patient was a resident at the local extended care facility up until yesterday when his insurance coverage for usp stay . Patient was discharged to a local [facility] that after getting there he realized that the room was not wheelchair accessible and he was unable to get around. Patient is mostly wheelchair bound secondary to significant pain in both knees worse on the left. He said that he has a lot of arthritis and was seen by Dr. Purcell before. He was told that he has effusion in his knee and was supposed to follow-up for possible arthrocentesis. He is denying any significant pain while resting. He was advised by orthopedic for nonweightbearing. He was noted to have acute kidney injury on presentation and is currently admitted to the hospital 05/12/2017 patient is complaining of left knee pain. He is scheduled for possible left knee aspiration and steroid injection with orthopedics today. Patient complains he has difficulty with walking because of the knee. Also he had some acute kidney injury on admission. Creatinine has normalized. Patient complaint some constipation is been about 2-3 days since last bowel movement. Denies any nausea or vomiting. Denies any chest pain or shortness of breath 05/13/2017 patient status post left knee aspiration and steroid joint injection. Pain in his left knee has improved. He was able to ambulate in the room with physical therapy. Patient denies any chest pain or shortness of breath. Patient is complaining of constipation 05/15/2017 patient lying in bed comfortably. Still awaiting placement. No new complaints. Objective - Vital Signs Vital signs: Vital Signs Temp 97.2 F L 05/15/17 07:00 Pulse 61 05/15/17 07:00 Resp 18 05/15/17 07:00 BP 132/77 05/15/17 07:00 Pulse Ox 98 05/15/17 07:00 Intake & Output 05/14/17 05/15/17 05/15/17 18:59 06:59 18:59 Intake Total 1070 Balance 1070 Intake: Oral 1070 Other: Voiding Method Toilet Toilet Diaper Diaper # Voids 3 2 # Bowel Movements 1 - Exam Head normocephalic Neck supple Lungs clear to auscultation bilaterally no wheezing or crackles Heart regular rate and rhythm S1-S2, no rub or gallop Abdomen is soft nontender nondistended positive bowel sounds no hepatosplenomegaly Extremities improvement left knee swelling Neuro alert and orientated to 3 - Labs CBC & Chem 7: 05/15/17 07:01 05/15/17 07:01 Labs: Abnormal Lab Results - Last 24 Hours (Table) 05/15/17 05/15/17 Range/Units 07:01 07:01 RBC 3.34 L (4.30-5.90) m/uL Hgb 9.6 L (13.0-17.5) gm/dL Hct 29.8 L (39.0-53.0) % RDW 16.2 H (11.5-15.5) % BUN 38 H (9-20) mg/dL Assessment and Plan Assessment: 1. Acute kidney injury: May be related to dehydration. Improved with IV fluids. Patient's Lasix was restarted and tolerating well 2. Acute on chronic left knee pain with left knee effusion. Patient status post aspiration of the effusion and steroid joint injection. Pain improved 3. Physical debility: PT/OT consult 4. Placement, social staff worker consulted as patient has no place to go 5. Underlying dementia on Aricept 6. 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 Chronic iron deficiency anemia 8. Essential hypertension: Blood pressures are on the lower side. We'll continue holding lisinopril. lisinopril was discontinued earlier in the admission due to the acute kidney injury. 9. Constipation: Resolved Social work is working on placement for patient. Patient will either go to [facility] or possibly an assisted living facility. Patient is also requiring insurance authorization. Anticipating discharge later today or tomorrow depending on insurance authorization I performed an examination of the patient and discussed their management with the physician Lithograph Press Operator. I have reviewed the Physician Lithograph Press Operator's notes and agree with the documented findings and plan of care
[2017-05-15] MEDS: MULTIVITAMINS, THERA 1 EACH TAB PO SCH (13:42)
[2017-05-15] MEDS: MAGNESIUM OXIDE 400 MG TAB PO SCH (13:42)
[2017-05-15] MEDS: CHOLECALCIFEROL 1,000 UNIT TAB PO SCH (13:42)
[2017-05-15] MEDS: ASCORBIC ACID 500 MG TAB PO SCH (13:42)
[2017-05-15] MEDS: RIVAROXABAN 10 MG TAB PO SCH (18:13)
[2017-05-15] MEDS: ATORVASTATIN 20 MG TAB PO SCH (22:36)
[2017-05-15] MEDS: POLYETHYLENE GLYCOL 3350 17 GM POWD.PACK PO SCH (22:37)
[2017-05-15] MEDS: DONEPEZIL 5 MG TAB PO SCH (22:37)
[2017-05-15 22:57] VITALS: RESP 16
[2017-05-16 07:41] VITALS: BP 145/90; PULSE 70; TEMP 97
[2017-05-16] MEDS: FUROSEMIDE 20 MG TAB PO SCH (07:47)
[2017-05-16] MEDS: CARVEDILOL 3.125 MG TAB PO SCH (07:48)
[2017-05-16] MEDS: FERROUS SULFATE 325 MG TAB PO SCH (07:48)
[2017-05-16] MEDS: ASPIRIN 81 MG PO SCH (07:48)
[2017-05-16] MEDS: DOCUSATE 100 MG CAP PO SCH (07:48)
[2017-05-16] MEDS: OXYBUTYNIN 10 MG TAB.ER.24 PO SCH (07:48)
--- NOTE | 2017-05-16 12:23 | P.DS ---
Providers Date of admission: 05/11/17 10:35 Expected date of discharge: 05/16/17 Attending physician: Farzana Michelle Consults: 05/10/17 12:02 Consult Physician Routine Consulting Provider: Carlos Garcias Consult Reason/Comments: Left knee effusion Do you want consulting provider notified?: Yes Primary care physician: Suzie Walker [facility] Course: Discharge diagnosis 1. Acute kidney injury: May be related to dehydration. Improved with IV fluids. Patient's Lasix was restarted and tolerating well 2. Acute on chronic left knee pain with left knee effusion. Patient status post aspiration of the effusion and steroid joint injection. Pain improved 3. Physical debility: PT/OT consult 4. Placement, elementary school social worker consulted as patient has no place to go 5. Underlying dementia on Aricept 6. 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 Chronic iron deficiency anemia 8. Essential hypertension: Blood pressures are on the lower side. We'll continue holding lisinopril. lisinopril was discontinued earlier in the admission due to the acute kidney injury. Blood pressures have improved. Lisinopril will be restarted. 9. Constipation: Resolved 10. Possible UTI with urine culture growing only 10,000-49,000 colonies of Proteus mirabilis. Patient given 1 dose of Rocephin 1 g IV. No further antibiotics required Hospital course This is a 81-year-old gentleman with past medical history noted below who presented to the emergency room with generalized weakness and being unable to ambulate. Patient was a resident at the local [facility] care facility up until yesterday when his insurance coverage for senior living stay . Patient was discharged to a local [facility] that after getting there he realized that the room was not wheelchair accessible and he was unable to get around. Patient is mostly wheelchair bound secondary to significant pain in both knees worse on the left. He said that he has a lot of arthritis and was seen by Dr. Purcell before. He was told that he has effusion in his knee and was supposed to follow-up for possible arthrocentesis. He is denying any significant pain while resting. He was advised by orthopedic for nonweightbearing. He was noted to have acute kidney injury on presentation and is currently admitted to the hospital 05/12/2017 patient is complaining of left knee pain. He is scheduled for possible left knee aspiration and steroid injection with orthopedics today. Patient complains he has difficulty with walking because of the knee. Also he had some acute kidney injury on admission. Creatinine has normalized. Patient complaint some constipation is been about 2-3 days since last bowel movement. Denies any nausea or vomiting. Denies any chest pain or shortness of breath 05/13/2017 patient status post left knee aspiration and steroid joint injection. Pain in his left knee has improved. He was able to ambulate in the room with physical therapy. Patient denies any chest pain or shortness of breath. Patient is complaining of constipation Patient's left knee pain has resolved. Patient cleared by orthopedics a few days ago. Patient has been medically stable for discharge for the last 3 days. However, elementary school social worker is working on placement for patient. [facility] At this time social work is working on other resources of placement. [facility] and did not have any beds available for patient. At this time patient is medically stable for discharge and when placement is arranged for patient he is stable for discharge. Prescription will be given for walker with wheels. Please refer to chart for any further details. I performed an examination of the patient and discussed their management with the physician Lifeline Representatives. I have reviewed the Physician Lifeline Representatives's notes and agree with the documented findings and plan of care Patient Condition at Discharge: Stable Plan - Discharge Summary Discharge Rx Participant: No New Discharge Prescriptions: Continue Carvedilol [Coreg] 3.125 mg PO BID Allopurinol [Zyloprim] 300 mg PO DAILY Fesoterodine Fumarate [Toviaz] 8 mg PO DAILY Donepezil [Aricept] 5 mg PO HS Lisinopril [Zestril] 20 mg PO DAILY Simvastatin [Zocor] 40 mg PO HS Rivaroxaban [Xarelto] 20 mg PO PC-SUPPER Furosemide [Lasix] 20 mg PO DAILY Glucosamine Sulfate 500 mg PO DAILY Magnesium 200 mg PO DAILY Multivitamins, Thera [Multivitamin (formulary)] 1 tab PO DAILY Oxybutynin Chloride [Ditropan XL] 10 mg PO DAILY Aspirin 162 mg PO DAILY Potassium Chloride [Klor-Con 20] 20 meq PO DAILY Ferrous Sulfate [Iron (65 MG Elemental)] 325 mg PO BID-W/MEALS tab Ascorbic Acid [Vitamin C] 500 mg PO DAILY [place]-3 Fatty Acids [[place]-3] 1,000 mg PO DAILY Cholecalciferol [Vitamin D3] 1,000 unit PO DAILY Discharge Medication List Allopurinol [Zyloprim] 300 mg PO DAILY 05/01/16 [History] Carvedilol [Coreg] 3.125 mg PO BID 05/01/16 [History] Donepezil [Aricept] 5 mg PO HS 05/01/16 [History] Fesoterodine Fumarate [Toviaz] 8 mg PO DAILY 05/01/16 [History] Lisinopril [Zestril] 20 mg PO DAILY 05/01/16 [History] Simvastatin [Zocor] 40 mg PO HS 05/01/16 [History] Furosemide [Lasix] 20 mg PO DAILY 09/18/16 [History] Glucosamine Sulfate 500 mg PO DAILY 09/18/16 [History] Rivaroxaban [Xarelto] 20 mg PO PC-SUPPER 09/18/16 [History] Magnesium 200 mg PO DAILY 03/14/17 [History] Aspirin 162 mg PO DAILY 04/14/17 [History] Multivitamins, Thera [Multivitamin (formulary)] 1 tab PO DAILY 04/14/17 [History ] Oxybutynin Chloride [Ditropan XL] 10 mg PO DAILY 04/14/17 [History] Potassium Chloride [Klor-Con 20] 20 meq PO DAILY 04/14/17 [History] Ferrous Sulfate [Iron (65 MG Elemental)] 325 mg PO BID-W/MEALS tab 04/17/17 [Rx ] Ascorbic Acid [Vitamin C] 500 mg PO DAILY 05/09/17 [History] Cholecalciferol [Vitamin D3] 1,000 unit PO DAILY 05/09/17 [History] [place]-3 Fatty Acids [[place]-3] 1,000 mg PO DAILY 05/09/17 [History] Follow up Appointment(s)/Referral(s): Suzie Ramírez DO [Primary Care Provider] - 1 Week Activity/Diet/Wound Care/Special Instructions: Diet: cardiac Activity: as tolerated Ok to discharge when patient has placement arranged Discharge Disposition: HOME SELF-CARE
== END 2017-05-16 14:00 | disposition home or self-care (01) | DRG 683 ==
LOC: EC 16:26 → 3OBS 19:21 → 3SUR 05-10 18:32 → 3OBS 05-11 07:01 → OBSVTOIN 05-11 10:35 → 5MS5E 05-11 16:44
PROVIDERS: ADMIT Internal Medicine; ATTEND Internal Medicine
DX: N17.9 Acute kidney failure, unspecified (principal); H33.21 Serous retinal detachment, right eye; N39.0 Urinary tract infection, site not specified; E86.0 Dehydration; F03.90 Unspecified dementia, unspecified severity, without behavioral disturbance, psychotic disturbance, mood disturbance, and anxiety; E78.5 Hyperlipidemia, unspecified; D50.9 Iron deficiency anemia, unspecified; G89.29 Other chronic pain; H54.61 Unqualified visual loss, right eye, normal vision left eye; I10 Essential (primary) hypertension; K59.00 Constipation, unspecified; M10.9 Gout, unspecified; M17.0 Bilateral primary osteoarthritis of knee; R62.7 Adult failure to thrive; K57.90 Diverticulosis of intestine, part unspecified, without perforation or abscess without bleeding; M25.462 Effusion, left knee; B96.4 Proteus (mirabilis) (morganii) as the cause of diseases classified elsewhere; Z87.891 Personal history of nicotine dependence; Z85.46 Personal history of malignant neoplasm of prostate; Z79.82 Long term (current) use of aspirin; Z79.899 Other long term (current) drug therapy; Z79.02 Long term (current) use of antithrombotics/antiplatelets; Z86.14 Personal history of Methicillin resistant Staphylococcus aureus infection; Z99.3 Dependence on wheelchair
CPT/HCPCS: 36415; 71020; 80048; 80053; 81001; 82550; 82553; 83735; 84100; 84484; 85025; 85610; 85730; 87077; 87086; 87186; 93005; 96360; 96361; 99285

== ENCOUNTER 2018-02-20 08:38 | Inpatient (IN) | payer MEDICARE ==
[2018-02-20] MEDS ORDERED: PANTOPRAZOLE 40 MG/10 ML VIAL IVP STA (09:14)
--- NOTE | 2018-02-20 09:17 | ED ---
General Adult HPI - General Chief complaint: GI Bleed Stated complaint: Rectal Bleeding Time Seen by Provider: 02/20/18 09:00 Source: patient, RN notes reviewed Mode of arrival: wheelchair Limitations: no limitations - History of Present Illness Initial comments: Patient is a pleasant 82-year-old male presenting to the emergency department with rectal bleeding. Patient had one large episode prior to arrival. Patient otherwise feels fine. Patient does have a history of similar episode years ago associated with an ulcer. Patient had dark stool as well as some bright red blood in the stool. No abdominal pain. No fevers. No nausea vomiting. Patient is on Xarelto. - Related Data Home Medications Medication Instructions Recorded Confirmed Allopurinol [Zyloprim] 300 mg PO DAILY 05/01/16 02/20/18 Carvedilol [Coreg] 3.125 mg PO BID 05/01/16 02/20/18 Donepezil [Aricept] 5 mg PO HS 05/01/16 02/20/18 Fesoterodine Fumarate [Toviaz] 8 mg PO DAILY 05/01/16 02/20/18 Lisinopril [Zestril] 20 mg PO DAILY 05/01/16 02/20/18 Simvastatin [Zocor] 40 mg PO HS 05/01/16 02/20/18 Furosemide [Lasix] 20 mg PO DAILY 09/18/16 02/20/18 Glucosamine Sulfate 500 mg PO DAILY 09/18/16 02/20/18 Rivaroxaban [Xarelto] 20 mg PO PC-SUPPER 09/18/16 02/20/18 Magnesium 200 mg PO DAILY 03/14/17 02/20/18 Aspirin 162 mg PO DAILY 04/14/17 02/20/18 Multivitamins, Thera [Multivitamin 1 tab PO DAILY 04/14/17 02/20/18 (formulary)] Oxybutynin Chloride [Ditropan XL] 10 mg PO DAILY 04/14/17 02/20/18 Potassium Chloride [Klor-Con 20] 20 meq PO DAILY 04/14/17 02/20/18 Ascorbic Acid [Vitamin C] 500 mg PO DAILY 05/09/17 02/20/18 Cholecalciferol [Vitamin D3] 1,000 unit PO DAILY 05/09/17 02/20/18 [place]-3 Fatty Acids [[place]-3] 1,000 mg PO DAILY 05/09/17 02/20/18 Allergies Allergy/AdvReac Type Severity Reaction Status Date / Time Sulfa (Sulfonamide Allergy Unknown Verified 02/20/18 09:42 Antibiotics) Childhood Review of Systems ROS Statement: Those systems with pertinent positive or pertinent negative responses have been documented in the HPI. ROS Other: All systems not noted in ROS Statement are negative. Constitutional: Denies: fever Eyes: Denies: eye pain ENT: Denies: ear pain Respiratory: Denies: cough Cardiovascular: Denies: chest pain Endocrine: Denies: fatigue Gastrointestinal: Reports: as per HPI. 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, gout R foot.IRON DEFICENCY ANEMIA History of Any Multi-Drug Resistant Organisms: MRSA Date of last positivie culture/infection: 03/14/17 MDRO Source:: KNEE Past Surgical History: Hernia Repair, Orthopedic Surgery, Prostate Surgery, Tonsillectomy Additional Past Surgical History / Comment(s): 2009 colonoscopy, L eye cataract surgery, L eye laser surgery, R eye surgery for retinal detachment-unsuccessful , R inguinal hernia repair x2, prostatectomy due to cancer.i&d RT DISTAL KNEE .PICC LINE LT ARM-SINCE REMOVED Past Anesthesia/Blood Transfusion Reactions: No Reported Reaction Additional Past Anesthesia/Blood Transfusion Reaction / Comment(s): Pt states he has never received blood. Past Psychological History: No Psychological Hx Reported Smoking Status: Former smoker Past Alcohol Use History: Occasional Past Drug Use History: None Reported - Past Family History Father Family Medical History: Musculoskeletal Disorder, Neurologic Disorder Additional Family Medical History / Comment(s): Father of parkinson's disease at the age of 72 yrs. Mother Family Medical History: Dementia, Musculoskeletal Disorder, Neurologic Disorder Additional Family Medical History / Comment(s): Mother had polio at the age of 2 yrs and wore braces and used crutches to ambulate. She at the age of 95 yrs from dementia and bowel obstruction. General Exam Limitations: no limitations General appearance: alert, in no apparent distress Head exam: Present: atraumatic Eye exam: Present: normal appearance, PERRL ENT exam: Present: normal oropharynx Neck exam: Present: normal inspection Respiratory exam: Present: normal lung sounds bilaterally Cardiovascular Exam: Present: regular rate, normal rhythm GI/Abdominal exam: Present: soft. Absent: tenderness Rectal exam: Present: bloody stool Extremities exam: Present: normal inspection. Absent: pedal edema, calf tenderness Neurological exam: Present: alert Psychiatric exam: Present: normal affect, normal mood Skin exam: Present: normal color Course Vital Signs 02/20/18 02/20/18 08:47 09:59 Temperature 98.3 F Pulse Rate 62 52 L Respiratory 20 16 Rate Blood Pressure 92/56 135/65 O2 Sat by Pulse 96 99 Oximetry EKG Findings - EKG Comments: EKG Findings:: Sinus bradycardia 57. CO 176. QRS 90. QT 422. QTC 410. Normal axis. Q wave in lead III. No acute ST change. Medical Decision Making - Medical Decision Making Patient reevaluated and updated. Case was discussed in detail with Dr. Michelle, who will admit for Dr. Lemus. He does request consult with gastroenterology. - Lab Data Result diagrams: 02/20/18 09:08 02/20/18 09:08 Lab Results 02/20/18 02/20/18 02/20/18 Range/Units 09:08 09:08 09:08 WBC 5.6 (3.8-10.6) k/uL RBC 4.06 L (4.30-5.90) m/uL Hgb 12.2 L (13.0-17.5) gm/dL Hct 37.9 L (39.0-53.0) % MCV 93.2 (80.0-100.0) fL MCH 29.9 (25.0-35.0) pg MCHC 32.1 (31.0-37.0) g/dL RDW 15.6 H (11.5-15.5) % Plt Count 213 (150-450) k/uL Neutrophils % 64 % Lymphocytes % 21 % Monocytes % 7 % Eosinophils % 5 % Basophils % 1 % Neutrophils # 3.5 (1.3-7.7) k/uL Lymphocytes # 1.2 (1.0-4.8) k/uL Monocytes # 0.4 (0-1.0) k/uL Eosinophils # 0.3 (0-0.7) k/uL Basophils # 0.0 (0-0.2) k/uL PT (9.0-12.0) sec INR (<1.2) APTT (22.0-30.0) sec Sodium 142 (137-145) mmol/L Potassium 4.9 (3.5-5.1) mmol/L Chloride 108 H (98-107) mmol/L Carbon Dioxide 27 (22-30) mmol/L Anion Gap 7 mmol/L BUN 31 H (9-20) mg/dL Creatinine 1.36 H (0.66-1.25) mg/dL Est GFR (CKD-EPI)AfAm 55 (>60 ml/min/1.73 sqM) Est GFR (CKD-EPI)NonAf 48 (>60 ml/min/1.73 sqM) Glucose 97 (74-99) mg/dL Calcium 9.1 (8.4-10.2) mg/dL Total Bilirubin 0.5 (0.2-1.3) mg/dL AST 21 (17-59) U/L ALT 28 (21-72) U/L Alkaline Phosphatase 51 (38-126) U/L Total Creatine Kinase 89 (55-170) U/L CK-MB (CK-2) 1.8 (0.0-2.4) ng/mL CK-MB (CK-2) Rel Index 2.0 Troponin I <0.012 (0.000-0.034) ng/mL Total Protein 6.2 L (6.3-8.2) g/dL Albumin 3.4 L (3.5-5.0) g/dL Stool Occult Blood (Negative) 02/20/18 02/20/18 Range/Units 09:08 09:10 WBC (3.8-10.6) k/uL RBC (4.30-5.90) m/uL Hgb (13.0-17.5) gm/dL Hct (39.0-53.0) % MCV (80.0-100.0) fL MCH (25.0-35.0) pg MCHC (31.0-37.0) g/dL RDW (11.5-15.5) % Plt Count (150-450) k/uL Neutrophils % % Lymphocytes % % Monocytes % % Eosinophils % % Basophils % % Neutrophils # (1.3-7.7) k/uL Lymphocytes # (1.0-4.8) k/uL Monocytes # (0-1.0) k/uL Eosinophils # (0-0.7) k/uL Basophils # (0-0.2) k/uL PT 13.0 H (9.0-12.0) sec INR 1.4 H (<1.2) APTT 34.8 H (22.0-30.0) sec Sodium (137-145) mmol/L Potassium (3.5-5.1) mmol/L Chloride (98-107) mmol/L Carbon Dioxide (22-30) mmol/L Anion Gap mmol/L BUN (9-20) mg/dL Creatinine (0.66-1.25) mg/dL Est GFR (CKD-EPI)AfAm (>60 ml/min/1.73 sqM) Est GFR (CKD-EPI)NonAf (>60 ml/min/1.73 sqM) Glucose (74-99) mg/dL Calcium (8.4-10.2) mg/dL Total Bilirubin (0.2-1.3) mg/dL AST (17-59) U/L ALT (21-72) U/L Alkaline Phosphatase (38-126) U/L Total Creatine Kinase (55-170) U/L CK-MB (CK-2) (0.0-2.4) ng/mL CK-MB (CK-2) Rel Index Troponin I (0.000-0.034) ng/mL Total Protein (6.3-8.2) g/dL Albumin (3.5-5.0) g/dL Stool Occult Blood Positive (Negative) Disposition Clinical Impression: Gastrointestinal hemorrhage Disposition: ADMITTED IP TO THIS [facility] Is patient prescribed a controlled substance at d/c from ED?: No Referrals: Suzie Ramírez DO [Primary Care Provider] - 1-2 days Decision Time: 11:24
[2018-02-20 09:37] LABS: Basophils % (A) 1 %; Eosinophils # (A) 0.3 k/uL (0-0.7); Eosinophils % (A) 5 %; HCT 37.9 % (39.0-53.0); HGB 12.2 gm/dL (13.0-17.5); Lymphocytes # (A) 1.2 k/uL (1.0-4.8); Lymphocytes % (A) 21 %; MCH 29.9 pg (25.0-35.0); MCHC 32.1 g/dL (31.0-37.0); MCV 93.2 fL (80.0-100.0); Mean Platelet Volume 6.3; Monocytes # (A) 0.4 k/uL (0-1.0); Monocytes % (A) 7 %; Neutrophils # (A) 3.5 k/uL (1.3-7.7); Neutrophils % (A) 64 %; Platelet Count 213 k/uL (150-450); RBC 4.06 m/uL (4.30-5.90); RDW 15.6 % (11.5-15.5); WBC 5.6 k/uL (3.8-10.6)
[2018-02-20 09:43] LABS: INR 1.4 (<1.2); Partial Thromboplastin Time 34.8 sec (22.0-30.0)
[2018-02-20 09:49] LABS: Albumin 3.4 g/dL (3.5-5.0); Calcium 9.1 mg/dL (8.4-10.2); Potassium 4.9 mmol/L (3.5-5.1); Total Bilirubin 0.5 mg/dL (0.2-1.3); Total Protein 6.2 g/dL (6.3-8.2)
[2018-02-20 09:58] LABS: Creatine Kinase 89 U/L (55-170)
[2018-02-20 10:11] LABS: Creatine Kinase MB 1.8 ng/mL (0.0-2.4); Troponin I <0.012 ng/mL (0.000-0.034)
[2018-02-20] MEDS ORDERED: NALOXONE 0.4 MG/ML 1 ML VIAL IV PRN (11:24)
[2018-02-20] MEDS ORDERED: BISACODYL 5 MG TABLET.DR PO STA (15:08)
--- NOTE | 2018-02-20 15:17 | P.CONS ---
History of Present Illness - Reason for Consult Consult date: 02/20/18 Melena, blood per rectum - Chief Complaint Bloody bowel movement - History of Present Illness The patient is an 82-year-old male with a known history of prior DVT/PE, hyperlipidemia, hypertension, osteoarthritis and remote history of peptic ulcer disease who presents with complaints of blood per rectum. The patient reports waking up in the morning and having to have a bowel movement. He reports associated urgency and rushing to the bathroom at which time he passed clots of black and red blood. The patient reports going to the kitchen and having the sensation of urgency and again losing his bowels. He reports that he had one continuous bowel movements where he passed clots and bright red blood as stated. Since that time he has had no further bowel movements. He denies any pain in the abdomen with the episode. He does not take any NSAID medications regularly. He is on Xarelto for his history of DVT and PE in the past. He does have a remote history of peptic ulcer disease which she believes was treated in 1984. On admission to the hospital the patient was found to have a hemoglobin of 12.2. He denies any use of Pepto-Bismol or iron therapy. He denies any prior episodes of blood per rectum and reports when he was diagnosed with the peptic ulcer was secondary to pain. Past endoscopic history: No prior upper endoscopy. Colonoscopy approximately 10 years ago which she believes was significant for 1 colonic polyp. Review of Systems REVIEW OF SYSTEMS: CARDIOPULMONARY: No chest pain or shortness of breath. GENITOURINARY: No dysuria or hematuria. MUSCULOSKELETAL: No weakness reported. SKIN: Denies any new rashes or lesions. PSYCHIATRIC: Denies any depression or anxiety. NEUROLOGY: Denies headache, denies any new focal deficits. EARS: No tinnitus or new hearing loss. NOSE: No discharge. EYES: No pain in eyes or change in vision. CONSTITUTIONAL: No recent weight loss. No fever, chills, night sweats. 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 History of Any Multi-Drug Resistant Organisms: MRSA Year Discovered:: 03/14/17 MDRO Source:: KNEE Past Surgical History: Hernia Repair, Orthopedic Surgery, Prostate Surgery, Tonsillectomy Additional Past Surgical History / Comment(s): 2009 colonoscopy, L eye cataract surgery, L eye laser surgery, R eye surgery for retinal detachment-unsuccessful , R inguinal hernia repair x2, prostatectomy due to cancer.i&d RT DISTAL KNEE .PICC LINE LT ARM-SINCE REMOVED Past Anesthesia/Blood Transfusion Reactions: No Reported Reaction Additional Past Anesthesia/Blood Transfusion Reaction / Comm: Pt states he has never received blood. Smoking Status: Former smoker - Past Family History Father Family Medical History: Musculoskeletal Disorder, Neurologic Disorder Additional Family Medical History / Comment(s): Father of parkinson's disease at the age of 72 yrs. Mother Family Medical History: Dementia, Musculoskeletal Disorder, Neurologic Disorder Additional Family Medical History / Comment(s): Mother had polio at the age of 2 yrs and wore braces and used crutches to ambulate. She at the age of 95 yrs from dementia and bowel obstruction. Medications and Allergies Home Medications Medication Instructions Recorded Confirmed Type Allopurinol [Zyloprim] 300 mg PO DAILY 05/01/16 02/20/18 History Carvedilol [Coreg] 3.125 mg PO BID 05/01/16 02/20/18 History Donepezil [Aricept] 5 mg PO HS 05/01/16 02/20/18 History Fesoterodine Fumarate [Toviaz] 8 mg PO DAILY 05/01/16 02/20/18 History Lisinopril [Zestril] 20 mg PO DAILY 05/01/16 02/20/18 History Simvastatin [Zocor] 40 mg PO HS 05/01/16 02/20/18 History Furosemide [Lasix] 20 mg PO DAILY 09/18/16 02/20/18 History Glucosamine Sulfate 500 mg PO DAILY 09/18/16 02/20/18 History Rivaroxaban [Xarelto] 20 mg PO PC-SUPPER 09/18/16 02/20/18 History Magnesium 200 mg PO DAILY 03/14/17 02/20/18 History Aspirin 162 mg PO DAILY 04/14/17 02/20/18 History Multivitamins, Thera [Multivitamin 1 tab PO DAILY 04/14/17 02/20/18 History (formulary)] Oxybutynin Chloride [Ditropan XL] 10 mg PO DAILY 04/14/17 02/20/18 History Potassium Chloride [Klor-Con 20] 20 meq PO DAILY 04/14/17 02/20/18 History Ascorbic Acid [Vitamin C] 500 mg PO DAILY 05/09/17 02/20/18 History Cholecalciferol [Vitamin D3] 1,000 unit PO DAILY 05/09/17 02/20/18 History [place]-3 Fatty Acids [[place]-3] 1,000 mg PO DAILY 05/09/17 02/20/18 History Allergies Allergy/AdvReac Type Severity Reaction Status Date / Time Sulfa (Sulfonamide Allergy Unknown Verified 02/20/18 09:42 Antibiotics) Childhood Physical Exam Vitals: Vital Signs Temp Pulse Pulse Resp BP BP Pulse Ox 02/20/18 12:25 97.0 F L 56 L 22 112/69 97 02/20/18 11:55 97.6 F 61 18 127/68 99 02/20/18 09:59 52 L 16 135/65 99 02/20/18 08:47 98.3 F 62 20 92/56 96 Intake and Output 02/20/18 02/20/18 02/20/18 06:59 14:59 22:59 Intake Total 200 Balance 200 Intake: Oral 200 Other: Weight 113.398 kg On physical examination, patient appears comfortable in no apparent distress. Head: Normocephalic, atraumatic. Eyes: Conjunctivae pink. Sclerae anicteric.No conjunctival injection. Mouth: Oral cavity no lesions. NECK: Trachea midline, no gross abnormalities. CHEST: Clear to auscultation. HEART: Regular rate and rhythm. ABDOMEN: Soft. Bowel sounds are positive. No organomegaly. EXTREMITIES: No pedal edema. SKIN: No rashes. NEUROLOGIC: Alert and oriented x3. No focal deficits. Results CBC & Chem 7: 02/20/18 09:08 02/20/18 09:08 Labs: Abnormal Lab Results - Last 24 Hours (Table) 02/20/18 02/20/18 02/20/18 Range/Units 09:08 09:08 09:08 RBC 4.06 L (4.30-5.90) m/uL Hgb 12.2 L (13.0-17.5) gm/dL Hct 37.9 L (39.0-53.0) % RDW 15.6 H (11.5-15.5) % PT 13.0 H (9.0-12.0) sec INR 1.4 H (<1.2) APTT 34.8 H (22.0-30.0) sec Chloride 108 H (98-107) mmol/L BUN 31 H (9-20) mg/dL Creatinine 1.36 H (0.66-1.25) mg/dL Total Protein 6.2 L (6.3-8.2) g/dL Albumin 3.4 L (3.5-5.0) g/dL Assessment and Plan Assessment: Anemia of acute blood loss Patient presenting with mild anemia of 12.2, with normocytic indices and complaints of melena and bright red blood per rectum. Unclear if this is secondary to an upper GI bleed in a patient with a known history of peptic ulcer disease in 1984, lower GI disease, or other pathology. Melena Patient reports black tarry stools with small amounts of bright red blood mixed in. History of peptic ulcer disease Reports a remote history of peptic ulcer disease in 1984. History of colonic polyps Report patient states last colonoscopy was approximately 10 years ago at which time he was found to have a colonic polyp. Plan: Clear liquid diet Nothing by mouth after midnight EGD and colonoscopy in the a.m. Continue to hold Xarelto Continue PPI therapy with Protonix Patient informed the need to continue to avoid use of NSAID medications We'll continue to follow Thank you for allowing us to participate in the care of this patient
--- NOTE | 2018-02-20 15:37 | P.HPIM ---
History of Present Illness H&P Date: 02/20/18 Vince Flores is an 82-year-old male who presented to [facility] emergency room after having episodes of rectal bleeding, patient reports having black stools followed by bright red blood in the stools, symptoms started today , there is no nausea or vomiting no abdominal pain no fever or chills. He has a known history of DVT and pulmonary embolism and is maintained on Xarelto. He was evaluated in the emergency room, hemoglobin on presentation was 12.2, he was admitted to medical floor for further evaluation, gastroenterology consultation was requested. 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 History of Any Multi-Drug Resistant Organisms: MRSA Date of last positivie culture/infection: 03/14/17 MDRO Source:: KNEE Past Surgical History: Hernia Repair, Orthopedic Surgery, Prostate Surgery, Tonsillectomy Additional Past Surgical History / Comment(s): 2009 colonoscopy, L eye cataract surgery, L eye laser surgery, R eye surgery for retinal detachment-unsuccessful , R inguinal hernia repair x2, prostatectomy due to cancer.i&d RT DISTAL KNEE .PICC LINE LT ARM-SINCE REMOVED Past Anesthesia/Blood Transfusion Reactions: No Reported Reaction Additional Past Anesthesia/Blood Transfusion Reaction / Comment(s): Pt states he has never received blood. Smoking Status: Former smoker - Past Family History Father Family Medical History: Musculoskeletal Disorder, Neurologic Disorder Additional Family Medical History / Comment(s): Father of parkinson's disease at the age of 72 yrs. Mother Family Medical History: Dementia, Musculoskeletal Disorder, Neurologic Disorder Additional Family Medical History / Comment(s): Mother had polio at the age of 2 yrs and wore braces and used crutches to ambulate. She at the age of 95 yrs from dementia and bowel obstruction. Medications and Allergies Home Medications Medication Instructions Recorded Confirmed Type Allopurinol [Zyloprim] 300 mg PO DAILY 05/01/16 02/20/18 History Carvedilol [Coreg] 3.125 mg PO BID 05/01/16 02/20/18 History Donepezil [Aricept] 5 mg PO HS 05/01/16 02/20/18 History Fesoterodine Fumarate [Toviaz] 8 mg PO DAILY 05/01/16 02/20/18 History Lisinopril [Zestril] 20 mg PO DAILY 05/01/16 02/20/18 History Simvastatin [Zocor] 40 mg PO HS 05/01/16 02/20/18 History Furosemide [Lasix] 20 mg PO DAILY 09/18/16 02/20/18 History Glucosamine Sulfate 500 mg PO DAILY 09/18/16 02/20/18 History Rivaroxaban [Xarelto] 20 mg PO PC-SUPPER 09/18/16 02/20/18 History Magnesium 200 mg PO DAILY 03/14/17 02/20/18 History Aspirin 162 mg PO DAILY 04/14/17 02/20/18 History Multivitamins, Thera [Multivitamin 1 tab PO DAILY 04/14/17 02/20/18 History (formulary)] Oxybutynin Chloride [Ditropan XL] 10 mg PO DAILY 04/14/17 02/20/18 History Potassium Chloride [Klor-Con 20] 20 meq PO DAILY 04/14/17 02/20/18 History Ascorbic Acid [Vitamin C] 500 mg PO DAILY 05/09/17 02/20/18 History Cholecalciferol [Vitamin D3] 1,000 unit PO DAILY 05/09/17 02/20/18 History [place]-3 Fatty Acids [[place]-3] 1,000 mg PO DAILY 05/09/17 02/20/18 History Allergies Allergy/AdvReac Type Severity Reaction Status Date / Time Sulfa (Sulfonamide Allergy Unknown Verified 02/20/18 09:42 Antibiotics) Childhood Physical Exam Vitals: Vital Signs Temp Pulse Pulse Resp BP BP Pulse Ox 02/20/18 12:25 97.0 F L 56 L 22 112/69 97 02/20/18 11:55 97.6 F 61 18 127/68 99 02/20/18 09:59 52 L 16 135/65 99 02/20/18 08:47 98.3 F 62 20 92/56 96 Intake and Output 02/20/18 02/20/18 02/20/18 06:59 14:59 22:59 Intake Total 200 Balance 200 Intake: Oral 200 Other: Weight 113.398 kg In general patient is alert and oriented 3 in no apparent distress HEENT head normocephalic and atraumatic Neck is supple no JVD no goiter no lymphadenopathy Chest exam reveals a few scattered crackles no wheezing Cardiac exam reveals regular heart sounds S1 and S2 no gallops no murmurs Abdomen is soft, obese, nontender no organomegaly was normal. Extremity exam reveals no edema no cyanosis or clubbing Neurological examination reveals no gross focal deficit Results CBC & Chem 7: 02/20/18 09:08 02/20/18 09:08 Labs: Abnormal Lab Results - Last 24 Hours (Table) 02/20/18 02/20/18 02/20/18 Range/Units 09:08 09:08 09:08 RBC 4.06 L (4.30-5.90) m/uL Hgb 12.2 L (13.0-17.5) gm/dL Hct 37.9 L (39.0-53.0) % RDW 15.6 H (11.5-15.5) % PT 13.0 H (9.0-12.0) sec INR 1.4 H (<1.2) APTT 34.8 H (22.0-30.0) sec Chloride 108 H (98-107) mmol/L BUN 31 H (9-20) mg/dL Creatinine 1.36 H (0.66-1.25) mg/dL Total Protein 6.2 L (6.3-8.2) g/dL Albumin 3.4 L (3.5-5.0) g/dL Thrombosis Risk Factor Assmnt - Choose All That Apply Any of the Below Risk Factors Present?: Yes Each Factor Represents 1 point: Obesity (BMI >25) Other Risk Factors: Yes Each Risk Factor Represents 2 Points: Malignancy Each Risk Factor Represents 3 Points: Age 75 years or older, History of DVT/PE Thrombosis Risk Factor Assessment Total Risk Factor Score: 9 Thrombosis Risk Factor Assessment Level: High Risk Assessment and Plan Plan: #1 acute gastrointestinal bleeding with check serial CBCs gastroenterology consultation was requested and patient is scheduled for EGD and colonoscopy in a.m. tomorrow. 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 Will review records if patient on the had 1 incident of DVT and PE he may not need to be on anticoagulation anymore. #3 underlying history of hypertension well-controlled continue current medications #4 underlying history of gout maintained on Zyloprim continue #5 underlying history of dementia maintained on Aricept Medication and labs were reviewed Patient is scheduled for EGD and colonoscopy tomorrow Continue to follow CBC closely Will follow in a.m.
[2018-02-20] MEDS ORDERED: PEG 3350-NA SULF,BICARB,CL/KCL 4,000 ML BOTTLE PO ONE (17:00)
[2018-02-20 23:16] LABS: HCT 39.1 % (39.0-53.0); HGB 12.4 gm/dL (13.0-17.5); MCH 29.9 pg (25.0-35.0); MCHC 31.6 g/dL (31.0-37.0); MCV 94.9 fL (80.0-100.0); Mean Platelet Volume 6.2; Platelet Count 197 k/uL (150-450); RBC 4.12 m/uL (4.30-5.90); RDW 15.7 % (11.5-15.5); WBC 6.8 k/uL (3.8-10.6)
[2018-02-21 05:44] LABS: HCT 37.6 % (39.0-53.0); HGB 11.8 gm/dL (13.0-17.5); MCH 29.6 pg (25.0-35.0); MCHC 31.5 g/dL (31.0-37.0); Mean Platelet Volume 6.4; Platelet Count 191 k/uL (150-450); RDW 15.4 % (11.5-15.5); WBC 5.4 k/uL (3.8-10.6)
[2018-02-21] MEDS: SODIUM CHLORIDE 0.9% 1,000 ML IV SCH ×3 (07:16→12:10)
[2018-02-21] MEDS: PANTOPRAZOLE 40 MG/10 ML VIAL IV SCH (08:00)
[2018-02-21] MEDS ORDERED: PROPOFOL 10 MG/ML 20 ML VIAL IV ONE (09:04)
[2018-02-21] MEDS ORDERED: ePHEDrine SULFATE/0.9% NACL/PF 50 MG/5 ML SYRINGE IV ONE (09:04)
[2018-02-21] MEDS ORDERED: LIDOCAINE 1% INJ 10MG/ML (20 ML MDV) ONE (09:04)
[2018-02-21] MEDS ORDERED: GLYCOPYRROLATE 0.2 MG/ML 2 ML VIAL ONE (09:04)
[2018-02-21] MEDS ORDERED: PHENYLEPHRINE-0.9% NACL SYG 1 MG/10 ML SYRINGE ONE (09:04)
[2018-02-21] MEDS ORDERED: IV FLUID CONTINUATION 800 ML IV ONE (09:07)
--- NOTE | 2018-02-21 11:00 | P.PCN ---
Date of Procedure: 02/21/18 Description of Procedure: Brief history: Patient is a 82-year-old male with a past medical history significant for DVT and PE currently on Xarelto therapy, who presents to the hospital with complaints of bright red blood per rectum mixed with black stool. The patient reports one continuous episode and was found to be mildly anemic on presentation. The patient denies any prior upper endoscopy but does have a history of peptic ulcer disease. This was in the remote past approximately 20 years ago. The patient reports that his last colonoscopy was over 10 years ago. Procedure performed: Esophagogastroduodenoscopy Colonoscopy Preoperative diagnosis: Hematochezia, melena, anemia of acute blood loss Anesthesia: MAC Procedure: After informed consent was obtained from the patient was brought into the endoscopy unit and IV sedation was administered by anesthesia under continuous monitoring. Initially upper endoscopy was done. The Olympus GF 180 video endoscope was inserted inserted into the mouth and esophagus intubated without any difficulty and was gradually advanced into the stomach. The patient appeared to have a large paraesophageal hernia which was found on retroflexion and the scope was advanced through this paraesophageal hernia for further visualization of the distal stomach. There was no active bleeding found in the cardia, fundus, body or antrum. The scope could not be advanced to the duodenum given large size of the hernia which resulted in significant looping of the scope. However, no evidence of new or old blood, or any pathology to explain GI bleed could be found. The scope was then withdrawn into the esophagus. The GE junction was located at 35 cm to the incisors. It appeared regular with no erythema erosions or ulcerations. Rest of the esophagus appeared normal. Patient tolerated the procedure well. At this time the patient continued to remain sedation. Initial digital rectal examination was normal and significant for bright red blood. Olympus CF 190 video colonoscope was then inserted into the rectum and gradually advanced to the cecum without any difficulty. Careful examination was performed as the scope was gradually being withdrawn. The prep was excellent fair with liquid blood tinged fluid throughout the colon. A large pedunculated 2 cm polyp was found in the ascending colon which was removed with hot snare. Additional tissue was seen at the base of the polyp after the first cut was successfully removed. Given the patient's history of recent Xarelto which was only held for 24 hours, a clip was placed for hemostasis. The area was also injected with 4 mL of ink. The cecum, ascending colon, transverse colon, descending colon, sigmoid colon and rectum appeared otherwise appeared grossly normal with no active bleeding noted. Retroflexion was performed in the rectum with internal hemorrhoids, and no lesions were seen. Patient tolerated the procedure well. Impression: 1. Large paraesophageal hernia, with no evidence of active GI bleed in the esophagus and stomach. 2. 2 cm pedunculated polyp removed with hot snare. Clip placed and area injected with dye. 3. Blood tinged fluid seen throughout the colon without any evidence of active bleeding. 4. Internal hemorrhoids seen on retroflexion. Recommendations: Findings of this examination were discussed with the patient. At this time would recommend to continue holding Xarelto for an additional 2 days. Patient is okay for ice chips and meds with water but otherwise keep nothing by mouth for now. Will repeat hemoglobin this afternoon. Await results of pathology. Recommend repeat colonoscopy in 6 months for follow-up given piecemeal resection followed. The patient is not having any signs or symptoms to indicate incarceration or volvulus of the hernia at this time however if any nausea or vomiting develops recommend surgical consult and further imaging for evaluation of the area.
[2018-02-21 11:16] LABS: HCT 35.9 % (39.0-53.0); HGB 11.4 gm/dL (13.0-17.5); MCH 30.2 pg (25.0-35.0); MCHC 31.7 g/dL (31.0-37.0); MCV 95.2 fL (80.0-100.0); Mean Platelet Volume 6.1; Platelet Count 170 k/uL (150-450); RBC 3.77 m/uL (4.30-5.90); RDW 15.7 % (11.5-15.5); WBC 4.7 k/uL (3.8-10.6)
--- NOTE | 2018-02-21 15:13 | P.PN ---
Subjective Progress Note Date: 02/21/18 Vince Flores is an 82-year-old male who presented to [facility] emergency room after having episodes of rectal bleeding, patient reports having black stools followed by bright red blood in the stools, symptoms started today , there is no nausea or vomiting no abdominal pain no fever or chills. He has a known history of DVT and pulmonary embolism and is maintained on Xarelto. He was evaluated in the emergency room, hemoglobin on presentation was 12.2, he was admitted to medical floor for further evaluation, gastroenterology consultation was requested. On 02/21/2018 patient is alert and oriented 3 in no apparent distress he underwent EGD and colonoscopy this morning there are no more episodes of active bleeding hemoglobin is stable at 11.4 there is no chest pain or shortness of breath no cough no nausea or vomiting no abdominal pain and no diarrhea no urinary symptoms. Objective - Vital Signs Vital signs: Vital Signs Temp 97.0 F L 02/21/18 05:00 Pulse 67 02/21/18 05:00 Resp 16 02/21/18 05:00 BP 150/82 02/21/18 05:00 Pulse Ox 94 L 02/21/18 05:00 Intake & Output 02/20/18 02/21/18 02/21/18 18:59 06:59 18:59 Intake Total 483 306 9630 Balance 449 012 4542 Weight 113.398 kg Intake: IV 800 1350 Sodium Chloride 0.9% 1, 800 800 000 ml @ 100 mls/hr IV . Q10H [facility] Rx#:[id number] Oral 200 Other: Voiding Method Diaper # Voids 4 # Bowel Movements 4 - Exam In general patient is alert and oriented 3 in no apparent distress HEENT head normocephalic and atraumatic Neck is supple no JVD no goiter no lymphadenopathy Chest exam reveals a few scattered crackles no wheezing Cardiac exam reveals regular heart sounds S1 and S2 no gallops no murmurs Abdomen is soft, obese, nontender no organomegaly was normal. Extremity exam reveals no edema no cyanosis or clubbing Neurological examination reveals no gross focal deficit - Labs CBC & Chem 7: 02/21/18 10:59 02/20/18 09:08 Labs: Abnormal Lab Results - Last 24 Hours (Table) 02/20/18 02/21/18 02/21/18 Range/Units 22:52 05:19 10:59 RBC 4.12 L 4.00 L 3.77 L (4.30-5.90) m/uL Hgb 12.4 L 11.8 L 11.4 L (13.0-17.5) gm/dL Hct 37.6 L 35.9 L (39.0-53.0) % RDW 15.7 H 15.7 H (11.5-15.5) % Assessment and Plan Plan: #1 acute gastrointestinal bleeding with check serial CBCs gastroenterology consultation was requested and patient underwent EGD and colonoscopy today which revealed: 1. Large paraesophageal hernia, with no evidence of active GI bleed in the esophagus and stomach. 2. 2 cm pedunculated polyp removed with hot snare. Clip placed and area injected with dye. 3. Blood tinged fluid seen throughout the colon without any evidence of active bleeding. 4. Internal hemorrhoids seen on retroflexion. 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 Will review records if patient on the had 1 incident of DVT and PE he may not need to be on anticoagulation anymore. #3 underlying history of hypertension well-controlled continue current medications #4 underlying history of gout maintained on Zyloprim continue #5 underlying history of dementia maintained on Aricept Medication and labs were reviewed Patient is scheduled for EGD and colonoscopy tomorrow Continue to follow CBC closely Will follow in a.m.
[2018-02-21 16:52] LABS: HCT 35.2 % (39.0-53.0); HGB 11.7 gm/dL (13.0-17.5); MCH 31.2 pg (25.0-35.0); MCHC 33.2 g/dL (31.0-37.0); MCV 93.9 fL (80.0-100.0); Mean Platelet Volume 6.8; Platelet Count 168 k/uL (150-450); RBC 3.75 m/uL (4.30-5.90); RDW 15.3 % (11.5-15.5); WBC 5.7 k/uL (3.8-10.6)
[2018-02-22] MEDS: SODIUM CHLORIDE 0.9% 1,000 ML IV SCH ×3 (05:05→20:18)
[2018-02-22] MEDS: PANTOPRAZOLE 40 MG/10 ML VIAL IV SCH (08:54)
--- NOTE | 2018-02-22 13:23 | P.CONS ---
History of Present Illness - Reason for Consult Consult date: 02/22/18 GI bleed. Anticoagulation for PE/DVT - History of Present Illness The patient is an 82-year-old gentleman with multiple medical problems. He was diagnosed in 05/15 with bilateral PE and bilateral DVT ( proximal femoral DVT on the right, popliteal DVT on the left, moderate to heavy clot burden in the lungs bilaterally, with some right heart strain). According to the patient this was unprovoked. Review of his records at that time did not indicate any obvious provoking factors in the physician documentation either. The patient was placed on Xarelto on which she has continued with good tolerance overall. He had a repeat Doppler in 04/15 that showed residual clot with some improvement in the lower extremities. The patient came into the hospital with complains of black stools and bright red blood per rectum. Essentially this appears to have been one continuous episode over 1-2 days. His hemoglobin was 12.2. It is actually been quite stable in the high 11 range. He had an EGD and colonoscopy that was negative other than showing some small amount of blood in the colon. Consult was therefore placed a further evaluation and recommendations. He denies missing any doses of the Xarelto, or taking extra doses by mistake. He did have a history of GI bleed due to peptic ulcer disease more than 20 years ago. Review of Systems Constitutional: Denies chills, Denies fever Eyes: denies blurred vision, denies pain Ears: deny: decreased hearing, ear discharge, earache, tinnitus Ears, nose, mouth and throat: Denies headache, Denies sore throat Cardiovascular: Reports decreased exercise tolerance, Reports dyspnea on exertion Respiratory: Denies cough Gastrointestinal: Reports hematochezia Genitourinary: Reports as per HPI Musculoskeletal: Reports as per HPI (History of osteomyelitis in the right knee in 2017) Musculoskeletal: right: knee stiffness, knee swelling Integumentary: Denies pruritus, Denies rash Neurological: Denies numbness, Denies weakness Psychiatric: Denies anxiety, Denies depression Endocrine: Denies fatigue, Denies weight change Hematologic/Lymphatic: Reports as per HPI Past Medical History Past Medical History: Cancer, Dementia, Deep Vein Thrombosis (DVT), Eye Disorder , GI Bleed, Hyperlipidemia, Hypertension, Osteoarthritis (OA), Pulmonary Embolus (PE), Renal Disease Additional Past Medical History / Comment(s): 04/2016 bilateral PE's and bilateral leg DVTs, prostate cancer with surgery, kidney cysts and stones, arthritis bilateral knees, diverticulosis, PUD, 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 History of Any Multi-Drug Resistant Organisms: MRSA Year Discovered:: 03/14/17 MDRO Source:: KNEE Past Surgical History: Hernia Repair, Orthopedic Surgery, Prostate Surgery, Tonsillectomy Additional Past Surgical History / Comment(s): 2009 colonoscopy, L eye cataract surgery, L eye laser surgery, R eye surgery for retinal detachment-unsuccessful , R inguinal hernia repair x2, prostatectomy due to cancer.i&d RT DISTAL KNEE .PICC LINE LT ARM-SINCE REMOVED Past Anesthesia/Blood Transfusion Reactions: No Reported Reaction Additional Past Anesthesia/Blood Transfusion Reaction / Comm: Pt states he has never received blood. Smoking Status: Former smoker - Past Family History Father Family Medical History: Musculoskeletal Disorder, Neurologic Disorder Additional Family Medical History / Comment(s): Father of parkinson's disease at the age of 72 yrs. Mother Family Medical History: Dementia, Musculoskeletal Disorder, Neurologic Disorder Additional Family Medical History / Comment(s): Mother had polio at the age of 2 yrs and wore braces and used crutches to ambulate. She at the age of 95 yrs from dementia and bowel obstruction. Medications and Allergies Home Medications Medication Instructions Recorded Confirmed Type Allopurinol [Zyloprim] 300 mg PO DAILY 05/01/16 02/20/18 History Carvedilol [Coreg] 3.125 mg PO BID 05/01/16 02/20/18 History Donepezil [Aricept] 5 mg PO HS 05/01/16 02/20/18 History Fesoterodine Fumarate [Toviaz] 8 mg PO DAILY 05/01/16 02/20/18 History Lisinopril [Zestril] 20 mg PO DAILY 05/01/16 02/20/18 History Simvastatin [Zocor] 40 mg PO HS 05/01/16 02/20/18 History Furosemide [Lasix] 20 mg PO DAILY 09/18/16 02/20/18 History Glucosamine Sulfate 500 mg PO DAILY 09/18/16 02/20/18 History Rivaroxaban [Xarelto] 20 mg PO PC-SUPPER 09/18/16 02/20/18 History Magnesium 200 mg PO DAILY 03/14/17 02/20/18 History Aspirin 162 mg PO DAILY 04/14/17 02/20/18 History Multivitamins, Thera [Multivitamin 1 tab PO DAILY 04/14/17 02/20/18 History (formulary)] Oxybutynin Chloride [Ditropan XL] 10 mg PO DAILY 04/14/17 02/20/18 History Potassium Chloride [Klor-Con 20] 20 meq PO DAILY 04/14/17 02/20/18 History Ascorbic Acid [Vitamin C] 500 mg PO DAILY 05/09/17 02/20/18 History Cholecalciferol [Vitamin D3] 1,000 unit PO DAILY 05/09/17 02/20/18 History Stratham-3 Fatty Acids [Stratham-3] 1,000 mg PO DAILY 05/09/17 02/20/18 History Allergies Allergy/AdvReac Type Severity Reaction Status Date / Time Sulfa (Sulfonamide Allergy Unknown Verified 02/20/18 09:42 Antibiotics) Childhood Physical Exam Vitals: Vital Signs Temp Pulse Resp BP Pulse Ox 02/22/18 05:00 96.8 F L 77 16 149/86 100 02/21/18 22:30 96.1 F L 69 16 182/83 95 02/21/18 15:00 98 F 82 22 116/93 95 Intake and Output 02/21/18 02/22/18 02/22/18 22:59 06:59 14:59 Intake Total 590 800 Balance 590 800 Intake: IV 800 Sodium Chloride 0.9% 1, 800 000 ml @ 100 mls/hr IV . Q10H [facility] Rx#:[id number] Oral 590 Other: Voiding Method Diaper Diaper # Voids 2 3 # Bowel Movements 1 - Constitutional General appearance: no acute distress - EENT Eyes: EOMI, PERRLA ENT: hearing grossly normal, normal oropharynx - Neck Neck: no lymphadenopathy Thyroid: bilateral: normal size - Respiratory Respiratory: bilateral: CTA - Cardiovascular Rhythm: regular Heart sounds: normal: S1, S2 - Gastrointestinal General gastrointestinal: normal bowel sounds, soft - Integumentary Integumentary: normal - Neurologic Neurologic: CNII-XII intact - Musculoskeletal Musculoskeletal: generalized weakness, strength equal bilaterally - Psychiatric Psychiatric: A&O x's 3, appropriate affect Results CBC & Chem 7: 02/21/18 16:06 02/20/18 09:08 Labs: Abnormal Lab Results - Last 24 Hours (Table) 02/21/18 Range/Units 16:06 RBC 3.75 L (4.30-5.90) m/uL Hgb 11.7 L (13.0-17.5) gm/dL Hct 35.2 L (39.0-53.0) % Comments: Endoscopic procedure notes reviewed CT scan - chest: report reviewed Venous US: report reviewed Assessment and Plan (1) Gastrointestinal hemorrhage Narrative/Plan: The patient's EGD and colonoscopy were negative other than a small amount of blood in the colon. Overall the average appears to have been quite minor, with no major drop in hemoglobin. Hemoglobin has remained in the 11-12 range to appears to be close to his baseline. In fact in 04/15, hemoglobin was actually lower in the 9-10 range with the patient had osteomyelitis. I will check iron studies with the plan for iron supplementation if needed. Continue to monitor for recurrent bleed. Given the acuity of the bleed, it would be reasonable to hold anticoagulation presently. Current Visit: Yes Status: Acute Code(s): K92.2 - GASTROINTESTINAL HEMORRHAGE, UNSPECIFIED SNOMED Code(s): 69813226 (2) VTE (venous thromboembolism) Narrative/Plan: The patient had a significant episode in 05/15, with moderate to heavy bilateral clot burden in the lungs, as well as bilateral DVT. There does not appear to have been any provoking factors. He still had residual DVT on repeat Doppler was in 04/15. In this situation the general recommendation would be to continue anticoagulation lifelong, as long as the patient doesn't have adverse effects. This patient did have GI bleeding, but given the stability of the hemoglobin this appears to have been quite minor. Given his history, he would be at risk of repeat VTE, with stoppage of anticoagulation. As he has had an acute bleed, it would be recommended to hold the anticoagulation at least for now. This should be reasonably safe in the short- term as he has been on treatment for 20+ months. If hemoglobin is stable, I would recommend discharging him on a baby aspirin. I will also do a repeat risk assessment with CTA, and bilateral venous Dopplers. I would then assess him in the office in about 2-3 weeks. If hemoglobin is stable, then based on results of his imaging risk assessment, resumption of anticoagulation (possibly with the lower extended dosing Xarelto) can be considered Current Visit: Yes Status: Acute Code(s): I82.90 - ACUTE EMBOLISM AND THROMBOSIS OF UNSPECIFIED VEIN SNOMED Code(s): 952572814 Plan: Defer to the admitting service for management of his other medical problems
--- NOTE | 2018-02-22 15:24 | CT ---
EXAMINATION TYPE: CT angio chest DATE OF EXAM: 02/22/2018 COMPARISON: NONE HISTORY: PE CT DLP: 638 mGycm. Automated Exposure Control for Dose Reduction was Utilized. CONTRAST: CTA scan of the thorax is performed with IV Contrast, patient injected with 100 mL of Isovue 370 MIP Images are created on CT scanner and reviewed. FINDINGS: LUNGS: The lungs are grossly clear, there is no concerning parenchymal mass or nodule identified. Mul tiple areas of pleural-based scarring are evident. The airway is clear. There is no pleural effusion or pneumothorax seen. The tracheobronchial tree is patent. MEDIASTINUM: There is inadequate opacification of the pulmonary arteries for assessment of pulmonary emboli. The ascending and descending thoracic aorta are without aneurysmal dilatation. Calcified athe romatous plaquing is seen throughout the visualized aorta. There are no greater than 1 cm hilar or me diastinal lymph nodes. No cardiomegaly or pericardial effusion is seen. OTHER: Multiple presumed renal cysts are partially visualized in the upper abdomen. Multiple gallston es are evident. The visualized portions of the spleen and liver are unremarkable. There is a large hiatal hernia with a portion of the greater curvature located within the hernia sac. IMPRESSION: 1. No aortic aneurysm or dissection. 2. Calcified atheromatous plaquing throughout the visualized thoracic aorta. 3. Interval development of large hiatal hernia.
--- NOTE | 2018-02-22 15:43 | P.PN ---
Subjective Progress Note Date: 02/22/18 Principal diagnosis: Melena, large hiatal hernia, polypectomy The patient reports feeling well. He's had no further melanotic stool. He has tolerated his liquid diet. Objective - Vital Signs Vital signs: Vital Signs Temp 97 F L 02/22/18 15:00 Pulse 78 02/22/18 15:00 Resp 18 02/22/18 15:00 BP 188/98 02/22/18 15:00 Pulse Ox 97 02/22/18 15:00 Intake & Output 02/21/18 02/22/18 02/22/18 18:59 06:59 18:59 Intake Total 1350 1390 1400 Balance 1350 1390 1400 Intake: IV 1350 800 800 Sodium Chloride 0.9% 1, 800 800 800 000 ml @ 100 mls/hr IV . Q10H [facility] Rx#:[id number] Oral 590 600 Other: Voiding Method Diaper Diaper Toilet Urinal Diaper # Voids 2 3 2 # Bowel Movements 1 1 - Exam On physical examination, patient appears comfortable in no apparent distress. HEAD: Normocephalic, atraumatic. EYES: No clerae icterus. No conjunctival injection. MOUTH: No lesions, tongue midline. NECK: Trachea midline, no gross abnormalities. CHEST: Clear to auscultation with no wheezing or rhonchi appreciated. HEART: Regular rate and rhythm. ABDOMEN: Soft, obese. Bowel sounds are positive. No organomegaly. No guarding or rigidity. EXTREMITIES: No pedal edema. SKIN: No rashes, no jaundice. NEUROLOGIC: Alert and oriented x3. No focal deficits. - Labs CBC & Chem 7: 02/21/18 16:06 02/20/18 09:08 Labs: Abnormal Lab Results - Last 24 Hours (Table) 02/21/18 Range/Units 16:06 RBC 3.75 L (4.30-5.90) m/uL Hgb 11.7 L (13.0-17.5) gm/dL Hct 35.2 L (39.0-53.0) % Assessment and Plan Assessment: Melena Patient reports black tarry stools with small amounts of bright red blood mixed in. Likely from large polyp in the ascending colon which was resected on colonoscopy and piecemeal fashion. Patient denies any further black stools. Large hiatal hernia Seen on EGD with advancement of scope into the stomach, no lesions or pathology to explain melena or bleeding. Internal hemorrhoids Seen on colonoscopy History of peptic ulcer disease Reports a remote history of peptic ulcer disease in 1984. History of colonic polyps Report patient states last colonoscopy was approximately 10 years ago at which time he was found to have a colonic polyp. Plan: Full liquid diet today, advance as tolerated Continue to hold Xarelto, currently undergoing evaluation by hematology service for the need to continue this medication in the setting of prior PE/DVT. If the patient has to be on anticoagulation therapy would recommend holding for an additional day before restarting. Continue PPI therapy with Protonix daily in the setting of a large hiatal hernia Patient informed the need to continue to avoid use of NSAID medications We'll continue to follow Thank you for allowing us to participate in the care of this patient
--- NOTE | 2018-02-22 16:35 | P.PN ---
Subjective Progress Note Date: 02/22/18 Vince Flores is an 82-year-old male who presented to [facility] emergency room after having episodes of rectal bleeding, patient reports having black stools followed by bright red blood in the stools, symptoms started today , there is no nausea or vomiting no abdominal pain no fever or chills. He has a known history of DVT and pulmonary embolism and is maintained on Xarelto. He was evaluated in the emergency room, hemoglobin on presentation was 12.2, he was admitted to medical floor for further evaluation, gastroenterology consultation was requested. On 02/21/2018 patient is alert and oriented 3 in no apparent distress he underwent EGD and colonoscopy this morning there are no more episodes of active bleeding hemoglobin is stable at 11.4 there is no chest pain or shortness of breath no cough no nausea or vomiting no abdominal pain and no diarrhea no urinary symptoms. On 02/22/2018 patient is alert and oriented no new episodes of rectal bleeding patient is tolerating full liquid diet well he denies any chest pain or shortness of breath no nausea or vomiting no abdominal pain no diarrhea and no urinary symptoms Objective - Vital Signs Vital signs: Vital Signs Temp 97 F L 02/22/18 15:00 Pulse 78 02/22/18 15:00 Resp 18 02/22/18 15:00 BP 188/98 02/22/18 15:00 Pulse Ox 97 02/22/18 15:00 Intake & Output 02/21/18 02/22/18 02/22/18 18:59 06:59 18:59 Intake Total 1350 1390 1400 Balance 1350 1390 1400 Intake: IV 1350 800 800 Sodium Chloride 0.9% 1, 800 800 800 000 ml @ 100 mls/hr IV . Q10H [facility] Rx#:[id number] Oral 590 600 Other: Voiding Method Diaper Diaper Toilet Urinal Diaper # Voids 2 3 2 # Bowel Movements 1 1 - Exam In general patient is alert and oriented 3 in no apparent distress HEENT head normocephalic and atraumatic Neck is supple no JVD no goiter no lymphadenopathy Chest exam reveals a few scattered crackles no wheezing Cardiac exam reveals regular heart sounds S1 and S2 no gallops no murmurs Abdomen is soft, obese, nontender no organomegaly was normal. Extremity exam reveals no edema no cyanosis or clubbing Neurological examination reveals no gross focal deficit - Labs CBC & Chem 7: 02/21/18 16:06 02/20/18 09:08 Labs: Abnormal Lab Results - Last 24 Hours (Table) 02/21/18 Range/Units 16:06 RBC 3.75 L (4.30-5.90) m/uL Hgb 11.7 L (13.0-17.5) gm/dL Hct 35.2 L (39.0-53.0) % Assessment and Plan Plan: #1 acute gastrointestinal bleeding with check serial CBCs gastroenterology consultation was requested and patient underwent EGD and colonoscopy today which revealed: 1. Large paraesophageal hernia, with no evidence of active GI bleed in the esophagus and stomach. 2. 2 cm pedunculated polyp removed with hot snare. Clip placed and area injected with dye. 3. Blood tinged fluid seen throughout the colon without any evidence of active bleeding. 4. Internal hemorrhoids seen on retroflexion. 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 Will review records if patient on the had 1 incident of DVT and PE he may not need to be on anticoagulation anymore. #3 underlying history of hypertension well-controlled continue current medications #4 underlying history of gout maintained on Zyloprim continue #5 underlying history of dementia maintained on Aricept Medication and labs were reviewed Patient is scheduled for EGD and colonoscopy tomorrow Continue to follow CBC closely Input from Dr. Santiago reviewed, patient will be discharged on aspirin he would follow up with patient in 2 weeks as outpatient and at that time he will decide whether patient can be restarted on anticoagulation Will follow in a.m.
[2018-02-22] MEDS: LISINOPRIL 20 MG TAB PO SCH (17:17)
--- NOTE | 2018-02-22 17:41 | US ---
EXAMINATION TYPE: US venous doppler duplex LE DATE OF EXAM: 02/22/2018 2:41 PM COMPARISON: None. CLINICAL HISTORY: h/o PE/DVT. Follow up. H/O PE and DVT, currently on blood thinners SIDE PERFORMED: Bilateral TECHNIQUE: The lower extremity deep venous system is examined utilizing real time linear array sonog graciela with graded compression, doppler sonography and color-flow sonography. VESSELS IMAGED: External Iliac Vein (EIV) Common Femoral Vein Deep Femoral Vein Greater Saphenous Vein * Femoral Vein Popliteal Vein Small Saphenous Vein * Proximal Calf Veins (* superficial vessels) IMPRESSION: 1. Partial, nonocclusive occlusive thrombus of the distal femoral and popliteal veins. Favored to be chronic. 2. Partial, nonocclusive thrombus of the left popliteal vein. Favored to be chronic.
[2018-02-22] MEDS: ATORVASTATIN 20 MG TAB PO SCH (20:17)
[2018-02-22] MEDS: DONEPEZIL 5 MG TAB PO SCH (20:17)
[2018-02-22] MEDS: CARVEDILOL 3.125 MG TAB PO SCH (20:18)
[2018-02-23] MEDS: SODIUM CHLORIDE 0.9% 1,000 ML IV SCH ×2 (05:45→20:39)
[2018-02-23 07:37] LABS: Basophils % (A) 1 %; Eosinophils # (A) 0.2 k/uL (0-0.7); Eosinophils % (A) 5 %; HCT 36.3 % (39.0-53.0); HGB 11.4 gm/dL (13.0-17.5); Hypochromasia Slight; Lymphocytes # (A) 0.7 k/uL (1.0-4.8); Lymphocytes % (A) 18 %; MCH 30.4 pg (25.0-35.0); MCHC 31.3 g/dL (31.0-37.0); MCV 97.1 fL (80.0-100.0); Mean Platelet Volume 6.4; Monocytes # (A) 0.3 k/uL (0-1.0); Monocytes % (A) 7 %; Neutrophils # (A) 2.7 k/uL (1.3-7.7); Neutrophils % (A) 67 %; Platelet Count 186 k/uL (150-450); RBC 3.73 m/uL (4.30-5.90); RDW 15.7 % (11.5-15.5)
[2018-02-23 07:52] LABS: Calcium 8.7 mg/dL (8.4-10.2); Potassium 4.2 mmol/L (3.5-5.1); Total Bilirubin 0.7 mg/dL (0.2-1.3); Total Protein 5.8 g/dL (6.3-8.2)
[2018-02-23] MEDS: MAGNESIUM OXIDE 400 MG TAB PO SCH (08:14)
[2018-02-23] MEDS: LISINOPRIL 20 MG TAB PO SCH (08:14)
[2018-02-23] MEDS: POTASSIUM CHLORIDE ER 20 MEQ TAB.ER PO SCH (08:14)
[2018-02-23] MEDS: CHOLECALCIFEROL 1,000 UNIT TAB PO SCH (08:14)
[2018-02-23] MEDS: OXYBUTYNIN 10 MG TAB.ER.24 PO SCH (08:15)
[2018-02-23] MEDS: ALLOPURINOL 300 MG TAB PO SCH (08:15)
[2018-02-23] MEDS: CARVEDILOL 3.125 MG TAB PO SCH ×2 (08:15→20:40)
[2018-02-23] MEDS: PANTOPRAZOLE 40 MG/10 ML VIAL IV SCH (08:15)
[2018-02-23] MEDS: FUROSEMIDE 20 MG TAB PO SCH (08:15)
[2018-02-23] MEDS: ASCORBIC ACID 500 MG TAB PO SCH (08:15)
[2018-02-23] MEDS ORDERED: NON-FORMULARY DRUG (Glucosamine Sulfate 500 MG) PO SCH (09:00)
[2018-02-23] MEDS ORDERED: NON-FORMULARY DRUG (Omega-3 Fatty Acids [Omega-3] 1,000 MG) PO SCH (09:00)
[2018-02-23] MEDS ORDERED: FESOTERODINE FUMARATE 8 MG PO SCH (09:00)
[2018-02-23 10:14] LABS: Iron Saturation 28.03 (15.00-50.00)
[2018-02-23] MEDS ORDERED: MULTIVITAMINS, THERA 1 EACH TAB PO SCH (12:00)
--- NOTE | 2018-02-23 13:45 | P.PN ---
Subjective Progress Note Date: 02/23/18 Principal diagnosis: GI bleeding Vince seen and evaluated today in follow-up. No signs of bleeding, hemoglobin stable at 11.4. Objective - Vital Signs Vital signs: Vital Signs Temp 98.2 F 02/23/18 06:00 Pulse 66 02/23/18 08:15 Resp 16 02/23/18 08:15 BP 162/66 02/23/18 06:00 Pulse Ox 93 L 02/23/18 06:00 Intake & Output 02/22/18 02/23/18 02/23/18 18:59 06:59 18:59 Intake Total 1400 2460 Balance 1400 2460 Weight 113.398 kg Intake: IV 800 Sodium Chloride 0.9% 1, 800 000 ml @ 100 mls/hr IV . Q10H [facility] Rx#:[id number] Intake, IV Titration 800 Amount Sodium Chloride 0.9% 1, 800 000 ml @ 100 mls/hr IV . Q10H [facility] Rx#:[id number] Oral 600 1660 Other: Voiding Method Toilet Toilet Toilet Urinal Urinal Urinal Diaper Diaper Diaper # Voids 2 2 # Bowel Movements 1 2 - Exam - Constitutional General appearance: no acute distress - EENT Eyes: EOMI, PERRLA ENT: hearing grossly normal, normal oropharynx - Neck Neck: no lymphadenopathy Thyroid: bilateral: normal size - Respiratory Respiratory: bilateral: CTA - Cardiovascular Rhythm: regular Heart sounds: normal: S1, S2 - Gastrointestinal General gastrointestinal: normal bowel sounds, soft - Integumentary Integumentary: normal - Neurologic Neurologic: CNII-XII intact - Musculoskeletal Musculoskeletal: generalized weakness, strength equal bilaterally - Psychiatric Psychiatric: A&O x's 3, appropriate affect - Labs CBC & Chem 7: 02/23/18 06:58 02/23/18 06:58 Labs: Abnormal Lab Results - Last 24 Hours (Table) 02/23/18 02/23/18 Range/Units 06:58 06:58 RBC 3.73 L (4.30-5.90) m/uL Hgb 11.4 L (13.0-17.5) gm/dL Hct 36.3 L (39.0-53.0) % RDW 15.7 H (11.5-15.5) % Lymphocytes # 0.7 L (1.0-4.8) k/uL Chloride 112 H (98-107) mmol/L Total Protein 5.8 L (6.3-8.2) g/dL Albumin 3.0 L (3.5-5.0) g/dL Assessment and Plan Plan: Assessment and Plan (1) Gastrointestinal hemorrhage Narrative/Plan: The patient's EGD and colonoscopy were negative other than a small amount of blood in the colon. Overall the average appears to have been quite minor, with no major drop in hemoglobin. Hemoglobin has remained in the 11-12 range to appears to be close to his baseline. In fact in 04/15, hemoglobin was actually lower in the 9-10 range with the patient had osteomyelitis. I will check iron studies with the plan for iron supplementation if needed, this can be done outpatient at follow-up - Continue to monitor for recurrent bleed, it appears his hemoglobin has remained stable and no acute bleeding at this time. - Given the acuity of the bleed, it would be reasonable to hold anticoagulation presently, we will make follow-up appointment in office within week to recheck CBC and restart Anticoagulation, likely 1-2 weeks off Anticoagulation - Will discharge home on baby aspirin Current Visit: Yes Status: Acute Code(s): K92.2 - GASTROINTESTINAL HEMORRHAGE, UNSPECIFIED SNOMED Code(s): 79981972 (2) VTE (venous thromboembolism) Narrative/Plan: The patient had a significant episode in 05/15, with moderate to heavy bilateral clot burden in the lungs, as well as bilateral DVT. There does not appear to have been any provoking factors. He still had residual DVT on repeat Doppler was in 04/15. In this situation the general recommendation would be to continue anticoagulation lifelong, as long as the patient doesn't have adverse effects. This patient did have GI bleeding, but given the stability of the hemoglobin this appears to have been quite minor. Given his history, he would be at risk of repeat VTE, with stoppage of anticoagulation. As he has had an acute bleed, it would be recommended to hold the anticoagulation at least for now. This should be reasonably safe in the short- term as he has been on treatment for 20+ months. If hemoglobin is stable, I would recommend discharging him on a baby aspirin. - I will also do a repeat risk assessment with CTA, and bilateral venous Dopplers. I would then assess him in the office in about 2-3 weeks. I - Ok for Discharge after CTA and Dopplers on baby aspirin, if scans are ok. - Will see patient in office in 1-2 weeks, will assess at that time plan related to restarting xarelto at same dosing. Current Visit: Yes Status: Acute Code(s): I82.90 - ACUTE EMBOLISM AND THROMBOSIS OF UNSPECIFIED VEIN SNOMED Code(s): 926185512 Plan: Defer to the admitting service for management of his other medical problems
--- NOTE | 2018-02-23 14:15 | P.DS ---
Providers Date of admission: 02/21/18 09:04 Expected date of discharge: 02/23/18 Attending physician: Farzana Michelle Consults: 02/20/18 11:24 Consult Physician Urgent Consulting Provider: Juan R Tello Consult Reason/Comments: GI hemorrhage Do you want consulting provider notified?: Yes 02/21/18 15:13 Consult Physician Routine Consulting Provider: Isaiah Santiago Consult Reason/Comments: ? need for anticoagulation Do you want consulting provider notified?: Yes Primary care physician: [facility] Course: Discharge diagnosis #1 acute gastrointestinal bleeding with check serial CBCs gastroenterology consultation was requested and patient underwent EGD and colonoscopy today which revealed: 1. Large paraesophageal hernia, with no evidence of active GI bleed in the esophagus and stomach. 2. 2 cm pedunculated polyp removed with hot snare. Clip placed and area injected with dye. 3. Blood tinged fluid seen throughout the colon without any evidence of active bleeding. 4. Internal hemorrhoids seen on retroflexion. Patient tolerated regular diet for lunch. Hemoglobin 11.4 Patient has been cleared for discharge from GI standpoint. 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 Will review records if patient on the had 1 incident of DVT and PE he may not need to be on anticoagulation anymore. Discussed case with Gisella MEDICAL OFFICE TECHNICIAN per oncology. Per oncology CTA and venous Doppler have been reviewed. patient will be discharged home on just a baby aspirin. Xarelto will be discontinued until follow-up with Dr. santiago in 1-2 weeks #3 underlying history of hypertension well-controlled continue current medications #4 underlying history of gout maintained on Zyloprim continue #5 underlying history of dementia maintained on Aricept Hospital course Vince Flores is an 82-year-old male who presented to [facility] emergency room after having episodes of rectal bleeding, patient reports having black stools followed by bright red blood in the stools, symptoms started today , there is no nausea or vomiting no abdominal pain no fever or chills. He has a known history of DVT and pulmonary embolism and is maintained on Xarelto. He was evaluated in the emergency room, hemoglobin on presentation was 12.2, he was admitted to medical floor for further evaluation, gastroenterology consultation was requested. On 02/21/2018 patient is alert and oriented 3 in no apparent distress he underwent EGD and colonoscopy this morning there are no more episodes of active bleeding hemoglobin is stable at 11.4 there is no chest pain or shortness of breath no cough no nausea or vomiting no abdominal pain and no diarrhea no urinary symptoms. On 02/22/2018 patient is alert and oriented no new episodes of rectal bleeding patient is tolerating full liquid diet well he denies any chest pain or shortness of breath no nausea or vomiting no abdominal pain no diarrhea and no urinary symptoms On 02/23/2018 patient is alert and oriented 3. Patient reports no signs of rectal bleeding or emesis. Patient had regular diet for lunch. Patient tolerated without any symptoms. GI has cleared patient for discharge hemoglobin stable at 11.4 discussed case in depth with Gisella MEDICAL OFFICE TECHNICIAN per oncology. Patient will be discharged home on baby aspirin and will follow-up in 1-2 weeks in regards to restarting anticoagulation. Xarelto will be discontinued per oncology. Patient denies chest pain or shortness breath. Denies nausea vomiting or diarrhea I performed an examination of the patient and discussed their management with the Nurse Practitioner. I have reviewed the Nurse Practitioner's notes and agree with the documented findings and plan of care Patient Condition at Discharge: Stable Plan - Discharge Summary Discharge Rx Participant: No New Discharge Prescriptions: New Aspirin 81 mg PO DAILY #30 chewable Continue Carvedilol [Coreg] 3.125 mg PO BID Allopurinol [Zyloprim] 300 mg PO DAILY Fesoterodine Fumarate [Toviaz] 8 mg PO DAILY Donepezil [Aricept] 5 mg PO HS Lisinopril [Zestril] 20 mg PO DAILY Simvastatin [Zocor] 40 mg PO HS Furosemide [Lasix] 20 mg PO DAILY Glucosamine Sulfate 500 mg PO DAILY Magnesium 200 mg PO DAILY Multivitamins, Thera [Multivitamin (formulary)] 1 tab PO DAILY Oxybutynin Chloride [Ditropan XL] 10 mg PO DAILY Potassium Chloride [Klor-Con 20] 20 meq PO DAILY Ascorbic Acid [Vitamin C] 500 mg PO DAILY Alva-3 Fatty Acids [Alva-3] 1,000 mg PO DAILY Cholecalciferol [Vitamin D3] 1,000 unit PO DAILY Discontinued Rivaroxaban [Xarelto] 20 mg PO PC-SUPPER Aspirin 162 mg PO DAILY Discharge Medication List Allopurinol [Zyloprim] 300 mg PO DAILY 05/01/16 [History] Carvedilol [Coreg] 3.125 mg PO BID 05/01/16 [History] Donepezil [Aricept] 5 mg PO HS 05/01/16 [History] Fesoterodine Fumarate [Toviaz] 8 mg PO DAILY 05/01/16 [History] Lisinopril [Zestril] 20 mg PO DAILY 05/01/16 [History] Simvastatin [Zocor] 40 mg PO HS 05/01/16 [History] Furosemide [Lasix] 20 mg PO DAILY 09/18/16 [History] Glucosamine Sulfate 500 mg PO DAILY 09/18/16 [History] Magnesium 200 mg PO DAILY 03/14/17 [History] Multivitamins, Thera [Multivitamin (formulary)] 1 tab PO DAILY 04/14/17 [History ] Oxybutynin Chloride [Ditropan XL] 10 mg PO DAILY 04/14/17 [History] Potassium Chloride [Klor-Con 20] 20 meq PO DAILY 04/14/17 [History] Ascorbic Acid [Vitamin C] 500 mg PO DAILY 05/09/17 [History] Cholecalciferol [Vitamin D3] 1,000 unit PO DAILY 05/09/17 [History] Alva-3 Fatty Acids [Alva-3] 1,000 mg PO DAILY 05/09/17 [History] Aspirin 81 mg PO DAILY #30 chewable 02/23/18 [Rx] Follow up Appointment(s)/Referral(s): Suzie Ramírez DO [Primary Care Provider] - 1-2 days Isaiah Santiago MD [STAFF PHYSICIAN] - 1 Week (Pt to call office [phone] for appt) Juan R Tello MD [STAFF PHYSICIAN] - 1 Week Activity/Diet/Wound Care/Special Instructions: Diet regular Activity as tolerated Discharge Disposition: HOME SELF-CARE
[2018-02-23] MEDS: ATORVASTATIN 20 MG TAB PO SCH (20:40)
[2018-02-23] MEDS: DONEPEZIL 5 MG TAB PO SCH (20:40)
[2018-02-24] MEDS: SODIUM CHLORIDE 0.9% 1,000 ML IV SCH (05:02)
[2018-02-24 07:59] VITALS: BP 177/81; PULSE 62; RESP 18; TEMP 97.9
[2018-02-24] MEDS: PANTOPRAZOLE 40 MG/10 ML VIAL IV SCH (08:53)
[2018-02-24] MEDS: OXYBUTYNIN 10 MG TAB.ER.24 PO SCH (08:54)
[2018-02-24] MEDS: CARVEDILOL 3.125 MG TAB PO SCH (08:54)
[2018-02-24] MEDS: LISINOPRIL 20 MG TAB PO SCH (08:54)
[2018-02-24] MEDS: POTASSIUM CHLORIDE ER 20 MEQ TAB.ER PO SCH (08:54)
[2018-02-24] MEDS: CHOLECALCIFEROL 1,000 UNIT TAB PO SCH (08:54)
[2018-02-24] MEDS: MAGNESIUM OXIDE 400 MG TAB PO SCH (08:54)
[2018-02-24] MEDS: ALLOPURINOL 300 MG TAB PO SCH (08:55)
[2018-02-24] MEDS: ASCORBIC ACID 500 MG TAB PO SCH (08:55)
[2018-02-24] MEDS: FUROSEMIDE 20 MG TAB PO SCH (08:55)
--- NOTE | 2018-02-24 11:06 | P.PN ---
Subjective Progress Note Date: 02/24/18 Principal diagnosis: GI bleeding Vince seen and evaluated today in follow-up. No signs of bleeding, hemoglobin stable at 11.4. Patient has appointment at discharge currently , we will have office call him to have him see RIGGING HELPER prior therefore he may resume Xarelto sooner than [address] Santiago would like him to resume in 2, this is when we will make his CBC and AC follow-up in office. Patient aware he will receive call. Objective - Vital Signs Vital signs: Vital Signs Temp 97.9 F 02/24/18 07:57 Pulse 62 02/24/18 08:00 Resp 18 02/24/18 08:00 BP 177/81 02/24/18 07:57 Pulse Ox 97 02/24/18 07:57 Intake & Output 02/23/18 02/24/18 02/24/18 18:59 06:59 18:59 Intake Total 700 2100 Balance 700 2100 Intake: IV 700 Sodium Chloride 0.9% 1, 700 000 ml @ 100 mls/hr IV . Q10H [facility] Rx#:[id number] Intake, IV Titration 200 Amount Sodium Chloride 0.9% 1, 200 000 ml @ 100 mls/hr IV . Q10H [facility] Rx#:[id number] Oral 1900 Other: Voiding Method Toilet Toilet Toilet Urinal Urinal Urinal Diaper Diaper Diaper # Voids 3 - Exam - Constitutional General appearance: no acute distress - EENT Eyes: EOMI, PERRLA ENT: hearing grossly normal, normal oropharynx - Neck Neck: no lymphadenopathy Thyroid: bilateral: normal size - Respiratory Respiratory: bilateral: CTA - Cardiovascular Rhythm: regular Heart sounds: normal: S1, S2 - Gastrointestinal General gastrointestinal: normal bowel sounds, soft - Integumentary Integumentary: normal - Neurologic Neurologic: CNII-XII intact - Musculoskeletal Musculoskeletal: generalized weakness, strength equal bilaterally - Psychiatric Psychiatric: A&O x's 3, appropriate affect - Labs CBC & Chem 7: 02/23/18 06:58 02/23/18 06:58 Assessment and Plan Plan: Assessment and Plan (1) Gastrointestinal hemorrhage Narrative/Plan: The patient's EGD and colonoscopy were negative other than a small amount of blood in the colon. Overall the average appears to have been quite minor, with no major drop in hemoglobin. Hemoglobin has remained in the 11-12 range to appears to be close to his baseline. In fact in 04/15, hemoglobin was actually lower in the 9-10 range with the patient had osteomyelitis. I will check iron studies with the plan for iron supplementation if needed, this can be done outpatient at follow-up - Continue to monitor for recurrent bleed, it appears his hemoglobin has remained stable and no acute bleeding at this time. - Given the acuity of the bleed, it would be reasonable to hold anticoagulation presently, we will make follow-up appointment in office within week to recheck CBC and restart Anticoagulation, likely 1-2 weeks off Anticoagulation - Will discharge home on baby aspirin Current Visit: Yes Status: Acute Code(s): K92.2 - GASTROINTESTINAL HEMORRHAGE, UNSPECIFIED SNOMED Code(s): 84328362 (2) VTE (venous thromboembolism) Narrative/Plan: The patient had a significant episode in 05/15, with moderate to heavy bilateral clot burden in the lungs, as well as bilateral DVT. There does not appear to have been any provoking factors. He still had residual DVT on repeat Doppler was in 04/15. In this situation the general recommendation would be to continue anticoagulation lifelong, as long as the patient doesn't have adverse effects. This patient did have GI bleeding, but given the stability of the hemoglobin this appears to have been quite minor. Given his history, he would be at risk of repeat VTE, with stoppage of anticoagulation. As he has had an acute bleed, it would be recommended to hold the anticoagulation at least for now. This should be reasonably safe in the short- term as he has been on treatment for 20+ months. If hemoglobin is stable, I would recommend discharging him on a baby aspirin. - I will also do a repeat risk assessment with CTA, and bilateral venous Dopplers. I would then assess him in the office in about 2-3 weeks. I - Ok for Discharge after CTA and Dopplers on baby aspirin, if scans are ok. - Will see patient in office in 1-2 weeks, will assess at that time plan related to restarting xarelto at same dosing. Current Visit: Yes Status: Acute Code(s): I82.90 - ACUTE EMBOLISM AND THROMBOSIS OF UNSPECIFIED VEIN SNOMED Code(s): 729445942 DISPO Plan: - Patient aware he is discharging on Baby Aspirin at this time, and will continue to hold Xarelto until seen in office. - He is scheduled to see Dr. Santiago on 03/24/18. Although Dr. Santiago would like him to resume his xarelto approximately around 2 weeks if no further s/s bleeding at discharge and his CBC is stable. We will have office call him to poss. move date up to two weeks or see RIGGING HELPER for AC therapy and CBC check. He is aware of the plan and agrees.
== END 2018-02-24 11:50 | disposition home or self-care (01) | DRG 378 ==
LOC: EC 08:38 → 5MS5E 11:24 → OBSVTOIN 02-21 09:04
PROVIDERS: ADMIT Internal Medicine; ATTEND Internal Medicine
PROC: 0DBK8ZX Excision of Ascending Colon, Via Natural or Artificial Opening Endoscopic, Diagnostic (ICD-10-PCS; principal; 2018-02-21 08:35)
PROC: 0DJ08ZZ Inspection of Upper Intestinal Tract, Via Natural or Artificial Opening Endoscopic (ICD-10-PCS; 2018-02-21 08:35)
DX: K92.2 Gastrointestinal hemorrhage, unspecified (principal); D62 Acute posthemorrhagic anemia; I82.503 Chronic embolism and thrombosis of unspecified deep veins of lower extremity, bilateral; K63.5 Polyp of colon; E78.5 Hyperlipidemia, unspecified; F03.90 Unspecified dementia, unspecified severity, without behavioral disturbance, psychotic disturbance, mood disturbance, and anxiety; H54.61 Unqualified visual loss, right eye, normal vision left eye; I10 Essential (primary) hypertension; K44.9 Diaphragmatic hernia without obstruction or gangrene; K64.8 Other hemorrhoids; M17.0 Bilateral primary osteoarthritis of knee; K57.90 Diverticulosis of intestine, part unspecified, without perforation or abscess without bleeding; M10.9 Gout, unspecified; Z79.01 Long term (current) use of anticoagulants; Z79.82 Long term (current) use of aspirin; Z79.899 Other long term (current) drug therapy; Z87.891 Personal history of nicotine dependence; Z87.11 Personal history of peptic ulcer disease; Z86.711 Personal history of pulmonary embolism; Z86.010 Personal history of colon polyps; Z85.46 Personal history of malignant neoplasm of prostate; Z87.442 Personal history of urinary calculi; Z86.14 Personal history of Methicillin resistant Staphylococcus aureus infection; Z90.79 Acquired absence of other genital organ(s); Z98.42 Cataract extraction status, left eye; Z96.1 Presence of intraocular lens; Z82.0 Family history of epilepsy and other diseases of the nervous system
CPT/HCPCS: 36415; 43200; 45381; 45382; 45385; 71275; 80053; 82272; 82550; 82553; 82728; 83540; 83550; 84484; 85025; 85027; 85610; 85730; 88305; 93970; 96374; 99285

== ENCOUNTER 2018-07-21 08:58 | Day surgery (SDC) | payer MEDICARE ==
[2018-07-17 15:58] VITALS: BMI 37.6
[~2018-07-21 08:58] MED LIST: LACTATED RINGERS 1,000 ML IV SCH; LIDOCAINE 1% 20 ML VIAL (10MG/ML) FOR IV START INTRADERMA PRN
[2018-07-21] MEDS ORDERED: LIDOCAINE 1% 20 ML VIAL (10MG/ML) FOR IV START INTRADERMA ONE (09:31)
[2018-07-21 09:36] VITALS: RESP 16; TEMP 97.2
--- NOTE | 2018-07-21 09:38 | P.GSHP ---
History of Present Illness H&P Date: 07/21/18 Chief Complaint: History of colon polyps This is a 82-year-old male who presents today for colonoscopy. Patient had a previous history of colon polyps. 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 DENIES DEMENTIA History of Any Multi-Drug Resistant Organisms: MRSA Date of last positivie culture/infection: 03/14/17 MDRO Source:: KNEE Past Surgical History: Hernia Repair, Orthopedic Surgery, Prostate Surgery, Tonsillectomy Additional Past Surgical History / Comment(s): 2009 colonoscopy, L eye cataract surgery, L eye laser surgery, R eye surgery for retinal detachment-unsuccessful , R inguinal hernia repair x2, prostatectomy due to cancer.i&d left DISTAL KNEE. PICC LINE LT ARM-SINCE REMOVED Past Anesthesia/Blood Transfusion Reactions: No Reported Reaction Additional Past Anesthesia/Blood Transfusion Reaction / Comment(s): Pt states he has never received blood. Smoking Status: Former smoker - Past Family History Father Family Medical History: Musculoskeletal Disorder, Neurologic Disorder Additional Family Medical History / Comment(s): Father of parkinson's disease at the age of 72 yrs. Mother Family Medical History: Dementia, Musculoskeletal Disorder, Neurologic Disorder Additional Family Medical History / Comment(s): Mother had polio at the age of 2 yrs and wore braces and used crutches to ambulate. She at the age of 95 yrs from dementia and bowel obstruction. Medications and Allergies Home Medications Medication Instructions Recorded Confirmed Type Allopurinol [Zyloprim] 300 mg PO DAILY 05/01/16 07/21/18 History Carvedilol [Coreg] 3.125 mg PO BID 05/01/16 07/21/18 History Donepezil [Aricept] 5 mg PO HS 05/01/16 07/21/18 History Lisinopril [Zestril] 20 mg PO DAILY 05/01/16 07/21/18 History Simvastatin [Zocor] 40 mg PO HS 05/01/16 07/21/18 History Furosemide [Lasix] 20 mg PO DAILY 09/18/16 07/21/18 History Multivitamins, Thera [Multivitamin 1 tab PO DAILY 04/14/17 07/21/18 History (formulary)] Oxybutynin Chloride [Ditropan XL] 10 mg PO DAILY 04/14/17 07/21/18 History Potassium Chloride [Klor-Con 20] 20 meq PO DAILY 04/14/17 07/21/18 History Cholecalciferol [Vitamin D3] 1,000 unit PO DAILY 05/09/17 07/21/18 History Aspirin 81 mg PO DAILY #30 chewable 02/23/18 07/21/18 Rx Rivaroxaban [Xarelto] 20 mg PO DAILY 07/17/18 07/21/18 History Allergies Allergy/AdvReac Type Severity Reaction Status Date / Time Sulfa (Sulfonamide Allergy Unknown Verified 07/21/18 09:31 Antibiotics) Childhood Surgical - Exam Vital Signs Temp Pulse Resp BP Pulse Ox 97.2 F L 63 16 129/69 99 07/21/18 09:34 07/21/18 09:34 07/21/18 09:34 07/21/18 09:34 07/21/18 09:34 - General well developed, well nourished, no distress - Eyes PERRL, normal ocular movement - ENT normal pinna - Neck no masses - Respiratory normal expansion - Cardiovascular Rhythm: regular - Abdomen Abdomen: soft, non tender Assessment and Plan Assessment: History of colon polyps. Patient will undergo colonoscopy.
[2018-07-21] MEDS ORDERED: PROPOFOL 10 MG/ML 20 ML VIAL IV ONE (09:39)
--- NOTE | 2018-07-21 09:59 | P.OP ---
Date of Procedure: 07/21/18 Preoperative Diagnosis: History of colon polyps Postoperative Diagnosis: Mild diverticulosis Procedure(s) Performed: Colonoscopy Anesthesia: MAC Surgeon: Chavez Sweet Pathology: none sent Condition: stable Disposition: PACU Description of Procedure: The patient's placed on the endoscopy table in the lateral position. He received IV sedation. Digital rectal exam performed which revealed no abnormalities. Flexible colonoscope was then placed patient anus passed throughout the entire colon. The ileocecal valve was visualized. The cecum, ascending and transverse colon appeared normal. In the descending and; was mild diverticular changes. Scope was then brought back the rectum and this appeared normal. The withdrawn for patient. There were no polyps seen throughout the entire colon.
[2018-07-21 10:05] VITALS: PULSE 52
[2018-07-21 10:21] VITALS: BP 121/76
== END 2018-07-21 11:01 | disposition home or self-care (01) ==
LOC: ORWHC2ENDO 08:58
PROVIDERS: ATTEND Surgery
DX: Z12.11 Encounter for screening for malignant neoplasm of colon (principal); K57.30 Diverticulosis of large intestine without perforation or abscess without bleeding; Z86.010 Personal history of colon polyps; E78.5 Hyperlipidemia, unspecified; I10 Essential (primary) hypertension; M19.90 Unspecified osteoarthritis, unspecified site; H33.21 Serous retinal detachment, right eye; M10.9 Gout, unspecified; D50.9 Iron deficiency anemia, unspecified; Z79.01 Long term (current) use of anticoagulants; Z79.899 Other long term (current) drug therapy; Z79.82 Long term (current) use of aspirin; Z88.2 Allergy status to sulfonamides; Z90.79 Acquired absence of other genital organ(s); Z85.46 Personal history of malignant neoplasm of prostate; Z87.19 Personal history of other diseases of the digestive system; Z87.11 Personal history of peptic ulcer disease; Z86.711 Personal history of pulmonary embolism; Z86.718 Personal history of other venous thrombosis and embolism; Z87.442 Personal history of urinary calculi; Z86.14 Personal history of Methicillin resistant Staphylococcus aureus infection; Z87.891 Personal history of nicotine dependence
CPT/HCPCS: J2704; G0105; 45378